=== PATIENT | male | born 1955 | race Caucasian/White ===

== ENCOUNTER 2023-07-04 23:50 | Inpatient (IN) | payer OTHER, MEDICAID, SELFPAY ==
[2023-07-04 20:56] VITALS: BP 92/66
[2023-07-04 21:20] VITALS: BMI 34.1
[2023-07-04 21:32] LABS: Glucose - Point of Care 156 mg/dl (70-99)
--- NOTE | 2023-07-04 21:54 | ED.GENMED ---
History of Present Illness
General
Chief Complaint: Weakness
Source: patient and spouse
Time Seen by Provider: 07/04/23 21:40
Travel History
Have you had any contact with someone who has COVID-19?: No
Do you have any symptoms of coronavirus? Fever > 100 degrees, chills, cough, shortness of breath, sore throat, loss of taste or smell, muscle aches, or headache?: No
History of Present Illness
History of Present Illness:
68-year-old male presents emergency department due to bilateral leg pain, weakness and fall.
Past History
Past History
ED Past Medical History: CVA, HTN, Hypercholesterolemia, Psychiatric (Depression, ) and Other (Traumatic brain injury, impaired hearing, irritable bowel syndrome, Slight dementia)
ED Past Surgical History: Bowel resection (Due to bowel obstruction, Colostomy with reversal), Cardiac (Pacemaker) and Orthopedic (Right hand surgery)
Social History
Tobacco: Former smoker
Alcohol: None
Drug: None
Personal: Single
Living: with family (Resides with his sister)
Employment: Not employed
Family History
Family History: Other (Noncontributory)
Phy Exam
Physical Exam
Physical Exam:
Physical Exam
General: Chronic ill appearance, temperature 100.2
Neck: supple. no meningeal signs. normal posterior pharynx
Heart: s1/s2 tachycardia, no murmur. equal radial
pulses.
HEENT: Pupils equal round reactive to light, EOMI
Lungs: no acute respiratory distress. clear bilaterally
Abdomen: normal bowel sounds. not tender. no CVAT
Neuro: alert and oriented to person. no focal neurological deficits cranial nerves II through XII intact
Skin: no rash
Psychiatric: well kept. interactive and cooperative
Extremities: Bilateral lower leg edema. no calf tenderness. negative homans. good distal pulses
Course
Orders/Labs/Results
Orders:
Orders
07/04/23 21:16
Electrocardiogram (*1) Urgent
Reason for Study: Other
Other Reason for Exam: Possible Sepsis
Cardiac Monitoring- Treatment ONCE
EKG- Treatment ONCE
IV Insert/Care/Rem.- Treatment PRN
Straight cath- Treatment ONCE
O2 Therapy [RESP] Urgent
Titrate/Wean O2 to maintain O2 sat greater than (%): 93
Special Instructions: TO MAINTAIN CONTINUOUS O2 SATS > OR = 93%
Pulse Ox/cont/shift [RESP] Urgent
Quantity: 1
Special Instructions: CONTINUOUS
07/04/23 21:25
CR Chest Portable - 1 View Urgent
Comment:
Reason For Exam: sepsis
Reason Study Needs to be Portable: Patient Unstable
07/04/23 21:40
COVID-19 Antigen Urgent
Source: Nasal Swab
Complete Blood Count/With Diff Urgent
Lactic Acid Q4H
Comment: ON ICE, CANCEL 2ND ORDER IF FIRST LACTIC ACID LEVEL <2
Blood Culture Q30M
CASH Source: Blood/Venous
Specimen Description:
Comment: FROM 2 SEPARATE SITES
Influenza A+B Rapid Molecular Urgent
CASH Source: Nasal Swab
Specimen Description:
07/04/23 21:52
0.9% Sodium Chloride 1000 ml [Nss] 1,000 ml IV BOLUS
Acetaminophen [Tylenol] 650 mg PO NOW STA
07/04/23 21:53
Perip Venous LOWER Ext Bradford Urgent
Comment:
Reason For Exam: bilateral leg pain, swelling
07/04/23 22:18
Lidocaine 2% [Lidocaine Uro-Jet 2%] 1 syringe .ROUTE .STK-MED ONE
07/04/23 22:23
0.9% Sodium Chloride 1000 ml [Nss] 1,000 ml IV BOLUS
07/04/23 22:25
Cefepime HCl [Maxipime] 2,000 mg IV NOW STA
07/04/23 22:30
Urinalysis Reflex To Culture Urgent
Date Specimen was Collected: 07/04/23
Time Specimen was Collected: 21:16
Urine Microscopic Reflex Cult Urgent
Blood Culture Q30M
CASH Source: Blood/Venous
Specimen Description:
Comment: FROM 2 SEPARATE SITES
Urine Culture Urgent
CASH Source: U
Specimen Description:
Date Specimen was Collected: 07/04/23
Time Specimen was Collected: 21:16
07/04/23 22:43
Comprehensive Metabolic Panel Urgent
07/04/23 23:02
Vancomycin [Vancocin] 2,000 mg 0.9% Sodium Chloride 500 ml [Nss] 500 ml IV NOW
07/04/23 23:38
PTT Urgent
Prothrombin Time Urgent
07/04/23 23:39
Heparin 7,900 units IV NOW STA
Nursing to Place Non Medication Order As Directed
Physician Order: PTT 6 hours after initial start of Heparin infusion
07/04/23 23:45
Heparin 74909 Units/250 ml 25,000 units in 250 ml IV PER PROTOCOL
Weight to be used for heparin protocol in kilograms (kg):: 98.7
Protocol:: DVT/PE
PTT Goal Range to be used:: PTT 73 to 111 seconds
Order type:: Initial
INITIAL Infusion Dose (UNITS/KG/hr) & then follow protocol:: 18 units/kg/hr
Infusion Dose in UNITS/hr & then follow protocol (UNITS/hr):: 1,800
INFUSION RATE in mL/hr & then follow protocol (mL/hr):: 18
For DVT/PE algorithm, re-bolus for low PTT?: Yes
PTT less than or equal to 64 seconds:: Re-bolus 80 units/kg (max 10,000units). Increase by 400 units/hr
(+ 4mL/hr)
PTT 64.1 to 72.9 seconds:: Re-bolus 40 units/kg (max 5,000 units). Increase by 200 units/hr
(+ 2mL/hr)
PTT 73 to 111 seconds:: Target Range. No change in rate.
PTT 111.1 to 130.9 seconds:: Decrease rate by 200 units/hr (- 2 mL/hr)
PTT 131 to 199.9 seconds:: HOLD for 1 hr. Then decrease by 300 units/hr (- 3mL/hr)
PTT greater than or equal to 200 seconds:: HOLD for 2 hrs & Notify Provider. Then decrease by 400 units/hr
(- 4mL/hr)
Lab follow-up:: Each change, PTT q6h until 2 consecutive are therapeutic. Then
PTT daily.
07/05/23 01:30
Lactic Acid Q4H
Comment: ON ICE, CANCEL 2ND ORDER IF FIRST LACTIC ACID LEVEL <2
Abnormal Lab Results
07/04/23 07/04/23 07/04/23
21:31 21:40 22:30
WBC 17.7 H 10^3/uL
(4.8-10.8)
RDW 15.2 H %
(11.5-14.5)
MPV 11.1 H fL
(7.4-10.4)
Abs Immat Gran (auto) 0.1 H 10^3/uL
(0-0.05)
Absolute Neuts (auto) 15.9 H 10^3/uL
(1.4-6.5)
Absolute Lymphs (auto) 0.8 L 10^3/uL
(1.2-3.4)
Absolute Monos (auto) 0.8 H 10^3/uL
(0.1-0.6)
Immature Gran % 0.6 H %
(0-0.5)
Neutrophils % 89.8 H %
(42.2-75.2)
Lymphocytes % 4.2 L %
(20.5-51.1)
Sodium
BUN
Creatinine
Glucose
Lactic Acid 3.3 H mmol/L
(0.7-2.0)
Total Bilirubin
AST
ALT
Urine Ketones Trace A
(Negative)
Urine Bilirubin 1+ A
(Negative)
Leukocyte Esterase Rfl Trace A
(Negative)
Urine Bacteria (Reflex) Moderate A
(Negative)
POC Glucose 156 H mg/dl
(70-99)
07/04/23
22:43
WBC
RDW
MPV
Abs Immat Gran (auto)
Absolute Neuts (auto)
Absolute Lymphs (auto)
Absolute Monos (auto)
Immature Gran %
Neutrophils %
Lymphocytes %
Sodium 134 L mmol/L
(135-145)
BUN 28 H mg/dl
(9-20)
Creatinine 1.9 H mg/dL
(0.7-1.3)
Glucose 123 H mg/dl
(70-99)
Lactic Acid
Total Bilirubin 1.7 H mg/dl
(0.2-1.3)
AST 74 H U/L
(17-59)
ALT 76 H U/L
(0-50)
Urine Ketones
Urine Bilirubin
Leukocyte Esterase Rfl
Urine Bacteria (Reflex)
POC Glucose
07/04/23 21:40
07/04/23 22:43
Vital Signs
Initial and Last Documented VS:
Initial Vital Signs
Pulse Resp BP Pulse Ox
131 24 92/66 93
07/04/23 20:56 07/04/23 20:56 07/04/23 20:56 07/04/23 20:56
Last Documented Vital Signs
Temp Pulse Resp BP Pulse Ox
98.2 F 90 20 101/71 97
07/05/23 02:38 07/05/23 02:38 07/05/23 02:38 07/05/23 02:38 07/05/23 02:38
MDM/Problems Addressed
Differential Diagnosis Includes:
DVT, sepsis
MDM/Problems Addressed:
68-year-old male with sepsis, bilateral DVT. Heparin and broad-spectrum antibiotics given.
Chronic conditions affecting care: Other (Prior DVT)
Acute Exacerbation and/or Progression of Chronic Illness: Other (Prior DVT)
*Radiology
Radiology exam reviewed: radiology read reviewed (Ultrasound shows bilateral DVT, CT chest abdomen pelvis showed no acute findings, but bilateral DVTs)
*Pulse Oximetry
Patient hypoxic: no
*EKG
Interpreted by ED Provider?: Yes
EKG Intrepretation Date: 07/05/23
EKG Intrepretation Time: 21:23
Interpretation: abnormal
Comparison EKG: no changes
Heart Rate: 106
Rate: tachycardiac
Rhythm: sinus tachycardia
[place]: normal axis
Interval: normal interval
QRS Pattern: normal QRS
Ischemia: no ischemia
*Cage Tender Interpretation
Rate: tachycardiac
Interpretation: abnormal
Heart Rate: 100
*Critical Care Note
Total Time (30-74mins, 75-104mins- exclusive of procedures): 30
comment:
Critical care statement: A total of 30 minutes of critical care time was provided for this patient. This includes management of unstable vital signs, evaluation of the patient at bedside, reviewing the patient's pertinent medical records, discussion
with consultants, review of old EKGs and review of pertinent medical records. This time with separate from time utilized to perform the aforementioned documented procedures
Patient Management
Social determinants of health affecting care: Living situation and Strong social support
Discussion with other providers: Hospitalist
Escalation/DeEscalation of care consider admission/obs:
Admit indicated
ED Attending Note
-
Portions of this chart may have been created with voice recognition software.� Occasional wrong word or��sound alike� substitutions may have occurred due to the inherent limitations of voice recognition software.
Discharge Plan
Departure
Patient Disposition: Admit
Date of Disposition: 07/04/23
Time of Disposition: 23:28
Admit to: ICU
Presentation/result/management discussed w/ accepting MD/DO: Hospitalist
Patient with high blood pressure during this ER visit?: No
Condition: Serious
Discharge Problem:
Sepsis, Acute renal failure, DVT (deep venous thrombosis)
Interventions
Interventions:
*Risk Screen - Suicide Last Done: 07/04/23 20:56
*General Assessment Last Done: 07/04/23 20:56
*Neglect/Abuse Screening Last Done: 07/04/23 20:56
ED- Fall Risk Assessment Last Done: 07/04/23 20:56
*ED COVID-19 Vaccine History Last Done: 07/04/23 20:56
ED- Cardiac Assessment Last Done: 07/04/23 21:22
ED- Neurological Assessment Last Done: 07/04/23 21:22
ED- Pulmonary Assessment Last Done: 07/04/23 21:22
[2023-07-04 21:56] LABS: % Basophils 0.3 % (0-2); % Eosinophils 0.5 % (0-6); % Immature Granulocytes 0.6 % (0-0.5); % Lymphocytes 4.2 % (20.5-51.1); % Monocytes 4.6 % (1.7-9.3); % Neutrophils 89.8 % (42.2-75.2); Absolute Basophils 0.1 10^3/uL (0-0.2); Absolute Eosinophils 0.1 10^3/uL (0-0.7); Absolute Immature Granulocytes 0.1 10^3/uL (0-0.05); Absolute Lymphocytes 0.8 10^3/uL (1.2-3.4); Absolute Monocytes 0.8 10^3/uL (0.1-0.6); Absolute Neutrophils 15.9 10^3/uL (1.4-6.5); Hematocrit 43.5 % (39.0-52.0); Hemoglobin 14.7 g/dL (13.0-18.0); Mean Corp Hgb Conc. 33.8 g/dL (33.0-37.0); Mean Corpuscular Hgb 29.3 pg (27.0-31.0); Mean Corpuscular Volume 86.8 fL (80.0-94.0); Mean Platelet Volume 11.1 fL (7.4-10.4); Nucleated Red Blood Cells % 0 % (-); Platelet Count 222 10^3/uL (130-400); Red Blood Cell Count 5.01 10^6/uL (4.70-6.10); Red Cell Dist. Width 15.2 % (11.5-14.5); White Blood Cell Count 17.7 10^3/uL (4.8-10.8)
[2023-07-04 22:08] LABS: Lactic Acid 3.3 mmol/L (0.7-2.0)
[2023-07-04 22:16] LABS: COVID-19 Antigen Negative (Negative)
[2023-07-04 22:38] LABS: Urine Albumin Trace (Neg - Trace); Urine Bilirubin 1+ (Negative); Urine Character Clear (Clear); Urine Color Yellow; Urine Glucose Negative (Negative); Urine Ketone Trace (Negative); Urine Leukocyte Trace (Negative); Urine Nitrite Negative (Negative); Urine Occult Blood Negative (Negative); Urine Specific Gravity 1.025 (<1.030); Urine Urobilinogen Negative (Neg - 1+)
[2023-07-04 22:47] LABS: Urine Squamous Cell 0-2 /LPF (Few)
[2023-07-04 22:48] LABS: Urine Bacteria Moderate (Negative); Urine Red Blood Cell 0-2 /HPF (0-2); Urine White Cell 0-2 /HPF (0-5)
[2023-07-04] MEDS: NSS 1000 IV (22:58)
[2023-07-04] MEDS: TYLENOL 650 MG PO (22:59)
[2023-07-04 23:18] LABS: ALT (SGPT) 76 U/L (0-50); AST (SGOT) 74 U/L (17-59); Albumin 4.2 g/dl (3.5-5.0); Alkaline Phosphatase 107 U/L (38-126); Blood Urea Nitrogen 28 mg/dl (9-20); Calcium 9.1 mg/dl (8.4-10.2); Carbon Dioxide 22 mmol/L (22-30); Chloride 103 mmol/L (98-107); Estimated Creatinine Clearance 42 ml/min; Glucose 123 mg/dl (70-99); Sodium 134 mmol/L (135-145); Total Bilirubin 1.7 mg/dl (0.2-1.3); Total Protein 7.2 g/dl (6.3-8.2); eGFR 37.95
[2023-07-05] VITALS (20 sets, daily range): BP systolic 87–125; BP diastolic 61–85; BMI 35.3
--- NOTE | 2023-07-05 00:14 | HPS.HSE ---
Family Physician
-
Family Physician: NOT KNOW UNKNOWN - PT DOES
Chief Complaint
-
leg pain
History of Present Illness
68-year-old male past medical history of traumatic brain injury, TIA, bowel obstruction status post resection, hypertension, pacemaker, hyperlipidemia, depression, presenting for increased bilateral lower extremity edema over the past week. Patient
was also complaining of pain in his legs. He has been weak and more confused over the past few days. He has also been having some cough over the past few days. He did have some dry heaving today but no vomiting. He was complaining of abdominal
pain. No diarrhea or constipation.
He also complains of pain all over his body including his neck and back. No headache at this time.
Medical History
Past Medical History
Past Medical History: Reports Other (traumatic brain injury, TIA, bowel obstruction status post resection, hypertension, pacemaker, hyperlipidemia, depression,)
Past Surgical History: Reports Other ( Bowel resection (Due to bowel obstruction, Colostomy with reversal), Cardiac (Pacemaker) and Orthopedic (Right hand surgery))
Social History
Tobacco: Non-smoker
Alcohol: None
Drug: None
Family History
Family History: Not pertinent
Allergies / Home Medications
Allergies reflects when Allergies were last updated in [employer].
Home Medications with original date entered in [employer]
Allergy/Medication List:
Allergies
Allergy/AdvReac Type Severity Reaction Status Date / Time
No Known Allergies Allergy Verified 07/04/23 20:54
Home Medications
metoprolol tartrate 50 mg tablet 25 mg PO BID Blood pressure 09/24/19
trazodone 100 mg tablet 150 mg PO HS Sleep 09/24/19
aspirin 81 mg tablet,delayed release 81 mg PO DAILY #90 tabs 09/26/19
dicyclomine 20 mg tablet 20 mg PO TID Gastrointestinal issue 03/08/22
aripiprazole 10 mg tablet 10 mg PO DAILY 07/04/23
aripiprazole 5 mg tablet 5 mg PO DAILY 07/04/23
diazepam 10 mg tablet 10 mg PO QID 07/04/23
diazepam 2 mg tablet 2 mg PO QID 07/04/23
donepezil 10 mg tablet 10 mg PO HS 07/04/23
fluoxetine 60 mg tablet 60 mg PO DAILY 07/04/23
fluticasone propionate 50 mcg/actuation nasal spray,suspension 1 spray intranasal DAILY 07/04/23
gabapentin 100 mg capsule 100 mg PO BID 07/04/23
loperamide 2 mg capsule 2 mg PO DAILY 07/04/23
naphazoline 0.012 %-glycerin 0.2 % eye drops (Redness Relief) 1 drp BOTH EYES DAILY 07/04/23
omeprazole 40 mg capsule,delayed release 40 mg PO DAILY 07/04/23
pravastatin 80 mg tablet 80 mg PO DAILY 07/04/23
Review of Systems
-
History Source: Patient
A 12 point ROS was completed and negative except as noted: Yes
Constitutional: Reports No Symptoms
EENT: Reports No Symptoms
Respiratory: Reports See HPI
Cardiac: Reports No Symptoms
Abdomen/GI: Reports No Symptoms
: Reports No Symptoms
Musculoskeletal: Reports See HPI
Skin: Reports No Symptoms
Neurological: Reports See HPI
Endocrine: Reports No Symptoms
Hematologic/Lymphatic: Reports No Symptoms
Psych: Reports No Symptoms
Physical Exam
Vital Signs
Vital Signs
Temp Pulse Resp BP Pulse Ox
100.1 F 109 20 92/66 95
07/04/23 21:09 07/04/23 22:39 07/04/23 22:39 07/04/23 20:56 07/04/23 22:39
Physical Exam
General: Well Developed, Well Nourished and No Apparent Distress
HEENT: NormoCephalic, Moist mucous membranes and Atraumatic
Respiratory: Clear
Cardiac: S1/S2 and Regular Rhythm; No Murmur or Rub
GI: Soft, Non Tender, Non Distended and Normal Bowel Sounds; No Organomegaly
Rectal: Deferred by Provider
Musculoskeletal: No Clubbing, No Cyanosis and No Edema
Skin: No Rash
Neuro: Nonfocal/grossly intact
Laboratory Results
-
07/04/23 21:40
07/04/23 22:43
Laboratory Results
Lactic Acid 3.3 mmol/L (0.7-2.0) H 07/04/23 21:40
Total Bilirubin 1.7 mg/dl (0.2-1.3) H 07/04/23 22:43
AST 74 U/L (17-59) H 07/04/23 22:43
ALT 76 U/L (0-50) H 07/04/23 22:43
Alkaline Phosphatase 107 U/L (38-126) 07/04/23 22:43
Data Reviewed
-
Lab Data: Labs Reviewed by me
Old Records: Reviewed
Impression/Plan
-
IMPRESSION:
PLAN:
# Sepsis (fever, tachycardia, tachypnea, leukocytosis) suspect intra-abdominal pathology vs meningitis
-Patient with some URI symptoms and placed on oxygen however chest x-ray unremarkable
-Urinalysis unremarkable
-Check blood cultures
-Check CT chest abdomen pelvis without contrast given abdominal tenderness and transaminitis
-Patient complains of pain all over his body including neck but is alert on examination,
-May need to consider lumbar puncture to evaluate for bacterial meningitis if CAT scan negative
-IV fluids
-Empiric Vancomycin/cefepime/ampicllin/flagyl to cover intra-abdominal pathology and meningitis which can be de-escalated if another source of infection can be found
-Hold sedating medications such as gabapentin to avoid suppressing mental status
# Bilateral lower extremity DVTs
-As per venous ultrasound
-Heparin drip
# Acute kidney injury prerenal due to sepsis
-Monitor with IV fluids
# Transaminitis
-Unclear etiology
-Check CT scan
History of traumatic brain injury/dementia
-Continue donepezil
History of TIA
-Continue aspirin
History of bowel obstruction status post resection
Essential hypertension
-Hold metoprolol
Bradycardia status post pacemaker
Hyperlipidemia
-Continue statin
Depression
-Continue aripiprazole, fluoxetine,
-Hold diazepam, trazodone
GERD
-Continue omeprazole
Full code
DVT prophylaxis�heparin drip
Regular diet
[2023-07-05] MEDS: MAXIPIME 2000 MG IV (00:18)
[2023-07-05 00:26] LABS: INR 1.11; PT 14.1 Sec (11.4-14.6)
[2023-07-05 00:27] LABS: APTT 30.7 Sec (23.4-35.0)
[2023-07-05] MEDS: NSS 1000 IV ×3 (00:49→15:54)
[2023-07-05] MEDS: VANCOCIN 540 MG IV (00:52)
[2023-07-05] MEDS: HEPARIN 7900 UNITS IV (01:25)
[2023-07-05] MEDS: HEPARIN 25000 UNITS/250 ML IV ×2 (01:26→19:39)
[2023-07-05] MEDS: AMPICILLIN 108 MG IV ×2 (03:43→08:23)
--- NOTE | 2023-07-05 04:47 | PTCARENOTE ---
Pt admit from ED via stretcher. Assisted into bed and made comfortable. Heparin gtt infusing as ordered. Assessment as charted. Discussed with house EXPLOSIVE MAN lab orders due to pt being extremely difficult stick. Lactic can be drawn at 0725 with other
morning labs and PTT.
[2023-07-05] MEDS: ROCEPHIN 2000 MG IV (05:07)
[2023-07-05] MEDS: FLAGYL 500 MG 100 IV (05:07)
[2023-07-05] MEDS: STERILE WATER FOR INJECTION 20 ML IV (05:07)
[2023-07-05] MEDS: BENTYL 20 MG PO ×3 (08:23→22:58)
[2023-07-05] MEDS: PROTONIX 40 MG PO (08:23)
[2023-07-05] MEDS: ABILIFY 5 MG PO (08:23)
[2023-07-05] MEDS: IMODIUM 2 MG PO (08:23)
[2023-07-05] MEDS: ASPIR LOW (ENTERIC COATED) 81 MG PO (08:23)
[2023-07-05] MEDS: PRAVACHOL 80 MG PO (08:23)
[2023-07-05] MEDS: PROZAC 60 MG PO (08:24)
[2023-07-05] MEDS: ABILIFY 10 MG PO (08:24)
[2023-07-05 08:37] LABS: % Basophils 0.4 % (0-2); % Eosinophils 1.1 % (0-6); % Immature Granulocytes 0.4 % (0-0.5); % Lymphocytes 9.7 % (20.5-51.1); % Monocytes 5.8 % (1.7-9.3); % Neutrophils 82.6 % (42.2-75.2); Absolute Eosinophils 0.1 10^3/uL (0-0.7); Absolute Monocytes 0.6 10^3/uL (0.1-0.6); Absolute Neutrophils 8.2 10^3/uL (1.4-6.5); Hematocrit 37.6 % (39.0-52.0); Hemoglobin 12.9 g/dL (13.0-18.0); Mean Corp Hgb Conc. 34.3 g/dL (33.0-37.0); Mean Corpuscular Hgb 30.1 pg (27.0-31.0); Mean Corpuscular Volume 87.6 fL (80.0-94.0); Mean Platelet Volume 11.3 fL (7.4-10.4); Nucleated Red Blood Cells % 0 % (-); Platelet Count 143 10^3/uL (130-400); Red Blood Cell Count 4.29 10^6/uL (4.70-6.10); Red Cell Dist. Width 15.2 % (11.5-14.5); White Blood Cell Count 9.9 10^3/uL (4.8-10.8)
--- NOTE | 2023-07-05 08:49 | PHA.VAN.IN ---
Assessment
- Assessment
Renal Function: Appears elevated from baseline
Renal Function may be Overestimated due to: BMI>30
Concomitant Antimicrobials: AMPICILLIN, CEFTRIAXONE, METRONIDAZOLE
Plan
- Plan
Initial / Loading Dose: 2000mg 07/05
Maintenance Regimen: prn by level
Monitoring: random 07/06 in AM
Pharmacokinetics Vancomycin I
- -
Patient Age: 68
Patient Sex: Male
Vancomycin Day #: 1
Indication: [employer] Service Manager Infection
Requesting Provider: [place]o
Pertinent Antimicrobial Allergies:
NKDA
Height / Weight:
Height 5 ft 7 in
Actual Weight 102.1 kg
IBW in k.1
- Vital Signs / Lab Results
Temp Pulse Resp BP Pulse Ox
97.9 F 66 10 87/61 95
07/05/23 04:33 07/05/23 06:00 07/05/23 06:00 07/05/23 06:00 07/05/23 06:00
Lab Results - Hematology
07/04/23 07/05/23
21:40 08:29
WBC 17.7 H 9.9
Lab Results - Chemistry
07/04/23 07/04/23
21:40 22:43
BUN Cancelled 28 H
Creatinine Cancelled 1.9 H
Estimated Creat Clear Cancelled 42
Albumin Cancelled 4.2
07/04/23
21:40
Lactic Acid 3.3 H
Lab Results - Urine
07/04/23
22:30
Urine Nitrite (Reflex) Negative
Leukocyte Esterase Rfl Trace A
Urine WBC (Reflex) 0-2
Ur Squamous Epith Cells 0-2
Urine Bacteria (Reflex) Moderate A
Microbiology Results
07/04/23 21:40 Influenza Types A & B (AROLDO) - Final
Nasal Swab Negative for Influenza A & B, NAAT
Negative results must be combined with clinical observations
and patient history.
Nucleic Acid Amplification test (NAAT)performed on the
[employer] platform.
[2023-07-05 08:54] LABS: Lactic Acid 1.3 mmol/L (0.7-2.0)
[2023-07-05 09:21] LABS: APTT > 200 Sec (23.4-35.0)
[2023-07-05 10:33] LABS: APTT > 200 Sec (23.4-35.0)
[2023-07-05 10:44] LABS: ALT (SGPT) 65 U/L (0-50); AST (SGOT) 63 U/L (17-59); Albumin 3.5 g/dl (3.5-5.0); Alkaline Phosphatase 99 U/L (38-126); Blood Urea Nitrogen 22 mg/dl (9-20); Calcium 8.1 mg/dl (8.4-10.2); Carbon Dioxide 22 mmol/L (22-30); Chloride 108 mmol/L (98-107); Estimated Creatinine Clearance 62 ml/min; Glucose 99 mg/dl (70-99); Potassium 4.5 mmol/L (3.5-5.1); Sodium 137 mmol/L (135-145); Total Bilirubin 1.1 mg/dl (0.2-1.3); Total Protein 6.3 g/dl (6.3-8.2); eGFR 59.84
--- NOTE | 2023-07-05 13:01 | PTCARENOTE ---
Assumed care of pt this morning. Hx of TBI and he is alert and oriented to place but needs continued reassurance and reminders to plan of care. Hi NSR on monitor with a run of A flutter, pt asymptomatic and this is reported to MD. Pt on 4 L NC
lungs diminished throughout. Obese abdomen with scars, in crease of abdomen there appears to be a black stitch of some sort. Bowel tones present x 4. No BM today. Awaiting results of ABD CT from midnight. Call to CT department in order to facilitate
results. Pt unable to explain this, will have physician assess on rounds. Many complaints of need to void but unable to do so. Bladder scan > 425 ml and straight cath completed without event. obtained 500ml orange tinged urine with odor. Pt reports
feeling relief after st. cath. Pt continually calling out for staff, using call light but almost continuously.
--- NOTE | 2023-07-05 13:27 | PTCARENOTE ---
Dr. Cruz at bedside and he removed the stitch at bedside without event. Site covered with 2x2 gauze
--- NOTE | 2023-07-05 13:48 | W.PN.HOSP.TC ---
Today's Communication/Plan
-
Continue broad-spectrum antibiotics. Follow culture data.
Consult vascular.
Consult ID.
Assessment / Plan
Assessment / Plan
# Bilateral lower extremity DVTs
-Patient with a history of TBI and poor historian secondary to that. His cognitive impairments from it.
-His main presenting complaint was bilateral lower extremity pain. Ultrasound shows extensive DVT on the right and also DVT on the left.
-cw Heparin drip. Follow HH
# IVC filter associated extensive thrombosis with the concern of acute septic thrombophlebitis-continue with IV heparin as above. Consult vascular.
# Sepsis (fever, tachycardia, tachypnea, leukocytosis)-based on the available data suspect secondary to septic thrombophlebitis. Patient on broad-spectrum antibiotics including vancomycin and now Zosyn. Blood cultures pending. Consult ID.
# Acute kidney injury prerenal due to sepsis
- Improved Cr
-Monitor with IV fluids
# Transaminitis
-Unclear etiology
-suspect reactive
- Follow for now
History of traumatic brain injury/dementia
-Continue donepezil
History of TIA
-Continue aspirin
History of bowel obstruction status post resection
Essential hypertension
-Hold metoprolol
Bradycardia status post pacemaker
Hyperlipidemia
-Continue statin
Depression
-Continue aripiprazole, fluoxetine,
-Hold diazepam, trazodone
GERD
-Continue omeprazole
Full code
DVT prophylaxis�heparin drip
Regular diet
DW Vascular and ID
DW RN
Anticipated Discharge: > 48 hours
Subjective/Interval History
-
Date of Service: July 05, 2023
Awake and alert but not oriented.
'I have brain damage ' ' I cant remember things'
Objective Data
-
Labs:
Laboratory Results
07/05/23 07/05/23 07/05/23
08:29 09:54 16:00
WBC 9.9
Hgb 12.9 L
Hct 37.6 L
Plt Count 143 D
APTT > 200 H* > 200 H* Pending
Sodium Cancelled 137
Potassium Cancelled 4.5
Chloride Cancelled 108 H
Carbon Dioxide Cancelled 22
BUN Cancelled 22 H
Creatinine Cancelled 1.3
Glucose Cancelled 99
Calcium Cancelled 8.1 L
Total Bilirubin Cancelled 1.1
AST Cancelled 63 H
ALT Cancelled 65 H
Alkaline Phosphatase Cancelled 99
Vital Signs:
Vital Signs
Temp Pulse Resp BP Pulse Ox
98.3 F 66 10 87/61 95
07/05/23 11:45 07/05/23 06:00 07/05/23 06:00 07/05/23 06:00 07/05/23 06:00
I&O
07/04/23 07/05/23 07/06/23
06:59 06:59 06:59
Intake Total 2250 / 2250
Output Total 350 / 350
Balance 1900 / 1900
Review of Systems
-
Constitutional: Denies Fever
EENT: Denies Sore Throat
Respiratory: Denies Cough or Trouble Breathing
Cardiac: Denies Chest Pain
Abdomen/GI: Denies Abdominal Pain, Nausea or Vomiting
Musculoskeletal: Reports Edema (both legs)
Neuro: Denies Dizzy
Physical Exam
-
General: No Apparent Distress
HEENT: Moist Mucous Membranes
Respiratory: Clear to Auscultation (anteriorly)
Cardiac: Regular Rhythm and S1/S2
GI: Soft, Nontender, Nondistended, Normal Bowel Sounds and Other (a left out wire stictch in right abdominal fold from old surgery noted - removed it without bleeding )
Neuro: Awake, Alert and Oriented (self and person only)
Psych: Calm and Confused; Negative Agitated
Data Reviewed
-
CT Scan: Report Reviewed by me (pending)
Labs: Labs Reviewed by me
--- NOTE | 2023-07-05 14:20 | W.PN.VS ---
Today's Communication / Plan
-
heparin gtt
IVF
wrap leg to help with edema
follow WBC and Cr
follow urine output
repeat blood cultures
Assessment/Plan
-
CT scan reviewed. There is distention of the IVC and iliac veins consistent with DVT. There is some slight inflammation around the veins. No air in the aragon of the veins. WBC was elevated yesterday but improved today.
Given the overal picture and the improvement in the labs over the last 24 hours, I think there may be limited benefit to an attempt at venous thrombectomy and lysis. I reccomend continuing heparin gtt, and agressive IVF resuscitation. Agree with
continuing labs and waiting to see if cultures return positive. I am not clear that there are definitive signs of septic thrombophlembitis of the IVC and iliac veins especially given the clinical picture.
If he does not continue to improve then we can consider intervention BUT that will have some real risks associated with lysis and mechanical thrombectomy.
Discussed with hospitalist.
Subjective Data
-
Date of Service: July 05, [address] scan for DVT
Patient has IVC filter in place
Duplex yesterday showed bilateral DVT
non contrast CT scan today shows bilateral DVT involving iliac and IVC
WBC was elevated yesterday as was cr but wbc normal today and creatinine improved.
Objective Data
-
Vital Signs
Temp Pulse Resp BP Pulse Ox
98.3 F 66 10 87/61 95
07/05/23 11:45 07/05/23 06:00 07/05/23 06:00 07/05/23 06:00 07/05/23 06:00
Intake and Output
07/04/23 07/05/23 07/06/23
06:59 06:59 06:59
Intake Total 2250 / 2250
Output Total 350 / 350
Balance 1900 / 1900
Intake:
IV fluids (Total) 1999
NSS 1999
IV piggybacks 250 / 250
NSS 250 / 250
Output:
Urine, Voided 350 / 350
Other:
How many times incontinent 1
SATURATED amount urine
Lab Results
07/05/23 08:29
07/05/23 09:54
Calcium 8.1 mg/dl (8.4-10.2) L 07/05/23 09:54
Total Bilirubin 1.1 mg/dl (0.2-1.3) 07/05/23 09:54
AST 63 U/L (17-59) H 07/05/23 09:54
ALT 65 U/L (0-50) H 07/05/23 09:54
Alkaline Phosphatase 99 U/L (38-126) 07/05/23 09:54
Total Protein 6.3 g/dl (6.3-8.2) 07/05/23 09:54
Albumin 3.5 g/dl (3.5-5.0) 07/05/23 09:54
--- NOTE | 2023-07-05 15:00 | CON.VAS ---
Consultation
Consultation Request
Date/Time Consultation Performed: 07/05/23 1420
Requesting Provider: Hospitalist
Performing Provider: True Infante MD transcribed REGINE Wolfe
Reason for Consultation: Bilateral lower extremity edema
Medical History
-
Chief Complaint: Bilateral lower extremity edema
History of Present Illness:
Asked to eval CT scan for DVT
Patient has IVC filter in place
Duplex yesterday showed bilateral DVT
non contrast CT scan today shows bilateral DVT involving iliac and IVC
WBC was elevated yesterday as was cr but wbc normal today and creatinine improved.
Past Medical History
Past Medical History: CVA (2016), HTN and Other (Traumatic brain injury, hyperlipidemia, hard of hearing, TIA (2019), IBS, dementia with agitation, CKD stage IIIa)
Past Surgical History: Bowel Resection (Bowel resection following SBO with colostomy and MRSA sepsis (2004)) and Cardiac (Pacemaker)
Social History
Tobacco: Former Smoker
Alcohol: None
Drug: None
Personal: Single
Living: With Family (Sisters caregiver)
Allergies / Home Medications
Allergy/AdvReac Type Severity Reaction Status Date / Time
No Known Allergies Allergy Verified 07/04/23 20:54
Medication Instructions Recorded Confirmed Type
metoprolol tartrate 50 mg tablet 25 mg PO BID Blood pressure 09/24/19 07/04/23 History
trazodone 100 mg tablet 150 mg PO HS Sleep 09/24/19 07/04/23 History
aspirin 81 mg tablet,delayed 81 mg PO DAILY #90 tabs 09/26/19 07/04/23 Rx
release
dicyclomine 20 mg tablet 20 mg PO TID Gastrointestinal issue 03/08/22 07/04/23 History
aripiprazole 10 mg tablet 10 mg PO DAILY Mental 07/04/23 07/04/23 History
Health/Anxiety
aripiprazole 5 mg tablet 5 mg PO DAILY Mental Health/Anxiety 07/04/23 07/04/23 History
diazepam 10 mg tablet 10 mg PO QID Mental Health/Anxiety 07/04/23 07/04/23 History
diazepam 2 mg tablet 2 mg PO QID Mental Health/Anxiety 07/04/23 07/04/23 History
donepezil 10 mg tablet 10 mg PO HS Mental Health/Anxiety 07/04/23 07/04/23 History
fluoxetine 60 mg tablet 60 mg PO DAILY Mental 07/04/23 07/04/23 History
Health/Anxiety
fluticasone propionate 50 1 spray intranasal DAILY Congestion 07/04/23 07/04/23 History
mcg/actuation nasal
spray,suspension
gabapentin 100 mg capsule 100 mg PO BID Pain 07/04/23 07/04/23 History
loperamide 2 mg capsule 2 mg PO DAILY DIARRHEA 07/04/23 07/04/23 History
naphazoline 0.012 %-glycerin 0.2 % 1 drp BOTH EYES DAILY EYES 07/04/23 07/04/23 History
eye drops (Redness Relief)
omeprazole 40 mg capsule,delayed 40 mg PO DAILY GERD 07/04/23 07/04/23 History
release
pravastatin 80 mg tablet 80 mg PO DAILY High Cholesterol 07/04/23 07/04/23 History
Review of Systems
-
Unable to obtain full review of systems at this time due to: Dementia (Patient with baseline dementia and TBI)
Physical Exam
Vital Signs
Temp Pulse Resp BP Pulse Ox
97.6 F 78 10 111/99 94
07/07/23 03:00 07/07/23 06:07 07/07/23 06:07 07/07/23 06:07 07/07/23 06:07
Lab Results
07/07/23 05:59
07/07/23 05:59
Physical Exam
General: No Apparent Distress
Respiratory: Other (ctab)
Cardiac: Regular Rhythm
Musculoskeletal: Edema (slight edema to legs bilaterally 2+, calf soft) and Other (motor and sensory intact)
Skin: Other (feet warm, no wounds)
Assessment / Plan
-
CT scan reviewed.� There is distention of the IVC and iliac veins consistent with DVT.� There is some slight inflammation around the veins.� No air in the aragon of the veins.� WBC was elevated yesterday but improved today.�
Given the overal picture and the improvement in the labs over the last 24 hours, I think there may be limited benefit to an attempt at venous thrombectomy and lysis.� I reccomend continuing heparin gtt, and agressive IVF resuscitation.� Agree with
continuing labs and waiting to see if cultures return positive.� I am not clear that there are definitive signs of septic thrombophlembitis of the IVC and iliac veins especially given the clinical picture.�
If he does not continue to improve then we can consider intervention BUT that will have some real risks associated with lysis and mechanical thrombectomy.
Discussed with hospitalist.
[2023-07-05] MEDS: ZOSYN 50 IV ×2 (15:45→22:58)
[2023-07-05] MEDS: VALIUM 2 MG PO ×2 (17:00→22:58)
[2023-07-05] MEDS: AMPICILLIN IV (17:11)
[2023-07-05] MEDS: FLAGYL 500 MG IV (17:11)
[2023-07-05 18:00] LABS: APTT 83.1 Sec (23.4-35.0)
[2023-07-05] MEDS: NEURONTIN 100 MG PO (19:47)
[2023-07-05] MEDS: TYLENOL 650 MG PO (19:47)
--- NOTE | 2023-07-05 20:00 | PTCARENOTE ---
Pt received resting in bed. Pt c/o 5/10 b/l Leg pain. Neurontin and Tylenol given w/ relief. AAOx1 (knew he was in the hospital). Lungs clear decreased on 2L o2. Pt w. no urine output since RN khadar cath'd him at 1300. Bladder scan = 288. Pt
attempted to urinate w/ no success. + 1 b/l LE edema. + palp weak pedal pulses. Hep gtt and NSS infusing.
[2023-07-05] MEDS: ARICEPT 10 MG PO (23:03)
[2023-07-06] VITALS (15 sets, daily range): BP systolic 83–126; BP diastolic 55–101; BMI 35.7
[2023-07-06 00:19] LABS: APTT 68.6 Sec (23.4-35.0)
[2023-07-06] MEDS: HEPARIN 3900 UNITS IV (00:35)
[2023-07-06] MEDS: ZOSYN 50 IV (05:19)
[2023-07-06] MEDS: NSS IV ×2 (05:20→21:46)
--- NOTE | 2023-07-06 05:25 | PTCARENOTE ---
Pt urinated 200 ml on own. Alina colored urine. PVR = 361. Pt making multiple attempts to urinate.
--- NOTE | 2023-07-06 08:03 | W.PN.VS ---
Today's Communication / Plan
-
hep gtt
wrap legs if edema worsens
call with questions
Assessment/Plan
-
Bilat lower extremity DVT
- on hep gtt
- on antbx (cultures still negative)
- urinie output improving
- follow labs
- wrap legs with jack to help control any additional edema
- no role for intervention at this point
- call with any questions
Subjective Data
-
Date of Service: July 06, 2023
Patient doing well today
Denies any pain in legs bilaterally
Objective Data
-
Vital Signs
Temp Pulse Resp BP Pulse Ox
98.2 F 85 12 121/82 98
07/06/23 07:01 07/06/23 06:00 07/06/23 06:00 07/06/23 06:00 07/06/23 06:00
Intake and Output
07/05/23 07/06/23 07/07/23
06:59 06:59 06:59
Intake Total 2250 / 2250 2040 / 2040
Output Total 350 / 350 1200 / 1200
Balance 1900 / 1900 840 / 840
Intake:
Oral fluids 490 / 490
IV fluids (Total) 1999 / 1999 1400 / 1400
NSS 2000 / 1999
IV piggybacks 250 / 250 150 / 150
NSS 250 / 250
Output:
Urine, Maravilla 500 / 500
Urine, Voided 350 / 350 200 / 200
Straight cath output 500 / 500
Other:
How many times incontinent 1
SATURATED amount urine
Calcium 8.1 mg/dl (8.4-10.2) L 07/05/23 09:54
Total Bilirubin 1.1 mg/dl (0.2-1.3) 07/05/23 09:54
AST 63 U/L (17-59) H 07/05/23 09:54
ALT 65 U/L (0-50) H 07/05/23 09:54
Alkaline Phosphatase 99 U/L (38-126) 07/05/23 09:54
Total Protein 6.3 g/dl (6.3-8.2) 07/05/23 09:54
Albumin 3.5 g/dl (3.5-5.0) 07/05/23 09:54
Physical Exam
-
rrr
ctab
slight edema to legs bilaterally 2+
calf soft
motor and sensory intact
feet warm
no wounds
--- NOTE | 2023-07-06 08:04 | W.PN.HOSP.TC ---
Today's Communication/Plan
-
CW IV heparin
CW abx till ID review
OOB to chair
Assessment / Plan
Assessment / Plan
# Bilateral lower extremity DVTs
-Patient with a history of TBI and poor historian secondary to that. His cognitive impairments from it.
-His main presenting complaint was bilateral lower extremity pain. Ultrasound shows extensive DVT on the right and also DVT on the left.
-cw Heparin drip. Follow HH
# IVC filter associated extensive thrombosis -continue with IV heparin as above. Consult vascular.
# Suspected acute septic thrombophlebitis -based on initial CT A/P report -but with no air in the clot and negative blood cultures felt septic thrombophlebitis less likely. Addendum to CT abdomen pelvis as well noted.
# Sepsis (fever, tachycardia, tachypnea, leukocytosis)-suspected secondary to septic thrombophlebitis initially . But with neg blood culture and no air in the clot unclear if septic thrombophlebitis. UA is negative. Chest x-ray shows no acute
cardiopulmonary disease. Doubt if sepsis is related to infection. May be as well just related to extensive thrombosis. Currently on broad-spectrum antibiotics. Await ID input.
# Acute kidney injury prerenal due to sepsis
- Improved Cr
- Follow BMP
# Transaminitis
-Unclear etiology
-suspect reactive
- Follow for now
History of traumatic brain injury/dementia
-Continue donepezil
History of TIA
-Continue aspirin
History of bowel obstruction status post resection
Essential hypertension
-Hold metoprolol
Bradycardia status post pacemaker
Hyperlipidemia
-Continue statin
Depression
-Continue aripiprazole, fluoxetine,
-Hold diazepam, trazodone
GERD
-Continue omeprazole
Full code
DVT prophylaxis�heparin drip
Regular diet
DW RN
Dispo - IMU
OOB to chair ,hold on PT for another 24 hr
Anticipated Discharge: > 48 hours
Subjective/Interval History
-
Date of Service: July 06, 2023
Denies any shortness of breath or chest pain.
No nausea vomiting or abdominal pain.
He is diaphoretic but his room was very hot and apparently room temperature was at 80 degrees.
Denies any pain in the legs.
Objective Data
-
Labs:
Laboratory Results
07/05/23 07/06/23 07/06/23
23:58 06:00 06:30
WBC Pending
Hgb Pending
Hct Pending
Plt Count Pending
APTT 68.6 H Pending
Sodium Pending
Potassium Pending
Chloride Pending
Carbon Dioxide Pending
BUN Pending
Creatinine Pending
Glucose Pending
Calcium Pending
Total Bilirubin Pending
AST Pending
ALT Pending
Alkaline Phosphatase Pending
Vital Signs:
Vital Signs
Temp Pulse Resp BP Pulse Ox
98.2 F 85 12 121/82 98
07/06/23 07:01 07/06/23 06:00 07/06/23 06:00 07/06/23 06:00 07/06/23 06:00
I&O
07/05/23 07/06/23 07/07/23
06:59 06:59 06:59
Intake Total 2250 / 2250 2040 / 2040
Output Total 350 / 350 1200 / 1200
Balance 1900 / 1900 840 / 840
Review of Systems
-
Unable to obtain full review of systems at this time due to: Other (Cognitive impairment from prior TBI)
Physical Exam
-
General: No Apparent Distress
HEENT: Moist Mucous Membranes
Respiratory: Clear to Auscultation (anteriorly)
Cardiac: Regular Rhythm and S1/S2; Negative Tachycardic
GI: Soft and Nontender
Musculoskeletal: Edema, Right Lower Extrem and Edema, Left Lower Extrem
Neuro: Awake, Alert and Oriented (place and person)
Psych: Calm
Data Reviewed
-
CT Scan: Report Reviewed by me (addendum to CT A/P noted)
Labs: Labs Reviewed by me
[2023-07-06] MEDS: ABILIFY 5 MG PO (08:30)
[2023-07-06] MEDS: BENTYL 20 MG PO ×3 (08:31→21:42)
[2023-07-06] MEDS: NEURONTIN 100 MG PO ×2 (08:31→19:53)
[2023-07-06] MEDS: PROZAC 60 MG PO (08:31)
[2023-07-06] MEDS: PRAVACHOL 80 MG PO (08:31)
[2023-07-06] MEDS: ASPIR LOW (ENTERIC COATED) 81 MG PO (08:31)
[2023-07-06] MEDS: PROTONIX 40 MG PO (08:31)
[2023-07-06] MEDS: ABILIFY 10 MG PO (08:31)
[2023-07-06] MEDS: VALIUM 2 MG PO ×4 (08:32→21:42)
[2023-07-06] MEDS: IMODIUM 2 MG PO (08:32)
--- NOTE | 2023-07-06 08:39 | CON.ID ---
Consultation
-
Date/Time Consultation Requested: 07/05/23 14:06
Date/Time Consultation Performed: 07/06/23 8:42
Requesting Provider: Dr Cruz
Performing Provider: Dr leary
Reason for Consultation: Septic thrombophlebitis
Chief Complaint / Past History
Chief Complaint
leg pain
History of Present Illness
Mr Esteban is a 68 year old male with history of TBI who presented here for increased bilateral lower extremity edema, pain, weakness and confusion. Also some cough and dry heaving without vomiting. +abdominal pain no diarrhea or constipation.
Reports no history of fevers or chills at home. No history of bacteremia
Since arrival here no fevers, BP intermittent mild hypotension, wbc initially 17.7 improved over 8 hrs to 9.9, hgb 12.9, plt 143, L shift on arrival improved to 82.6 yesterday, cr 1.9 on arrival now 1.3, UA negative, on heparin drip and seen by
vascular surgery, covid ag neg, CT c/a/p: extensive thrombosis likely bland on addendum, venous US: extensive DVT, CXR: clear lung flores, blood cultures x2 prior to antibiotics urine culture pending, MRSA screen negative, has received
vanc/ceftriaxone/cefepime/ampicillin/metronidazole and currently on vanc/zosyn. ID is consulted for assistance with management.
Past History
Additional Past Medical History:
traumatic brain injury, TIA, bowel obstruction status post resection, hypertension, hyperlipidemia, depression
Additional Past Surgical History:
Bowel resection (Due to bowel obstruction, Colostomy with reversal), Cardiac (Pacemaker) and Orthopedic (Right hand surgery
Allergy History:
No Known Allergies Allergy (Verified 07/04/23 20:54)
Medications Reviewed: Yes
Social History
Tobacco: Non-Smoker
Alcohol: None
Drug: None
Family History
Family History: Not Pertinent
Review of Systems
Review of Systems
General: Negative Fever or Chills
All systems: All other systems were reviewed and were negative
Vital Signs
Temp Pulse Resp BP Pulse Ox
98.2 F 85 12 121/82 98
07/06/23 07:01 07/06/23 06:00 07/06/23 06:00 07/06/23 06:00 07/06/23 06:00
Physical Exam
Physical Exam
Constitutional: No Acute Distress
Cardiovascular: Regular Rate and S1/S2; Negative Murmur or Rub
Pulmonary: Clear and Symmetric; Negative Wheezes, Rales or Rhonchi
Gastrointestinal: Soft, Non Tender, Non Distended and Normal Bowel Sounds
Extremities: Other (edema)
Skin: Warm and Dry; Negative Rash or Jaundice
Lines: Other (pacemaker - no erythema, warmth swelling or tenderness)
Lab / Diagnostic Study Results
Abs Immat Gran (auto) 0.0 10^3/uL (0-0.05) 07/05/23 08:29
Absolute Neuts (auto) 8.2 10^3/uL (1.4-6.5) H 07/05/23 08:29
Absolute Lymphs (auto) 1.0 10^3/uL (1.2-3.4) L 07/05/23 08:29
Absolute Monos (auto) 0.6 10^3/uL (0.1-0.6) 07/05/23 08:29
Absolute Basos (auto) 0.0 10^3/uL (0-0.2) 07/05/23 08:29
Immature Gran % 0.4 % (0-0.5) 07/05/23 08:29
Neutrophils % 82.6 % (42.2-75.2) H 07/05/23 08:29
Lymphocytes % 9.7 % (20.5-51.1) L 07/05/23 08:29
Monocytes % 5.8 % (1.7-9.3) 07/05/23 08:29
Eosinophils % 1.1 % (0-6) 07/05/23 08:29
Basophils % 0.4 % (0-2) 07/05/23 08:29
PT 14.1 Sec (11.4-14.6) 07/05/23 00:10
INR 1.11 07/05/23 00:10
Lactic Acid 1.3 mmol/L (0.7-2.0) 07/05/23 08:29
Ur Squamous Epith Cells 0-2 /LPF (Few) 07/04/23 22:30
Microbiology Results
Micro:
07/04/23 22:30 Blood Culture - Preliminary
Blood/Venous No Growth in 24 hours- Final report to follow
07/04/23 21:40 Blood Culture - Preliminary
Blood/Venous No Growth in 24 hours- Final report to follow
07/05/23 04:52 MRSA Screen - Pending
Nose
07/04/23 22:30 Urine Culture - Pending
Urine
07/04/23 21:40 Influenza Types A & B (AROLDO) - Final
Nasal Swab Negative for Influenza A & B, NAAT
Negative results must be combined with clinical observations
and patient history.
Nucleic Acid Amplification test (NAAT)performed on the
[employer] platform.
Assessment / Plan
Suspected [place] Thrombosis of the IVC, iliacs, femoral veins - less likely septic thrombophlebitis
Leukocytosis - likely reactive - rapidly improving
- I presume the IVC filter was placed because patient was felt to have increased risk of thrombosis - does not appear to have been placed at this institution, unclear to me when it was placed
- blood cultures x2 in progress - these were obtained prior to antibiotics; no history of bacteremia on file here, no fevers and rapidly resolving leukocytosis
- mrsa screen negative
- agree with heparin, appreciate vascular surgery input
- stop antibiotics and observe clinically
Care Review
Plan reviewed with: Physician (Dr Cook - imaging)
[2023-07-06 09:10] LABS: Hematocrit 36.2 % (39.0-52.0); Hemoglobin 11.9 g/dL (13.0-18.0); Mean Corp Hgb Conc. 32.9 g/dL (33.0-37.0); Mean Corpuscular Volume 88.1 fL (80.0-94.0); Platelet Count 185 10^3/uL (130-400); Red Blood Cell Count 4.11 10^6/uL (4.70-6.10); Red Cell Dist. Width 15.2 % (11.5-14.5); White Blood Cell Count 11.6 10^3/uL (4.8-10.8)
[2023-07-06 09:20] LABS: APTT 187.3 Sec (23.4-35.0)
--- NOTE | 2023-07-06 09:30 | VATNOTE ---
Patient with reported infiltrate to left arm. Left arm noted to have continued swelling, but appears to be improving. patient offers no complaints related to infiltrate.
[2023-07-06 09:38] LABS: Albumin 3.4 g/dl (3.5-5.0); Blood Urea Nitrogen 15 mg/dl (9-20); Carbon Dioxide 23 mmol/L (22-30); Estimated Creatinine Clearance 67 ml/min; Total Bilirubin 1.1 mg/dl (0.2-1.3); Total Protein 6.1 g/dl (6.3-8.2); eGFR > 60.00
[2023-07-06 10:00] LABS: ALT (SGPT) 67 U/L (0-50); AST (SGOT) 58 U/L (17-59); Alkaline Phosphatase 103 U/L (38-126); Calcium 8.1 mg/dl (8.4-10.2); Chloride 109 mmol/L (98-107); Glucose 120 mg/dl (70-99); Sodium 136 mmol/L (135-145)
[2023-07-06] MEDS: NSS 1000 IV (11:00)
[2023-07-06 11:41] LABS: Potassium 3.8 mmol/L (3.5-5.1)
--- NOTE | 2023-07-06 11:41 | PTCARENOTE ---
patient repeatedly attempting to void, able to pass small amount of unmeasured urine. Bladder scan > 400ml, patient st. cathed per protocol for 600ml. After draining bladder patient is resting quietly and reports he feels better and dozing off to
sleep.
--- NOTE | 2023-07-06 14:33 | CM ---
Cm reviewed medical records.
CM spoke with patient's niece Margot. She confirmed that patient lives with her mother, patient's sister who is POA. Patient's sister has become increasingly overburdened with patient's care. Patient has a history of possible anoxic brain injury
at and has been dependent his whole life. Patient is ambulatory and able to make his needs known. Patient does now suffer from dementia and has become increasingly more difficult to care for. Patient does not have a history of SNF placement.
Patient is known to [facility] currently.
Patient's niece stated that her mother is overwhelmed with his care so she is acting as a point person to assist with communication. CM encouraged patient's niece to research SNF's in the area should PT recommend SNF. CM will continue to follow as
needed.
PLAN: Pending PT recommendations, and clinical outcome.
[2023-07-06] MEDS: HEPARIN 25000 UNITS/250 ML IV (14:36)
[2023-07-06] MEDS: TYLENOL 650 MG PO (14:40)
[2023-07-06 16:59] LABS: APTT 88.6 Sec (23.4-35.0)
--- NOTE | 2023-07-06 18:47 | PTCARENOTE ---
aced wraps applied to Bilateral lower extremities to promote circulation. Feet are cold bilateral but pt has sensation intact and pulses are faint to palpation and marked after checking with doppler
--- NOTE | 2023-07-06 20:00 | PTCARENOTE ---
Pt received AAOx1 (self) Knows he is in the hospital and the month. Lungs clear - decreased on RA. + urinary retention. Pt w/ b/l CL wraps on - tolerating. Hep gtt and NSS infusing.
[2023-07-06] MEDS: ARICEPT 10 MG PO (21:42)
[2023-07-07] VITALS (10 sets, daily range): BP systolic 97–130; BP diastolic 54–99; PULSE 72–74; O2SAT 96; BMI 35.7
[2023-07-07] MEDS: REFRESH EYE DROPS (PF) 1 DROPS OPHTH (01:07)
--- NOTE | 2023-07-07 01:47 | VATNOTE ---
07/07 144
Paged by PCN to look for new IV site since pump keeps beeping. Attempted x2 without success. Patient with 2 PIV currently and both working. Spoke with PCN about trying a No-No to keep patients hand/wrist in a position to potentially stop the site
from occluding. Offered to bring No-No back and PCN states it can be tube and she will apply it. Also aware this RN will speak to VAT RN at shift change about evaluating if patient would be appropriate for [facility].
[2023-07-07] MEDS: NSS 1000 IV (04:51)
[2023-07-07] MEDS: TYLENOL 650 MG PO ×2 (06:20→20:21)
[2023-07-07 06:31] LABS: Hematocrit 36.6 % (39.0-52.0); Mean Corp Hgb Conc. 32.8 g/dL (33.0-37.0); Mean Corpuscular Hgb 29.2 pg (27.0-31.0); Mean Corpuscular Volume 89.1 fL (80.0-94.0); Mean Platelet Volume 10.9 fL (7.4-10.4); Platelet Count 196 10^3/uL (130-400); Red Blood Cell Count 4.11 10^6/uL (4.70-6.10); Red Cell Dist. Width 15.1 % (11.5-14.5); White Blood Cell Count 8.6 10^3/uL (4.8-10.8)
[2023-07-07 06:45] LABS: APTT 93.3 Sec (23.4-35.0)
[2023-07-07 07:19] LABS: Blood Urea Nitrogen 11 mg/dl (9-20); Calcium 8.3 mg/dl (8.4-10.2); Carbon Dioxide 27 mmol/L (22-30); Chloride 107 mmol/L (98-107); Estimated Creatinine Clearance 81 ml/min; Glucose 92 mg/dl (70-99); Potassium 4.2 mmol/L (3.5-5.1); Sodium 138 mmol/L (135-145); eGFR > 60.00
[2023-07-07] MEDS: ABILIFY 5 MG PO (08:27)
[2023-07-07] MEDS: VALIUM 2 MG PO ×4 (08:27→22:00)
[2023-07-07] MEDS: PROTONIX 40 MG PO (08:27)
[2023-07-07] MEDS: ABILIFY 10 MG PO (08:27)
[2023-07-07] MEDS: BENTYL 20 MG PO ×3 (08:27→22:00)
[2023-07-07] MEDS: NEURONTIN 100 MG PO ×2 (08:28→20:22)
[2023-07-07] MEDS: PRAVACHOL 80 MG PO (08:28)
[2023-07-07] MEDS: PROZAC 60 MG PO (08:28)
[2023-07-07] MEDS: IMODIUM PO (08:30)
[2023-07-07] MEDS: ASPIR LOW (ENTERIC COATED) 81 MG PO (08:30)
--- NOTE | 2023-07-07 08:58 | CM ---
Addendum entered by Jahaira Garcia 07/07/23 17:09:
Patient nimiquel Bonilla and she indicated that she wanted patient to be placed in SNF. CM will start Level II for SNF placement
Addendum entered by Jahaira Garcia 07/07/23 09:12:
Physician requested CM confirm cost of Eliquis, 5mg BID for 60 pills from [facility] per [facility] is 11.20$. CM updated physician and will update Niece.
Original Note:
Patient seen at bedside with physician. Patient states that he lives with his sister. Patient niece is primary contact per chart review. Patient confirmed same. Patient pending PT/OT assessment. CM will call to patient nimiquel and review discharge
planning needs. Pending assessment patient may need Level II prior to senior living placement. CM will continue to follow for discharge planning needs.
Plan; home with VN vs SNF pending functional assessments
--- NOTE | 2023-07-07 09:01 | W.PN.HOSP.TC ---
Today's Communication/Plan
-
hodge
PT/OT
? change to Eliquis
Assessment / Plan
Assessment / Plan
pt is a 68 year old male
Bilateral lower extremity DVTs --right leg with whole leg involved (Ultrasound shows extensive DVT on the right and also DVT on the left)--does have IVC filter associated extensive thrombosis-- on IV heparin--apprec vascular--wrapping legs--unclear
if IVC filter needs to come out?
acute septic thrombophlebitis ruled out---no air in the clot and negative blood cultures-- agree with stopping abx--apprec
Sepsis ruled out --(fever, tachycardia, tachypnea, leukocytosis)-suspected secondary to septic thrombophlebitis initially . But with neg blood culture and no air in the clot unclear if septic thrombophlebitis. UA is negative. Chest x-ray shows no
acute cardiopulmonary disease. Doubt if sepsis is related to infection. May be as well just related to extensive thrombosis.
urinary retention--hodge--start flomax
Acute kidney injury due to prerenal-- creat now WNL
Transaminitis--suspect reactive
History of traumatic brain injury/dementia--His cognitive impairments from it---Continue donepezil
History of TIA--Continue aspirin
History of bowel obstruction status post resection--no BMs since before admission
Essential hypertension--Holding metoprolol--restart as able
Bradycardia status post pacemaker
Hyperlipidemia--Continue statin
Depression--Continue aripiprazole, fluoxetine---Hold diazepam, trazodone
GERD-Continue omeprazole
code status --Full code
DVT prophylaxis�heparin drip--will need Eliquis
PT/OT
Anticipated Discharge: > 48 hours
Subjective/Interval History
-
Date of Service: July 07, 2023
pt with tremors of bilateral hands (he says he is scared)
Objective Data
-
Labs:
Laboratory Results
07/06/23 07/07/23
22:49 05:59
WBC 8.6
Hgb 12.0 L
Hct 36.6 L
Plt Count 196
APTT 105.0 H 93.3 H
Sodium 138
Potassium 4.2
Chloride 107
Carbon Dioxide 27
BUN 11
Creatinine 1.0
Glucose 92
Calcium 8.3 L
Vital Signs:
max temp for 24 hours
07/06/23
11:25
Temp 98.9 F
Vital Signs
Temp Pulse Resp BP Pulse Ox
97.6 F 78 10 111/99 94
07/07/23 03:00 07/07/23 06:07 07/07/23 06:07 07/07/23 06:07 07/07/23 06:07
I&O
07/06/23 07/07/23 07/08/23
06:59 06:59 06:59
Intake Total 2039 / 2039 208 / 2079
Output Total 1200 / 1200 1600 / 1600
Balance 840 / 840 480 / 480
Review of Systems
-
All other systems: Reviewed and negative
Physical Exam
-
General: Well Developed, Well Nourished and No Apparent Distress
HEENT: Normocephalic and Atraumatic; Negative Oxygen
Respiratory: Clear to Auscultation; Negative Wheezes or Rhonchi
Cardiac: Regular Rhythm and S1/S2; Negative Murmur
GI: Soft, Nontender and Distended; Negative Normal Bowel Sounds (hypoactive)
Musculoskeletal: No Clubbing and No Cyanosis; Negative No Edema (bilateral legs wrapped)
Neuro: Awake and Alert
Psych: Calm (pt says he is scared)
--- NOTE | 2023-07-07 09:46 | PTCARENOTE ---
pe Kalina Higgins pt placed on standard precautions
[2023-07-07] MEDS: HEPARIN 25000 UNITS/250 ML IV (09:59)
--- NOTE | 2023-07-07 10:01 | W.PN.UPDATE ---
Update Note
Progress Note Update
Patient seen at bedside with Dr. Jose Maravilla III, offers no complaints. Denies bilateral lower extremity pain and reports improvement in edema and 'heaviness' feeling of bilateral legs. Bilateral lower extremities with +1 edema. continue
anticoagulation will defer to primary team for preference of oral anticoagulation. Continue to wrap bilateral lower extremities from base of toes to upper thigh with mild to moderate compression as patient tolerates. From a vascular surgery
perspective can work with PT/OT no need for bedrest. Plan reviewed with attending Dr. Jose Maravilla III.
--- NOTE | 2023-07-07 11:05 | W.PN.ID1 ---
Date of Service
Date of Service: July 07, 2023
Today's Communication
- observe clinically off of antibiotics
Assessment / Plan
Suspected [place] Thrombosis of the IVC, iliacs, femoral veins - less likely septic thrombophlebitis
Leukocytosis - likely reactive - rapidly improving
- blood cultures x2 in progress no growth to date - these were obtained prior to antibiotics; no history of bacteremia on file here, no fevers and rapidly resolving leukocytosis
- agree with anticoagulation, appreciate vascular surgery input
- observe clinically off of antibiotics
Chief Complaint
-: Leukocytosis
Subjective / Review of Systems
remains afebrile
bp stable
leukocytosis resolved today
cr stable
blood cultures remain no growth to date
Vital Signs / Physical Exam
Vital Signs
Vital Signs
Temp Pulse Resp BP Pulse Ox
98.4 F 87 17 121/72 94
07/07/23 07:45 07/07/23 10:00 07/07/23 08:00 07/07/23 10:00 07/07/23 10:17
Physical Exam
Constitutional: No Acute Distress
Cardiovascular: Regular Rate and S1/S2; Negative Murmur or Rub
Pulmonary: Clear and Symmetric; Negative Wheezes or Rales
Gastrointestinal: Soft, Non Tender, Non Distended and Normal Bowel Sounds
Skin: Warm and Dry; Negative Rash or Jaundice
Objective Data
Lab Data
Lab Results
07/07/23 05:59
07/07/23 05:59
PT 14.1 Sec (11.4-14.6) 07/05/23 00:10
INR 1.11 07/05/23 00:10
APTT 93.3 Sec (23.4-35.0) H 07/07/23 05:59
Estimated Creat Clear 81 ml/min 07/07/23 05:59
Lactic Acid 1.3 mmol/L (0.7-2.0) 07/05/23 08:29
Total Bilirubin 1.1 mg/dl (0.2-1.3) 07/06/23 08:52
AST 58 U/L (17-59) 07/06/23 08:52
ALT 67 U/L (0-50) H 07/06/23 08:52
Alkaline Phosphatase 103 U/L (38-126) 07/06/23 08:52
Most recent labs reviewed.
Micro Results:
07/04/23 22:30 Blood Culture - Preliminary
Blood/Venous No Growth in 48 hours- Final report to follow
07/04/23 21:40 Blood Culture - Preliminary
Blood/Venous No Growth in 48 hours- Final report to follow
07/04/23 22:30 Urine Culture - Final
Urine NO GROWTH
07/05/23 04:52 MRSA Screen - Final
Nose No Methicillin Resistant Staphylococcus aureus isolated.
07/04/23 21:40 Influenza Types A & B (AROLDO) - Final
Nasal Swab Negative for Influenza A & B, NAAT
Negative results must be combined with clinical observations
and patient history.
Nucleic Acid Amplification test (NAAT)performed on the
[employer] platform.
[2023-07-07] MEDS: FLOMAX 0.400000000000000022 MG PO (12:32)
[2023-07-07] MEDS: MIRALAX 17 GRAMS PO (12:32)
--- NOTE | 2023-07-07 12:55 | PN.CDI ---
CDI
- -
CDI:
Physician Documentation Request
Admit Date: 07/04/23 23:50
Dear Doctor Taco,
Please review the following and provide your response in the progress notes.
Clinical Indicators:
- 07/07 PN 'Bilateral lower extremity DVTs'
- 'does have IVC filter associated extensive thrombosis'
- 07/04 Peripheral Venous LE US 'EXTENSIVE ACUTE OCCLUSIVE DEEP VENOUS THROMBOSIS throughout the ENTIRE RIGHT LOWER EXTREMITY'
- ' Acute occlusive deep venous thrombosis in the left common femoral and femoral veins'
Please clarify which of the following accurately represents the acuity of the bilateral LE DVTs:
Acute bilateral LE DVTs
Acute on chronic bilateral LE DVT's
Other
Use of terms such as suspected, likely, concern for, or probable (associated with a specific diagnosis that is being evaluated, monitored, or treated as if it exists) are acceptable and can be coded in the inpatient setting, when documented at the
time of discharge.
Thank you,
Madonna Choi RN
CDI Specialist
Please use your independent medical judgment in providing your response.
--- NOTE | 2023-07-07 13:00 | PN.CDI ---
CDI
- -
CDI:
Physician Documentation Request
Admit Date: 07/04/23 23:50
Dear Doctor Taco,
Please review the following and provide your response in the progress notes.
Clinical Indicators:
- 07/04 Admission: WBC 17.7, Tmax 100.1, HR 100-120s, RR 20s, lactic acid 3.3
- 07/06 PN Sepsis...(fever, tachycardia, tachypnea, leukocytosis)'
- 6L IVF given
- IV abx ampiciliin, Ceftriaxone, Cefepime, Flagyl, Vanco, Zosyn given
- 07/06 ID 'stop antibiotics and observe clinically'
- 07/07 PN 'Sepsis ruled out...Acute kidney injury'
Please clarify which most accurately describes the patient:
SIRS due to a non-infectious source with associated organ dysfunction - ADAMA
Reactive leukocytosis due to DVTs
Other
Use of terms such as suspected, likely, concern for, or probable (associated with a specific diagnosis that is being evaluated, monitored, or treated as if it exists) are acceptable and can be coded in the inpatient setting, when documented at the
time of discharge.
Thank you,
Madonna Choi RN
CDI Specialist
Please use your independent medical judgment in providing your response.
--- NOTE | 2023-07-07 14:32 | VNURNOTE ---
Patient is current with [facility] since 06/30 w/ SN/PT, will monitor progress and plan at discharge.
--- NOTE | 2023-07-07 17:41 | PTCARENOTE ---
pt transferred to tele room 404. report given to Michelle. belongings sent with pt.
--- NOTE | 2023-07-07 19:22 | PTCARENOTE ---
Patient transferred from IMU into room 404-02. Vital signs stable. Patient oriented to room, use of call ortega, use of bed and television controls. Patient verbalizes understanding of teaching. Patient with heparin at 1300 units/hour via right hand
IV. No signs/symptoms of bleeding. Maravilla catheter draining clear josef urine and stat lock in place. Patient resting comfortably in bed at this time.
[2023-07-07] MEDS: REFRESH EYE DROPS (PF) OPHTH (22:00)
[2023-07-07] MEDS: ARICEPT 10 MG PO (22:00)
[2023-07-08 03:37] VITALS: BP 133/68
[2023-07-08] MEDS: HEPARIN 25000 UNITS/250 ML IV (05:05)
[2023-07-08] MEDS: TYLENOL 650 MG PO ×2 (05:09→13:58)
[2023-07-08 06:00] VITALS: BMI 36.4
[2023-07-08 07:30] VITALS: BP 120/76
[2023-07-08 07:37] LABS: Hematocrit 35.4 % (39.0-52.0); Hemoglobin 11.8 g/dL (13.0-18.0); Mean Corp Hgb Conc. 33.3 g/dL (33.0-37.0); Mean Corpuscular Hgb 29.6 pg (27.0-31.0); Mean Corpuscular Volume 88.7 fL (80.0-94.0); Mean Platelet Volume 11.4 fL (7.4-10.4); Platelet Count 215 10^3/uL (130-400); Red Blood Cell Count 3.99 10^6/uL (4.70-6.10); Red Cell Dist. Width 14.8 % (11.5-14.5)
[2023-07-08 07:53] LABS: APTT 62.5 Sec (23.4-35.0)
[2023-07-08 08:04] LABS: ALT (SGPT) 84 U/L (0-50); AST (SGOT) 72 U/L (17-59); Albumin 2.9 g/dl (3.5-5.0); Alkaline Phosphatase 114 U/L (38-126); Blood Urea Nitrogen 11 mg/dl (9-20); Calcium 8.6 mg/dl (8.4-10.2); Carbon Dioxide 25 mmol/L (22-30); Chloride 105 mmol/L (98-107); Estimated Creatinine Clearance 91 ml/min; Glucose 106 mg/dl (70-99); Magnesium 2.2 mg/dl (1.6-2.3); Potassium 4.2 mmol/L (3.5-5.1); Sodium 137 mmol/L (135-145); Total Bilirubin 0.6 mg/dl (0.2-1.3); Total Protein 5.7 g/dl (6.3-8.2); eGFR > 60.00
[2023-07-08] MEDS: MIRALAX 17 GRAMS PO (08:21)
[2023-07-08] MEDS: FLOMAX 0.400000000000000022 MG PO (08:22)
[2023-07-08] MEDS: ASPIR LOW (ENTERIC COATED) 81 MG PO (08:22)
[2023-07-08] MEDS: PROZAC 60 MG PO (08:24)
[2023-07-08] MEDS: VALIUM 2 MG PO ×4 (08:25→22:23)
[2023-07-08] MEDS: ABILIFY 5 MG PO (08:26)
[2023-07-08] MEDS: REFRESH EYE DROPS (PF) 1 DROPS OPHTH (08:26)
[2023-07-08] MEDS: BENTYL 20 MG PO ×3 (08:26→21:12)
[2023-07-08] MEDS: PROTONIX 40 MG PO (08:26)
[2023-07-08] MEDS: PRAVACHOL 80 MG PO (08:26)
[2023-07-08] MEDS: NEURONTIN 100 MG PO ×2 (08:26→21:04)
[2023-07-08] MEDS: ABILIFY 10 MG PO (08:26)
[2023-07-08] MEDS: ELIQUIS 5 MG PO ×2 (08:26→21:04)
--- NOTE | 2023-07-08 09:28 | CM ---
Patient seen at bedside with physician. CM spoke with Rosamaria at [facility] and after review feel that patient does not qualify for level II status. CM will complete referrals to local SNF options and continue to follow for discharge planning needs.
Plan; SNF
--- NOTE | 2023-07-08 09:58 | W.PN.HOSP.TC ---
Today's Communication/Plan
-
change IV heparin to Eliquis
d/c planning
Assessment / Plan
Assessment / Plan
pt is a 68 year old male
Acute Bilateral lower extremity DVTs --right leg with whole leg involved (Ultrasound shows extensive DVT on the right and also DVT on the left)--does have IVC filter associated extensive thrombosis-- IV heparin changed to Eliquis--apprec
vascular--wrapping legs--unclear if IVC filter needs to come out--apprec vascular, no interventions needed
acute septic thrombophlebitis ruled out---no air in the clot and negative blood cultures-- agree with stopping abx--apprec
Sepsis ruled out , only SIRS due to non infectious source--(fever, tachycardia, tachypnea, leukocytosis)-suspected secondary to septic thrombophlebitis initially . But with neg blood culture and no air in the clot unclear if septic thrombophlebitis.
UA is negative. Chest x-ray shows no acute cardiopulmonary disease. Doubt if sepsis is related to infection. May be as well just related to extensive thrombosis.
urinary retention--hodge--start flomax
Acute kidney injury due to prerenal-- creat now WNL
Transaminitis--suspect reactive
History of traumatic brain injury/dementia--His cognitive impairments from it---Continue donepezil
History of TIA--Continue aspirin
History of bowel obstruction status post resection--no BMs since before admission--added bowel regimen 07/07
Essential hypertension--Holding metoprolol--restart as able
Bradycardia status post pacemaker
Hyperlipidemia--Continue statin
Depression--Continue aripiprazole, fluoxetine---Hold diazepam, trazodone
GERD-Continue omeprazole
code status --Full code
DVT prophylaxis�heparin drip--will need Eliquis
PT/OT
Anticipated Discharge: > 48 hours
Subjective/Interval History
-
Date of Service: July 08, 2023
pt without c/o
Objective Data
-
Labs:
Laboratory Results
07/08/23
06:49
WBC 9.0
Hgb 11.8 L
Hct 35.4 L
Plt Count 215
APTT 62.5 H
Sodium 137
Potassium 4.2
Chloride 105
Carbon Dioxide 25
BUN 11
Creatinine 0.9
Glucose 106 H
Calcium 8.6
Total Bilirubin 0.6
AST 72 H
ALT 84 H
Alkaline Phosphatase 114
Vital Signs:
max temp for 24 hours
07/07/23
23:33
Temp 98.4 F
Vital Signs
Temp Pulse Resp BP Pulse Ox
98.3 F 66 18 120/76 96
07/08/23 07:30 07/08/23 07:30 07/08/23 07:30 07/08/23 07:30 07/08/23 08:00
I&O
07/07/23 07/08/23 07/09/23
06:59 06:59 06:59
Intake Total 2080 / 2080 240 / 240
Output Total 1600 / 1600 1100 / 1100
Balance 480 / 480 -860 / -860
Review of Systems
-
All other systems: Reviewed and negative
Physical Exam
-
General: Well Developed, Well Nourished and No Apparent Distress
HEENT: Normocephalic and Atraumatic; Negative Oxygen
Respiratory: Clear to Auscultation; Negative Wheezes or Rhonchi
Cardiac: Regular Rhythm and S1/S2; Negative Murmur
GI: Soft, Nontender, Nondistended and Normal Bowel Sounds
Musculoskeletal: No Clubbing, No Cyanosis, No Edema and Other (legs wrapped)
Neuro: Awake
[2023-07-08 11:14] VITALS: BP 138/75
--- NOTE | 2023-07-08 13:16 | W.PN.ID1 ---
Date of Service
Date of Service: July 08, 2023
Today's Communication
ID service will no longer actively follow this patient please recall for further questions
Assessment / Plan
[place] Thrombosis of the IVC, iliacs, femoral veins - less likely septic thrombophlebitis
Leukocytosis - resolved
- remains clinically well off of antibiotics
ID service will no longer actively follow this patient please recall for further questions
Chief Complaint
-: Leukocytosis
Subjective / Review of Systems
remains afebrile
bp stable
without leukocytosis
cr stable
blood cultures remain no growth to date
Vital Signs / Physical Exam
Vital Signs
Vital Signs
Temp Pulse Resp BP Pulse Ox
98.0 F 78 18 138/75 97
07/08/23 11:14 07/08/23 11:14 07/08/23 11:14 07/08/23 11:14 07/08/23 11:14
Physical Exam
Constitutional: No Acute Distress
Cardiovascular: Regular Rate and S1/S2; Negative Murmur or Rub
Pulmonary: Clear and Symmetric; Negative Wheezes or Rales
Gastrointestinal: Soft, Non Tender, Non Distended and Normal Bowel Sounds
Extremities: Edema
Skin: Warm and Dry; Negative Rash or Jaundice
Objective Data
Lab Data
Lab Results
07/08/23 06:49
07/08/23 06:49
PT 14.1 Sec (11.4-14.6) 07/05/23 00:10
INR 1.11 07/05/23 00:10
APTT 62.5 Sec (23.4-35.0) H 07/08/23 06:49
Estimated Creat Clear 91 ml/min 07/08/23 06:49
Lactic Acid 1.3 mmol/L (0.7-2.0) 07/05/23 08:29
Total Bilirubin 0.6 mg/dl (0.2-1.3) 07/08/23 06:49
AST 72 U/L (17-59) H 07/08/23 06:49
ALT 84 U/L (0-50) H 07/08/23 06:49
Alkaline Phosphatase 114 U/L (38-126) 07/08/23 06:49
Most recent labs reviewed.
Micro Results:
07/04/23 22:30 Blood Culture - Preliminary
Blood/Venous No Growth in 72 hours- Final report to follow
07/04/23 21:40 Blood Culture - Preliminary
Blood/Venous No Growth in 72 hours- Final report to follow
07/04/23 22:30 Urine Culture - Final
Urine NO GROWTH
07/05/23 04:52 MRSA Screen - Final
Nose No Methicillin Resistant Staphylococcus aureus isolated.
07/04/23 21:40 Influenza Types A & B (AROLDO) - Final
Nasal Swab Negative for Influenza A & B, NAAT
Negative results must be combined with clinical observations
and patient history.
Nucleic Acid Amplification test (NAAT)performed on the
[employer] platform.
[2023-07-08 15:25] VITALS: BP 112/68
[2023-07-08 19:18] VITALS: BP 111/57
[2023-07-08] MEDS: ARICEPT 10 MG PO (21:04)
[2023-07-08 22:39] VITALS: BP 97/65
[2023-07-09] MEDS: REFRESH EYE DROPS (PF) 1 DROPS OPHTH (01:19)
[2023-07-09] MEDS: MYLICON 80 MG PO (02:18)
[2023-07-09 03:31] VITALS: BP 108/67; BMI 36.3
[2023-07-09 07:31] VITALS: BP 130/88
[2023-07-09 08:01] LABS: Hemoglobin 12.4 g/dL (13.0-18.0); Mean Corp Hgb Conc. 33.5 g/dL (33.0-37.0); Mean Corpuscular Hgb 29.5 pg (27.0-31.0); Mean Corpuscular Volume 87.9 fL (80.0-94.0); Mean Platelet Volume 10.9 fL (7.4-10.4); Platelet Count 245 10^3/uL (130-400); Red Blood Cell Count 4.21 10^6/uL (4.70-6.10); White Blood Cell Count 9.1 10^3/uL (4.8-10.8)
[2023-07-09] MEDS: MIRALAX 17 GRAMS PO (08:02)
[2023-07-09] MEDS: ABILIFY 10 MG PO (08:03)
[2023-07-09] MEDS: FLOMAX 0.400000000000000022 MG PO (08:03)
[2023-07-09] MEDS: PROTONIX 40 MG PO (08:03)
[2023-07-09] MEDS: PROZAC 60 MG PO (08:03)
[2023-07-09] MEDS: PRAVACHOL 80 MG PO (08:03)
[2023-07-09] MEDS: ABILIFY 5 MG PO (08:03)
[2023-07-09] MEDS: ELIQUIS 5 MG PO ×2 (08:03→19:56)
[2023-07-09] MEDS: BENTYL 20 MG PO ×3 (08:03→21:26)
[2023-07-09] MEDS: NEURONTIN 100 MG PO ×2 (08:04→19:56)
[2023-07-09] MEDS: FLUSH (NSS) 1 FLUSH IV (08:04)
[2023-07-09] MEDS: ASPIR LOW (ENTERIC COATED) 81 MG PO (08:04)
[2023-07-09] MEDS: VALIUM 2 MG PO ×4 (08:04→21:26)
--- NOTE | 2023-07-09 10:09 | CM ---
Addendum entered by Jahaira Garcia 07/09/23 16:39:
Patient lisbet indicated that she wants patient to go to [facility], per admissions at [facility] they do not have a contract with [facility] but she would refer to [facility] and she would come to see patient in am. CM will update patient lisbet.
Original Note:
Patient accepted at [facility] in [facility], under review at [facility]. CM left for taylor to review options. CM will continue to follow for discharge planning needs.
Plan; SNF
[2023-07-09 10:12] LABS: Blood Urea Nitrogen 12 mg/dl (9-20); Calcium 8.7 mg/dl (8.4-10.2); Carbon Dioxide 25 mmol/L (22-30); Chloride 105 mmol/L (98-107); Estimated Creatinine Clearance 82 ml/min; Glucose 97 mg/dl (70-99); Potassium 4.1 mmol/L (3.5-5.1); Sodium 138 mmol/L (135-145); eGFR > 60.00
[2023-07-09 11:14] VITALS: BP 120/71
--- NOTE | 2023-07-09 13:22 | W.PN.HOSP.TC ---
Today's Communication/Plan
-
medically ready for d/c
Assessment / Plan
Assessment / Plan
pt is a 68 year old male
Acute Bilateral lower extremity DVTs --right leg with whole leg involved (Ultrasound shows extensive DVT on the right and also DVT on the left)--does have IVC filter associated extensive thrombosis-- IV heparin changed to Eliquis--apprec
vascular--wrapping legs--unclear if IVC filter needs to come out--apprec vascular, no interventions needed
acute septic thrombophlebitis ruled out---no air in the clot and negative blood cultures-- agree with stopping abx--apprec
Sepsis ruled out , only SIRS due to non infectious source--(fever, tachycardia, tachypnea, leukocytosis)-suspected secondary to septic thrombophlebitis initially . But with neg blood culture and no air in the clot unclear if septic thrombophlebitis.
UA is negative. Chest x-ray shows no acute cardiopulmonary disease. Doubt if sepsis is related to infection. May be as well just related to extensive thrombosis.
urinary retention--hodge--start flomax
Acute kidney injury due to prerenal-- creat now WNL
Transaminitis--suspect reactive
History of traumatic brain injury/dementia--His cognitive impairments from it---Continue donepezil
History of TIA--Continue aspirin
History of bowel obstruction status post resection--no BMs since before admission--added bowel regimen 07/07
Essential hypertension--Holding metoprolol--restart as able
Bradycardia status post pacemaker
Hyperlipidemia--Continue statin
Depression--Continue aripiprazole, fluoxetine---Hold diazepam, trazodone
GERD-Continue omeprazole
code status --Full code
DVT prophylaxis�heparin drip--will need Eliquis
PT/OT
Anticipated Discharge: Within 24 hours
Subjective/Interval History
-
Date of Service: July 09, 2023
pt without c/o
Objective Data
-
Labs:
Laboratory Results
07/09/23
06:55
WBC 9.1
Hgb 12.4 L
Hct 37.0 L
Plt Count 245
Sodium 138
Potassium 4.1
Chloride 105
Carbon Dioxide 25
BUN 12
Creatinine 1.0
Glucose 97
Calcium 8.7
Vital Signs:
max temp for 24 hours
07/09/23
11:14
Temp 98.5 F
Vital Signs
Temp Pulse Resp BP Pulse Ox
98.5 F 78 18 120/71 94
07/09/23 11:14 07/09/23 11:14 07/09/23 11:14 07/09/23 11:14 07/09/23 11:14
I&O
07/08/23 07/09/23 07/10/23
06:59 06:59 06:59
Intake Total 240 / 240 1440 / 1440
Output Total 1100 / 1100 2325 / 2325
Balance -860 / -860 -885 / -885
Review of Systems
-
All other systems: Reviewed and negative
Physical Exam
-
General: Well Developed, Well Nourished and No Apparent Distress
HEENT: Normocephalic and Atraumatic
Respiratory: Clear to Auscultation; Negative Wheezes or Rhonchi
Cardiac: Regular Rhythm and S1/S2; Negative Murmur
GI: Soft, Nontender, Nondistended and Normal Bowel Sounds
Musculoskeletal: No Clubbing, No Cyanosis and No Edema
Skin: Warm
Neuro: Awake
--- NOTE | 2023-07-09 13:27 | W.PN.HOSP.TC ---
Today's Communication/Plan
-
d/c planning
Assessment / Plan
Assessment / Plan
pt is a 68 year old male
Acute Bilateral lower extremity DVTs --right leg with whole leg involved (Ultrasound shows extensive DVT on the right and also DVT on the left)--does have IVC filter associated extensive thrombosis-- IV heparin changed to Eliquis--apprec
vascular--wrapping legs---apprec vascular, no interventions needed
acute septic thrombophlebitis ruled out---no air in the clot and negative blood cultures-- agree with stopping abx--apprec
Sepsis ruled out , only SIRS due to non infectious source--(fever, tachycardia, tachypnea, leukocytosis)-suspected secondary to septic thrombophlebitis initially . But with neg blood culture and no air in the clot unclear if septic thrombophlebitis.
UA is negative. Chest x-ray shows no acute cardiopulmonary disease. Doubt if sepsis is related to infection. May be as well just related to extensive thrombosis.
urinary retention--hodge--start flomax
Acute kidney injury due to prerenal-- creat now WNL
Transaminitis--suspect reactive
History of traumatic brain injury/dementia--His cognitive impairments from it---Continue donepezil
History of TIA--Continue aspirin
History of bowel obstruction status post resection--no BMs since before admission--added bowel regimen 07/07
Essential hypertension--Holding metoprolol--restart as able
Bradycardia status post pacemaker
Hyperlipidemia--Continue statin
Depression--Continue aripiprazole, fluoxetine---Hold diazepam, trazodone
GERD-Continue omeprazole
code status --Full code
DVT prophylaxis�heparin drip--will need Eliquis
PT/OT
Anticipated Discharge: 24 - 48 hours
Subjective/Interval History
-
Date of Service: July 09, 2023
pt ready for d/c
Objective Data
-
Labs:
Laboratory Results
07/09/23
06:55
WBC 9.1
Hgb 12.4 L
Hct 37.0 L
Plt Count 245
Sodium 138
Potassium 4.1
Chloride 105
Carbon Dioxide 25
BUN 12
Creatinine 1.0
Glucose 97
Calcium 8.7
Vital Signs:
max temp for 24 hours
07/09/23
11:14
Temp 98.5 F
Vital Signs
Temp Pulse Resp BP Pulse Ox
98.5 F 78 18 120/71 94
07/09/23 11:14 07/09/23 11:14 07/09/23 11:14 07/09/23 11:14 07/09/23 11:14
I&O
07/08/23 07/09/23 07/10/23
06:59 06:59 06:59
Intake Total 240 / 240 1440 / 1440
Output Total 1100 / 1100 2325 / 2325
Balance -860 / -860 -885 / -885
Review of Systems
-
All other systems: Reviewed and negative
Physical Exam
-
General: Well Developed, Well Nourished and No Apparent Distress
HEENT: Normocephalic and Atraumatic
Respiratory: Clear to Auscultation; Negative Wheezes or Rhonchi
Cardiac: Regular Rhythm and S1/S2; Negative Murmur
GI: Soft, Nontender, Nondistended and Normal Bowel Sounds
Musculoskeletal: No Clubbing, No Cyanosis and No Edema
Neuro: Awake and Alert
[2023-07-09 15:55] VITALS: BP 109/61
--- NOTE | 2023-07-09 16:12 | PTCARENOTE ---
Pt AAO x3, sl forgetful at times/occ responds slowly. CRUZ slowly; assists with positioning. VSS. On room air- pulse ox 94%, no c/o SOB. Abd obese, soft, sandra PO well. Pt unable to retain earlier M/M enema; p(+) passing flatus. Maravilla P/I large
amts clear yellow urine. Resting in bed at present, no c/o. Will continue to monitor.
[2023-07-09] MEDS: TYLENOL 650 MG PO (20:46)
[2023-07-09] MEDS: ARICEPT 10 MG PO (21:26)
[2023-07-09 23:30] VITALS: BP 133/92
[2023-07-10 06:00] VITALS: BMI 35.8
[2023-07-10 07:26] VITALS: BP 132/85
[2023-07-10] MEDS: PRAVACHOL 80 MG PO (08:32)
[2023-07-10] MEDS: PROZAC 60 MG PO (08:32)
[2023-07-10] MEDS: ABILIFY 10 MG PO (08:32)
[2023-07-10] MEDS: FLOMAX 0.400000000000000022 MG PO (08:34)
[2023-07-10] MEDS: VALIUM 2 MG PO ×4 (08:34→21:31)
[2023-07-10] MEDS: ASPIR LOW (ENTERIC COATED) 81 MG PO (08:34)
[2023-07-10] MEDS: MIRALAX 17 GRAMS PO (08:34)
[2023-07-10] MEDS: BENTYL 20 MG PO ×3 (08:34→21:31)
[2023-07-10] MEDS: ELIQUIS 5 MG PO ×2 (08:34→21:31)
[2023-07-10] MEDS: ABILIFY 5 MG PO (08:34)
[2023-07-10] MEDS: NEURONTIN 100 MG PO ×2 (08:34→21:31)
[2023-07-10] MEDS: PROTONIX 40 MG PO (08:34)
[2023-07-10 10:51] VITALS: BP 142/75; PULSE 81
--- NOTE | 2023-07-10 13:54 | W.PN.HOSP.TC ---
Today's Communication/Plan
-
d/c planning
Assessment / Plan
Assessment / Plan
pt is a 68 year old male
Acute Bilateral lower extremity DVTs --right leg with whole leg involved (Ultrasound shows extensive DVT on the right and also DVT on the left)--does have IVC filter associated extensive thrombosis-- IV heparin changed to Eliquis--apprec
vascular--wrapping legs---apprec vascular, no interventions needed
acute septic thrombophlebitis ruled out---no air in the clot and negative blood cultures-- agree with stopping abx--apprec
Sepsis ruled out , only SIRS due to non infectious source--(fever, tachycardia, tachypnea, leukocytosis)-suspected secondary to septic thrombophlebitis initially . But with neg blood culture and no air in the clot unclear if septic thrombophlebitis.
UA is negative. Chest x-ray shows no acute cardiopulmonary disease. Doubt if sepsis is related to infection. May be as well just related to extensive thrombosis.
urinary retention--hodge--start flomax
Acute kidney injury due to prerenal-- creat now WNL
Transaminitis--suspect reactive
History of traumatic brain injury/dementia--His cognitive impairments from it---Continue donepezil
History of TIA--Continue aspirin
History of bowel obstruction status post resection--no BMs since before admission--added bowel regimen 07/07
Essential hypertension--Holding metoprolol--restart as able
Bradycardia status post pacemaker
Hyperlipidemia--Continue statin
Depression--Continue aripiprazole, fluoxetine---Hold diazepam, trazodone
GERD-Continue omeprazole
code status --Full code
DVT prophylaxis�heparin drip--will need Eliquis
PT/OT
Anticipated Discharge: 24 - 48 hours
Subjective/Interval History
-
Date of Service: July 10, 2023
ready for d/c
Objective Data
-
Vital Signs:
max temp for 24 hours
07/09/23
11:14
Temp 98.5 F
Vital Signs
Temp Pulse Resp BP Pulse Ox
97.3 F 82 20 132/85 94
07/10/23 07:26 07/10/23 07:26 07/10/23 07:26 07/10/23 07:26 07/10/23 09:47
I&O
07/09/23 07/10/23 07/11/23
06:59 06:59 06:59
Intake Total 1440 / 1440 980 / 980
Output Total 2325 / 2325 1050 / 1050
Balance -885 / -885 -70 / -70
Review of Systems
-
All other systems: Reviewed and negative
Physical Exam
-
General: Well Developed, Well Nourished and No Apparent Distress
HEENT: Normocephalic and Atraumatic
Respiratory: Clear to Auscultation; Negative Wheezes or Rhonchi
Cardiac: Regular Rhythm and S1/S2; Negative Murmur
GI: Soft, Nontender, Nondistended and Normal Bowel Sounds
Musculoskeletal: No Clubbing, No Cyanosis and No Edema
Neuro: Awake
--- NOTE | 2023-07-10 14:06 | CM ---
Addendum entered by Jahaira Garcia 07/10/23 15:04:
[employer] pending auth number is: [id number], clinicals faxed to . Awaiting response/auth
Original Note:
Per Ora patient accepted at [facility] and CM started auth for [facility]. CM left Vm for Patient neice regarding acceptance and will update as auth available. Please call report to [phone]/fax [phone]. CM will continue to
follow for discharge planning needs.
Plan; SNF. when auth in place
[2023-07-10 15:25] VITALS: BP 123/75
[2023-07-10] MEDS: ZOFRAN 4 MG IV (17:08)
[2023-07-10] MEDS: TYLENOL 650 MG PO (20:45)
[2023-07-10] MEDS: ARICEPT 10 MG PO (21:31)
[2023-07-10] MEDS: DESENEX/MITRAZOL/ZEASORB 1 APPLIC TOPICAL (21:31)
[2023-07-10 23:09] VITALS: BP 107/64
[2023-07-11 05:31] VITALS: BMI 35.9
[2023-07-11 07:34] VITALS: BP 127/78
[2023-07-11] MEDS: ASPIR LOW (ENTERIC COATED) 81 MG PO (07:36)
[2023-07-11] MEDS: ABILIFY 5 MG PO (07:36)
[2023-07-11] MEDS: FLOMAX 0.400000000000000022 MG PO (07:36)
[2023-07-11] MEDS: PROZAC 60 MG PO (07:36)
[2023-07-11] MEDS: NEURONTIN 100 MG PO (07:36)
[2023-07-11] MEDS: ABILIFY 10 MG PO (07:36)
[2023-07-11] MEDS: PRAVACHOL 80 MG PO (07:37)
[2023-07-11] MEDS: ELIQUIS 5 MG PO (07:37)
[2023-07-11] MEDS: BENTYL 20 MG PO (07:37)
[2023-07-11] MEDS: VALIUM 2 MG PO ×2 (07:37→12:37)
[2023-07-11] MEDS: PROTONIX 40 MG PO (07:37)
[2023-07-11] MEDS: DESENEX/MITRAZOL/ZEASORB 1 APPLIC TOPICAL (07:49)
[2023-07-11] MEDS: MIRALAX PO (07:49)
--- NOTE | 2023-07-11 09:35 | CM ---
Addendum entered by Jahaira Garcia 07/11/23 10:12:
Please call report to [phone]/fax [phone]. CM spoke with niece and will email IMM to her [email or web address]
Original Note:
Auth received from Kika at [facility]; aproval 07/10-07/14. Auth [id number] Reference number [id number] UR for clinicals is Ashley Weeks and her fax number is [phone]. CM will call to SNF and to family to confirm and review IMM. Plan for SNF today.
CM will continue to follow for discharge planning needs.
Plan; pending physician assessment transer to SNF via ambulance
--- NOTE | 2023-07-11 10:47 | WOUNDNOTE ---
[facility] RN NOTE: Reviewed chart and met with patient. Patient reports burning of scrotum and is frequently incontinent of urine. No open areas noted on scrotum so barrier ointment (blue lid) applied. Patient stated relief after application. Desenex has
been ordered for fungal appearing skin on perineum. Sacrum is intact and blanchable. Heels intact. Patient demonstrates ability to turn in bed. He reports his appetite is improving. Plan if for continued continence care with barrier ointment and
Desenex powder to fungal appearing skin of perineum. Will continue to follow as needed.
--- NOTE | 2023-07-11 11:40 | W.PN.HOSP.TC ---
Today's Communication/Plan
-
d/c
Assessment / Plan
Assessment / Plan
pt is a 68 year old male
Acute Bilateral lower extremity DVTs --right leg with whole leg involved (Ultrasound shows extensive DVT on the right and also DVT on the left)--does have IVC filter associated extensive thrombosis-- IV heparin changed to Eliquis--apprec
vascular--wrapping legs---apprec vascular, no interventions needed
acute septic thrombophlebitis ruled out---no air in the clot and negative blood cultures-- agree with stopping abx--apprec
Sepsis ruled out , only SIRS due to non infectious source--(fever, tachycardia, tachypnea, leukocytosis)-suspected secondary to septic thrombophlebitis initially . But with neg blood culture and no air in the clot unclear if septic thrombophlebitis.
UA is negative. Chest x-ray shows no acute cardiopulmonary disease. Doubt if sepsis is related to infection. May be as well just related to extensive thrombosis.
urinary retention--hodge--start flomax
Acute kidney injury due to prerenal-- creat now WNL
Transaminitis--suspect reactive
History of traumatic brain injury/dementia--His cognitive impairments from it---Continue donepezil
History of TIA--Continue aspirin
History of bowel obstruction status post resection
Essential hypertension--Holding metoprolol--restart as able
Bradycardia status post pacemaker
Hyperlipidemia--Continue statin
Depression--Continue aripiprazole, fluoxetine---Hold diazepam, trazodone
GERD-Continue omeprazole
code status --Full code
DVT prophylaxis�heparin drip--will need Eliquis
PT/OT
d/c
Anticipated Discharge: Today
Subjective/Interval History
-
Date of Service: July 11, 2023
pt ready for d/c
Objective Data
-
Vital Signs:
max temp for 24 hours
03/01/24
07:34
Temp 98.2 F
Vital Signs
Temp Pulse Resp BP Pulse Ox
98.2 F 72 14 127/78 93
07/11/23 07:34 07/11/23 07:34 07/11/23 07:34 07/11/23 07:34 07/11/23 07:34
I&O
07/10/23 07/11/23 07/12/23
06:59 06:59 06:59
Intake Total 980 / 980 1320 / 1320
Output Total 1050 / 1050
Balance -70 / -70 1320 / 1320
Review of Systems
-
All other systems: Reviewed and negative
Physical Exam
-
General: Well Developed, Well Nourished and No Apparent Distress
HEENT: Normocephalic and Atraumatic
Respiratory: Clear to Auscultation; Negative Wheezes or Rhonchi
Cardiac: Regular Rhythm and S1/S2; Negative Murmur
GI: Soft, Nontender, Nondistended and Normal Bowel Sounds
Musculoskeletal: No Clubbing, No Cyanosis and No Edema
Skin: Warm
Neuro: Awake
[2023-07-11 12:02] VITALS: BP 140/94
--- NOTE | 2023-07-11 14:40 | W.DCSUMMARY ---
Discharge Summary
Discharge Data
Date of Admission: 07/04/23
Date of Discharge: 07/11/23
-
Pending Results: No
Hospital Course
Primary care physician : Liz Cole
Principal Discharge diagnosis : Acute bilateral lower extremity deep venous thrombosis, urinary retention, acute kidney injury
Chronic Discharge diagnosis : History of traumatic brain injury with dementia, history of stroke, history of bowel obstruction status post resection, essential hypertension, history of bradycardia requiring pacemaker, hyperlipidemia, depression,
gastroesophageal reflux disease
Hospital Course : Patient was a 68-year-old male with a history of traumatic brain injury, stroke, among other medical issues who presented for increased bilateral lower extremity edema over the week prior to admission. He also complained of pain
in his legs. He stated he was weak and more confused than usual. He will also had some cough. He had dry heaves but no vomiting. Patient was found to have bilateral lower extremity deep venous thrombosis and the patient was admitted.
Problem #1: Acute bilateral lower extremity deep venous thrombosis. Septic thrombophlebitis was considered as well as sepsis however both were ruled out. Antibiotics were initially started but eventually stopped. He was started on IV heparin with
conversion to Eliquis. Vascular was consulted but no interventions were needed. They recommended Venu wrapping his legs. Swelling has improved.
Problem #2: Urinary retention requiring Maravilla catheter. Patient had trouble emptying his bladder with urinary retention. Maravilla catheter was placed. He should continue this at the care home facility and have trial of voiding after removal of
the Maravilla catheter there. Flomax was started.
Problem #3: Acute kidney injury. Patient's creatinine on admission was 1.9. Th this did improve throughout his hospitalization and returned to normal. This possibly could have been due to a prerenal situation.
Problem #4: All other medical issues. These include History of traumatic brain injury with dementia, history of stroke, history of bowel obstruction status post resection, essential hypertension, history of bradycardia requiring pacemaker,
hyperlipidemia, depression, gastroesophageal reflux disease. These medical issues were stable during his hospitalization. Medications were continued as able.
Patient was seen in consultation by physical therapy and Occupational Therapy. They recommended care home facility for a short term of rehab. Patient is stable for discharge at this time. If there are any questions regarding this dictation
or his hospital stay, please not hesitate to call. Our office number is [phone].
Discharge Plan
-
Patient Disposition: [facility]pc/SNF
Discharge Diagnosis/Procedures: Acute bilateral lower extremity DVTs, urinary retention, acute kidney injury, reactive transaminitis, history of traumatic brain injury with dementia, history of stroke, history of bowel obstruction in the past,
essential hypertension, bradycardia, hyperlipidemia, depression, gastroesophageal reflux disease
Condition: Good
Diet: As tolerated and Regular
Activity: As tolerated
Driving Restrictions: No driving
Bathing Restrictions: None
Referrals:
Liz Cole PA-C [Non-Admitting Privileges] - in less than 1 week
Prescriptions:
New
acetaminophen 325 mg Tablet
650 mg PO Q4HPRN PRN (Reason: mild pain/MONSON/temp> 100.4F) Qty: 0 0RF
tamsulosin 0.4 mg Capsule
0.4 mg PO DAILY Qty: 30 0RF
Eliquis 5 mg Tablet
5 mg PO BID Qty: 60 0RF
polyethylene glycol 3350 [HealthyLax] 17 gram Powder In Packet
17 g PO DAILY Qty: 0 0RF
simethicone 80 mg Tablet,Chewable
80 mg PO QIDPRN PRN (Reason: gas pain) Qty: 0 0RF
miconazole nitrate [Miconazorb AF] 2 % Powder
1 applic topical BID Qty: 0 0RF
Continued
trazodone 100 MG tablet
150 mg PO HS
metoprolol tartrate 50 MG tablet
25 mg PO BID
aspirin 81 MG tablet,delayed release (DR/EC)
81 mg PO DAILY Qty: 90 0RF
dicyclomine 20 mg Tablet
20 mg PO TID
loperamide 2 mg capsule
2 mg PO DAILY
donepezil 10 mg tablet
10 mg PO HS
omeprazole 40 mg capsule,delayed release(DR/EC)
40 mg PO DAILY
pravastatin 80 mg tablet
80 mg PO DAILY
diazepam 2 mg tablet
2 mg PO QID
Patient Comments:
07/04/2023: LAST FILLED 06/14/23, 120 TABS FOR 30 DAYS FROM [facility]82
gabapentin 100 mg capsule
100 mg PO BID
fluticasone propionate 50 mcg/actuation spray,suspension
1 spray INTRANASAL DAILY
aripiprazole 10 mg tablet
10 mg PO DAILY
Rx Instructions:
TAKEN W/ 5MG = 15MG
aripiprazole 5 mg tablet
5 mg PO DAILY
Rx Instructions:
TAKEN W/ 10MG = 15MG
Redness Relief 0.012-0.2 % Drops
1 drp BOTH EYES DAILY
Patient Comments:
07/04/2023: Not always in the morning, per family sometimes could be in the morning, noon, or evening
fluoxetine 60 mg tablet
60 mg PO DAILY
Discontinued
diazepam 10 mg tablet
10 mg PO QID
Patient Comments:
07/04/2023: LAST FILLED 06/14/23, 120 TABS FOR 30 DAYS FROM [facility]
Discharge Orders:
Discharge Patient (As Directed); Ordered 07/11/23
Ordered By: Jennifer España
Discharge Date and Time
Discharge Date/Time: 07/11/23 14:14
== END 2023-07-11 14:14 | DRG 299 ==
LOC: 4 EAST ACU 23:50
PROVIDERS: Emergency Medicine; Internal Medicine; ADMITTING PHYSICIAN Hospitalist; ATTENDING PHYSICIAN Internal Medicine; CONSULT PHYSICIAN Student in an Organized Health Care Education/Training Program; EMERGENCY PHYSICIAN Emergency Medicine; OTHER PHYSICIAN Surgery
DX: I82.4Z3 Acute embolism and thrombosis of unspecified deep veins of distal lower extremity, bilateral (principal); R65.11 Systemic inflammatory response syndrome (SIRS) of non-infectious origin with acute organ dysfunction; N17.9 Acute kidney failure, unspecified; F03.911 Unspecified dementia, unspecified severity, with agitation; K56.609 Unspecified intestinal obstruction, unspecified as to partial versus complete obstruction; F03.93 Unspecified dementia, unspecified severity, with mood disturbance; Z87.891 Personal history of nicotine dependence; I82.403 Acute embolism and thrombosis of unspecified deep veins of lower extremity, bilateral; N18.31 Chronic kidney disease, stage 3a; I12.9 Hypertensive chronic kidney disease with stage 1 through stage 4 chronic kidney disease, or unspecified chronic kidney disease; F32.A Depression, unspecified; K21.9 Gastro-esophageal reflux disease without esophagitis; I80.9 Phlebitis and thrombophlebitis of unspecified site; E78.00 Pure hypercholesterolemia, unspecified; R33.9 Retention of urine, unspecified; Z11.52 Encounter for screening for COVID-19
CPT/HCPCS: 51701; 71045; 71250; 74176; 80048; 80053; 81003; 81015; 82962; 83605; 83735; 85025; 85027; 85610; 85730; 87040; 87070; 87086; 87502; 87811; 93005; 93970; 96361; 96365; 96366; 96375; 97110; 97163; 97167; 97530; 99291

== ENCOUNTER 2023-12-19 12:43 | Emergency (ER) | payer OTHER, MEDICAID, SELFPAY ==
[2023-12-19] VITALS (10 sets, daily range): BP systolic 90–132; BP diastolic 35–79; BMI 29.4
[2023-12-19] MEDS: NSS 500 IV (13:42)
[2023-12-19 13:52] LABS: % Basophils 0.4 % (0-2); % Eosinophils 1.2 % (0-6); % Immature Granulocytes 0.3 % (0-0.5); % Lymphocytes 13.8 % (20.5-51.1); % Monocytes 5.8 % (1.7-9.3); % Neutrophils 78.5 % (42.2-75.2); Absolute Eosinophils 0.1 10^3/uL (0-0.7); Absolute Lymphocytes 0.9 10^3/uL (1.2-3.4); Absolute Monocytes 0.4 10^3/uL (0.1-0.6); Absolute Neutrophils 5.3 10^3/uL (1.4-6.5); Hematocrit 39.9 % (39.0-52.0); Hemoglobin 13.2 g/dL (13.0-18.0); Mean Corp Hgb Conc. 33.1 g/dL (33.0-37.0); Mean Corpuscular Volume 90.7 fL (80.0-94.0); Nucleated Red Blood Cells % 0 % (-); Platelet Count 158 10^3/uL (130-400); Red Cell Dist. Width 13.9 % (11.5-14.5); White Blood Cell Count 6.7 10^3/uL (4.8-10.8)
[2023-12-19 14:08] LABS: ALT (SGPT) < 10 U/L (0-50); AST (SGOT) 21 U/L (17-59); Albumin 3.8 g/dl (3.5-5.0); Alkaline Phosphatase 58 U/L (38-126); Blood Urea Nitrogen 15 mg/dl (9-20); Calcium 8.7 mg/dl (8.4-10.2); Carbon Dioxide 30 mmol/L (22-30); Chloride 105 mmol/L (98-107); Estimated Creatinine Clearance 60 ml/min; Glucose 87 mg/dl (70-99); Potassium 3.9 mmol/L (3.5-5.1); Sodium 141 mmol/L (135-145); Total Bilirubin 0.6 mg/dl (0.2-1.3); Total Protein 5.9 g/dl (6.3-8.2); eGFR > 60.00
--- NOTE | 2023-12-19 18:29 | ED.GENMED ---
History of Present Illness
General
Chief Complaint: Blood Pressure Problem
Source: patient and family
Time Seen by Provider: 12/19/23 14:07
History of Present Illness
History of Present Illness:
68-year-old male brought to the emergency room for evaluation from the patient's pressure. Patient has no fever or chills. No nausea or vomiting. Patient was recently discharged from inpatient rehab. Patient notes intermittent dizziness and
lightheadedness. No cough. No chest pain. No headache.
Past History
Past History
ED Past Medical History: CVA, HTN, Hypercholesterolemia, Psychiatric (Depression, ) and Other (Traumatic brain injury, impaired hearing, irritable bowel syndrome, Slight dementia)
ED Past Surgical History: Bowel resection (Due to bowel obstruction, Colostomy with reversal), Cardiac (Pacemaker) and Orthopedic (Right hand surgery)
Social History
Tobacco: Former smoker
Alcohol: None
Drug: None
Personal: Single
Living: with family (Resides with his sister)
Employment: Not employed
Family History
Family History: Other (Noncontributory)
Phy Exam
Physical Exam
Physical Exam:
General: Awake, Alert, Oriented X3. Appears chronically ill but in no acute distress
Vitals: unremarkable
Head: Atraumatic
Eyes: Pupils equal, EOMI
Throat: Airway intact, no exudates
Neck: Trachea midline
Lungs: Clear and equal b/l
Heart: Regular rate, no murmurs
Abd: Soft, Nontender, No pulsatile mass
Neuro: Nonfocal
Skin: Warm, dry, no rash
Extremities: pulses equal b/l, no edema
Course
Orders/Labs/Results
Orders:
Orders
12/19/23 13:26
EKG [Electrocardiogram (*1)] Urgent
Reason for Study: Fatigue / Weakness
EKG- Treatment ONCE
12/19/23 13:38
Complete Blood Count/With Diff Urgent
Comprehensive Metabolic Panel Urgent
12/19/23 13:42
0.9% Sodium Chloride 500 ml [Nss] 500 ml IV BOLUS
12/19/23 14:27
Interrogate Pacemaker- Treatment ONCE
12/19/23 16:28
CT Abd/pelvis W Iv Cont Urgent
Comment:
Reason For Exam: lower abd pain
Abnormal Lab Results
12/19/23
13:38
RBC 4.40 L 10^6/uL
(4.70-6.10)
MPV 12.0 H fL
(7.4-10.4)
Absolute Lymphs (auto) 0.9 L 10^3/uL
(1.2-3.4)
Neutrophils % 78.5 H %
(42.2-75.2)
Lymphocytes % 13.8 L %
(20.5-51.1)
Total Protein 5.9 L g/dl
(6.3-8.2)
12/19/23 13:38
12/19/23 13:38
Vital Signs
Initial and Last Documented VS:
Initial Vital Signs
Temp Pulse Resp BP Pulse Ox
98.3 F 54 16 104/61 98
12/19/23 12:51 12/19/23 12:51 12/19/23 12:51 12/19/23 12:51 12/19/23 12:51
Last Documented Vital Signs
Temp Pulse Resp BP Pulse Ox
98.3 F 44 14 121/65 96
12/19/23 12:51 12/19/23 18:15 12/19/23 18:15 12/19/23 18:00 12/19/23 18:15
MDM/Problems Addressed
Differential Diagnosis Includes:
Dehydration, electrolyte abnormality, anemia
MDM/Problems Addressed:
Patient has a benign exam here. Workup is unremarkable. CT shows no acute abnormality. Patient ambulatory here in the department without any difficulty. Multiple blood pressure measurements have been normal. Patient noted to be bradycardic.
She is taking 25 mg of Toprol twice daily. Recommend he reduce that to 12-1/2 mg twice daily
Chronic conditions affecting care: HTN, Arrhythmia and Other (Dementia)
*Radiology
Radiology exam reviewed: radiology read reviewed
*Pulse Oximetry
Patient hypoxic: no
*EKG
Interpreted by ED Provider?: Yes
Interpretation: abnormal
Heart Rate: 45
Rate: bradycardiac
Rhythm: sinus
Minerva: normal axis
Interval: normal interval
QRS Pattern: normal QRS
Ischemia: no ischemia
*Expanded Function Dental Assistant Interpretation
Rate: bradycardiac
Interpretation: abnormal
Rhythm: sinus
*Critical Care Note
Total Time (30-74mins, 75-104mins- exclusive of procedures): Not Applicable
ED Attending Note
-
Portions of this chart may have been created with voice recognition software.� Occasional wrong word or��sound alike� substitutions may have occurred due to the inherent limitations of voice recognition software.
Discharge Plan
Departure
Patient Disposition: Home (Routine Discharge)
Date of Disposition: 12/19/23
Time of Disposition: 18:29
Patient with high blood pressure during this ER visit?: No
Condition: Good
Discharge Problem:
Abdominal pain, Dizziness, Bradycardia
Instructions: Bradycardia, Abdominal Pain, Adult ED
Prescriptions:
No Action
trazodone 100 MG tablet
150 mg PO HS
metoprolol tartrate 50 MG tablet
25 mg PO BID
aspirin 81 MG tablet,delayed release (DR/EC)
81 mg PO DAILY Qty: 90 0RF
dicyclomine 20 mg Tablet
20 mg PO TID
loperamide 2 mg capsule
2 mg PO DAILY
donepezil 10 mg tablet
10 mg PO HS
omeprazole 40 mg capsule,delayed release(DR/EC)
40 mg PO DAILY
pravastatin 80 mg tablet
80 mg PO DAILY
diazepam 2 mg tablet
2 mg PO QID
Patient Comments:
07/04/2023: LAST FILLED 06/14/23, 120 TABS FOR 30 DAYS FROM [facility]27[facility]
gabapentin 100 mg capsule
100 mg PO BID
fluticasone propionate 50 mcg/actuation spray,suspension
1 spray INTRANASAL DAILY
aripiprazole 10 mg tablet
10 mg PO DAILY
Rx Instructions:
TAKEN W/ 5MG = 15MG
aripiprazole 5 mg tablet
5 mg PO DAILY
Rx Instructions:
TAKEN W/ 10MG = 15MG
Redness Relief 0.012-0.2 % Drops
1 drp BOTH EYES DAILY
Patient Comments:
07/04/2023: Not always in the morning, per family sometimes could be in the morning, noon, or evening
fluoxetine 60 mg tablet
60 mg PO DAILY
acetaminophen 325 mg Tablet
650 mg PO Q4HPRN PRN (Reason: mild pain/MONSON/temp> 100.4F) Qty: 0 0RF
tamsulosin 0.4 mg Capsule
0.4 mg PO DAILY Qty: 30 0RF
Eliquis 5 mg Tablet
5 mg PO BID Qty: 60 0RF
polyethylene glycol 3350 [HealthyLax] 17 gram Powder In Packet
17 g PO DAILY Qty: 0 0RF
simethicone 80 mg Tablet,Chewable
80 mg PO QIDPRN PRN (Reason: gas pain) Qty: 0 0RF
miconazole nitrate [Miconazorb AF] 2 % Powder
1 applic topical BID Qty: 0 0RF
Referrals:
Martha Carter CRNP [Family Provider] -
Activity Restrictions/Additional Instructions:
I would decrease the dose of metoprolol to half a table twice a day. Follow up with your cardiology
Interventions
Interventions:
*Risk Screen - Suicide Last Done: 12/19/23 13:38
*General Assessment Last Done: 12/19/23 13:38
*Neglect/Abuse Screening Last Done: 12/19/23 13:40
ED- Fall Risk Assessment Last Done: 12/19/23 18:43
*ED COVID-19 Vaccine History Last Done: 12/19/23 13:38
*Nursing Disposition Last Done: 12/19/23 18:43
ED- Cardiac Assessment Last Done: 12/19/23 13:38
ED- Neurological Assessment Last Done: 12/19/23 13:40
ED- Pulmonary Assessment Last Done: 12/19/23 13:38
Discharge Date and Time
Discharge Date/Time: 12/19/23 18:45
Print Language: ARMENIAN
== END 2023-12-19 18:45 | disposition home or self-care (01) ==
LOC: EMR 12:43
PROVIDERS: EMERGENCY PHYSICIAN Emergency Medicine; FAMILY PHYSICIAN Nurse Practitioner Family
DX: R10.9 Unspecified abdominal pain (principal); R42 Dizziness and giddiness; R00.1 Bradycardia, unspecified; I10 Essential (primary) hypertension; E78.00 Pure hypercholesterolemia, unspecified; F32.A Depression, unspecified; K58.9 Irritable bowel syndrome, unspecified; F03.93 Unspecified dementia, unspecified severity, with mood disturbance; Z86.73 Personal history of transient ischemic attack (TIA), and cerebral infarction without residual deficits; Z87.891 Personal history of nicotine dependence; Z95.0 Presence of cardiac pacemaker
CPT/HCPCS: 99284; 96360; 74177; 80053; 85025; 93005; Q9967

== ENCOUNTER 2023-12-29 18:29 | Inpatient (IN) | payer OTHER, MEDICAID, SELFPAY ==
[2023-12-29] VITALS (24 sets, daily range): BP systolic 77–106; BP diastolic 49–80; BMI 31.1; BMI 30.5
--- NOTE | 2023-12-29 12:34 | ED.GENMED ---
History of Present Illness
<Elba Simms CENA - Last Filed: 12/30/23 18:23>
General
Chief Complaint: Weakness
Source: patient, family and ambulance crew
Exam Limitations: altered mental status
Time Seen by Provider: 12/29/23 12:34
Nursing documentation reviewed up to this point in time: agreed with
History of Present Illness
History of Present Illness:
68-year-old male with history of dementia, CVA, TBI, cardiac arrest, HTN, pacemaker, arrhythmia on Eliquis CKD, hearing impaired, depression, bowel resection due to obstruction, colostomy with reversal presents from home where he states he told the
P/T he had diarrhea. States he had a lot of diarrhea at 2 a.m. none since. Pt denies fever, CP, SOB, no new abdominal pain,
Past History
<Elba Simms, CENA - Last Filed: 12/30/23 18:23>
Past History
ED Past Medical History: CVA, HTN, Hypercholesterolemia, Psychiatric (Depression, ) and Other (Traumatic brain injury, impaired hearing, irritable bowel syndrome, Slight dementia)
ED Past Surgical History: Bowel resection (Due to bowel obstruction, Colostomy with reversal), Cardiac (Pacemaker) and Orthopedic (Right hand surgery)
Social History
Tobacco: Former smoker
Alcohol: None
Drug: None
Personal: Single
Living: with family (Resides with his sister)
Employment: Not employed
Family History
Family History: Other (Noncontributory)
Review of Systems
<Elba Simms CENA - Last Filed: 12/30/23 18:23>
Review of Systems
Allergies reviewed?: Yes
All Other Systems: ROS reviewed and negative except as documented in HPI and ROS
Constitutional: Denies fever, fatigue or chills
EENT: Denies sore throat
Cardiac: Denies chest pain or syncope
ABD/GI: Reports diarrhea; Denies abdominal pain, nausea or vomiting
Phy Exam
<Elba Simms, CENA - Last Filed: 12/30/23 18:23>
Physical Exam
Physical Exam:
GENERAL: No acute distress. A&Ox3.
CONSTITUTIONAL: 100.0 R
EYES: PERRL, conjunctivae normal
Neck: Supple
ENMT: moist mucus membranes, Pharynx nl
RESPIRATORY: Regular respirations, nonlabored, lungs clear, diminished breath sounds throughout
CARDIOVASCULAR: Regular rate and rhythm, no murmurs, no rubs.
GI: Soft, nontender, normal BS
MUSCULOSKELETAL: Generally weak and deconditioned. Able to move all extremities on command.
SKIN: Warm, dry, pink
PSYCH: Normal mood and affect. Well kept, interactive and appropriate
NEUROLOGIC: Awake, alert and oriented to 'Hospital' Answering questions appropriately. Speech slurred from previous stroke. Strength 4/5 UE's, 2/5 LE's bilaterally.
Course
<Elba Simms, CENA - Last Filed: 12/30/23 18:23>
Orders/Labs/Results
Orders:
Orders
12/29/23 12:17
C-Reactive Protein Urgent
Comment: ADD ON
CBC/With Diff [Complete Blood Count/With Diff] Urgent
CMP [Comprehensive Metabolic Panel] Urgent
Cortisol, Random Urgent
Comment: ADD ON
Urinalysis Reflex To Culture Urgent
Date Specimen was Collected: 12/29/23
Time Specimen was Collected: 12:16
12/29/23 14:00
CR Chest - 2 Views Urgent
Comment:
Reason For Exam: fever, change in ms
12/29/23 14:02
0.9% Sodium Chloride 1000 ml [Nss] 1,000 ml IV BOLUS
12/29/23 14:04
COVID-19 Antigen Urgent
Source: Nasal Swab
12/29/23 Dinner
Low Residue
12/29/23 15:07
Electrocardiogram (*1) Urgent
Reason for Study: Fatigue / Weakness
EKG- Treatment ONCE
12/29/23 15:10
Vancomycin 1 Gram/200 ml [Vancocin] 1 gram in 200 ml IV NOW
12/29/23 15:11
Piperacillin/Tazo 3.375 Gram [Zosyn] 3.375 gram in 50 ml IV NOW
12/29/23 15:20
CT Chest Pe Study Urgent
Comment:
Reason For Exam: hypotension
12/29/23 15:21
0.9% Sodium Chloride 1000 ml [Nss] 1,000 ml IV BOLUS
12/29/23 15:45
Lactic Acid Urgent
Troponin I Urgent
Blood Culture Urgent
CASH Source: Blood/Venous
Specimen Description:
12/29/23 17:32
Admit/Transfer Patient As Directed
Co-Sign Provider:
Level of Care: Inpatient admission
Assign to:: IMU- Intermediate Care
Physician / Group: bird
Diagnosis: Weakness with hypotension and possible sepsis
Reason for Hospitalization: see progress note
Expected length of stay greater than two midnights?: Yes
ELOS- Estimated Length of Stay in days: 4
I certify the patient meets the requirements for IP care: Yes
PRN Pain Medication Management As Directed
May give lesser potent ordered pain med per pt: Yes
preference::
Protocol:: Medication orders for pain may be administered in a
manner that supports deferring to patient preference
when the pt is:
- Requesting an ordered lesser potent pain medication.
Least to most potent pain medications are defined
as: acetaminophen < NSAID < tramadol < opioids
(morphine, oxycodone, hydromorphone).
- Requesting a lesser dose of the same medication IF
ORDERED.
- Requesting a less intrusive route of administration
if both routes are prescribed by the provider (PO <
IV).
12/29/23 17:47
Code Status As Directed
Resuscitation Status: Full Code
12/29/23 21:04
0.9% Sodium Chloride 1000 ml [Nss] 1,000 ml IV 100 mls/hr
Acetaminophen [Tylenol] 650 mg PO Q4HPRN PRN
Apixaban [Eliquis] 5 mg PO BID
Diazepam [Valium] 10 mg PO QIDPRN PRN
Divalproex Delayed Rel. 12 Hr [Depakote (12 Hr Release)] 125 mg PO BID
Gabapentin [Neurontin] 100 mg PO BID
Metoprolol [Lopressor] 12.5 mg PO BID
cetirizine See Dose Instructions OPHTH BIDPRN PRN
12/29/23 21:04
Add On- LAB Routine
Tests Added?: CRP,Random cortisol
Activity As Directed
Activity Level: As Tolerated
I&O [Intake/ Output] As Directed
Frequency: q12h
Ot Eval And Treat Routine
Pt Eval And Treat Routine
Activity Level: As Tolerated
Speech Therapy Eval & Treat Routine
12/29/23 22:00
Carbidopa/Levodopa [Sinemet 10-100] 1 tablet PO TID
Dicyclomine [Bentyl] 20 mg PO TID
Donepezil HCl [Aricept] 10 mg PO HS
Mirtazapine [Remeron] 15 mg PO HS
Piperacillin/Tazo 3.375 Gram [Zosyn] 3.375 gram in 50 ml IV Q6H
Trazodone [Desyrel] 100 mg PO HS
12/30/23 04:57
BMP [Basic Metabolic Panel] IN AM
CBC/No Diff [Complete Blood Count/No Diff] IN AM
12/30/23 08:00
Aripiprazole [Abilify] 15 mg PO DAILY
Aspirin Low Dose EC [Aspir Low (Enteric Coated)] 81 mg PO DAILY
Fluoxetine HCl [Prozac] 80 mg PO DAILY
Pantoprazole [Protonix] 40 mg PO DAILY
Pravastatin Sodium [Pravachol] 80 mg PO DAILY
Tamsulosin [Flomax] 0.4 mg PO DAILY
Abnormal Lab Results
12/29/23
12:17
WBC 11.5 H 10^3/uL
(4.8-10.8)
RBC 3.94 L 10^6/uL
(4.70-6.10)
Hgb 11.7 L g/dL
(13.0-18.0)
Hct 35.9 L %
(39.0-52.0)
MCHC 32.6 L g/dL
(33.0-37.0)
MPV 11.3 H fL
(7.4-10.4)
Absolute Neuts (auto) 10.3 H 10^3/uL
(1.4-6.5)
Absolute Lymphs (auto) 0.6 L 10^3/uL
(1.2-3.4)
Neutrophils % 89.4 H %
(42.2-75.2)
Lymphocytes % 5.0 L %
(20.5-51.1)
Calcium 8.1 L mg/dl
(8.4-10.2)
C-Reactive Protein 43.80 H mg/L
(0.0-10.00)
Total Protein 5.2 L g/dl
(6.3-8.2)
Albumin 3.1 L g/dl
(3.5-5.0)
Urine Ketones Trace A
(Negative)
12/29/23 12:17
12/29/23 12:17
Vital Signs
Initial and Last Documented VS:
Initial Vital Signs
Temp Pulse Resp BP Pulse Ox
100.1 F 63 16 100/51 93
12/29/23 12:01 12/29/23 12:01 12/29/23 12:01 12/29/23 12:01 12/29/23 12:01
Last Documented Vital Signs
Temp Pulse Resp BP Pulse Ox
98.4 F 63 18 124/73 91
12/30/23 15:29 12/30/23 18:15 12/30/23 18:15 12/30/23 18:00 12/30/23 18:15
Automobile Locator consulted with Physician
Automobile Locator consulted with physician?: Yes
Name of Physician Consulted: Ivan
<Rico Love, DO - Last Filed: 12/29/23 15:03>
Orders/Labs/Results
Orders:
Orders
12/29/23 12:17
C-Reactive Protein Urgent
Comment: ADD ON
CBC/With Diff [Complete Blood Count/With Diff] Urgent
CMP [Comprehensive Metabolic Panel] Urgent
Cortisol, Random Urgent
Comment: ADD ON
Urinalysis Reflex To Culture Urgent
Date Specimen was Collected: 12/29/23
Time Specimen was Collected: 12:16
12/29/23 14:00
CR Chest - 2 Views Urgent
Comment:
Reason For Exam: fever, change in ms
12/29/23 14:02
0.9% Sodium Chloride 1000 ml [Nss] 1,000 ml IV BOLUS
12/29/23 14:04
COVID-19 Antigen Urgent
Source: Nasal Swab
12/29/23 Dinner
Low Residue
12/29/23 15:07
Electrocardiogram (*1) Urgent
Reason for Study: Fatigue / Weakness
EKG- Treatment ONCE
12/29/23 15:10
Vancomycin 1 Gram/200 ml [Vancocin] 1 gram in 200 ml IV NOW
12/29/23 15:11
Piperacillin/Tazo 3.375 Gram [Zosyn] 3.375 gram in 50 ml IV NOW
12/29/23 15:20
CT Chest Pe Study Urgent
Comment:
Reason For Exam: hypotension
12/29/23 15:21
0.9% Sodium Chloride 1000 ml [Nss] 1,000 ml IV BOLUS
12/29/23 15:45
Lactic Acid Urgent
Troponin I Urgent
Blood Culture Urgent
CASH Source: Blood/Venous
Specimen Description:
12/29/23 17:32
Admit/Transfer Patient As Directed
Co-Sign Provider:
Level of Care: Inpatient admission
Assign to:: IMU- Intermediate Care
Physician / Group: bird
Diagnosis: Weakness with hypotension and possible sepsis
Reason for Hospitalization: see progress note
Expected length of stay greater than two midnights?: Yes
ELOS- Estimated Length of Stay in days: 4
I certify the patient meets the requirements for IP care: Yes
PRN Pain Medication Management As Directed
May give lesser potent ordered pain med per pt: Yes
preference::
Protocol:: Medication orders for pain may be administered in a
manner that supports deferring to patient preference
when the pt is:
- Requesting an ordered lesser potent pain medication.
Least to most potent pain medications are defined
as: acetaminophen < NSAID < tramadol < opioids
(morphine, oxycodone, hydromorphone).
- Requesting a lesser dose of the same medication IF
ORDERED.
- Requesting a less intrusive route of administration
if both routes are prescribed by the provider (PO <
IV).
12/29/23 17:47
Code Status As Directed
Resuscitation Status: Full Code
12/29/23 21:04
0.9% Sodium Chloride 1000 ml [Nss] 1,000 ml IV 100 mls/hr
Acetaminophen [Tylenol] 650 mg PO Q4HPRN PRN
Apixaban [Eliquis] 5 mg PO BID
Diazepam [Valium] 10 mg PO QIDPRN PRN
Divalproex Delayed Rel. 12 Hr [Depakote (12 Hr Release)] 125 mg PO BID
Gabapentin [Neurontin] 100 mg PO BID
Metoprolol [Lopressor] 12.5 mg PO BID
cetirizine See Dose Instructions OPHTH BIDPRN PRN
12/29/23 21:04
Add On- LAB Routine
Tests Added?: CRP,Random cortisol
Activity As Directed
Activity Level: As Tolerated
I&O [Intake/ Output] As Directed
Frequency: q12h
Ot Eval And Treat Routine
Pt Eval And Treat Routine
Activity Level: As Tolerated
Speech Therapy Eval & Treat Routine
12/29/23 22:00
Carbidopa/Levodopa [Sinemet 10-100] 1 tablet PO TID
Dicyclomine [Bentyl] 20 mg PO TID
Donepezil HCl [Aricept] 10 mg PO HS
Mirtazapine [Remeron] 15 mg PO HS
Piperacillin/Tazo 3.375 Gram [Zosyn] 3.375 gram in 50 ml IV Q6H
Trazodone [Desyrel] 100 mg PO HS
12/30/23 04:57
BMP [Basic Metabolic Panel] IN AM
CBC/No Diff [Complete Blood Count/No Diff] IN AM
12/30/23 08:00
Aripiprazole [Abilify] 15 mg PO DAILY
Aspirin Low Dose EC [Aspir Low (Enteric Coated)] 81 mg PO DAILY
Fluoxetine HCl [Prozac] 80 mg PO DAILY
Pantoprazole [Protonix] 40 mg PO DAILY
Pravastatin Sodium [Pravachol] 80 mg PO DAILY
Tamsulosin [Flomax] 0.4 mg PO DAILY
Abnormal Lab Results
12/29/23
12:17
WBC 11.5 H 10^3/uL
(4.8-10.8)
RBC 3.94 L 10^6/uL
(4.70-6.10)
Hgb 11.7 L g/dL
(13.0-18.0)
Hct 35.9 L %
(39.0-52.0)
MCHC 32.6 L g/dL
(33.0-37.0)
MPV 11.3 H fL
(7.4-10.4)
Absolute Neuts (auto) 10.3 H 10^3/uL
(1.4-6.5)
Absolute Lymphs (auto) 0.6 L 10^3/uL
(1.2-3.4)
Neutrophils % 89.4 H %
(42.2-75.2)
Lymphocytes % 5.0 L %
(20.5-51.1)
Calcium 8.1 L mg/dl
(8.4-10.2)
C-Reactive Protein 43.80 H mg/L
(0.0-10.00)
Total Protein 5.2 L g/dl
(6.3-8.2)
Albumin 3.1 L g/dl
(3.5-5.0)
Urine Ketones Trace A
(Negative)
12/29/23 12:17
12/29/23 12:17
Vital Signs
Initial and Last Documented VS:
Initial Vital Signs
Temp Pulse Resp BP Pulse Ox
100.1 F 63 16 100/51 93
12/29/23 12:01 12/29/23 12:01 12/29/23 12:01 12/29/23 12:01 12/29/23 12:01
Last Documented Vital Signs
Temp Pulse Resp BP Pulse Ox
98.4 F 63 18 124/73 91
12/30/23 15:29 12/30/23 18:15 12/30/23 18:15 12/30/23 18:00 12/30/23 18:15
<Elba Simms NP - Last Filed: 12/30/23 18:23>
MDM/Problems Addressed
Differential Diagnosis Includes:
Dehydration, UTI, Covid
MDM/Problems Addressed:
68-year-old maleadmitted here 07/04-07/11/23 with bilateral LE DVT, urinary retention, ADAMA. Also has history of dementia, CVA, TBI, cardiac arrest, HTN, pacemaker, arrhythmia on Eliquis CKD, hearing impaired, depression, bowel resection due to
obstruction, colostomy with reversal presents from home where he states he told the P/T he had diarrhea. States he had one episode of a lot of diarrhea at 2 a.m. none since. Pt denies fever, CP, SOB, no new abdominal pain
Temp 100.1 R
Patient in no distress, answering questions seemingly appropriately
1:15 PM:
CBC: WBC 11.5, up from 6.7 10 days ago; hemoglobin 11.7, down from 13.2 10 days ago
CMP: No clinically significant abnormality
1:45:
UA negative
Spoke with sister on phone, she states pt DC'd to home from [place] 2 weeks ago he was eating, able to walk up and down the stairs, has declined in past week, he is usually a good eater and he has not been eating, he seems much more fatigued,
slower to respond, states the last time he walked up and down the steps was yesterday but very slowly and weakly.
BP 90-100 systolic IVF ordered. No tachycardia.
2:40 p.m.
Chest x-ray radiology report read: IMPRESSION:
Low lung volumes with mildly increased interstitial markings bilaterally, nonspecific. No focal areas of airspace disease. No significant pleural effusions.
BP 88/ pt mentation unchanged
3:00 p.m.
After NSS 600 ml BP still low 88/
Case discussed with Dr. Love who evaluated pt. Recommends admit for sepsis. Blood culture pending. Unclear source.
Chest CTA pending
BP 90/53
Hospitalist notifed of admission
<Elba Simms CENA - Last Filed: 12/30/23 18:23>
*Critical Care Note
Total Time (30-74mins, 75-104mins- exclusive of procedures): Not Applicable
ED Attending Note
<Elba Simms, CENA - Last Filed: 12/30/23 18:23>
-
Portions of this chart may have been created with voice recognition software.� Occasional wrong word or��sound alike� substitutions may have occurred due to the inherent limitations of voice recognition software.
<Rico Love DO - Last Filed: 12/29/23 15:03>
ED Attending Note
Patient seen and examined by attending physician: Yes
I performed the substantive portion of visit, reviewed & personally made and approve the management plan that is documented in note by myself or RUCHI.: Yes
Discharge Plan
Departure
Patient Disposition: Admit
Date of Disposition: 12/29/23
Time of Disposition: 15:46
Admit to: IMU
Presentation/result/management discussed w/ accepting MD/DO: Hospitalist
Condition: Serious
Covid-19: Negative COVID-19
Discharge Problem:
Sepsis
Interventions
Interventions:
*Risk Screen - Suicide Last Done: 12/29/23 22:01
*General Assessment Last Done: 12/29/23 12:01
*Neglect/Abuse Screening Last Done: 12/29/23 12:01
*ED COVID-19 Vaccine History Last Done: 12/29/23 22:01
*Nursing Disposition Last Done: 12/29/23 21:14
ED- Cardiac Assessment Last Done: 12/29/23 12:20
ED- Neurological Assessment Last Done: 12/29/23 12:20
ED- Pulmonary Assessment Last Done: 12/29/23 12:20
Discharge Date and Time
Discharge Date/Time: 12/29/23 21:14
[2023-12-29 12:50] LABS: % Basophils 0.3 % (0-2); % Immature Granulocytes 0.3 % (0-0.5); % Neutrophils 89.4 % (42.2-75.2); Absolute Lymphocytes 0.6 10^3/uL (1.2-3.4); Absolute Monocytes 0.6 10^3/uL (0.1-0.6); Absolute Neutrophils 10.3 10^3/uL (1.4-6.5); Hematocrit 35.9 % (39.0-52.0); Hemoglobin 11.7 g/dL (13.0-18.0); Mean Corp Hgb Conc. 32.6 g/dL (33.0-37.0); Mean Corpuscular Hgb 29.7 pg (27.0-31.0); Mean Corpuscular Volume 91.1 fL (80.0-94.0); Mean Platelet Volume 11.3 fL (7.4-10.4); Nucleated Red Blood Cells % 0 % (-); Platelet Count 155 10^3/uL (130-400); Red Blood Cell Count 3.94 10^6/uL (4.70-6.10); Red Cell Dist. Width 14.5 % (11.5-14.5); White Blood Cell Count 11.5 10^3/uL (4.8-10.8)
[2023-12-29 12:53] LABS: Urine Albumin Negative (Neg - Trace); Urine Bilirubin Negative (Negative); Urine Character Clear (Clear); Urine Color Yellow; Urine Glucose Negative (Negative); Urine Ketone Trace (Negative); Urine Leukocyte Negative (Negative); Urine Nitrite Negative (Negative); Urine Occult Blood Negative (Negative); Urine Specific Gravity 1.005 (<1.030); Urine Urobilinogen Negative (Neg - 1+)
[2023-12-29 13:00] LABS: ALT (SGPT) 20 U/L (0-50); AST (SGOT) 25 U/L (17-59); Albumin 3.1 g/dl (3.5-5.0); Alkaline Phosphatase 52 U/L (38-126); Blood Urea Nitrogen 16 mg/dl (9-20); Calcium 8.1 mg/dl (8.4-10.2); Carbon Dioxide 27 mmol/L (22-30); Chloride 105 mmol/L (98-107); Glucose 89 mg/dl (70-99); Potassium 4.6 mmol/L (3.5-5.1); Sodium 138 mmol/L (135-145); Total Bilirubin 0.7 mg/dl (0.2-1.3); Total Protein 5.2 g/dl (6.3-8.2); eGFR > 60.00
[2023-12-29] MEDS: NSS 1000 IV ×3 (14:06→21:21)
[2023-12-29 14:55] LABS: COVID-19 Antigen Negative (Negative)
[2023-12-29] MEDS: ZOSYN 50 IV ×2 (15:40→21:45)
--- NOTE | 2023-12-29 15:42 | PHANOTE ---
med rec koby(12/29/23)-patient and family did have a medication list, but gave it to ambulance crew. I was not able to find the list, so the home medications was compiled through [facility] records and [facility] records from Primary Care visit on 12/24/23.
[2023-12-29 16:25] LABS: Lactic Acid 1.1 mmol/L (0.7-2.0)
[2023-12-29 16:37] LABS: Troponin I < 0.012 ng/ml
--- NOTE | 2023-12-29 17:57 | HPS.HSE ---
Family Physician
-
Family Physician: NOT KNOW UNKNOWN - PT DOES
Chief Complaint
-
Weakness
History of Present Illness
History is from the sister who is the drawing kiln operator and POA.
Patient has history of dementia-difficulty with short-term memory but intact long-term memory and also is very hard of hearing.
Very hard to get any history from the patient. We at least know his oriented to place and person.
On repeat questioning with a high pitched voice about any trouble with his body including pain or discomfort and he says no.
According to sister patient went to rehab after recent admission here at . He was there for 4 months and was not making great progress so she took him home 2 weeks ago.
The first week at home he was doing okay.
Then on Friday there is a change in his status. He was not his usual self. He was noted to be weak.
Same thing on Friday-not himself and weak.
Yesterday he was able to climb up the stairs and then he was feeling weak and he could not come down again due to weakness. He had a loose incontinence of stools all over in his room. He was noted to be having loose stools and diarrhea.
No nausea or vomiting. Did not have much appetite today. Patient is denying any abdominal pain.
Medical History
Past Medical History
Past Medical History: Reports Other (traumatic brain injury, TIA, bowel obstruction status post resection, hypertension, pacemaker, hyperlipidemia, depression,)
Past Surgical History: Reports Other ( Bowel resection (Due to bowel obstruction, Colostomy with reversal), Cardiac (Pacemaker) and Orthopedic (Right hand surgery))
Social History
Tobacco: Non-smoker
Alcohol: None
Drug: None
Family History
Family History: Not pertinent
Allergies / Home Medications
Allergies reflects when Allergies were last updated in [employer].
Home Medications with original date entered in [employer]
Allergy/Medication List:
Allergies
Allergy/AdvReac Type Severity Reaction Status Date / Time
No Known Allergies Allergy Verified 07/04/23 20:54
Home Medications
metoprolol tartrate 50 mg tablet 25 mg PO BID Blood pressure 09/24/19
trazodone 100 mg tablet 150 mg PO HS Sleep 09/24/19
aspirin 81 mg tablet,delayed release 81 mg PO DAILY #90 tabs 09/26/19
dicyclomine 20 mg tablet 20 mg PO TID Gastrointestinal issue 03/08/22
aripiprazole 10 mg tablet 10 mg PO DAILY 07/04/23
aripiprazole 5 mg tablet 5 mg PO DAILY 07/04/23
diazepam 10 mg tablet 10 mg PO QID 07/04/23
diazepam 2 mg tablet 2 mg PO QID 07/04/23
donepezil 10 mg tablet 10 mg PO HS 07/04/23
fluoxetine 60 mg tablet 60 mg PO DAILY 07/04/23
fluticasone propionate 50 mcg/actuation nasal spray,suspension 1 spray intranasal DAILY 07/04/23
gabapentin 100 mg capsule 100 mg PO BID 07/04/23
loperamide 2 mg capsule 2 mg PO DAILY 07/04/23
naphazoline 0.012 %-glycerin 0.2 % eye drops (Redness Relief) 1 drp BOTH EYES DAILY 07/04/23
omeprazole 40 mg capsule,delayed release 40 mg PO DAILY 07/04/23
pravastatin 80 mg tablet 80 mg PO DAILY 07/04/23
Review of Systems
-
Unable to obtain full review of systems at this time due to: Dementia
Physical Exam
Vital Signs
Vital Signs
Temp Pulse Resp BP Pulse Ox
99.0 F 60 14 90/53 94
12/29/23 15:45 12/29/23 16:30 12/29/23 16:30 12/29/23 15:18 12/29/23 14:48
Physical Exam
General: No Apparent Distress
HEENT: Moist mucous membranes
Respiratory: Clear (anteriorly) and Non Labored Respirations; No Accessory Resp Muscle Use
Cardiac: S1/S2 and Regular Rhythm
GI: Soft, Non Tender, Non Distended and Normal Bowel Sounds
Neuro: Awake, Alert, Oriented (place and person only) and Nonfocal/grossly intact
Psych: Calm
Laboratory Results
-
12/29/23 12:17
12/29/23 12:17
Laboratory Results
Lactic Acid 1.1 mmol/L (0.7-2.0) 12/29/23 15:45
Total Bilirubin 0.7 mg/dl (0.2-1.3) 12/29/23 12:17
AST 25 U/L (17-59) 12/29/23 12:17
ALT 20 U/L (0-50) 12/29/23 12:17
Alkaline Phosphatase 52 U/L (38-126) 12/29/23 12:17
Troponin I < 0.012 ng/ml 12/29/23 15:45
Data Reviewed
-
Lab Data: Labs Reviewed by me
Impression/Plan
-
Generalized weakness-patient noted to be hypotensive on presentation. Suspect weakness may be secondary to hypotension and ongoing diarrhea. Currently blood pressure and will make sure he is adequately compensated hemodynamically and follow his
weakness.
Hypotension-does not meet the criteria for sepsis but suspected sepsis with leukocytosis and ongoing diarrhea.BP improved with fluids in ED .Normal lactic acid. CW fluid support . CXR neg for infiltrate. UA neg . Work up for diarrhea as below.
Diarrhea - abdomen benign - check stool studies - start and diet and follow -depending on course of illness will obtain CT A/P .
HX of DVT - cw eliquis
Dementia with TBI - cw home meds; pt also on Carbidopa which i would continue .? Indication for Carbidopa.
Depression -cw home meds
Full code per POA /Sister
[2023-12-29] MEDS: VANCOCIN 200 IV ×2 (18:12→22:55)
[2023-12-29] MEDS: ARICEPT 10 MG PO (21:46)
[2023-12-29] MEDS: DEPAKOTE (12 HR RELEASE) 125 MG PO (21:46)
[2023-12-29] MEDS: BENTYL 20 MG PO (21:46)
[2023-12-29] MEDS: SINEMET 10-100 1 TABLET PO (21:46)
[2023-12-29] MEDS: NEURONTIN 100 MG PO (21:46)
[2023-12-29] MEDS: REMERON 15 MG PO (21:46)
[2023-12-29] MEDS: ELIQUIS 5 MG PO (21:46)
[2023-12-29] MEDS: DESYREL 100 MG PO (21:47)
--- NOTE | 2023-12-29 21:50 | PHA.VAN.IN ---
Assessment
- Assessment
Renal Function: Appears similar to baseline
Concomitant Antimicrobials: ZOSYN
- Previous Dosing Experience
Previous Regimen: DOSING BY RANDOM LEVEL
Date of Regimen: 07/05/23
Provided Trough of: UNKNOWN
Provided AUC of: UNKNOWN
Patient's SCR is: Decreased compared to previous dosing experience (07/05/23 SCR = 1.9)
Patient's weight is: Decreased compared to previous dosing experience (07/05/23 WT = 102.1 KG)
AUC Dosing Plan
- Dosing Variables
Dosing Weight (kg): 90
Dosing CrCl (ml/min): 69
Vd coefficient (L/kg): 0.6
- Empiric Dosing
Initial / Loading Dose: 2GM
Maintenance Regimen: 750MG IV Q12H
Estimated AUC (mcg*h/mL): 464
Estimated Peak (mcg*h/mL): 26.6
Estimated Trough (mcg/ml): 13.5
Estimated Half Life (H): 11.2
Pharmacokinetics Vancomycin I
- -
Patient Age: 68
Patient Sex: Male
Vancomycin Day #: 1
Indication: Other (SEPSIS)
Requesting Provider: ROSITA
Height / Weight:
Height 5 ft 7 in
Actual Weight 90 kg
- Vital Signs / Lab Results
Temp Pulse Resp BP Pulse Ox
99.0 F 64 17 77/64 95
12/29/23 15:45 12/29/23 21:19 12/29/23 20:30 12/29/23 21:19 12/29/23 20:00
Lab Results - Hematology
12/29/23
12:17
WBC 11.5 H
Lab Results - Chemistry
12/29/23
12:17
BUN 16
Creatinine 1.1
Albumin 3.1 L
12/29/23
15:45
Lactic Acid 1.1
Lab Results - Urine
12/29/23
12:17
Urine Nitrite (Reflex) Negative
Leukocyte Esterase Rfl Negative
--- NOTE | 2023-12-29 22:00 | PTCARENOTE ---
Received pt from ED via stretcher. Pt AAOx2 - not oriented to time. Pt appears drowsy but easily arousable. BP 77/64 on arrival with MAP 71. SBP varies between high 70s to low 90s. NSS running at 80 ml/hr in LFA. Pt passed swallow test and able
to take all PO medications with water. Lungs CTA and diminished at the bases; on RA. Incontinent of bowel and bladder. Stool sample still pending collection. Resting in bed with call ortega in reach.
[2023-12-30] VITALS (67 sets, daily range): BP systolic 76–127; BP diastolic 49–83
[2023-12-30] MEDS: DUONEB 3 ML INH (00:57)
--- NOTE | 2023-12-30 01:59 | W.PN.UPDATE ---
Update Note
Progress Note Update
RN notified AREA MECHANIC, patient has been coughing since he took oral medications. Oxygen noted to be in 88-90%. Lungs coarse RR in low 20's, HR 63, BP 86/59 MAP 68. Will order chest xray to rule out Aspiration or CHF?
currently suspected sepsis with leukocytosis and ongoing diarrhea and is on IV fluids NSS @ 80cchr and antibiotics.
BP on soft 80's/, likley due to Sepsis and home medications, on NSS @ 80cc/hr, gave nss 250 bolus once, patient continuos to be Hypotensive 70's-80's/40's- 50's. will add Levophed IV infusion. Please address home medication
--- NOTE | 2023-12-30 02:04 | PTCARENOTE ---
Pt developed a moist frequent non productive cough. Lungs are coarse throughout. Notified MEDICAL INTERPRETER. Duoneb ordered; administered by RT and placed on 3L NC. Portable CXR ordered and obtained.
[2023-12-30] MEDS: ZOSYN 50 IV ×4 (03:56→21:42)
[2023-12-30] MEDS: NSS 250 IV (05:02)
[2023-12-30 05:21] LABS: Hematocrit 31.1 % (39.0-52.0); Hemoglobin 10.2 g/dL (13.0-18.0); Mean Corp Hgb Conc. 32.8 g/dL (33.0-37.0); Mean Corpuscular Hgb 29.8 pg (27.0-31.0); Mean Corpuscular Volume 90.9 fL (80.0-94.0); Mean Platelet Volume 11.6 fL (7.4-10.4); Platelet Count 142 10^3/uL (130-400); Red Blood Cell Count 3.42 10^6/uL (4.70-6.10); Red Cell Dist. Width 14.6 % (11.5-14.5); White Blood Cell Count 8.7 10^3/uL (4.8-10.8)
--- NOTE | 2023-12-30 05:29 | PTCARENOTE ---
Pt BP remains low. MAPs are in the low 60s. Pt lethargic but offers no complaints. Notified PHYSICAL THERAPY COORDINATOR. 250 ml bolus ordered and administered (see MAR).
[2023-12-30 05:39] LABS: Blood Urea Nitrogen 13 mg/dl (9-20); Calcium 7.7 mg/dl (8.4-10.2); Carbon Dioxide 23 mmol/L (22-30); Chloride 110 mmol/L (98-107); Estimated Creatinine Clearance 75 ml/min; Glucose 82 mg/dl (70-99); Potassium 3.6 mmol/L (3.5-5.1); Sodium 137 mmol/L (135-145); eGFR > 60.00
[2023-12-30] MEDS: VANCOCIN 150 IV (05:42)
[2023-12-30] MEDS: LEVOPHED 250 IV (06:08)
[2023-12-30] MEDS: ELIQUIS PO (08:04)
[2023-12-30] MEDS: DEPAKOTE (12 HR RELEASE) PO (08:04)
[2023-12-30] MEDS: ASPIR LOW (ENTERIC COATED) PO (08:04)
[2023-12-30] MEDS: ABILIFY PO (08:04)
[2023-12-30] MEDS: BENTYL PO (08:04)
[2023-12-30] MEDS: PROTONIX PO (08:05)
[2023-12-30] MEDS: SINEMET 10-100 PO (08:05)
[2023-12-30] MEDS: FLOMAX PO (08:05)
[2023-12-30] MEDS: NEURONTIN PO (08:05)
[2023-12-30] MEDS: PROZAC PO (08:05)
[2023-12-30] MEDS: PRAVACHOL PO (08:05)
--- NOTE | 2023-12-30 08:07 | PTCARENOTE ---
Jeovany RN reported concern that patient aspirated while taking PO medications. Held morning PO medications, Dr. Cruz notified via [employer].
--- NOTE | 2023-12-30 08:28 | VNURNOTE ---
Chart reviewed. Patient is current with [facility] nursing, PT, OT, SENIOR CLINICAL DATA MANAGER. Will continue to monitor hospital course and DC plans.
--- NOTE | 2023-12-30 08:34 | W.PN.HOSP.TC ---
Today's Communication/Plan
-
Continue with empirical antibiotics.
Wean Levophed as able.
Continue with IV fluids till oral intake is adequate.
Obtain speech eval.
Assessment / Plan
Assessment / Plan
Generalized weakness-patient noted to be hypotensive on presentation. Suspect weakness may be secondary to hypotension and diarrhea. Improving
Persistent hypotension- suspected sepsis with shock physiology . Patient initially responded to IV fluids but now requiring low-dose Levophed. Initial evaluation including UA was negative lactic acid was normal. Blood cultures so far negative.
Chest x-ray and subsequently CT chest Patchy parenchymal opacity within both lower lungs, similar to recent examinations, with main differential considerations of atelectasis and/or pneumonia. No evidence for associated pleural effusion. With his
trouble handling oral intake last night now the clinical concern is of an aspiration pneumonia.
White count normalized. Continue with current empirical antibiotics of Zosyn and vancomycin pending culture data.
Obtain a speech eval.
Diarrhea - abdomen benign -none so far evident in the hospital.
HX of DVT - cw eliquis
Dementia with TBI - cw home meds; pt also on Carbidopa which i would continue .? Indication for Carbidopa.
Depression -cw home meds
Full code per POA /Sister
DW RN
Total time spent on today's encounter was 52 minutes which included time spent in counseling the patient/family regarding diagnosis and treatment plan as listed above, goals of care, and symptom management. Case was discussed with nursing staff .
All labs and imaging personally reviewed by me. Remainder the time spent in detailed review of previous records, lab data, imaging, and other medical provider documentation.
Anticipated Discharge: > 48 hours
Subjective/Interval History
-
Date of Service: December 30, 2023
This morning patient is oriented to self and place. He knew he is in the hospital but cannot name it.
He says he feels great. He asked me' what stuff did I get to feel better like this?' . I said antibiotics for which he said ' good stuff'
There was history of loose stools at home but since admission he had no bowel movement.
He denies abdominal pain. Denying any nausea vomiting.' I would like to get a turkey sandwich today' versus request.
Denies shortness of breath.
Last night he was noted to have trouble with medications and was coughing. He had a dip in his oxygen level and currently on nasal cannula.
Denies any chest pain
Objective Data
-
Labs:
Laboratory Results
12/30/23
04:57
WBC 8.7
Hgb 10.2 L
Hct 31.1 L
Plt Count 142
Sodium 137
Potassium 3.6
Chloride 110 H
Carbon Dioxide 23
BUN 13
Creatinine 1.0
Glucose 82
Calcium 7.7 L
Vital Signs:
Vital Signs
Temp Pulse Resp BP Pulse Ox
98.1 F 49 17 101/64 97
12/30/23 07:52 12/30/23 06:30 12/30/23 06:30 12/30/23 06:30 12/30/23 06:30
Review of Systems
-
Unable to obtain full review of systems at this time due to: Dementia
Physical Exam
-
General: No Apparent Distress
HEENT: Moist Mucous Membranes
Respiratory: Crackles (Bilateral lower zone) and Non Labored Respirations; Negative Wheezes or Accessory Resp Muscle Use
Cardiac: Regular Rhythm and S1/S2; Negative Tachycardic
GI: Soft, Nontender, Nondistended and Normal Bowel Sounds
Neuro: Awake, Alert and Oriented
Psych: Calm; Negative Agitated
Data Reviewed
-
Diagnostic Radiology: Report Reviewed by me (cxr)
CT Scan: Report Reviewed by me (ct chest)
Labs: Labs Reviewed by me
--- NOTE | 2023-12-30 08:34 | PHA.VAN.FU ---
Vancomycin Assessment / Plan
- Assessment
Renal Function: Stable
WBC's are: Trending Down
In the past 24 hrs, patient has been: Afebrile
Concomitant Antimicrobials: piperacillin/tazobactam
- Dosing Plan
Adjust Regimen to: Vanc 1000mg Q12H
New Regimen Predicts: AUC (503), Peak (29.5), Trough (14.2)
- Monitoring Plan
No level(s) ordered at this time: consider levels in next few days
MRSA Screen: Ordered per protocol
- Follow Up
Pharmacy will continue to follow.
Vancomycin Follow UP
- -
Patient Age: 68
Patient Sex: Male
Vancomycin Day #: 2
Indication: Other
Requesting Provider: Dr. Cruz
Pertinent Antimicrobial Allergies:
NKDA
Height / Weight:
Height 5 ft 7 in
Actual Weight 88.2 kg
Pertinent Past Medical History: BMI ~31
- Vital Signs / Lab Results
Temp Pulse Resp BP Pulse Ox
98.1 F 49 17 101/64 97
12/30/23 07:52 12/30/23 06:30 12/30/23 06:30 12/30/23 06:30 12/30/23 06:30
Lab Results - Hematology
12/29/23 12/30/23
12:17 04:57
WBC 11.5 H 8.7
Lab Results - Chemistry
12/29/23 12/30/23
12:17 04:57
BUN 16 13
Creatinine 1.1 1.0
Estimated Creat Clear 75
Albumin 3.1 L
12/29/23
15:45
Lactic Acid 1.1
Lab Results - Urine
12/29/23
12:17
Urine Nitrite (Reflex) Negative
Leukocyte Esterase Rfl Negative
[2023-12-30] MEDS: NSS 1000 IV ×2 (12:15→18:01)
--- NOTE | 2023-12-30 12:25 | PTOTSP ---
ST Acute Care Evaluation
Pt currently presents with mild oropharyngeal and esophageal dysphagia characterized by prolonged mastication and bolus formation, reduced bolus formation, impulsivity with talking with bolus in oral cavity that subsequently reduced airway
protection and results in a fleeting wet vocal quality that could be indicative of penetration/aspiration, as well as occasional eructation both with and without PO intake. Pt is at an increased risk for aspiration given hx of TBI with residual
cognitive deficits, current acute illness, and distractibility/impulsivity with talking prior to clearing bolus from oral cavity.
Recommendations:
- Initiate PO diet of SOFT BITE SIZED SOLIDS with THIN LIQUIDS; meds whole in puree.
- Aspiration precautions: 1:1 supervision/assistance with PO intake; HOB fully upright during PO intake; REDUCED DISTRACTIONS - turn off TV, remind pt to not talk while eating/drinking; small bites/sips; alternate bites/sips.
- HARBOR PILOT to f/u to ensure pt is safely consuming recommended diet consistencies and to determine whether pt would benefit from an instrumental swallow study.
--- NOTE | 2023-12-30 14:57 | PTCARENOTE ---
Levo is infusing per orders. Dose adjusted per protocol to keep systolic BP > 90, see titration intervention.
--- NOTE | 2023-12-30 16:49 | PTCARENOTE ---
Oversaw care of pt by orientee; assumed complete care of pt approx 1500. Levo continues to infuse at 2mcg. Assessment as documented.
--- NOTE | 2023-12-30 17:22 | CM ---
Addendum entered by Chitra Morris RN 12/31/23 17:41:
Daughter Jennifer clarified that patient was at [facility] previously not [facility].
Original Note:
Patient with Hx TBI, dementia with Dx hypotension, diarrhea. Room air. Receiving Levophed gtt, IV Abx, IVF. PT & OT Evals pending.
Spoke with patient's sister ALFREDO Rodriguez and niece Margot;
the patient reside with his sister Jennifer in a 2nd floor apartment with 14 outside stairs.
The patient was oriented and sometimes becomes agitated at night.
He requires a lot of assistance for ADLs and is ambulatory with his RW.
The patient has been falling a lot at home.
He wears diapers and his diarrhea with incontinence has been unmanageable.
Family is on a tight budget and states [facility] discharged him on the first of the month but held that month's SS check, so money now very tight. Provided [employer] and [email or web address] as resources - lisbet will call the on license of [facility] for assistance.
Discussed considering applying through [place] to be paid caregiver- they will look into that.
DME - RW, shower chair
VN - [facility] for nurse/PT[facility]OT
SNF - recently discharged from [facility]
PCP - Boyd
Ph[facility] - [facility] [place]
Plan TBD.
[2023-12-30] MEDS: BENTYL 20 MG PO ×2 (17:27→21:43)
[2023-12-30] MEDS: SINEMET 10-100 1 TABLET PO ×2 (17:27→21:43)
[2023-12-30] MEDS: VANCOCIN 200 IV (18:02)
[2023-12-30] MEDS: NEURONTIN 100 MG PO (21:42)
[2023-12-30] MEDS: DEPAKOTE (12 HR RELEASE) 125 MG PO (21:42)
[2023-12-30] MEDS: ELIQUIS 5 MG PO (21:42)
[2023-12-30] MEDS: ARICEPT 10 MG PO (21:42)
[2023-12-30] MEDS: DESYREL 100 MG PO (21:43)
[2023-12-30] MEDS: REMERON 15 MG PO (21:43)
--- NOTE | 2023-12-30 22:37 | PTCARENOTE ---
Care assumed of Pt from previous RN. Pt Took HS pills one at a time with apple sauce. No signs of aspiration after intake of pills. Pt alert to self and situation. Pt engaging in pleasant conversation. Pt placed on 2L 02, sats @90%, increased to
97% with 02. Pt inc of urine. Using male incontinence device. Call light in reach.
--- NOTE | 2023-12-30 22:43 | PTCARENOTE ---
Levophed infusing via right midline. Increased to 2mcg/min, per order to keep SBP >90.
[2023-12-31] VITALS (60 sets, daily range): BP systolic 85–154; BP diastolic 51–131
--- NOTE | 2023-12-31 02:56 | DOWNTIME ---
There was a [employer] Client Drier Attendant Downtime on 12/31/2023 from 0100 to 12/31/2023 at 0252. Downtime documentation of patient's care, including medication administrations, has been reconciled in the electronic record per guidelines. Refer to the
patient's paper chart under the miscellaneous tab to see printed paper medication records and downtime forms.
[2023-12-31] MEDS: ZOSYN 50 IV ×4 (03:37→23:00)
[2023-12-31 04:02] LABS: Hematocrit 33.1 % (39.0-52.0); Hemoglobin 10.6 g/dL (13.0-18.0); Mean Corpuscular Hgb 30.1 pg (27.0-31.0); Platelet Count 153 10^3/uL (130-400); Red Blood Cell Count 3.52 10^6/uL (4.70-6.10); Red Cell Dist. Width 14.5 % (11.5-14.5)
[2023-12-31 04:18] LABS: Blood Urea Nitrogen 7 mg/dl (9-20); Carbon Dioxide 29 mmol/L (22-30); Chloride 111 mmol/L (98-107); Estimated Creatinine Clearance 75 ml/min; Glucose 103 mg/dl (70-99); Potassium 3.8 mmol/L (3.5-5.1); Sodium 140 mmol/L (135-145); eGFR > 60.00
--- NOTE | 2023-12-31 04:43 | PTCARENOTE ---
Pt had episode of HR dropping to 30's, pt aroused from sleep and HR returned to baseline of 58. Pt denies chest pain, does admit to slight dizziness. Answers all orientation questions appropriately. Pt has pacemaker, pacer spikes noted with episode
of bradycardia. HAND TENNIS BALL COVERER notified, no new orders at this time.
[2023-12-31] MEDS: NSS 1000 IV ×2 (04:48→19:50)
[2023-12-31] MEDS: VANCOCIN 200 IV (05:32)
--- NOTE | 2023-12-31 08:45 | PTCARENOTE ---
Patient received from plant operator/shift supervisor. Patient resting comfortably in bed. AAO, VSS. No events noted overnight. No complaints of pain at this time. IVF through IV. Patient remains on Levo at 2mcg/min through right midline, will attempt to wean as
tolerated. Continue ABX. Call ortega in reach.
[2023-12-31] MEDS: ELIQUIS 5 MG PO ×2 (08:57→19:50)
[2023-12-31] MEDS: BENTYL 20 MG PO ×3 (08:57→22:59)
[2023-12-31] MEDS: ABILIFY 15 MG PO (08:57)
[2023-12-31] MEDS: SINEMET 10-100 1 TABLET PO ×3 (08:57→23:00)
[2023-12-31] MEDS: NEURONTIN 100 MG PO ×2 (08:57→19:50)
[2023-12-31] MEDS: FLOMAX 0.4 MG PO (08:58)
[2023-12-31] MEDS: DEPAKOTE (12 HR RELEASE) 125 MG PO ×2 (08:58→19:50)
[2023-12-31] MEDS: PROZAC 80 MG PO (08:58)
[2023-12-31] MEDS: ASPIR LOW (ENTERIC COATED) 81 MG PO (08:58)
[2023-12-31] MEDS: PROTONIX 40 MG PO (08:58)
[2023-12-31] MEDS: PRAVACHOL 80 MG PO (08:58)
--- NOTE | 2023-12-31 09:13 | W.PN.HOSP.TC ---
Today's Communication/Plan
-
Continue Zosyn. DC vancomycin.
Wean oxygen as able.
Wean Levophed.
Assessment / Plan
Assessment / Plan
Generalized weakness-patient noted to be hypotensive on presentation. Suspect weakness may be secondary to hypotension. Improving
Persistent hypotension- suspected sepsis with shock physiology . Patient initially responded to IV fluids but now requiring low-dose Levophed. Initial evaluation including UA was negative ;lactic acid was normal. Blood cultures so far negative.
Chest x-ray and subsequently CT chest Patchy parenchymal opacity within both lower lungs, similar to recent examinations, with main differential considerations of atelectasis and/or pneumonia. No evidence for associated pleural effusion. With his
trouble handling oral intake 12/28 night the clinical concern is of an aspiration pneumonia.
White count normalized. Continue with current empirical antibiotics of Zosyn ;dc vancomycin . MRSA screen neg.
CW modified diet speech eval.
Wean Levophed which is at low dose.
Acute hypoxic respiratory insufficiency - on low dose FIO2 -wean as able.ICS .
Diarrhea - abdomen benign -none so far evident in the hospital.
HX of DVT - cw eliquis
Dementia with TBI - cw home meds; pt also on Carbidopa which i would continue .? Indication for Carbidopa.
Depression -cw home meds
Full code per POA /Sister
DW RN
DW sister and updated the diagnosis and treatment plan.
Total time spent on today's encounter was 52 minutes which included time spent in counseling the patient/family regarding diagnosis and treatment plan as listed above, goals of care, and symptom management. Case was discussed with nursing staff .
All labs and imaging personally reviewed by me. Remainder the time spent in detailed review of previous records, lab data, imaging, and other medical provider documentation.
Anticipated Discharge: > 48 hours
Subjective/Interval History
-
Date of Service: December 31, 2023
Patient is alert and oriented to place and person.
He feels improved. He says he is feels great. He is requiring assistance to be fed and he is doing great with his oral intake per RN.
Objective Data
-
Labs:
Laboratory Results
12/31/23
03:46
WBC 6.0
Hgb 10.6 L
Hct 33.1 L
Plt Count 153
Sodium 140
Potassium 3.8
Chloride 111 H
Carbon Dioxide 29
BUN 7 L
Creatinine 1.0
Glucose 103 H
Calcium 8.0 L
Vital Signs:
Vital Signs
Temp Pulse Resp BP Pulse Ox
97.9 F 50 15 131/74 96
12/31/23 04:03 12/31/23 08:45 12/31/23 08:45 12/31/23 08:30 12/31/23 08:45
I&O
12/30/23 12/31/23 01/01/24
06:59 06:59 06:59
Intake Total 480 / 480
Balance 480 / 480
Review of Systems
-
Constitutional: Denies Fever
EENT: Denies Sore Throat
Respiratory: Denies Cough or Trouble Breathing
Cardiac: Denies Chest Pain
Abdomen/GI: Denies Abdominal Pain, Nausea or Vomiting
Neuro: Denies Dizzy
Physical Exam
-
General: No Apparent Distress
HEENT: Moist Mucous Membranes
Respiratory: Crackles ( Bibasilar crackles evident) and Non Labored Respirations; Negative Wheezes or Accessory Resp Muscle Use
Cardiac: Regular Rhythm and S1/S2
GI: Soft, Nontender, Nondistended and Normal Bowel Sounds
Neuro: Awake, Alert and Oriented
Psych: Calm and Confused (confused about his condition/diagnosis); Negative Agitated
Data Reviewed
-
Labs: Labs Reviewed by me
[2023-12-31 17:09] LABS: Cortisol, Random 2.4 ug/dl
--- NOTE | 2023-12-31 17:20 | CM ---
Addendum entered by Chitra Morris RN 12/31/23 17:29:
Prior CM notes 07/08/23: CM spoke with Rosamaria at [facility] and after review feel that patient does not qualify for level II status.
Original Note:
Patient with Hx TBI, dementia with Dx hypotension, diarrhea. Room air. Receiving IV Abx, IVF. PT & OT recommend skilled rehab.
Spoke with patient's sister ALFREDO Rodriguez; discussed his current functional status as per PT/OT. Jennifer agrees to SNF referrals to [facility]. She does not want patient to go back to [facility]. She says [facility]
kept him for 3 months and she was paying an $800 copay for LTC. He has only been home about 2 weeks after SNF and returned to .
SNF referrals placed.
Plan follow up SNF referrals.
[2023-12-31] MEDS: LEVOPHED 250 IV (19:37)
--- NOTE | 2023-12-31 22:45 | PTCARENOTE ---
Pt assisted back to bed with assistance of two from chair. Slow but steady gait. Pt alert to self and place, needs frequent reorienting to time and situation. Pt getting Levophed via right midline at 2 mcg/min per order to titrate to keep SBP >90.
Denies further needs at this time, call light in reach. This RN is continuing with implementing plan of care.
[2023-12-31] MEDS: REMERON 15 MG PO (22:59)
[2023-12-31] MEDS: ARICEPT 10 MG PO (23:00)
[2023-12-31] MEDS: DESYREL 100 MG PO (23:00)
[2024-01-01] VITALS (51 sets, daily range): BP systolic 82–142; BP diastolic 48–115; BMI 31.3
[2024-01-01] MEDS: ZOSYN 50 IV ×4 (04:37→22:57)
[2024-01-01 05:17] LABS: Hemoglobin 11.4 g/dL (13.0-18.0); Mean Corp Hgb Conc. 32.6 g/dL (33.0-37.0); Mean Corpuscular Hgb 30.6 pg (27.0-31.0); Mean Corpuscular Volume 93.8 fL (80.0-94.0); Mean Platelet Volume 11.1 fL (7.4-10.4); Platelet Count 156 10^3/uL (130-400); Red Blood Cell Count 3.73 10^6/uL (4.70-6.10); Red Cell Dist. Width 14.6 % (11.5-14.5); White Blood Cell Count 7.3 10^3/uL (4.8-10.8)
[2024-01-01] MEDS: ZADITOR 1 DROP OPHTH ×2 (08:54→22:57)
[2024-01-01] MEDS: NSS 1000 IV ×2 (08:55→19:26)
[2024-01-01] MEDS: SINEMET 10-100 1 TABLET PO ×3 (08:58→23:05)
[2024-01-01] MEDS: BENTYL 20 MG PO ×3 (08:58→23:39)
[2024-01-01] MEDS: FLOMAX 0.4 MG PO (08:58)
[2024-01-01] MEDS: ASPIR LOW (ENTERIC COATED) 81 MG PO (08:58)
[2024-01-01] MEDS: DEPAKOTE (12 HR RELEASE) 125 MG PO ×2 (08:58→19:58)
[2024-01-01] MEDS: PROTONIX 40 MG PO (08:58)
[2024-01-01] MEDS: PROZAC 80 MG PO (08:58)
[2024-01-01] MEDS: PRAVACHOL 80 MG PO (08:58)
[2024-01-01] MEDS: ABILIFY 15 MG PO (08:58)
[2024-01-01] MEDS: NEURONTIN 100 MG PO ×2 (08:58→19:58)
[2024-01-01] MEDS: ELIQUIS 5 MG PO ×2 (08:58→19:58)
--- NOTE | 2024-01-01 09:00 | PTCARENOTE ---
Patient received from bicycle racer. Patient resting comfortably in bed. AAO, VSS. No events noted overnight. No complaints of pain at this time. IVF continued through IV. Patient was increased to Levo at 3mcg/min through right midline, will
attempt to wean as tolerated. OOB to chair. Continue ABX. Call ortega in reach.
--- NOTE | 2024-01-01 09:00 | W.PN.HOSP.TC ---
Today's Communication/Plan
-
Check TSH.
Start on hydrocortisone IV and follow the blood pressure response.
Continue with antibiotics.
Assessment / Plan
Assessment / Plan
Generalized weakness-patient noted to be hypotensive on presentation. Suspect weakness may be secondary to hypotension. Improving
Persistent hypotension- suspected sepsis with shock physiology . Rule out distributive shock. Patient initially responded to IV fluids but now requiring low-dose Levophed. Initial evaluation including UA was negative ;lactic acid was normal.
Blood cultures so far negative. Chest x-ray and subsequently CT chest Patchy parenchymal opacity within both lower lungs, similar to recent examinations, with main differential considerations of atelectasis and/or pneumonia. No evidence for
associated pleural effusion. With his trouble handling oral intake 12/28 night the clinical concern is of an aspiration pneumonia.
White count normalized. Continue with current empirical antibiotics of Zosyn ;dced vancomycin . MRSA screen neg.
CW modified diet speech eval.
Levophed which is at low dose but unable to wean.
Low random serum cortisol-serum cortisol was 3.4 mcg/dL checked at 3:46 AM yesterday. With persistent hypotension and such a low value of cortisol is suggestive of adrenal insufficiency. Will challenge with IV hydrocortisone see the hemodynamics
response. Will consult endocrinology. No history of recent steroid use. Check a TSH.
Acute hypoxic respiratory insufficiency - on low dose FIO2 -wean as able.ICS .
Diarrhea - abdomen benign -none so far evident in the hospital.
HX of DVT - cw eliquis
Dementia with TBI - cw home meds; pt also on Carbidopa which i would continue .? Indication for Carbidopa.
Depression -cw home meds
Full code per POA /Sister
DW RN
DW sister-she confirms that patient was not on prednisone prior to hospitalization.
Discussed with contact and service clerks supervisor Dr. Edge today.
Total time spent on today's encounter was 52 minutes which included time spent in counseling the patient/family regarding diagnosis and treatment plan as listed above, goals of care, and symptom management. Case was discussed with nursing staff .
All labs and imaging personally reviewed by me. Remainder the time spent in detailed review of previous records, lab data, imaging, and other medical provider documentation.
Anticipated Discharge: > 48 hours
Subjective/Interval History
-
Date of Service: January 01, 2024
Patient today states that he feels little gurgle in his throat. He has some cough. He is trying to do his incentive spirometer. Is mostly in the bed as a still hypotensive requiring low-dose Levophed.
Denies shortness of breath. No chest pain. No nausea or vomiting. Good appetite. Denies fever or chills.
Objective Data
-
Labs:
Laboratory Results
01/01/24
04:48
WBC 7.3
Hgb 11.4 L
Hct 35.0 L
Plt Count 156
Vital Signs:
Vital Signs
Temp Pulse Resp BP Pulse Ox
98.2 F 50 19 112/72 93
01/01/24 04:24 01/01/24 07:30 01/01/24 07:30 01/01/24 07:00 01/01/24 07:30
I&O
12/31/23 01/01/24 01/02/24
06:59 06:59 06:59
Intake Total 480 / 480 2160 / 2160
Output Total 1025 / 1025
Balance 480 / 480 1135 / 1135
Review of Systems
-
Constitutional: Denies Fever
Abdomen/GI: Denies Abdominal Pain
Neuro: Denies Dizzy
Physical Exam
-
General: No Apparent Distress
HEENT: Moist Mucous Membranes
Respiratory: Crackles (Bibasal crackles) and Non Labored Respirations; Negative Wheezes or Accessory Resp Muscle Use
Cardiac: Regular Rhythm, S1/S2 and Bradycardic
GI: Soft, Nontender, Nondistended and Normal Bowel Sounds
Neuro: Awake, Alert and Oriented (place and person)
Psych: Calm
Data Reviewed
-
Labs: Labs Reviewed by me
[2024-01-01 10:23] LABS: TSH 1.45 uIU/ml (0.47-4.68)
[2024-01-01] MEDS: SOLU-CORTEF 100 MG IV ×3 (13:02→23:05)
--- NOTE | 2024-01-01 16:47 | CM ---
Patient with Hx TBI, dementia with Dx hypotension, diarrhea. O2 2L. Receiving IV Abx, IV Steroids, IVF, Levophed gtt. PT & OT recommend skilled rehab.
Case discussed with Selina Tyler, Level II Lead Consultant [facility]; she has a copy of patient's PASRR from the prior admisison. Per Selina, no need for Level II Assessment with Hx TBI at .
SNF referrals reviewed; [facility] and [facility]. 7 additional SNF referrals placed.
Phone call to Jennifer, patient's sister/POA; left messages no accepting SNFs, and informed her of the 7 additional SNF referrals that were made. Asked her to contact tomorrow to let her know her SNF preferences.
Plan follow up with patient's sister/POA tomorrow for SNF choices.
[2024-01-01] MEDS: ROBITUSSIN DM 10 ML PO ×2 (17:34→23:40)
[2024-01-01] MEDS: NSS IV (19:26)
[2024-01-01] MEDS: LEVOPHED 250 IV (19:27)
--- NOTE | 2024-01-01 20:09 | PTCARENOTE ---
Pt received from previous RN. Pt remains Sinus edison on monitor, Pt with pacemaker and pacer spikes noted when HR in the 40's. Current HR 45. Pt on levophed, received on 3mcg/ min, SBP 135, decreased to 2mcg/min to titrate according to orders
keeping SBP >90. Pt using CC#25 voiding moderate amounts of clear yellow urine, emptied for 350 ml at start of shift. Getting n/s @ 100 ml/hr via right foot IV. Call light in reach. This RN is continuing with plan of care.
[2024-01-01] MEDS: REMERON 15 MG PO (23:39)
[2024-01-01] MEDS: DESYREL 100 MG PO (23:39)
[2024-01-01] MEDS: ARICEPT 10 MG PO (23:39)
--- NOTE | 2024-01-01 23:45 | PTCARENOTE ---
Pt tolerating oral meds in apple sauce given one at a time. Pt exhibiting signs of aspiration with intake of thin liquids. Pt assisted by RN to be given sip of thin liquid, while sitting at 90 degree angle, distractions eliminated, all aspiration
precautions remaining in place. After taking in sip of thin liquid, specifically water, Pt had episode of coughing. During this time 02 sat did not decrease remaining at 95% on 2L 02. After coughing cleared, Pts already wet and gurgled voice was
notably more wet and gurgled. With a frequent wet nonproductive cough. Lungs remain to be coarse at the bases. Pt encouraged to cough deeply and attempt swallowing. Pt remains to have HOB in high position, suction at bedside. Oral intake of thin
liquids minimized overnight. METAL SHEET ROLLER OPERATOR notified of episode. Order received for additional speech therapy eval.
[2024-01-02] VITALS (43 sets, daily range): BP systolic 89–133; BP diastolic 57–93; PULSE 47; O2SAT 95; BMI 31.9
[2024-01-02] MEDS: ZOSYN 50 IV ×4 (05:32→21:02)
[2024-01-02] MEDS: NSS 1000 IV (05:32)
[2024-01-02] MEDS: SOLU-CORTEF 100 MG IV ×3 (05:32→17:37)
[2024-01-02] MEDS: BENTYL 20 MG PO ×3 (09:18→21:01)
[2024-01-02] MEDS: PROZAC 80 MG PO (09:18)
[2024-01-02] MEDS: SINEMET 10-100 1 TABLET PO ×3 (09:18→21:01)
[2024-01-02] MEDS: FLOMAX 0.4 MG PO (09:18)
[2024-01-02] MEDS: ABILIFY 15 MG PO (09:18)
[2024-01-02] MEDS: ELIQUIS 5 MG PO ×2 (09:18→21:02)
[2024-01-02] MEDS: PROTONIX 40 MG PO (09:19)
[2024-01-02] MEDS: NEURONTIN 100 MG PO ×2 (09:19→21:01)
[2024-01-02] MEDS: ASPIR LOW (ENTERIC COATED) 81 MG PO (09:19)
[2024-01-02] MEDS: PRAVACHOL 80 MG PO (09:19)
[2024-01-02] MEDS: DEPAKOTE (12 HR RELEASE) 125 MG PO ×2 (09:19→21:01)
[2024-01-02] MEDS: ZADITOR 1 DROP OPHTH ×2 (09:20→21:12)
--- NOTE | 2024-01-02 09:55 | W.PN.HOSP.TC ---
Today's Communication/Plan
-
wean levophed
cont IV hydrocortisone (stress doses)
PT/OT
Assessment / Plan
Assessment / Plan
pt is a 68 year old male
Generalized weakness--patient noted to be hypotensive on presentation. Suspect weakness may be secondary to hypotension. Improving
Persistent hypotension- suspected sepsis with shock physiology --Patient initially responded to IV fluids but now requiring low-dose Levophed. Initial evaluation including UA was negative --lactic acid was normal. Blood cultures so far negative.
Chest x-ray and subsequently CT chest = Patchy parenchymal opacity within both lower lungs, similar to recent examinations, with main differential considerations of atelectasis and/or pneumonia. No evidence for associated pleural effusion. With his
trouble handling oral intake 12/28 night the clinical concern is of an aspiration pneumonia--White count normalized. Continue with current empirical antibiotics of Zosyn ;dced vancomycin, MRSA screen neg--CW modified diet speech eval--Levophed
which is at low dose but unable to wean--hypotensive workup in process
Low random serum cortisol--serum cortisol was 2.4 mcg/dL checked at 3:46 AM on 12/31/23-- With persistent hypotension and such a low value of cortisol is suggestive of adrenal insufficiency. Will challenge with IV hydrocortisone see the hemodynamics
response--await endocrinology--No history of recent steroid use--TSH WNL
Acute hypoxic respiratory insufficiency - on low dose FIO2 -wean as able--ICS .
Diarrhea - abdomen benign -none so far evident in the hospital.
HX of DVT - cw eliquis
Dementia with TBI - cw home meds; pt also on Carbidopa which i would continue .? Indication for Carbidopa.
Depression -cw home meds
Full code per POA /Sister
Dr. Cruz Discussed with pipe puller Dr. Edge--unclear recs
PT/OT, D/C planning
Anticipated Discharge: > 48 hours
Subjective/Interval History
-
Date of Service: January 02, 2024
pt without c/o--he didn't want to stay in the SNF so sister took him home per pt
Objective Data
-
Vital Signs:
max temp for 24 hours
01/01/24
15:38
Temp 98.4 F
Vital Signs
Temp Pulse Resp BP Pulse Ox
97.6 F 40 19 122/73 96
01/02/24 07:00 01/02/24 03:00 01/02/24 03:00 01/02/24 03:00 01/02/24 04:26
I&O
01/01/24 01/02/24 01/03/24
06:59 06:59 06:59
Intake Total 2160 / 2160 480 / 480
Output Total 1025 / 1025 1150 / 1150
Balance 1135 / 1135 -670 / -670
Review of Systems
-
All other systems: Reviewed and negative
Physical Exam
-
General: Well Developed, Well Nourished and No Apparent Distress
HEENT: Normocephalic, Atraumatic and Other (TBI with slurred speech)
Respiratory: Clear to Auscultation; Negative Wheezes or Rhonchi
Cardiac: Regular Rhythm and S1/S2; Negative Murmur
GI: Soft, Nontender, Nondistended and Normal Bowel Sounds
Genito-urinary: Other (condom cath in place)
Musculoskeletal: No Clubbing and No Cyanosis; Negative No Edema (1-2+ LE edema bilaterally)
Neuro: Awake
Psych: Calm
--- NOTE | 2024-01-02 11:11 | PTOTSP ---
Speech Language Pathology
Pt seen for dysphagia tx. Per notes from 12/31, pt with coughing episode with water and wet voice. Pt recalled this, stating he 'choked.' He denied this happening previously. RN reported good tolerance of breakfast with no difficulty. Seen with
P.O. trials of regular solids and thin liquids via cup/straw, mostly consecutive sips. Adequate mastication, bolus formation, and A-P transit noted with no oral residue. No overt signs of aspiration. Discussed option of regular solids with pt
given adequate mastication. He would prefer to stay on IDDSI Level 6.
Recommend:
(1) Continue IDDSI Level 6 (Soft/Bite-Sized) Solids and Thin Liquids per pt preference
(2) General aspiration precautions
(3) Meds as tolerated
(4) SURGICAL ASST to sign off. Please reconsult as indicated
--- NOTE | 2024-01-02 11:45 | CM ---
Patient seen at bedside. CM called to patient sister to review options/referrals for SNF. VM left. CM will continue to follow for discharge planning needs.
Plan; SNF
--- NOTE | 2024-01-02 19:41 | PTCARENOTE ---
day shift note. see nursing assessment. pt weaned off of levophed per parameters. appetite is good. no choking observed when eating. pt had 4 loose orange brown bms. oob in chair x several hours and tolerated. pt currently in bed with callbell in
reach.
[2024-01-02] MEDS: ARICEPT 10 MG PO (21:01)
[2024-01-02] MEDS: REMERON 15 MG PO (21:01)
[2024-01-02] MEDS: DESYREL 100 MG PO (21:01)
--- NOTE | 2024-01-02 23:18 | PTCARENOTE ---
Caring for patient overnight. aaox2, forgetful at times. denies pain. SB/vpaced on monitor. VSS. Remains on RA. ivabx. Midline. q2T. Levo remains off, BP's stable.
Sister was in to visit and was asking about rehabs and stated that she did not want patient going back to [facility].
pt sleeping in bed. CALL ortega in reach, bed alarm on.
[2024-01-03] VITALS (8 sets, daily range): BP systolic 98–131; BP diastolic 63–75; BMI 32.6
[2024-01-03] MEDS: SOLU-CORTEF 100 MG IV ×2 (00:47→05:27)
[2024-01-03] MEDS: ZOSYN 50 IV (05:26)
[2024-01-03 05:46] LABS: Hemoglobin 11.9 g/dL (13.0-18.0); Mean Corp Hgb Conc. 32.2 g/dL (33.0-37.0); Mean Corpuscular Hgb 30.4 pg (27.0-31.0); Mean Corpuscular Volume 94.4 fL (80.0-94.0); Mean Platelet Volume 11.4 fL (7.4-10.4); Platelet Count 177 10^3/uL (130-400); Red Blood Cell Count 3.92 10^6/uL (4.70-6.10); Red Cell Dist. Width 14.6 % (11.5-14.5); White Blood Cell Count 10.8 10^3/uL (4.8-10.8)
[2024-01-03 06:13] LABS: ALT (SGPT) < 10 U/L (0-50); AST (SGOT) 21 U/L (17-59); Albumin 2.9 g/dl (3.5-5.0); Alkaline Phosphatase 52 U/L (38-126); Blood Urea Nitrogen 13 mg/dl (9-20); Calcium 8.7 mg/dl (8.4-10.2); Carbon Dioxide 29 mmol/L (22-30); Chloride 109 mmol/L (98-107); Estimated Creatinine Clearance 77 ml/min; Glucose 121 mg/dl (70-99); Magnesium 1.6 mg/dl (1.6-2.3); Potassium 4.3 mmol/L (3.5-5.1); Sodium 145 mmol/L (135-145); Total Bilirubin 0.3 mg/dl (0.2-1.3); Total Protein 5.2 g/dl (6.3-8.2); eGFR > 60.00
[2024-01-03] MEDS: ELIQUIS 5 MG PO ×2 (08:51→21:24)
[2024-01-03] MEDS: PROZAC 80 MG PO (08:52)
[2024-01-03] MEDS: ABILIFY 15 MG PO (08:52)
[2024-01-03] MEDS: FLOMAX 0.4 MG PO (08:52)
[2024-01-03] MEDS: SINEMET 10-100 1 TABLET PO ×3 (08:52→21:23)
[2024-01-03] MEDS: DEPAKOTE (12 HR RELEASE) 125 MG PO ×2 (08:53→21:24)
[2024-01-03] MEDS: PROTONIX 40 MG PO (08:53)
[2024-01-03] MEDS: BENTYL 20 MG PO ×3 (08:54→21:24)
[2024-01-03] MEDS: NEURONTIN 100 MG PO ×2 (08:54→21:23)
[2024-01-03] MEDS: ASPIR LOW (ENTERIC COATED) 81 MG PO (08:54)
[2024-01-03] MEDS: PRAVACHOL 80 MG PO (08:54)
--- NOTE | 2024-01-03 09:50 | PTCARENOTE ---
Pt AAOx3 cchanged for BM, CC in place Pt OOB to chair . Ate breakfast took pills in applesauce. Pt cooperative and talkative. NO s/s of distress IN a sinus edison at this time.
--- NOTE | 2024-01-03 10:22 | W.PN.HOSP.TC ---
Today's Communication/Plan
-
Transfer to telemetry.
Assessment / Plan
Assessment / Plan
pt is a 68 year old male
Generalized weakness--patient noted to be hypotensive on presentation. Suspect weakness may be secondary to hypotension. Improved.
Persistent hypotension- suspected sepsis with shock physiology but persistent need of Levophed and significantly decreased random cortisol concerning for distributive shock from renal insufficiency-since starting on hydrocortisone IV patient
hypotension resolved. Not requiring Levophed since yesterday.
Sepsis-possibly secondary to bilateral basal pneumonia-initial evaluation including UA was negative --lactic acid was normal. Blood cultures so far negative. Chest x-ray and subsequently CT chest = Patchy parenchymal opacity within both lower
lungs, similar to recent examinations, with main differential considerations of atelectasis and/or pneumonia. No evidence for associated pleural effusion. With his trouble handling oral intake 12/28 night the clinical concern is of an aspiration
pneumonia--White count normalized. dced vancomycin, MRSA screen neg--CW modified diet speech eval--switch antibiotics to oral vancomycin
Possible adrenal insufficiency-low random serum cortisol--serum cortisol was 2.4 mcg/dL checked at 3:46 AM on 12/31/23-- With persistent hypotension and such a low value of cortisol is suggestive of adrenal insufficiency. Will challenge with IV
hydrocortisone see the hemodynamics response--resolved hypotension-decrease hydrocortisone IV dose--No history of recent steroid use--TSH WNL. If continues to remain normotensive on tapering of hydrocortisone we will make a switch to oral
hydrocortisone and advised to follow-up with petroleum refinery worker
Acute hypoxic respiratory insufficiency - on low dose FIO2 -wean as able--ICS . Resolved
Diarrhea - abdomen benign -none so far evident in the hospital.
HX of DVT - cw eliquis
Dementia with TBI - cw home meds; pt also on Carbidopa which i would continue .? Indication for Carbidopa.
Depression -cw home meds
Full code per POA /Sister
Dr. Cruz Discussed with petroleum refinery worker Dr. Edge--unclear recs
PT/OT-recommends rehab
Transfer to telemetry
Anticipated Discharge: 24 - 48 hours
Subjective/Interval History
-
Date of Service: January 03, 2024
Feeling improved from his weakness. Strength is better. Sitting out in a chair.
Much more alert. Oriented. He tells me he had a TBI and is cognition has impaired since then. He is oriented to place and day of the week but not the month
Objective Data
-
Labs:
Laboratory Results
01/03/24
05:32
WBC 10.8
Hgb 11.9 L
Hct 37.0 L
Plt Count 177
Sodium 145
Potassium 4.3
Chloride 109 H
Carbon Dioxide 29
BUN 13
Creatinine 1.0
Glucose 121 H
Calcium 8.7
Total Bilirubin 0.3
AST 21
ALT < 10
Alkaline Phosphatase 52
Vital Signs:
Vital Signs
Temp Pulse Resp BP Pulse Ox
97.5 F 46 16 119/67 91
01/03/24 07:25 01/03/24 04:00 01/03/24 04:00 01/03/24 04:00 01/03/24 04:00
I&O
01/02/24 01/03/24 01/04/24
06:59 06:59 06:59
Intake Total 480 / 480 680 / 680
Output Total 1150 / 1150 500 / 500
Balance -670 / -670 180 / 180
Review of Systems
-
Unable to obtain full review of systems at this time due to: Dementia
Physical Exam
-
General: No Apparent Distress
HEENT: Moist Mucous Membranes
Respiratory: Clear to Auscultation
Cardiac: Regular Rhythm and S1/S2
GI: Soft
Neuro: AO x 3
Psych: Calm; Negative Agitated
Data Reviewed
-
Labs: Labs Reviewed by
[2024-01-03] MEDS: ZOSYN IV (11:15)
--- NOTE | 2024-01-03 11:34 | PTCARENOTE ---
Pt states inner thigh barraza where attends rub Desenex ordered . [facility]
[2024-01-03] MEDS: AUGMENTIN 875 MG/125 MG 1 TABLET PO ×2 (11:41→21:23)
[2024-01-03] MEDS: SOLU-CORTEF 50 MG IV ×2 (11:41→17:02)
[2024-01-03] MEDS: ZADITOR 1 DROP OPHTH ×2 (11:42→21:25)
[2024-01-03] MEDS: DESENEX/MITRAZOL/ZEASORB 1 APPLIC TOPICAL (11:44)
[2024-01-03] MEDS: REMERON 15 MG PO (21:23)
[2024-01-03] MEDS: ARICEPT 10 MG PO (21:23)
[2024-01-03] MEDS: DESYREL 100 MG PO (21:24)
[2024-01-04] MEDS: SOLU-CORTEF 50 MG IV ×3 (00:09→11:20)
[2024-01-04 03:43] VITALS: BP 120/83
[2024-01-04 06:00] VITALS: BMI 32.7
[2024-01-04 07:59] VITALS: BP 114/93
[2024-01-04] MEDS: SINEMET 10-100 1 TABLET PO ×3 (08:05→21:00)
[2024-01-04] MEDS: ABILIFY 15 MG PO (08:05)
[2024-01-04] MEDS: DEPAKOTE (12 HR RELEASE) 125 MG PO ×2 (08:05→20:48)
[2024-01-04] MEDS: FLOMAX 0.4 MG PO (08:05)
[2024-01-04] MEDS: ASPIR LOW (ENTERIC COATED) 81 MG PO (08:06)
[2024-01-04] MEDS: AUGMENTIN 875 MG/125 MG 1 TABLET PO ×2 (08:06→20:47)
[2024-01-04] MEDS: BENTYL 20 MG PO ×3 (08:06→21:00)
[2024-01-04] MEDS: PROZAC 80 MG PO (08:06)
[2024-01-04] MEDS: NEURONTIN 100 MG PO ×2 (08:06→20:48)
[2024-01-04] MEDS: PRAVACHOL 80 MG PO (08:06)
[2024-01-04] MEDS: PROTONIX 40 MG PO (08:06)
[2024-01-04] MEDS: ELIQUIS 5 MG PO ×2 (08:07→20:48)
[2024-01-04] MEDS: ZADITOR 1 DROP OPHTH ×2 (08:07→20:50)
[2024-01-04] MEDS: DESENEX/MITRAZOL/ZEASORB 1 APPLIC TOPICAL ×2 (08:07→20:50)
[2024-01-04 11:19] VITALS: BP 112/61
--- NOTE | 2024-01-04 11:19 | CM ---
Reviewed chart, SNF referrals sent and replies received by some requested facilities. Will need to f/u with admission in the am.
Plan: Case management will continue to follow and assist with discharge planning. Will f/u with SNFs to determine who can accept patient.
--- NOTE | 2024-01-04 13:14 | W.PN.HOSP.TC ---
Today's Communication/Plan
-
DC to rehab
Assessment / Plan
Assessment / Plan
pt is a 68 year old male
Generalized weakness--patient noted to be hypotensive on presentation. Suspect weakness may be secondary to hypotension. Improved.
Persistent hypotension- suspected sepsis with shock physiology but persistent need of Levophed and significantly decreased random cortisol concerning for distributive shock from adrenal insufficiency-since starting on hydrocortisone IV patient
hypotension resolved. Not requiring Levophed since yesterday.
Sepsis-possibly secondary to bilateral basal pneumonia-initial evaluation including UA was negative --lactic acid was normal. Blood cultures so far negative. Chest x-ray and subsequently CT chest = Patchy parenchymal opacity within both lower
lungs, similar to recent examinations, with main differential considerations of atelectasis and/or pneumonia. No evidence for associated pleural effusion. With his trouble handling oral intake 12/28 night the clinical concern is of an aspiration
pneumonia--White count normalized. dced vancomycin, MRSA screen neg--CW modified diet speech eval--switched antibiotics to oral vancomycin
Possible adrenal insufficiency-low random serum cortisol--serum cortisol was 2.4 mcg/dL checked at 3:46 AM on 12/31/23-- With persistent hypotension and such a low value of cortisol is suggestive of adrenal insufficiency. Will challenge with IV
hydrocortisone see the hemodynamics response--resolved hypotension-decrease hydrocortisone IV dose--No history of recent steroid use--TSH WNL. Remain normotensive on tapering of hydrocortisone -switch to oral hydrocortisone ; follow-up with
escort blind for etiological workup.
Acute hypoxic respiratory insufficiency - on low dose FIO2 -wean as able--ICS . Resolved
Diarrhea - abdomen benign -none so far evident in the hospital.
HX of DVT - cw eliquis
Dementia with TBI - cw home meds; pt also on Carbidopa which i would continue .? Indication for Carbidopa.
Depression -cw home meds
Full code per POA /Sister
Dr. Cruz Discussed with escort blind Dr. Edge--unclear recs
PT/OT-recommends rehab
Medically stable for DC to rehab in am.
Anticipated Discharge: Within 24 hours
Subjective/Interval History
-
Date of Service: January 04, 2024
Patient feels improved. No new symptoms. Tolerating diet.
Denies shortness of breath or chest pain.
Objective Data
-
Vital Signs:
Vital Signs
Temp Pulse Resp BP Pulse Ox
97.7 F 48 16 112/61 96
01/04/24 11:19 01/04/24 11:19 01/04/24 11:19 01/04/24 11:19 01/04/24 11:38
I&O
01/03/24 01/04/24 01/05/24
06:59 06:59 06:59
Intake Total 680 / 680 1260 / 1260
Output Total 500 / 500 400 / 400
Balance 180 / 180 860 / 860
Review of Systems
-
Constitutional: Denies Fever or Chills
EENT: Denies Sore Throat
Respiratory: Denies Cough
Neuro: Denies Dizzy
Physical Exam
-
General: No Apparent Distress
HEENT: Moist Mucous Membranes
Respiratory: Clear to Auscultation
Cardiac: Regular Rhythm and S1/S2
GI: Soft and Nontender
Neuro: AO x 3
[2024-01-04] MEDS: CORTEF 15 MG PO (15:10)
[2024-01-04 15:16] VITALS: BP 110/57
[2024-01-04] MEDS: CORTEF 10 MG PO (17:54)
[2024-01-04 19:51] VITALS: BP 110/59
[2024-01-04] MEDS: DESYREL 100 MG PO (21:00)
[2024-01-04] MEDS: REMERON 15 MG PO (21:00)
[2024-01-04] MEDS: ARICEPT 10 MG PO (21:00)
[2024-01-05] VITALS (9 sets, daily range): BP systolic 102–146; BP diastolic 51–83; PULSE 56–58; O2SAT 93; BMI 32.8
[2024-01-05] MEDS: ASPIR LOW (ENTERIC COATED) 81 MG PO (08:54)
[2024-01-05] MEDS: ELIQUIS 5 MG PO ×2 (08:54→21:13)
[2024-01-05] MEDS: DEPAKOTE (12 HR RELEASE) 125 MG PO ×2 (08:54→21:12)
[2024-01-05] MEDS: ABILIFY 15 MG PO (08:54)
[2024-01-05] MEDS: PROZAC 80 MG PO (08:54)
[2024-01-05] MEDS: BENTYL 20 MG PO ×3 (08:54→21:15)
[2024-01-05] MEDS: NEURONTIN 100 MG PO ×2 (08:54→21:13)
[2024-01-05] MEDS: PRAVACHOL 80 MG PO (08:54)
[2024-01-05] MEDS: AUGMENTIN 875 MG/125 MG 1 TABLET PO ×2 (08:55→21:12)
[2024-01-05] MEDS: CORTEF 15 MG PO (08:55)
[2024-01-05] MEDS: FLOMAX 0.4 MG PO (08:55)
[2024-01-05] MEDS: SINEMET 10-100 1 TABLET PO ×3 (08:55→21:16)
[2024-01-05] MEDS: DESENEX/MITRAZOL/ZEASORB 1 APPLIC TOPICAL ×2 (08:55→21:06)
[2024-01-05] MEDS: PROTONIX 40 MG PO (08:55)
[2024-01-05] MEDS: ZADITOR 1 DROP OPHTH ×2 (08:57→21:14)
--- NOTE | 2024-01-05 10:22 | W.PN.HOSP.TC ---
Today's Communication/Plan
-
waiting for SNF
Assessment / Plan
Assessment / Plan
pt is a 68 year old male
Generalized weakness--patient noted to be hypotensive on presentation. Suspect weakness may be secondary to hypotension. Improved.
Persistent hypotension- suspected sepsis with shock physiology but persistent need of Levophed and significantly decreased random cortisol concerning for distributive shock from adrenal insufficiency--since starting on hydrocortisone IV, patient
hypotension resolved. Not requiring Levophed since yesterday--now on oral hydrocortisone
Sepsis--possibly secondary to bilateral basal pneumonia-initial evaluation including UA was negative --lactic acid was normal. Blood cultures so far negative. Chest x-ray and subsequently CT chest = Patchy parenchymal opacity within both lower
lungs, similar to recent examinations, with main differential considerations of atelectasis and/or pneumonia. No evidence for associated pleural effusion. With his trouble handling oral intake 12/28 night the clinical concern is of an aspiration
pneumonia--White count normalized. dced vancomycin, MRSA screen neg--CW modified diet speech eval--switched antibiotics to oral augmentin
Possible adrenal insufficiency--low random serum cortisol--serum cortisol was 2.4 mcg/dL checked at 3:46 AM on 12/31/23-- With persistent hypotension and such a low value of cortisol is suggestive of adrenal insufficiency. Will challenge with IV
hydrocortisone see the hemodynamics response--resolved hypotension-decrease hydrocortisone IV dose--No history of recent steroid use--TSH WNL. Remain normotensive on tapering of hydrocortisone -switch to oral hydrocortisone ; follow-up with
hvac project manager for etiological workup.
Acute hypoxic respiratory insufficiency - on low dose FIO2 -wean as able--ICS . Resolved
Diarrhea - abdomen benign -none so far evident in the hospital.
HX of DVT - cw eliquis
Dementia with TBI - cw home meds; pt also on Carbidopa which i would continue .? Indication for Carbidopa.
Depression -cw home meds
Full code per POA /Sister
Dr. Cruz Discussed with hvac project manager Dr. Edge--unclear recs
PT/OT-recommends rehab
Medically stable for DC to rehab in am--NO accepting SNF per CM
Anticipated Discharge: 24 - 48 hours
Subjective/Interval History
-
Date of Service: January 05, 2024
pt without c/o
Objective Data
-
Vital Signs:
max temp for 24 hours
01/05/24
09:08
Temp 98.4 F
Vital Signs
Temp Pulse Resp BP Pulse Ox
98.4 F 56 16 134/83 93
01/05/24 09:08 01/05/24 09:08 01/05/24 09:08 01/05/24 09:08 01/05/24 09:08
I&O
01/04/24 01/05/24 01/06/24
06:59 06:59 06:59
Intake Total 1260 / 1260 902 / 902
Output Total 400 / 400
Balance 860 / 860 902 / 902
Review of Systems
-
All other systems: Reviewed and negative
Physical Exam
-
General: Well Developed, Well Nourished and No Apparent Distress
HEENT: Normocephalic and Atraumatic
Respiratory: Clear to Auscultation; Negative Wheezes or Rhonchi
Cardiac: Regular Rhythm and S1/S2; Negative Murmur
GI: Soft, Nontender, Nondistended and Normal Bowel Sounds
Musculoskeletal: No Clubbing, No Cyanosis and No Edema
Neuro: Awake
--- NOTE | 2024-01-05 15:55 | CM ---
Case management following for discharge planning
Chart reviewed. Pt medically ready for discharge
Reviewed referrals in [facility] interested
Called pts sister - LM with call back number
Plan - anticipate snf when bed obtained
[2024-01-05] MEDS: BenGay-Like 1 APPLIC TOPICAL ×2 (17:06→21:14)
[2024-01-05] MEDS: CORTEF 10 MG PO (17:06)
[2024-01-05] MEDS: ARICEPT 10 MG PO (21:14)
[2024-01-05] MEDS: REMERON 15 MG PO (21:15)
[2024-01-05] MEDS: DESYREL 100 MG PO (21:15)
[2024-01-05] MEDS: ROBITUSSIN DM 10 ML PO (22:04)
--- NOTE | 2024-01-05 23:11 | PTCARENOTE ---
During assessment of pt was having very productive cough. Pt denies any pain or discomfort , stated that 'it feels like tingling in his throat' Upon listening to lung and heart sounds pt had crackles throughout and diminished at the bases with an O2
of 95 on room air. ENDOSCOPY TECHNICAN was notified in change and advised to give PRN Robitussin DM 10ml. Order was changed to q6h. Will continue to monitor pt
[2024-01-06] MEDS: ROBITUSSIN DM 10 ML PO ×3 (03:37→17:39)
[2024-01-06 06:00] VITALS: BMI 31.9
[2024-01-06 07:53] VITALS: BP 132/64
[2024-01-06] MEDS: ELIQUIS 5 MG PO (08:27)
[2024-01-06] MEDS: CORTEF 15 MG PO (08:27)
[2024-01-06] MEDS: PRAVACHOL 80 MG PO (08:27)
[2024-01-06] MEDS: PROTONIX 40 MG PO (08:28)
[2024-01-06] MEDS: AUGMENTIN 875 MG/125 MG 1 TABLET PO (08:28)
[2024-01-06] MEDS: DEPAKOTE (12 HR RELEASE) 125 MG PO (08:28)
[2024-01-06] MEDS: NEURONTIN 100 MG PO (08:28)
[2024-01-06] MEDS: SINEMET 10-100 1 TABLET PO ×2 (08:28→17:39)
[2024-01-06] MEDS: BENTYL 20 MG PO ×2 (08:28→17:39)
[2024-01-06] MEDS: PROZAC 80 MG PO (08:28)
[2024-01-06] MEDS: FLOMAX 0.4 MG PO (08:28)
[2024-01-06] MEDS: ABILIFY 15 MG PO (08:28)
[2024-01-06] MEDS: ASPIR LOW (ENTERIC COATED) 81 MG PO (08:28)
[2024-01-06] MEDS: BenGay-Like 1 APPLIC TOPICAL ×3 (08:29→17:40)
[2024-01-06] MEDS: ZADITOR 1 DROP OPHTH (08:32)
[2024-01-06] MEDS: DESENEX/MITRAZOL/ZEASORB 1 APPLIC TOPICAL (08:33)
--- NOTE | 2024-01-06 11:35 | W.PN.HOSP.TC ---
Today's Communication/Plan
-
Medically stable for DC to rehab
Assessment / Plan
Assessment / Plan
pt is a 68 year old male
Generalized weakness--patient noted to be hypotensive on presentation. Suspect weakness may be secondary to hypotension. Improved.
Persistent hypotension- suspected sepsis with shock physiology but persistent need of Levophed and significantly decreased random cortisol concerning for distributive shock from adrenal insufficiency--since starting on hydrocortisone IV, patient
hypotension resolved. Not requiring Levophed since yesterday--now on oral hydrocortisone
Sepsis--possibly secondary to bilateral basal pneumonia-initial evaluation including UA was negative --lactic acid was normal. Blood cultures so far negative. Chest x-ray and subsequently CT chest = Patchy parenchymal opacity within both lower
lungs, similar to recent examinations, with main differential considerations of atelectasis and/or pneumonia. No evidence for associated pleural effusion. With his trouble handling oral intake 12/28 night the clinical concern is of an aspiration
pneumonia--White count normalized. dced vancomycin, MRSA screen neg--CW modified diet speech eval--switched antibiotics to oral augmentin
Possible adrenal insufficiency--low random serum cortisol--serum cortisol was 2.4 mcg/dL checked at 3:46 AM on 12/31/23-- With persistent hypotension and such a low value of cortisol is suggestive of adrenal insufficiency. Will challenge with IV
hydrocortisone see the hemodynamics response--resolved hypotension-decrease hydrocortisone IV dose--No history of recent steroid use--TSH WNL. Remain normotensive on tapering of hydrocortisone -switch to oral hydrocortisone ; follow-up with
measurement technician for etiological workup.
Acute hypoxic respiratory insufficiency - on low dose FIO2 -wean as able--ICS . Resolved
Diarrhea - abdomen benign -none so far evident in the hospital.
HX of DVT - cw eliquis
Dementia with TBI - cw home meds; pt also on Carbidopa which i would continue .? Indication for Carbidopa.
Depression -cw home meds
Full code per POA /Sister
Dr. Cruz Discussed with measurement technician Dr. Edge--unclear recs
PT/OT-recommends rehab
Medically stable for DC to rehab
Anticipated Discharge: Within 24 hours
Subjective/Interval History
-
Date of Service: January 06, 2024
pt medically stable for d/c
Objective Data
-
Vital Signs:
max temp for 24 hours
01/05/24
23:06
Temp 98.3 F
Vital Signs
Temp Pulse Resp BP Pulse Ox
98.4 F 57 16 132/64 94
01/06/24 07:53 01/06/24 07:53 01/06/24 07:53 01/06/24 07:53 01/06/24 07:53
I&O
01/05/24 01/06/24 01/07/24
06:59 06:59 06:59
Intake Total 902 / 902 600 / 600
Balance 902 / 902 600 / 600
Review of Systems
-
All other systems: Reviewed and negative
Physical Exam
-
General: Well Developed, Well Nourished and No Apparent Distress
HEENT: Negative Oxygen
Respiratory: Clear to Auscultation; Negative Wheezes or Rhonchi
Cardiac: Regular Rhythm and S1/S2; Negative Murmur
GI: Soft, Nontender, Nondistended and Normal Bowel Sounds
Musculoskeletal: No Clubbing, No Cyanosis and No Edema
--- NOTE | 2024-01-06 12:02 | CM ---
Patient seen at bedside with physician. Patient accepted for [facility] and CM spoke with patient sister to review option. Patient sister to call for tour. CM will start auth request for [facility] and call to [facility] to confirm bed availability
if family choses against [facility]. Per sister patient was at [facility] for 4 months just discharged 12/11/23. CM will continue to follow for discharge planning needs.
Plan; SNF
[2024-01-06 15:15] VITALS: BP 114/69
[2024-01-06] MEDS: CORTEF 10 MG PO (17:39)
[2024-01-06 23:00] VITALS: BP 132/71
[2024-01-07] MEDS: ROBITUSSIN DM 10 ML PO ×4 (00:08→21:41)
[2024-01-07] MEDS: SINEMET 10-100 1 TABLET PO ×4 (00:08→21:42)
[2024-01-07] MEDS: ARICEPT 10 MG PO ×2 (00:08→21:41)
[2024-01-07] MEDS: NEURONTIN 100 MG PO ×3 (00:09→21:42)
[2024-01-07] MEDS: AUGMENTIN 875 MG/125 MG 1 TABLET PO ×3 (00:09→21:42)
[2024-01-07] MEDS: BENTYL 20 MG PO ×4 (00:10→21:42)
[2024-01-07] MEDS: ELIQUIS 5 MG PO ×3 (00:10→21:42)
[2024-01-07] MEDS: REMERON 15 MG PO ×2 (00:13→21:41)
[2024-01-07] MEDS: DEPAKOTE (12 HR RELEASE) 125 MG PO ×3 (00:13→21:42)
[2024-01-07] MEDS: DESYREL 100 MG PO ×2 (00:14→21:42)
[2024-01-07] MEDS: BenGay-Like 1 APPLIC TOPICAL ×2 (00:14→21:44)
[2024-01-07] MEDS: ZADITOR 1 DROP OPHTH ×3 (00:15→21:43)
[2024-01-07] MEDS: DESENEX/MITRAZOL/ZEASORB 1 APPLIC TOPICAL ×3 (00:16→21:43)
[2024-01-07] MEDS: ROBITUSSIN DM PO (05:26)
[2024-01-07 06:00] VITALS: BMI 31.8
[2024-01-07 08:24] VITALS: BP 144/77
[2024-01-07] MEDS: PRAVACHOL 80 MG PO (08:34)
[2024-01-07] MEDS: CORTEF 15 MG PO (08:35)
[2024-01-07] MEDS: FLOMAX 0.4 MG PO (08:35)
[2024-01-07] MEDS: ABILIFY 15 MG PO (08:35)
[2024-01-07] MEDS: PROTONIX 40 MG PO (08:35)
[2024-01-07] MEDS: ASPIR LOW (ENTERIC COATED) 81 MG PO (08:35)
[2024-01-07] MEDS: PROZAC 80 MG PO (08:36)
[2024-01-07] MEDS: BenGay-Like TOPICAL ×4 (08:46→21:44)
--- NOTE | 2024-01-07 09:46 | CM ---
Addendum entered by Jahaira Garcia 01/07/24 16:40:
Dang [phone] to submit updated clinical to [employer] for CM to proceed with auth.
Original Note:
Patient seen at bedside with physician. Facility requesting additional information, CM will send updated clinicals and request authorization. CM will continue to follow for discharge planning needs.
Plan; SNF pending auth
--- NOTE | 2024-01-07 09:46 | W.PN.HOSP.TC ---
Today's Communication/Plan
-
await insurance auth
Assessment / Plan
Assessment / Plan
pt is a 68 year old male
Generalized weakness--patient noted to be hypotensive on presentation. Suspect weakness may be secondary to hypotension. resolved
Persistent hypotension- suspected sepsis with shock physiology but had persistent need for Levophed and significantly decreased random cortisol concerning for distributive shock from adrenal insufficiency--since starting on hydrocortisone IV,
patient hypotension resolved. Not requiring Levophed since yesterday--now on oral hydrocortisone
Sepsis--possibly secondary to bilateral basal pneumonia--initial evaluation including UA was negative --lactic acid was normal. Blood cultures so far negative. Chest x-ray and subsequently CT chest = Patchy parenchymal opacity within both lower
lungs, similar to recent examinations, with main differential considerations of atelectasis and/or pneumonia. No evidence for associated pleural effusion. With his trouble handling oral intake 12/28 night the clinical concern is of an aspiration
pneumonia--White count normalized. dc'ed vancomycin, MRSA screen neg--CW modified diet speech eval--switched antibiotics to oral augmentin to complete course
Possible adrenal insufficiency--low random serum cortisol--serum cortisol was 2.4 mcg/dL checked at 3:46 AM on 12/31/23-- With persistent hypotension and such a low value of cortisol is suggestive of adrenal insufficiency. Will challenge with IV
hydrocortisone see the hemodynamics response--resolved hypotension-decrease hydrocortisone IV dose--No history of recent steroid use--TSH WNL. Remain normotensive on tapering of hydrocortisone -switch to oral hydrocortisone ; follow-up with
sofa cover inspector for etiological workup.
Acute hypoxic respiratory insufficiency - on low dose FIO2 -wean as able--ICS . Resolved
Diarrhea - abdomen benign -none so far evident in the hospital.
HX of DVT - cw eliquis
Dementia with TBI - cw home meds; pt also on Carbidopa which i would continue .? Indication for Carbidopa.
Depression -cw home meds
Full code per POA /Sister
Dr. Cruz Discussed with sofa cover inspector Dr. Edge--unclear recs
PT/OT-recommends rehab
Medically stable for DC to rehab --need insurance auth
Anticipated Discharge: 24 - 48 hours
Subjective/Interval History
-
Date of Service: January 07, 2024
pt loves the food
Objective Data
-
Vital Signs:
max temp for 24 hours
01/07/24
08:24
Temp 97.9 F
Vital Signs
Temp Pulse Resp BP Pulse Ox
97.9 F 67 17 144/77 93
01/07/24 08:24 01/07/24 08:24 01/07/24 08:24 01/07/24 08:24 01/07/24 08:24
I&O
01/06/24 01/07/24 01/08/24
06:59 06:59 06:59
Intake Total 600 / 600 700 / 700
Balance 600 / 600 700 / 700
Review of Systems
-
All other systems: Reviewed and negative
Physical Exam
-
General: Well Developed, Well Nourished and No Apparent Distress
HEENT: Normocephalic and Atraumatic
Respiratory: Clear to Auscultation; Negative Wheezes or Rhonchi
Cardiac: Regular Rhythm and S1/S2; Negative Murmur
GI: Soft, Nontender, Nondistended and Normal Bowel Sounds
Musculoskeletal: No Clubbing, No Cyanosis and No Edema
Neuro: Awake
[2024-01-07 15:26] VITALS: BP 105/65; BP 116/75; PULSE 63; O2SAT 96
[2024-01-07 15:28] VITALS: BP 105/65; BP 116/75; PULSE 63
[2024-01-07 15:50] VITALS: BP 105/65
[2024-01-07] MEDS: CORTEF 10 MG PO (18:03)
[2024-01-07 23:40] VITALS: BP 98/64
[2024-01-08] MEDS: ROBITUSSIN DM PO (05:14)
[2024-01-08 06:00] VITALS: BMI 31.2
[2024-01-08 07:28] VITALS: BP 132/77
--- NOTE | 2024-01-08 09:50 | CM ---
Addendum entered by Jahaira Garcia 01/08/24 15:02:
CM confirmed clinical information has been received and is process.
Original Note:
Auth request sent to [facility] [facility] with pending reference number of [id number]; faxed to [phone]. CM will continue to follow for discharge planning needs.
--- NOTE | 2024-01-08 10:33 | W.PN.HOSP.TC ---
Today's Communication/Plan
-
Awaiting disposition to rehab
Assessment / Plan
Assessment / Plan
pt is a 68 year old male
Generalized weakness--patient noted to be hypotensive on presentation. Suspect weakness may be secondary to hypotension. resolved
Persistent hypotension- suspected sepsis with shock physiology but had persistent need for Levophed and significantly decreased random cortisol concerning for distributive shock from adrenal insufficiency--since starting on hydrocortisone IV,
patient hypotension resolved. Not requiring Levophed --now on oral hydrocortisone
Sepsis--possibly secondary to bilateral basal pneumonia--initial evaluation including UA was negative --lactic acid was normal. Blood cultures so far negative. Chest x-ray and subsequently CT chest = Patchy parenchymal opacity within both lower
lungs, similar to recent examinations, with main differential considerations of atelectasis and/or pneumonia. No evidence for associated pleural effusion. With his trouble handling oral intake 12/28 night the clinical concern is of an aspiration
pneumonia--White count normalized. dc'ed vancomycin, MRSA screen neg--CW modified diet speech eval--switched antibiotics to oral augmentin to complete course
Possible adrenal insufficiency--low random serum cortisol--serum cortisol was 2.4 mcg/dL checked at 3:46 AM on 12/31/23-- With persistent hypotension and such a low value of cortisol is suggestive of adrenal insufficiency. Will challenge with IV
hydrocortisone see the hemodynamics response--resolved hypotension-decrease hydrocortisone IV dose--No history of recent steroid use--TSH WNL. Remain normotensive on tapering of hydrocortisone -switch to oral hydrocortisone ; follow-up with
pedorthist for etiological workup.
Acute hypoxic respiratory insufficiency - on low dose FIO2 -wean as able--ICS . Resolved
Diarrhea - abdomen benign -none so far evident in the hospital.
HX of DVT - cw eliquis
Dementia with TBI - cw home meds; pt also on Carbidopa which i would continue .? Indication for Carbidopa.
Depression -cw home meds
Full code per POA /Sister
Dr. Cruz Discussed with pedorthist Dr. Edge--unclear recs
PT/OT-recommends rehab
Medically stable for DC to rehab --need insurance auth
Anticipated Discharge: Today
Subjective/Interval History
-
Date of Service: January 08, 2024
No overnight events. Voices no specific complaints. Says he is feeling great.
Objective Data
-
Vital Signs:
Vital Signs
Temp Pulse Resp BP Pulse Ox
98.0 F 71 17 132/77 93
01/08/24 07:28 01/08/24 07:28 01/08/24 07:28 01/08/24 07:28 01/08/24 07:28
I&O
01/07/24 01/08/24 01/09/24
06:59 06:59 06:59
Intake Total 700 / 700 420 / 420
Balance 700 / 700 420 / 420
Review of Systems
-
Respiratory: Denies Trouble Breathing
Cardiac: Denies Chest Pain
Abdomen/GI: Denies Nausea or Vomiting
Neuro: Denies Dizzy
Physical Exam
-
General: Comfortable
HEENT: Moist Mucous Membranes
Respiratory: Non Labored Respirations; Negative Accessory Resp Muscle Use
Cardiac: Regular Rhythm and S1/S2
GI: Soft
Neuro: AO x 3
[2024-01-08] MEDS: NEURONTIN 100 MG PO ×2 (10:36→22:42)
[2024-01-08] MEDS: PROZAC 80 MG PO (10:36)
[2024-01-08] MEDS: ROBITUSSIN DM 10 ML PO ×3 (10:36→22:43)
[2024-01-08] MEDS: PROTONIX 40 MG PO (10:36)
[2024-01-08] MEDS: PRAVACHOL 80 MG PO (10:36)
[2024-01-08] MEDS: ABILIFY 15 MG PO (10:36)
[2024-01-08] MEDS: CORTEF 15 MG PO (10:37)
[2024-01-08] MEDS: ASPIR LOW (ENTERIC COATED) 81 MG PO (10:37)
[2024-01-08] MEDS: ELIQUIS 5 MG PO ×2 (10:37→22:41)
[2024-01-08] MEDS: SINEMET 10-100 1 TABLET PO ×3 (10:37→22:44)
[2024-01-08] MEDS: BENTYL 20 MG PO ×3 (10:37→22:43)
[2024-01-08] MEDS: AUGMENTIN 875 MG/125 MG 1 TABLET PO ×2 (10:37→22:40)
[2024-01-08] MEDS: FLOMAX 0.4 MG PO (10:37)
[2024-01-08] MEDS: DEPAKOTE (12 HR RELEASE) 125 MG PO ×2 (10:37→22:41)
[2024-01-08] MEDS: ZADITOR 1 DROP OPHTH ×2 (10:38→22:44)
[2024-01-08] MEDS: DESENEX/MITRAZOL/ZEASORB 1 APPLIC TOPICAL ×2 (10:39→22:41)
[2024-01-08] MEDS: BenGay-Like 1 APPLIC TOPICAL (10:39)
[2024-01-08] MEDS: BenGay-Like TOPICAL ×3 (12:21→22:43)
[2024-01-08 15:25] VITALS: BP 127/66
[2024-01-08] MEDS: CORTEF 10 MG PO (17:54)
[2024-01-08] MEDS: ARICEPT 10 MG PO (22:42)
[2024-01-08] MEDS: DESYREL 100 MG PO (22:43)
[2024-01-08] MEDS: REMERON 15 MG PO (22:43)
[2024-01-08 23:22] VITALS: BP 133/66
[2024-01-09] MEDS: ROBITUSSIN DM PO (03:27)
[2024-01-09 06:00] VITALS: BMI 31.0
[2024-01-09 07:35] VITALS: BP 135/77
[2024-01-09] MEDS: PROZAC 80 MG PO (08:27)
[2024-01-09] MEDS: CORTEF 15 MG PO (08:27)
[2024-01-09] MEDS: PRAVACHOL 80 MG PO (08:28)
[2024-01-09] MEDS: NEURONTIN 100 MG PO (08:28)
[2024-01-09] MEDS: ASPIR LOW (ENTERIC COATED) 81 MG PO (08:28)
[2024-01-09] MEDS: PROTONIX 40 MG PO (08:28)
[2024-01-09] MEDS: AUGMENTIN 875 MG/125 MG 1 TABLET PO (08:28)
[2024-01-09] MEDS: FLOMAX 0.4 MG PO (08:28)
[2024-01-09] MEDS: ELIQUIS 5 MG PO (08:28)
[2024-01-09] MEDS: BENTYL 20 MG PO ×2 (08:28→15:00)
[2024-01-09] MEDS: DEPAKOTE (12 HR RELEASE) 125 MG PO (08:28)
[2024-01-09] MEDS: ABILIFY 15 MG PO (08:28)
[2024-01-09] MEDS: BenGay-Like 1 APPLIC TOPICAL (08:29)
[2024-01-09] MEDS: ZADITOR 1 DROP OPHTH (08:29)
[2024-01-09] MEDS: DESENEX/MITRAZOL/ZEASORB 1 APPLIC TOPICAL (08:30)
[2024-01-09] MEDS: SINEMET 10-100 1 TABLET PO ×2 (08:30→15:00)
[2024-01-09] MEDS: ROBITUSSIN DM 10 ML PO ×2 (09:24→15:00)
--- NOTE | 2024-01-09 11:44 | CM ---
Addendum entered by Tashia Casiano 01/09/24 14:51:
Transport at 5:30PM - facility and pts sister aware
Addendum entered by Tashia Casiano 01/09/24 14:09:
Pt medically ready for d/c
Spoke with Dang at [facility] - can accept
Discussed transfer with pts sister - agrees with transfer
Discussed IMM with pts sister
Plan - transfer to [facility]
R - [phone]
- [phone]
Original Note:
Case management following for discharge planning
Called [facility] to check on status of auth
Spoke with Page
Approved for [facility] from 01/07-01/12 - Reviewer Shira
Auth # [id number]
Joby Re # [id number]
Have facility call [phone] when pt arrives
Physician made aware
Plan - [facility] SNF when medically ready
--- NOTE | 2024-01-09 12:52 | W.PN.HOSP.TC ---
Today's Communication/Plan
-
discharge
Assessment / Plan
Assessment / Plan
pt is a 68 year old male
CVS: S1-S2 normal
Chest: CTA B/L
Abdomen: Soft, NT / Bowel sounds present
Extremities: No edema,
Echo 12/31/2023-normal LV size and function. Concentric LVH. EF 50 to 55%. Diastolic function indeterminate. Mild MR. Moderate TR. Pulmonary pressure 40-40 evaluation requiring. Mild dilated aortic root
#Generalized weakness-Patient noted to be hypotensive on presentation. Suspect weakness may be secondary to hypotension.
#Persistent hypotension- Suspected sepsis with shock physiology but had persistent need for Levophed and significantly decreased random cortisol concerning for distributive shock from adrenal insufficiency--since starting on hydrocortisone IV,
patient hypotension resolved. Not requiring Levophed -now on oral hydrocortisone
#Sepsis--possibly secondary to bilateral basal pneumonia--initial evaluation including UA was negative --lactic acid was normal. Blood cultures so far negative. Chest x-ray and subsequently CT chest - Patchy parenchymal opacity within both lower
lungs, similar to recent examinations, with main differential considerations of atelectasis and/or pneumonia. No evidence for associated pleural effusion. With his trouble handling oral intake 12/28 night the clinical concern is of an aspiration
pneumonia--White count normalized. dc'ed vancomycin, MRSA screen neg--CW modified diet speech eval--switched antibiotics to oral Augmentin to complete course. No need to continue. Stop at discharge
#Adrenal insufficiency--low random serum cortisol--serum cortisol was 2.4 mcg/dL checked at 3:46 AM on 12/31/23-- With persistent hypotension and such a low value of cortisol is suggestive of adrenal insufficiency. -TSH WNL. Remain normotensive on
tapering of hydrocortisone -switched to oral hydrocortisone ; follow-up with car customizer for etiological workup.
#Acute hypoxic respiratory insufficiency - Off O2
#Diarrhea/loose stools-likely secondary to antibiotics. Stop antibiotics
#HX of DVT - cw Eliquis
#Dementia with TBI - cw home meds
# Parkinson disease-discussed with patient's sister-continue Sinemet
#Depression -cw home meds
#Full code per POA /Sister
Dr. Cruz Discussed with car customizer Dr. Edge--unclear recs.I will recommend OP follow up
PT/OT-recommends rehab
D/W Case management
Discussed with patient sister and updated
discharge coordination time 34 min
Anticipated Discharge: Today
Subjective/Interval History
-
Date of Service: January 09, 2024
Objective Data
-
Vital Signs:
Vital Signs
Temp Pulse Resp BP Pulse Ox
97.6 F 53 18 135/77 98
01/09/24 07:35 01/09/24 07:35 01/09/24 07:35 01/09/24 07:35 01/09/24 08:00
I&O
01/08/24 01/09/24 01/10/24
06:59 06:59 06:59
Intake Total 420 / 420 360 / 360
Balance 420 / 420 360 / 360
--- NOTE | 2024-01-09 13:49 | W.DS.TRANS ---
Addendum entered and electronically signed by Peg Foss MD 01/09/24 18:31:
Dictation- [id number]
Original Note:
DC Summary - Welfare Specialist
-
Discharge Instructions:
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
Pneumonia
Adrenal insufficiency
Acute hypoxic respiratory insufficiency
History of DVT
Dementia with TBI
Depression
Diet Other diet
Additional Diets IDDSI [id number]
Activity As tolerated,With assistance
Driving Restrictions No driving
Others Tests chest X ray 4 weeks
Other Services PT,OT
Instructions:
Stand-Alone Forms:
Changes to Home Medications: Yes
Discharge Medications:
DC Medications w/original date entered in [facility]
trazodone 100 mg tablet 100 mg PO HS Sleep 09/24/19
dicyclomine 20 mg tablet 20 mg PO TID Gastrointestinal issue 03/08/22
aripiprazole 5 mg tablet 15 mg PO DAILY Mental Health/Anxiety 07/04/23
donepezil 10 mg tablet 10 mg PO HS Neurological Condition 07/04/23
fluticasone propionate 50 mcg/actuation nasal spray,suspension 1 spray intranasal DAILY Congestion 07/04/23
gabapentin 100 mg capsule 100 mg PO BID Pain 07/04/23
omeprazole 40 mg capsule,delayed release 40 mg PO DAILY GERD 07/04/23
pravastatin 80 mg tablet 80 mg PO DAILY High Cholesterol 07/04/23
carbidopa 10 mg-levodopa 100 mg tablet 1 tab PO TID Neurological Condition 12/29/23
cetirizine 0.24 % eye drops in a dropperette 1 drp ophthalmic (eye) BIDPRN PRN pink eye 12/29/23
diazepam 10 mg tablet 10 mg PO QIDPRN PRN anxiety 12/29/23
divalproex 125 mg tablet,delayed release 125 mg PO BID Mental Health/Anxiety 12/29/23
fluoxetine 40 mg capsule 80 mg PO DAILY Mental Health/Anxiety 12/29/23
memantine 10 mg tablet 10 mg PO BID Neurological Condition 12/29/23
mirtazapine 15 mg tablet 15 mg PO HS Mental Health/Anxiety 12/29/23
acetaminophen 325 mg tablet 650 mg (2 x 325 mg) PO Q4HPRN PRN pain #0 tabs 01/09/24
apixaban 5 mg tablet (Eliquis) 5 mg PO BID Blood clot prevention/tx #60 tabs 01/09/24
aspirin 81 mg tablet,delayed release 81 mg PO DAILY Blood clot prevention/tx #90 tabs 01/09/24
hydrocortisone 10 mg tablet 10 mg PO QPM adrenal insufficiency #0 tabs 01/09/24
hydrocortisone 10 mg tablet 15 mg (1.5 x 10 mg) PO DAILY adrenal insufficiency #0 tabs 01/09/24
tamsulosin 0.4 mg capsule 0.4 mg PO HS Urinary issue #30 caps 01/09/24
Home Medication Changes
metoprolol stopped
Hydrocortisone new
Pending Results: No
[2024-01-09] MEDS: BenGay-Like TOPICAL (13:53)
[2024-01-09 15:18] VITALS: BP 103/71
== END 2024-01-09 17:34 | DRG 871 ==
LOC: 3 WEST ACU 18:29
PROVIDERS: Emergency Medicine; Internal Medicine; Registered Nurse; ADMITTING PHYSICIAN Internal Medicine; ATTENDING PHYSICIAN Hospitalist; EMERGENCY PHYSICIAN Emergency Medicine
DX: A41.9 Sepsis, unspecified organism (principal); J18.9 Pneumonia, unspecified organism; J69.0 Pneumonitis due to inhalation of food and vomit; R65.21 Severe sepsis with septic shock; E27.40 Unspecified adrenocortical insufficiency; F02.83 Dementia in other diseases classified elsewhere, unspecified severity, with mood disturbance; K52.1 Toxic gastroenteritis and colitis; T36.95XA Adverse effect of unspecified systemic antibiotic, initial encounter; G20.A1 Parkinson's disease without dyskinesia, without mention of fluctuations; I12.9 Hypertensive chronic kidney disease with stage 1 through stage 4 chronic kidney disease, or unspecified chronic kidney disease; N18.9 Chronic kidney disease, unspecified; E78.00 Pure hypercholesterolemia, unspecified; H91.90 Unspecified hearing loss, unspecified ear; R06.89 Other abnormalities of breathing; R09.02 Hypoxemia; K45.8 Other specified abdominal hernia without obstruction or gangrene; Z79.82 Long term (current) use of aspirin; Z79.899 Other long term (current) drug therapy; Z11.52 Encounter for screening for COVID-19; Z95.0 Presence of cardiac pacemaker; Z87.891 Personal history of nicotine dependence; Z86.74 Personal history of sudden cardiac arrest; Z86.718 Personal history of other venous thrombosis and embolism; Z87.820 Personal history of traumatic brain injury
CPT/HCPCS: 71045; 71046; 71275; 80048; 80053; 81003; 82533; 83605; 83735; 84443; 84484; 85025; 85027; 86140; 87040; 87641; 87811; 92526; 92610; 93005; 93306; 94640; 96361; 96365; 96375; 97163; 97167; 97530; 97535; 99285; Q9967

== ENCOUNTER 2024-05-10 19:03 | Emergency (ER) | payer OTHER, MEDICAID, SELFPAY ==
[2024-05-10 19:14] VITALS: BP 110/64
--- NOTE | 2024-05-10 21:56 | ED.GENMED ---
History of Present Illness
<Brittany Degroot PA-C - Last Filed: 05/11/24 00:03>
General
Chief Complaint: Fall
Source: patient and family (sister and caregiver at bedside)
Exam Limitations: dementia
Time Seen by Provider: 05/10/24 21:01
Nursing documentation reviewed up to this point in time: agreed with
History of Present Illness
History of Present Illness:
Patient is a 60-year-old male with history dementia, Parkinson's presenting with right chest wall discomfort following mechanical fall yesterday. Patient does have a history of dementia and Parkinson and is unable to contribute much to history. He
presents with sister who is his fur feeder. She states that patient was recently discharged from rehab and has been ambulating well at home with the assistance of home PT. However�patient did lose his balance while getting off the toilet yesterday
striking the right side of his ribs on the bathtub. Caregiver states that he has been complaining of pain in his right chest since the fall and is concerned about a possible broken rib.
Patient denies any shortness of breath/difficulty breathing, cough, fever.
Caregiver did state that he also had a very mild fall the other day where he struck his head. There was no loss of consciousness this time and patient has been acting at his baseline. He has no headache, visual changes, nausea/vomiting, neck pain,
etc.
Past History
<Brittany Degroot PA-C - Last Filed: 05/11/24 00:03>
Past History
ED Past Medical History: CVA, HTN, Hypercholesterolemia, Psychiatric (Depression, ) and Other (Traumatic brain injury, impaired hearing, irritable bowel syndrome, Slight dementia)
ED Past Surgical History: Bowel resection (Due to bowel obstruction, Colostomy with reversal), Cardiac (Pacemaker) and Orthopedic (Right hand surgery)
Social History
Tobacco: Former smoker
Alcohol: None
Drug: None
Personal: Single
Living: with family (Resides with his sister)
Employment: Not employed
Family History
Family History: Other (Noncontributory)
Phy Exam
<Brittany Degroot PA-C - Last Filed: 05/11/24 00:03>
Physical Exam
Physical Exam:
Vitals: Patient's vital signs are stable. Afebrile
General: Patient is well appearing, no acute distress. Nontoxic appearing
Skin: Warm and dry, no rashes or lesions
Head: Normocephalic, atraumatic
Eyes: Sclera nonicteric. EOMs intact. No nystagmus.
Throat: Protecting airway
Neck: Normal ROM, no cervical spine tenderness, no meningismus
Cardiac: Regular rate and rhythm, no murmurs. Palpable tenderness to right lateral inferior ribs without crepitus or overlying ecchymoses.
Pulm: Oxygen saturation 98 on room air. Normal respiratory effort, no wheezes, rales, rhonchi heard on exam.
Abdomen: Soft and nontender no abdominal tenderness.
Extremities: No evidence of cyanosis or edema. Atraumatic
Neuro: AAOx2. Grossly intact.
Psychiatric: Normal affect.
Course
<Brittany Degroot PA-C - Last Filed: 05/11/24 00:03>
Orders/Labs/Results
Orders:
Orders
05/10/24 19:17
CR Ribs-right 3 Vw W/pa Chest* Urgent
Comment:
Reason For Exam: injury
05/10/24 21:43
Acetaminophen [Tylenol] 650 mg PO NOW STA
Lidocaine [Lidocaine 4% Patch] 1 patch TOPICAL NOW STA
Apply Lidocaine patch(s) to:: R lateral ribs
05/10/24 21:56
Incentive Spirometry [Rx Incentive Spirometry] [RESP] Urgent
Frequency: q1h while awake
Vital Signs
Initial and Last Documented VS:
Initial Vital Signs
Temp Pulse Resp BP Pulse Ox
98.1 F 62 20 110/64 98
05/10/24 19:14 05/10/24 19:14 05/10/24 19:14 05/10/24 19:14 05/10/24 19:14
Last Documented Vital Signs
Temp Pulse Resp BP Pulse Ox
98.1 F 60 20 111/64 98
05/10/24 19:14 05/10/24 22:32 05/10/24 22:32 05/10/24 22:32 05/10/24 22:32
<Lashell Michelle DO - Last Filed: 05/10/24 22:22>
Orders/Labs/Results
Orders:
Orders
05/10/24 19:17
CR Ribs-right 3 Vw W/pa Chest* Urgent
Comment:
Reason For Exam: injury
05/10/24 21:43
Acetaminophen [Tylenol] 650 mg PO NOW STA
Lidocaine [Lidocaine 4% Patch] 1 patch TOPICAL NOW STA
Apply Lidocaine patch(s) to:: R lateral ribs
05/10/24 21:56
Incentive Spirometry [Rx Incentive Spirometry] [RESP] Urgent
Frequency: q1h while awake
Vital Signs
Initial and Last Documented VS:
Initial Vital Signs
Temp Pulse Resp BP Pulse Ox
98.1 F 62 20 110/64 98
05/10/24 19:14 05/10/24 19:14 05/10/24 19:14 05/10/24 19:14 05/10/24 19:14
Last Documented Vital Signs
Temp Pulse Resp BP Pulse Ox
98.1 F 60 20 111/64 98
05/10/24 19:14 05/10/24 22:32 05/10/24 22:32 05/10/24 22:32 05/10/24 22:32
<Brittany Degroot PA-C - Last Filed: 05/11/24 00:03>
MDM/Problems Addressed
Differential Diagnosis Includes:
Not limited to: Rib contusion, rib fracture, pneumothorax, hemothorax, etc.
MDM/Problems Addressed:
68-year-old male presenting with right rib pain after what appears to be a mechanical fall yesterday. No associated shortness of breath, cough, or fever. Patient is stable vital signs on arrival. On exam�patient is well-appearing, no apparent
distress. Cardio/pulmonary assessment unremarkable. He does have palpable tenderness to right lateral inferior ribs without any overlying ecchymoses. No focal neurologic deficits noted. A rib series was obtained prior to my assessment which
shows no evidence of acute fracture.
Patient did have additional fall the other day with reported mild head strike. Patient is on Eliquis and a CT scan of head was recommended although patient sister declines and is aware of risks. Additionally-well recent falls seem most likely to
be mechanical from gait challenges given Parkinson's patient does have a pacemaker and it was also recommended that we interrogate pacemaker to rule out any underlying arrhythmia. Patient's sister also declines this.
Ultimately suspect likely rib contusion or nondisplaced rib fracture. However�he is not hypoxic or tachypneic. No evidence of pneumothorax or other complication on chest x-ray. Offered patient admission for possible placement although patient's
sister states she feels comfortable taking home as they have home nursing care and home physical therapy set up. Will provide incentive spirometer. Return precautions discussed at length. Stable for discharge home with sister with supportive care
at home.
Chronic conditions affecting care:
Dementia, Parkinson's,
Acute Exacerbation and/or Progression of Chronic Illness:
N/A
<Brittany Degroot PA-C - Last Filed: 05/11/24 00:03>
*Radiology
Radiology exam reviewed: preliminary read by ED provider (Reviewed by me-no acute rib fracture noted) and radiology read reviewed
*Pulse Oximetry
Patient hypoxic: no
*EKG
Interpreted by ED Provider?: NA
*Choir Member Interpretation
Rate: Choir Member- N/A
*Critical Care Note
Total Time (30-74mins, 75-104mins- exclusive of procedures): Not Applicable
ED Attending Note
<Brittany Degroot PA-C - Last Filed: 05/11/24 00:03>
-
Portions of this chart may have been created with voice recognition software.� Occasional wrong word or��sound alike� substitutions may have occurred due to the inherent limitations of voice recognition software.
<Lashell Michelle DO - Last Filed: 05/10/24 22:22>
ED Attending Note
Patient seen and examined by attending physician: Yes
I performed the substantive portion of visit, reviewed & personally made and approve the management plan that is documented in note by myself or RUCHI.: Yes
I performed a history and physical exam of patient and discussed management with resident, I reviewed resident's note and agree with documented findings and plan of care.: Yes
ED Attending Note:
68-year-old male with history of Parkinson's disease and dementia presenting for right rib pain. Patient notes that he has an unsteady gait at baseline, fell a few days ago after losing his balance in the bathroom and fell into the bathtub onto his
right rib side. Denies difficulty breathing. Does report that he struck his head, however no loss of consciousness and sister at bedside, noting normal mental status. Denies neck pain. Vital signs are normal.
On exam, patient resting comfortably, no acute distress or discomfort. No respiratory distress with unremarkable cardiac and pulmonary exam. On exam, palpable tenderness to the right inferior mid axillary rib region without crepitus. X-ray
obtained, no obvious rib fracture. Suspect a contusion versus nondisplaced fracture. Ultimately feel stable for discharge with continued outpatient supportive therapy with pain control, incentive spirometry. Sister at home feels comfortable with
patient going home. Return precautions discussed patient and sister verbalized understanding
Discharge Plan
Departure
Patient Disposition: Home (Routine Discharge)
Date of Disposition: 05/10/24
Time of Disposition: 22:11
Patient with high blood pressure during this ER visit?: No
Condition: Good
Discharge Problem:
Fall, Contusion of rib on right side
Instructions: Preventing falls in adults, How to use an incentive spirometer, Rib fracture or bruised rib - ED discharge instructions
Prescriptions:
No Action
trazodone 100 MG tablet
100 mg PO HS
dicyclomine 20 mg Tablet
20 mg PO TID
donepezil 10 mg tablet
10 mg PO HS
omeprazole 40 mg capsule,delayed release(DR/EC)
40 mg PO DAILY
pravastatin 80 mg tablet
80 mg PO DAILY
gabapentin 100 mg capsule
100 mg PO BID
fluticasone propionate 50 mcg/actuation spray,suspension
1 spray INTRANASAL DAILY
aripiprazole 5 mg tablet
15 mg PO DAILY
fluoxetine 40 mg Capsule
80 mg PO DAILY
divalproex 125 mg Tablet,Delayed Release (Dr/Ec)
125 mg PO BID
carbidopa-levodopa 10-100 mg Tablet
1 tab PO TID
mirtazapine 15 mg Tablet
15 mg PO HS
diazepam 10 mg Tablet
10 mg PO QIDPRN PRN (Reason: anxiety)
memantine 10 mg Tablet
10 mg PO BID
cetirizine 0.24 % Dropperette
1 drp OPHTHALMIC (EYE) BIDPRN PRN (Reason: pink eye)
hydrocortisone 10 mg Tablet
10 mg PO QPM Qty: 0 0RF
hydrocortisone 10 mg Tablet
15 mg PO DAILY Qty: 0 0RF
acetaminophen 325 mg Tablet
650 mg PO Q4HPRN PRN (Reason: pain) Qty: 0 0RF
aspirin 81 MG tablet,delayed release (DR/EC)
81 mg PO DAILY Qty: 90 0RF
tamsulosin 0.4 mg Capsule
0.4 mg PO HS Qty: 30 0RF
Eliquis 5 mg Tablet
5 mg PO BID Qty: 60 0RF
Referrals:
Martha Carter CRNP [Family Provider] - Follow up in 2-3 days
Activity Restrictions/Additional Instructions:
RETURN TO THE EMERGENCY DEPARTMENT WITH ANY FEVERS, PRODUCTIVE COUGH, SHORTNESS OF BREATH, CHEST PAIN, INTRACTABLE PAIN, HEADACHE, CHANGES IN MENTAL STATUS, WORSENING IN CURRENT SYMPTOMS, OR ANY OTHER CONCERNS
-As discussed that your x-ray did not show any evidence of rib fracture. You likely sustained a bruised rib.
-You should continue to take Tylenol as needed for pain. Apply lidocaine patches to affected area of pain. You can apply ice/heat pads to affected area to ease pain.
-You were discharged with an incentive spirometer. You should use this 6 times an hour for every hour that you are awake.
-Follow-up with primary care in a few days to ensure symptoms are improving/for further
Monitor your symptoms closely return to the emergency department with any acute worsening/new symptoms or any signs of infection
Interventions
Interventions:
*Risk Screen - Suicide Last Done: 05/10/24 22:32
*General Assessment Last Done: 05/10/24 19:14
*Neglect/Abuse Screening Last Done: 05/10/24 22:32
*ED COVID-19 Vaccine History Last Done: 05/10/24 21:17
*Nursing Disposition Last Done: 05/10/24 22:32
ED-Musculoskeletal Assessment Last Done: 05/10/24 21:17
ED- Neurological Assessment Last Done: 05/10/24 21:17
ED-Skin Assessment Last Done: 05/10/24 21:17
Discharge Date and Time
Discharge Date/Time: 05/10/24 22:34
Print Language: FILIPINO
[2024-05-10] MEDS: LIDOCAINE 4% PATCH 1 PATCH TOPICAL (22:02)
[2024-05-10] MEDS: TYLENOL 650 MG PO (22:02)
[2024-05-10 22:32] VITALS: BP 111/64
== END 2024-05-10 22:34 | disposition home or self-care (01) ==
LOC: EMR 19:03
PROVIDERS: EMERGENCY PHYSICIAN Student in an Organized Health Care Education/Training Program; FAMILY PHYSICIAN Nurse Practitioner Family
DX: S20.211A Contusion of right front wall of thorax, initial encounter (principal); S00.81XA Abrasion of other part of head, initial encounter; W01.198A Fall on same level from slipping, tripping and stumbling with subsequent striking against other object, initial encounter; Y92.002 Bathroom of unspecified non-institutional (private) residence as the place of occurrence of the external cause; F02.80 Dementia in other diseases classified elsewhere, unspecified severity, without behavioral disturbance, psychotic disturbance, mood disturbance, and anxiety; G20.A1 Parkinson's disease without dyskinesia, without mention of fluctuations; I12.9 Hypertensive chronic kidney disease with stage 1 through stage 4 chronic kidney disease, or unspecified chronic kidney disease; N18.9 Chronic kidney disease, unspecified; E78.00 Pure hypercholesterolemia, unspecified; F32.A Depression, unspecified; K58.9 Irritable bowel syndrome, unspecified; Z98.0 Intestinal bypass and anastomosis status; Z79.01 Long term (current) use of anticoagulants; Z95.0 Presence of cardiac pacemaker; Z87.820 Personal history of traumatic brain injury; Z87.891 Personal history of nicotine dependence; Z86.73 Personal history of transient ischemic attack (TIA), and cerebral infarction without residual deficits; Z86.74 Personal history of sudden cardiac arrest
CPT/HCPCS: 99283; 71101

== ENCOUNTER 2024-05-15 18:55 | Emergency (ER) | payer MEDICAID, OTHER, SELFPAY ==
[2024-05-15 18:58] VITALS: BP 98/60
[2024-05-15 23:08] VITALS: BMI 32.4
[2024-05-15 23:10] VITALS: BP 102/67
--- NOTE | 2024-05-15 23:10 | ED.GENMED ---
History of Present Illness
General
Chief Complaint: Musculo-Skeletal Complaint
Source: patient and family (Sister)
Exam Limitations: none
Time Seen by Provider: 05/15/24 22:10
Nursing documentation reviewed up to this point in time: agreed with
History of Present Illness
History of Present Illness:
The patient is a pleasant 68-year-old man with past medical history of Parkinson's dementia who lost his footing in the bathroom 6 days ago, and fell, hitting his right rib cage into the edge of the bathtub. Right after the injury, patient went to
[place] ED for an evaluation and underwent x-rays. Patient was diagnosed with a rib contusion and went home. His sister reports that his pain seems to be persistent and even getting worse. She denies shortness of breath and fever. Patient
complains of pain along his right upper rib cage area
Past History
Past History
ED Past Medical History: CVA, HTN, Hypercholesterolemia, Psychiatric (Depression, ) and Other (Traumatic brain injury, impaired hearing, irritable bowel syndrome, Slight dementia)
ED Past Surgical History: Bowel resection (Due to bowel obstruction, Colostomy with reversal), Cardiac (Pacemaker) and Orthopedic (Right hand surgery)
Social History
Tobacco: Former smoker
Alcohol: None
Drug: None
Personal: Single
Living: with family (Resides with his sister)
Employment: Not employed
Family History
Family History: Other (Noncontributory)
Review of Systems
Review of Systems
Allergies reviewed?: Yes
All Other Systems: ROS reviewed and negative except as documented in HPI and ROS
Constitutional: Reports no symptoms
EENT: Reports no symptoms
Respiratory: Reports no symptoms
Cardiac: Reports other (Right upper chest wall pain)
ABD/GI: Reports no symptoms
: Reports no symptoms
Musculoskeletal: Reports muscle pain and muscle stiffness
Skin: Reports no symptoms
Neurological: Reports no symptoms
Endocrine: Reports no symptoms
Hematologic/Lymphatic: Reports no symptoms
Psychiatric: Reports no symptoms
Phy Exam
Physical Exam
Physical Exam:
Physical Exam
General: no apparent distress, not acutely ill
Neck: supple. no meningeal signs. normal psoterior pharynx
Heart: s1/s2 regular rate and rhythm, no murmur. equal radial pulses. No ecchymoses or abrasions on chest wall. Reproducible right lateral upper chest wall pain when patient stretches his arms up or twists his torso.
Lungs: no acute respiratory distress. clear bilaterally
Abdomen: normal bowel sounds. not tender. no CVAT
Neuro: alert and oriented. no focal neurological deficits
Skin: no rash
Psychiatric: well kept. interactive and cooperative
Extremities: no edema. no calf tenderness. negative homans. good distal pulses
Course
Orders/Labs/Results
Orders:
Orders
05/15/24 22:35
CT Chest W/o Iv Contrast Urgent
Comment:
Reason For Exam: R sided chest wall pain from fall
05/16/24 00:14
Tramadol HCl [Ultram] 50 mg PO NOW STA
Vital Signs
Initial and Last Documented VS:
Initial Vital Signs
Temp Pulse Resp BP Pulse Ox
97.6 F 61 18 98/60 97
05/15/24 18:58 05/15/24 18:58 05/15/24 18:58 05/15/24 18:58 05/15/24 18:58
Last Documented Vital Signs
Temp Pulse Resp BP Pulse Ox
97.8 F 68 18 118/80 97
05/15/24 23:10 05/16/24 00:21 05/16/24 00:21 05/16/24 00:21 05/16/24 00:21
MDM/Problems Addressed
Differential Diagnosis Includes:
Right chest wall rib contusion, rib fracture, right sided pneumonia, PE
MDM/Problems Addressed:
Patient presents with acute right chest wall pain after a fall that occurred 6 days ago
*Radiology
Radiology exam reviewed: radiology read reviewed
*Pulse Oximetry
Patient hypoxic: no
*EKG
Interpreted by ED Provider?: NA
*Riverboat Master Interpretation
Rate: Riverboat Master- N/A
*Critical Care Note
Total Time (30-74mins, 75-104mins- exclusive of procedures): Not Applicable
Data Reviewed
Review of Other/Old Records Reveals: Radiology Studies (Reviewed rib series from 05/10/2024)
Source: patient and family
Patient Management
Social determinants of health affecting care: Living situation and Strong social support
Escalation/DeEscalation of care consider admission/obs:
Patient is not tachypneic, coughing or hypoxic. CT shows signs of possible nondisplaced rib fractures. Patient encouraged to continue taking Motrin but in addition to Motrin, patient also given tramadol if pain becomes severe.
ED Attending Note
-
Portions of this chart may have been created with voice recognition software.� Occasional wrong word or��sound alike� substitutions may have occurred due to the inherent limitations of voice recognition software.
Discharge Plan
Departure
Patient Disposition: Home (Routine Discharge)
Date of Disposition: 05/16/24
Time of Disposition: 00:15
Patient with high blood pressure during this ER visit?: No
Condition: Good
Covid-19: Not Applicable
Discharge Problem:
Fracture of rib of right side
Instructions: Rib fracture or bruised rib - ED discharge instructions
Prescriptions:
New
tramadol 50 mg tablet
50 mg PO TID PRN (Reason: Pain) Qty: 10 0RF
No Action
trazodone 100 MG tablet
100 mg PO HS
dicyclomine 20 mg Tablet
20 mg PO TID
donepezil 10 mg tablet
10 mg PO HS
omeprazole 40 mg capsule,delayed release(DR/EC)
40 mg PO DAILY
pravastatin 80 mg tablet
80 mg PO DAILY
gabapentin 100 mg capsule
100 mg PO BID
fluticasone propionate 50 mcg/actuation spray,suspension
1 spray INTRANASAL DAILY
aripiprazole 5 mg tablet
15 mg PO DAILY
fluoxetine 40 mg Capsule
80 mg PO DAILY
divalproex 125 mg Tablet,Delayed Release (Dr/Ec)
125 mg PO BID
carbidopa-levodopa 10-100 mg Tablet
1 tab PO TID
mirtazapine 15 mg Tablet
15 mg PO HS
diazepam 10 mg Tablet
10 mg PO QIDPRN PRN (Reason: anxiety)
memantine 10 mg Tablet
10 mg PO BID
cetirizine 0.24 % Dropperette
1 drp OPHTHALMIC (EYE) BIDPRN PRN (Reason: pink eye)
hydrocortisone 10 mg Tablet
10 mg PO QPM Qty: 0 0RF
hydrocortisone 10 mg Tablet
15 mg PO DAILY Qty: 0 0RF
acetaminophen 325 mg Tablet
650 mg PO Q4HPRN PRN (Reason: pain) Qty: 0 0RF
aspirin 81 MG tablet,delayed release (DR/EC)
81 mg PO DAILY Qty: 90 0RF
tamsulosin 0.4 mg Capsule
0.4 mg PO HS Qty: 30 0RF
Eliquis 5 mg Tablet
5 mg PO BID Qty: 60 0RF
Referrals:
Martha Carter CRNP [Family Provider] -
Activity Restrictions/Additional Instructions:
Return with shortness of breath or fever.
Take 600 mg of Advil/Motrin every 6-8 hours with food for pain. If the pain is severe, you can also take the tramadol every 8 hours as needed for pain.
Interventions
Interventions:
*Risk Screen - Suicide Last Done: 05/15/24 23:09
*General Assessment Last Done: 05/15/24 23:09
*Neglect/Abuse Screening Last Done: 05/15/24 23:09
*ED COVID-19 Vaccine History Last Done: 05/15/24 23:09
ED-Musculoskeletal Assessment Last Done: 05/15/24 23:11
Discharge Date and Time
Print Language: JAMA[place]
[2024-05-16 00:21] VITALS: BP 118/80
[2024-05-16] MEDS: ULTRAM 50 MG PO (00:24)
--- NOTE | 2024-05-16 00:27 | ED.ADDNOTE ---
ED Addendum
ED Addendum
ED Addendum Note:
12:25 AM I looked over patient's medication list and confirm that he takes Eliquis. Both the nursing staff and I told the patient that he cannot take Motrin due to him taking Eliquis. We explained he could take Tylenol and the tramadol.
== END 2024-05-16 00:37 | disposition home or self-care (01) ==
LOC: EMR 18:55
PROVIDERS: EMERGENCY PHYSICIAN Emergency Medicine; FAMILY PHYSICIAN Nurse Practitioner Family
DX: S22.31XA Fracture of one rib, right side, initial encounter for closed fracture (principal); M79.18 Myalgia, other site; W01.198A Fall on same level from slipping, tripping and stumbling with subsequent striking against other object, initial encounter; G20.A1 Parkinson's disease without dyskinesia, without mention of fluctuations; F02.83 Dementia in other diseases classified elsewhere, unspecified severity, with mood disturbance; E78.00 Pure hypercholesterolemia, unspecified; I12.9 Hypertensive chronic kidney disease with stage 1 through stage 4 chronic kidney disease, or unspecified chronic kidney disease; N18.9 Chronic kidney disease, unspecified; F32.A Depression, unspecified; K58.9 Irritable bowel syndrome, unspecified; Z79.01 Long term (current) use of anticoagulants; Z95.0 Presence of cardiac pacemaker; Z87.820 Personal history of traumatic brain injury; Z86.73 Personal history of transient ischemic attack (TIA), and cerebral infarction without residual deficits; Z86.74 Personal history of sudden cardiac arrest; Z87.891 Personal history of nicotine dependence; Z98.0 Intestinal bypass and anastomosis status
CPT/HCPCS: 99284; 71250

== ENCOUNTER 2024-05-22 16:30 | Inpatient (IN) | payer OTHER, SELFPAY ==
[2024-05-22] VITALS (16 sets, daily range): BP systolic 71–126; BP diastolic 49–74
[2024-05-22 11:53] LABS: COVID-19 Antigen Negative (Negative)
--- NOTE | 2024-05-22 11:57 | ED.GENMED ---
History of Present Illness
General
Chief Complaint: Fall
Source: patient
Exam Limitations: none
Time Seen by Provider: 05/22/24 10:45
Nursing documentation reviewed up to this point in time: agreed with
History of Present Illness
History of Present Illness:
68 yr old male w/ Parkinsons , on Eliquis brought by EMS. Pt lives at home with sister . As per sister pt was going to the [facility] ( at 3 am) and fell (walks with a walker.. just out of of rehab in March ) . She reports he fell back and hit the
bathtub. He landed on his back. He did hit his head also. Family assisted him up however he was complaining of back pain. Family reports they couldnt get pt to stand today.
Sister also states yesterday pt started with cough . He had a fever off/on throughout the night. He last got tylenol at a 6 am .
Past History
Past History
ED Past Medical History: CVA, HTN, Hypercholesterolemia, Psychiatric (Depression, ) and Other (Traumatic brain injury, impaired hearing, irritable bowel syndrome, Slight dementia)
ED Past Surgical History: Bowel resection (Due to bowel obstruction, Colostomy with reversal), Cardiac (Pacemaker) and Orthopedic (Right hand surgery)
Social History
Tobacco: Former smoker
Alcohol: None
Drug: None
Personal: Single
Living: with family (Resides with his sister)
Employment: Not employed
Family History
Family History: Other (Noncontributory)
Review of Systems
Review of Systems
Allergies reviewed?: Yes
All Other Systems: ROS reviewed and negative except as documented in HPI and ROS
Constitutional: Reports fever and fatigue
Respiratory: Reports cough; Denies trouble breathing
ABD/GI: Reports no symptoms
: Reports no symptoms
Musculoskeletal: Reports no symptoms
Skin: Reports no symptoms
Neurological: Reports no symptoms
Psychiatric: Reports no symptoms
Phy Exam
General Physical Exam
General Presentation: no apparent distress
General age: appears stated age
General Skin: warm and dry
General Habitus: normal
General Mental: alert
General Hydration: dry mucous membranes
ENT Exam
ENT Exam: EOMI
Cardiovascular Exam
Cardiovascular Exam: regular rate/rhythm, no murmur and normal peripheral pulses
Pulmonary Exam
Pulmonary Exam: lungs clear, no respiratory distress and other (tender right lateral rib region )
Neurological Exam
Neurological Exam: alert and oriented x3
Musculoskeletal Exam
Musculoskeletal Exam: full ROM
Course
Orders/Labs/Results
Orders:
Orders
05/22/24 10:12
CT Cervical Spine W/o Iv Contr Urgent
Comment:
Reason For Exam: fall
CT Head W/o Iv Contrast Urgent
Comment:
Reason For Exam: fall
Ribs, Left 3 View W/PA Chest CR [CR Ribs-left 3 Vw W/pa Chest] Urgent
Comment:
Reason For Exam: fall
05/22/24 11:02
COVID-19 Antigen Urgent
Source: Nasal Swab
Influenza A+B Rapid Molecular Urgent
CASH Source: Nasal Swab
Specimen Description:
05/22/24 11:49
Acetaminophen [Tylenol] 1,000 mg .ROUTE .STK-MED ONE
05/22/24 11:55
CBC/With Diff [Complete Blood Count/With Diff] Urgent
05/22/24 12:05
UA Reflex to Culture [Urinalysis Reflex To Culture] Urgent
Date Specimen was Collected: 05/22/24
Time Specimen was Collected: 12:07
05/22/24 12:09
Lactic Acid Q4H
Comment: CANCEL 2nd LACTIC ACID IF 1st LACTIC ACID IS LESS THAN 2
Blood Culture Q30M
CASH Source: Blood/Venous
Specimen Description:
05/22/24 12:20
Acetaminophen [Tylenol] 1,000 mg PO NOW STA
05/22/24 12:36
Blood Culture Q30M
CASH Source: Blood/Venous
Specimen Description:
05/22/24 12:52
Comprehensive Metabolic Panel Urgent
05/22/24 16:15
Lactic Acid Q4H
Comment: CANCEL 2nd LACTIC ACID IF 1st LACTIC ACID IS LESS THAN 2
Abnormal Lab Results
05/22/24 05/22/24
11:55 12:52
RBC 3.98 L 10^6/uL
(4.70-6.10)
Hgb 12.0 L g/dL
(13.0-18.0)
Hct 37.7 L %
(39.0-52.0)
MCV 94.7 H fL
(80.0-94.0)
MCHC 31.8 L g/dL
(33.0-37.0)
RDW 15.4 H %
(11.5-14.5)
MPV 10.9 H fL
(7.4-10.4)
Absolute Neuts (auto) 6.8 H 10^3/uL
(1.4-6.5)
Absolute Lymphs (auto) 0.3 L 10^3/uL
(1.2-3.4)
Neutrophils % 90.2 H %
(42.2-75.2)
Lymphocytes % 3.4 L %
(20.5-51.1)
BUN 26 H mg/dl
(9-20)
05/22/24 11:55
05/22/24 12:52
Vital Signs
Initial and Last Documented VS:
Initial Vital Signs
Temp Pulse Resp BP Pulse Ox
98.3 F 96 16 126/74 98
05/22/24 10:09 05/22/24 10:09 05/22/24 10:09 05/22/24 10:09 05/22/24 10:09
Last Documented Vital Signs
Temp Pulse Resp BP Pulse Ox
101.9 F H 88 28 103/66 93
05/22/24 13:31 05/22/24 13:33 05/22/24 13:33 05/22/24 13:33 05/22/24 13:33
MDM/Problems Addressed
Differential Diagnosis Includes:
not limited to:
Pneumonia COVID flu; head injury
MDM/Problems Addressed:
Patient is a 68-year-old male with history of TBI, dementia who has been very weak and fell in the bathroom. His sister. He also start with cough and fever yesterday. Patient is a very poor story does have a history of traumatic brain injury and
dementia. He is found to be febrile at 101.9 about a be flu positive with a normal white count stable hemoglobin 12.0. He does appear little dehydrated on exam and his BUN is elevated at 26.
With history of fall CT head and cervical spine done and negative. Rib series done does show an old fracture (patient was seen here in May for for trauma and had CAT scans done) no new fractures identified patient however very weak and will
require admission for weakness /influenza.
Chronic conditions affecting care:
TBI lives at home with sister
*Critical Care Note
Total Time (30-74mins, 75-104mins- exclusive of procedures): Not Applicable
ED Attending Note
-
Portions of this chart may have been created with voice recognition software.� Occasional wrong word or��sound alike� substitutions may have occurred due to the inherent limitations of voice recognition software.
Discharge Plan
Departure
Patient Disposition: Admit
Date of Disposition: 05/22/24
Time of Disposition: 13:50
Admit to: Med/Surg
Admit to doctor: hospitalist
Presentation/result/management discussed w/ accepting MD/DO: Hospitalist
Patient with high blood pressure during this ER visit?: No
Condition: Fair
Covid-19: Not Applicable
Discharge Problem:
Influenza A, Weakness, Fall
Prescriptions:
No Action
trazodone 100 MG tablet
100 mg PO HS
dicyclomine 20 mg Tablet
20 mg PO TID
donepezil 10 mg tablet
10 mg PO HS
omeprazole 40 mg capsule,delayed release(DR/EC)
40 mg PO DAILY
pravastatin 80 mg tablet
80 mg PO DAILY
gabapentin 100 mg capsule
100 mg PO BID
fluticasone propionate 50 mcg/actuation spray,suspension
1 spray INTRANASAL DAILY
aripiprazole 5 mg tablet
15 mg PO DAILY
fluoxetine 40 mg Capsule
80 mg PO DAILY
divalproex 125 mg Tablet,Delayed Release (Dr/Ec)
125 mg PO BID
carbidopa-levodopa 10-100 mg Tablet
1 tab PO TID
mirtazapine 15 mg Tablet
15 mg PO HS
diazepam 10 mg Tablet
10 mg PO QIDPRN PRN (Reason: anxiety)
memantine 10 mg Tablet
10 mg PO BID
cetirizine 0.24 % Dropperette
1 drp OPHTHALMIC (EYE) BIDPRN PRN (Reason: pink eye)
hydrocortisone 10 mg Tablet
10 mg PO QPM Qty: 0 0RF
hydrocortisone 10 mg Tablet
15 mg PO DAILY Qty: 0 0RF
acetaminophen 325 mg Tablet
650 mg PO Q4HPRN PRN (Reason: pain) Qty: 0 0RF
aspirin 81 MG tablet,delayed release (DR/EC)
81 mg PO DAILY Qty: 90 0RF
tamsulosin 0.4 mg Capsule
0.4 mg PO HS Qty: 30 0RF
Eliquis 5 mg Tablet
5 mg PO BID Qty: 60 0RF
tramadol 50 mg tablet
50 mg PO TID PRN (Reason: Pain) Qty: 10 0RF
Referrals:
Martha Carter CRNP [Family Provider] -
Interventions
Interventions:
*Risk Screen - Suicide Last Done: 05/22/24 10:09
*General Assessment Last Done: 05/22/24 12:41
*Neglect/Abuse Screening Last Done: 05/22/24 10:09
*ED COVID-19 Vaccine History Last Done: 05/22/24 12:41
ED-Musculoskeletal Assessment Last Done: 05/22/24 12:41
ED- Neurological Assessment Last Done: 05/22/24 12:41
Discharge Date and Time
Print Language: CONGOLESE
[2024-05-22] MEDS: TYLENOL 1000 MG PO (12:20)
[2024-05-22 12:22] LABS: % Basophils 0.3 % (0-2); % Eosinophils 0.5 % (0-6); % Immature Granulocytes 0.4 % (0-0.5); % Lymphocytes 3.4 % (20.5-51.1); % Monocytes 5.2 % (1.7-9.3); % Neutrophils 90.2 % (42.2-75.2); Absolute Lymphocytes 0.3 10^3/uL (1.2-3.4); Absolute Monocytes 0.4 10^3/uL (0.1-0.6); Absolute Neutrophils 6.8 10^3/uL (1.4-6.5); Hematocrit 37.7 % (39.0-52.0); Mean Corp Hgb Conc. 31.8 g/dL (33.0-37.0); Mean Corpuscular Hgb 30.2 pg (27.0-31.0); Mean Corpuscular Volume 94.7 fL (80.0-94.0); Mean Platelet Volume 10.9 fL (7.4-10.4); Nucleated Red Blood Cells % 0 % (-); Platelet Count 152 10^3/uL (130-400); Red Blood Cell Count 3.98 10^6/uL (4.70-6.10); Red Cell Dist. Width 15.4 % (11.5-14.5); White Blood Cell Count 7.6 10^3/uL (4.8-10.8)
[2024-05-22 12:35] LABS: Lactic Acid 0.8 mmol/L (0.7-2.0)
[2024-05-22 13:15] LABS: ALT (SGPT) 38 U/L (0-50); AST (SGOT) 33 U/L (17-59); Alkaline Phosphatase 98 U/L (38-126); Blood Urea Nitrogen 26 mg/dl (9-20); Calcium 8.4 mg/dl (8.4-10.2); Carbon Dioxide 22 mmol/L (22-30); Chloride 105 mmol/L (98-107); Glucose 79 mg/dl (70-99); Potassium 4.8 mmol/L (3.5-5.1); Sodium 138 mmol/L (135-145); Total Bilirubin 0.9 mg/dl (0.2-1.3); Total Protein 6.4 g/dl (6.3-8.2); eGFR > 60.00
--- NOTE | 2024-05-22 13:59 | HPS.HSE ---
Family Physician
-
Family Physician: JO Barraza
Chief Complaint
-
Cough, fever, fall
History of Present Illness
68-year-old male from home where he lives with his sister who reports while at 3 AM while walking to the bathroom with his walker he fell backwards hitting the bathtub landing on his back and hitting his head. His family assisted him up however he
was complaining of back pain. He did not lose consciousness per his sister they had difficulty getting him to be able to stand today. I spoke with the patient's Sister Jennifer with whom he lives with she states her brother fell on the fifth and
sustained right-sided rib fractures he was given tramadol for pain. He then started 2 days ago with cough, runny nose and fever this a.m. she is unsure temperature range. She states anytime he gets sick he requires several months at a rehab to
learn how to walk again. The patient lives in an apartment with his sister and has to walk up 14 steps to get in.
The patient was seen in the ED on 05/16/2024 secondary to a fall resulting in a CT of his chest showing a right lateral seventh nondisplaced acute fracture, nondisplaced fractures of the lateral right eighth and ninth ribs. He was given tramadol for
pain
He has past medical history extensive acute occlusive DVT entire right lower extremity, occlusive DVT thrombus in the left common femoral and femoral veins 07/05/2023 on current Eliquis, adrenal insufficiency Dx 12/29/2023, SBO status post bowel
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
developmental delay since no TBI, dementia with short-term memory impairment including sundowning and agitation, depression, IBS, orthostatic hypotension, HLD, former smoker former alcohol quit both 1991, paramidline hernia anterior pelvic
region chronic, pneumonia January 2024 required 3 months post rehab stay.
Medical History
Past Medical History
Past Medical History: Reports Other
Additional Past Medical History:
Chronic Severe developmental delay since per Sister Jennifer no TBI Hx
Dementia with short-term memory impairment including SUNDOWNING and AGITATION
Dementia with hand tremors
Depression hx
Mechanical fall with back pain with fracture lateral right eighth rib 05/16/2024
Recent fall 05/16/2024 with right sided seventh, eighth, ninth rib fractures per CT chest
SBO status post bowel resection with MRSA inside abdomen -15 years ago [facility]
-abdomen closure was postponed due to MRSA with eventual colostomy and reversal
The patient was in coma for several months due to coma requiring trach several months 15 years ago at [facility]
Adrenal insufficiency Dx December 2023
Orthostatic hypotension
Pneumonia January 2024 required 3 months post rehab stay
Former smoker former alcohol quit 1991
Paramidline hernia anterior pelvic region chronic
Past Surgical History: Reports Other
Additional Past Surgical History:
SBO status post bowel resection with MRSA inside abdomen -15 years ago [facility]
-abdomen closure was postponed due to MRSA with eventual colostomy and reversal
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
Social History
Tobacco: Former Smoker (Quit 1991)
Alcohol: Former (Quit 1991)
Drug: None
Personal: Single
Living: With Family (Sister Jennifer)
Employment: Disabled
Family History
Family History: Other (Sister unsure, mother )
Allergies / Home Medications
Allergies reflects when Allergies were last updated in [employer].
Home Medications with original date entered in [employer]
Allergy/Medication List:
Allergies
Allergy/AdvReac Type Severity Reaction Status Date / Time
No Known Allergies Allergy Verified 05/22/24 10:07
Home Medications
trazodone 100 mg tablet 100 mg PO HS Sleep 09/24/19
dicyclomine 20 mg tablet 20 mg PO TID Gastrointestinal issue 03/08/22
donepezil 10 mg tablet 10 mg PO HS Neurological Condition 07/04/23
fluticasone propionate 50 mcg/actuation nasal spray,suspension 1 spray intranasal DAILY Congestion 07/04/23
gabapentin 100 mg capsule 100 mg PO BID Pain 07/04/23
omeprazole 40 mg capsule,delayed release 40 mg PO DAILY GERD 07/04/23
pravastatin 80 mg tablet 80 mg PO DAILY High Cholesterol 07/04/23
carbidopa 10 mg-levodopa 100 mg tablet 1 tab PO TID Neurological Condition 12/29/23
diazepam 10 mg tablet 10 mg PO QIDPRN PRN anxiety 12/29/23
divalproex 125 mg tablet,delayed release 125 mg PO DAILY Mental Health/Anxiety 12/29/23
fluoxetine 40 mg capsule 80 mg PO DAILY Mental Health/Anxiety 12/29/23
mirtazapine 15 mg tablet 15 mg PO HS Mental Health/Anxiety 12/29/23
acetaminophen 325 mg tablet 650 mg (2 x 325 mg) PO Q4HPRN PRN pain #0 tabs 01/09/24
apixaban 5 mg tablet (Eliquis) 5 mg PO BID Blood clot prevention/tx #60 tabs 01/09/24
aspirin 81 mg tablet,delayed release 81 mg PO DAILY Blood clot prevention/tx #90 tabs 01/09/24
hydrocortisone 10 mg tablet 10 mg PO QPM adrenal insufficiency #0 tabs 01/09/24
tamsulosin 0.4 mg capsule 0.4 mg PO HS Urinary issue #30 caps 01/09/24
tramadol 50 mg tablet 50 mg PO TID PRN Pain #10 tabs 05/16/24
Review of Systems
-
History Source: Patient and Family (Sister Jennifer via phone)
A 12 point ROS was completed and negative except as noted: Yes
Constitutional: Reports Fever, Fatigue and Chills
EENT: Reports Runny Nose; Denies Sore Throat
Respiratory: Reports Cough and Other (Right lateral rib pain); Denies Trouble Breathing
Cardiac: Reports Other (Fall into tub); Denies Chest Pain, Diaphoresis, Palpitations or Syncope
Abdomen/GI: Denies Abdominal Pain, Nausea, Vomiting, Diarrhea, Constipated, Bloody Stools or Black Stools
: Denies Dysuria, Frequency, Flank Pain, Incontinence, Difficulty Voiding or Urgency
Musculoskeletal: Denies Joint Pain or Edema
Skin: Denies Itching or Rash
Neurological: Reports Dizzy, Headache (Frontal) and Weakness
Endocrine: Reports No Symptoms
Hematologic/Lymphatic: Reports No Symptoms
Psych: Reports Calm
Physical Exam
Vital Signs
Vital Signs
Temp Pulse Resp BP Pulse Ox
101.9 F H 88 28 103/66 93
05/22/24 13:31 05/22/24 13:33 05/22/24 13:33 05/22/24 13:33 05/22/24 13:33
Physical Exam
General: Comfortable, Conversant and Chills; No Pain or Fever
HEENT: NormoCephalic, Anicteric, Moist mucous membranes, Atraumatic, PERRLA, [place] Conjunctivae, No Ptosis and Neck Nontender
Respiratory: Clear; No Wheezes, Rales or Rhonchi
Cardiac: S1/S2, Regular Rhythm and Other (Pacemaker present left upper chest wall); No Murmur, Rub, Gallop or Peripheral Edema
Breast: Deferred by me
GI: Soft, Non Tender, Non Distended, Normal Bowel Sounds and No Hepatosplenomegaly
Rectal: Deferred by Provider
Genito-urinary: Deferred by me
Musculoskeletal: No Clubbing, No Cyanosis and Edema, Right Lower Extremity (Nonpitting +2 with known history of DVT 07/01/2023); No Edema, Left Upper Extremity, Edema, Right Upper Extremity or Edema, Left Lower Extremity
Skin: Warm and Dry; No Rash or Jaundice
Neuro: Awake, Alert, Oriented (To name Luis but sister called him Carlos, some of history but tends to be repetitive or restating same questions), No Motor Deficits (While in bed), No Sensory Deficits and Tremors (Hands bilateral); No Slurred
Speech, Facial Droop or Sedated
Psych: Calm
Laboratory Results
-
05/22/24 11:55
05/22/24 12:52
Laboratory Results
Lactic Acid 0.8 mmol/L (0.7-2.0) 05/22/24 12:09
Total Bilirubin 0.9 mg/dl (0.2-1.3) 05/22/24 12:52
AST 33 U/L (17-59) 05/22/24 12:52
ALT 38 U/L (0-50) 05/22/24 12:52
Alkaline Phosphatase 98 U/L (38-126) 05/22/24 12:52
Data Reviewed
-
Diagnostic Radiology: Report Reviewed by me
CT Scan: Report Reviewed by me
Lab Data: Labs Reviewed by me
Impression/Plan
-
Impression/plan:
Admit to IMU
# Acute hypotension likely secondary to fluid a/volume depletion/adrenal insufficiency /Hx Orthostatic hypotension Hx
-Monitor blood pressure, have patient dangle feet on side of bed before standing, use call ortega and bed alarms to prevent falls
-IV 1 L Bolus due to systolic BP 80
-Consider additional 1 L bolus
-Hydrocortisone 50 mg IV now then 50 mg every 8 hours
-Consult nurse for midline as patient is difficult stick
#Adrenal insufficiency Dx 12/29/2023
-Started on hydrocortisone 10 mg p.o. every afternoon during December admission
-Hydrocortisone 50 mg IV now then 50 mg every 8 hours
#Fall generalized weakness secondary to INFLUENZA A POSITIVE
Symptoms x 1 day
Temp 101.9 F
-Droplet precautions
-Tamiflu 75 mg twice daily x 5 days
-Tylenol as needed fever
-IV NSS 100 cc/h
-PT/OT/case management consult-patient will likely require SNF facility as each admission he forgets how to walk and is there for several months
#Mechanical fall with back pain with fracture lateral right eighth rib
#Recent fall 05/16/2024 with right sided seventh, eighth, ninth rib fractures per CT chest
-Lidoderm patch
-May continue tramadol 50 mg 3 times daily as needed moderate pain
-Incentive spirometry
Left rib x-ray/CXR: No acute left rib fracture no pneumothorax
Recent fracture lateral right eight rib
CT cervical spine no evidence of acute fracture or dislocation
Mild to moderate kyphosis C3-C4. Mild to moderate DDD C3-4, C5-C6
CT head: No acute intracranial abnormality
#Chronic Severe developmental delay since per Sister Jennifer no TBI Hx
#Dementia with short-term memory impairment including SUNDOWNING and AGITATION
Dementia with tremors to hands
-Continue carbidopa levodopa
-Continue Depakote 125 mg daily for mood disorder
-Continue Valium 10 mg 4 times daily as needed anxiety/agitation, donepezil 10 mg at bedtime
#Depression hx
-Continue fluoxetine 80 mg daily
-Continue mirtazapine 15 mg p.o. at bedtime
#DVT entire RLE, left common femoral and femoral veins 07/05/2023
Ultrasound legs June 2023
Extensive acute occlusive DVT entire right lower extremity, occlusive DVT thrombus in the left common femoral and femoral veins 07/05/2023 on current Eliquis
2D echo December 2023: EF 50-55%, normal RVSF, pacemaker wire seen, mild MR, moderate TR, pulm arterial pressure 40-45 mmHg
#SBO status post bowel resection with MRSA inside abdomen -15 years ago [facility]
-abdomen closure was postponed due to MRSA with eventual colostomy and reversal
The patient was in coma for several months due to coma requiring trach several months 15 years ago at [facility]
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
#GERD
#IBS hx
-Continue omeprazole 40 mg daily
-Continue dicyclomine 20 mg p.o. 3 times daily
HLD
Other PMH:
Pneumonia January 2024 required 3 months post rehab stay
Former smoker former alcohol quit both 1991
Paramidline hernia anterior pelvic region chronic
DVT prophylaxis
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
DNR per patient's Sister Jennifer who is power of energy attorney
--- NOTE | 2024-05-22 14:39 | W.PN.UPDATE ---
Addendum entered and electronically signed by Eliz Echavarria MD 05/22/24 15:10:
Hypotensive so started stress dose steroids.
Original Note:
Update Note
Progress Note Update
This is an addendum to the H&P written by Qing Tomlin on 05/22/2024. Patient seen and examined independently with HEAVY EQUIPMENT SERVICE TECHNICIAN.
68-year-old male past medical history of Parkinson disease, depression, developmental delay , dementia with , history of DVT on , adrenal insufficiency, IBS, bowel obstruction status post colostomy with MRSA in abdomen with
open abdomen complicated by coma, pacemaker, orthostatic hypotension, DVT right lower extremity/left common femoral vein 2023 on , ambulatory dysfunction walks with a walker presenting with a fall, and falling his back and hitting his head.
Yesterday patient developed cough. He has been having fever throughout the night.
CT head, cervical spine negative for acute abnormality. Rib x-ray shows recent lateral right eighth rib fracture.
Patient found to be positive for influenza. IV fluids, Tylenol, Tamiflu started. Blood cultures pending. Lidoderm patch for rib fracture.
[2024-05-22] MEDS: NSS 1000 IV ×2 (15:19→15:34)
[2024-05-22] MEDS: SOLU-CORTEF 50 MG IV ×2 (15:27→22:10)
[2024-05-22] MEDS: TAMIFLU 75 MG PO ×2 (15:28→19:46)
[2024-05-22] MEDS: LIDOCAINE 4% PATCH 1 PATCH TOPICAL (16:20)
--- NOTE | 2024-05-22 16:45 | PTCARENOTE ---
Patient arrived by stretcher from ED. AAOx2, confused. Oriented to the room. Bed alarm on for safety. Call ortega in hand. 94% on 2L NC. VSS. IV fluids infusing per orders. Right hearing aid in ear. Patient states he only has 1 hearing aid and that
the other one is being fixed at home. B/L eyes red and tearing, cleaned. C/o painful broken ribs when moved, lidocaine patch in place. Will closely monitor.
[2024-05-22] MEDS: ELIQUIS 5 MG PO (19:45)
[2024-05-22] MEDS: MUCINEX 600 MG PO (19:45)
[2024-05-22] MEDS: NEURONTIN 100 MG PO (19:45)
[2024-05-22] MEDS: SINEMET 10-100 1 TABLET PO ×2 (19:46→22:10)
[2024-05-22] MEDS: BENTYL 20 MG PO ×2 (19:46→22:10)
[2024-05-22] MEDS: REFRESH EYE DROPS (PF) 1 DROPS OPHTH (19:57)
[2024-05-22] MEDS: DEPAKOTE (12 HR RELEASE) 125 MG PO (19:57)
[2024-05-22 20:10] LABS: Urine Albumin Negative (Neg - Trace); Urine Bilirubin Negative (Negative); Urine Character Clear (Clear); Urine Color Yellow; Urine Glucose Negative (Negative); Urine Ketone Trace (Negative); Urine Leukocyte Negative (Negative); Urine Nitrite Negative (Negative); Urine Occult Blood Negative (Negative); Urine Urobilinogen Negative (Neg - 1+)
[2024-05-22] MEDS: ARICEPT 10 MG PO (22:10)
[2024-05-22] MEDS: DESYREL 100 MG PO (22:10)
[2024-05-22] MEDS: REMERON 15 MG PO (22:10)
[2024-05-22] MEDS: FLOMAX 0.4 MG PO (22:10)
[2024-05-23] VITALS (20 sets, daily range): BP systolic 85–132; BP diastolic 58–79; PULSE 58; O2SAT 92
[2024-05-23] MEDS: NSS 1000 IV ×2 (01:03→11:53)
[2024-05-23 03:51] LABS: % Basophils 0.2 % (0-2); % Immature Granulocytes 0.3 % (0-0.5); % Lymphocytes 4.9 % (20.5-51.1); % Monocytes 4.4 % (1.7-9.3); % Neutrophils 90.2 % (42.2-75.2); Absolute Lymphocytes 0.3 10^3/uL (1.2-3.4); Absolute Monocytes 0.3 10^3/uL (0.1-0.6); Absolute Neutrophils 5.8 10^3/uL (1.4-6.5); Hematocrit 33.6 % (39.0-52.0); Hemoglobin 10.8 g/dL (13.0-18.0); Mean Corp Hgb Conc. 32.1 g/dL (33.0-37.0); Mean Corpuscular Hgb 30.6 pg (27.0-31.0); Mean Corpuscular Volume 95.2 fL (80.0-94.0); Mean Platelet Volume 11.3 fL (7.4-10.4); Nucleated Red Blood Cells % 0 % (-); Platelet Count 113 10^3/uL (130-400); Red Blood Cell Count 3.53 10^6/uL (4.70-6.10); Red Cell Dist. Width 15.5 % (11.5-14.5); White Blood Cell Count 6.4 10^3/uL (4.8-10.8)
[2024-05-23 04:14] LABS: ALT (SGPT) 24 U/L (0-50); AST (SGOT) 38 U/L (17-59); Albumin 3.2 g/dl (3.5-5.0); Alkaline Phosphatase 76 U/L (38-126); Blood Urea Nitrogen 22 mg/dl (9-20); Calcium 7.8 mg/dl (8.4-10.2); Carbon Dioxide 24 mmol/L (22-30); Chloride 106 mmol/L (98-107); Estimated Creatinine Clearance 85 ml/min; Glucose 112 mg/dl (70-99); Potassium 4.3 mmol/L (3.5-5.1); Sodium 138 mmol/L (135-145); Total Bilirubin 0.5 mg/dl (0.2-1.3); Total Protein 5.4 g/dl (6.3-8.2); eGFR > 60.00
[2024-05-23] MEDS: SOLU-CORTEF 50 MG IV ×3 (05:26→21:04)
--- NOTE | 2024-05-23 05:38 | PTCARENOTE ---
No acute events overnight. Afebrile. Patient complained of his eyes constantly tearing- they appeared blood shot. call center recruiter provider made aware and ordered artificial tears. Remains on 2 liters NC. Pleasantly confused.
[2024-05-23] MEDS: SINEMET 10-100 1 TABLET PO ×3 (08:13→21:05)
[2024-05-23] MEDS: ASPIR LOW (ENTERIC COATED) 81 MG PO (08:13)
[2024-05-23] MEDS: PROTONIX 40 MG PO (08:13)
[2024-05-23] MEDS: PRAVACHOL 80 MG PO (08:13)
[2024-05-23] MEDS: MUCINEX 600 MG PO ×2 (08:13→21:02)
[2024-05-23] MEDS: NEURONTIN 100 MG PO ×2 (08:13→21:03)
[2024-05-23] MEDS: TAMIFLU 75 MG PO ×2 (08:13→21:04)
[2024-05-23] MEDS: ELIQUIS 5 MG PO ×2 (08:13→21:03)
[2024-05-23] MEDS: PROZAC 80 MG PO (08:14)
[2024-05-23] MEDS: LIDOCAINE 4% PATCH 1 PATCH TOPICAL (08:14)
[2024-05-23] MEDS: DEPAKOTE (12 HR RELEASE) 125 MG PO ×2 (08:14→21:02)
[2024-05-23] MEDS: BENTYL 20 MG PO ×3 (08:14→21:04)
--- NOTE | 2024-05-23 16:36 | W.PN.HOSP.TC ---
Today's Communication/Plan
-
follow pulm status closely due to combination of rib fxs and influenza
follow BP
Assessment / Plan
Assessment / Plan
# Acute hypotension likely secondary to fluid a/volume depletion/adrenal insufficiency /Hx Orthostatic hypotension Hx in patient with acute influenza
-Monitor blood pressure, have patient dangle feet on side of bed before standing, use call ortega and bed alarms to prevent falls. BP 92/62
-IV 1 L Bolus was given due to systolic BP 80
-Consider additional 1 L bolus
-Hydrocortisone 50 mg IV now then 50 mg every 8 hours
-Consult nurse for midline as patient is difficult stick
#Adrenal insufficiency Dx 12/29/2023
-Started on hydrocortisone 10 mg p.o. every afternoon during December admission
-Hydrocortisone 50 mg IV now then 50 mg every 8 hours
#Fall generalized weakness secondary to INFLUENZA A POSITIVE
Symptoms x 1 day
Temp 101.9 F
-Droplet precautions
-Tamiflu 75 mg twice daily x 5 days
-Tylenol as needed fever
-IV NSS 100 cc/h
-PT/OT/case management consult-patient will likely require SNF facility as each admission he forgets how to walk and is there for several months
#Mechanical fall with back pain with fracture lateral right eighth rib
#Recent fall 05/16/2024 with right sided seventh, eighth, ninth rib fractures per CT chest
-Lidoderm patch
-May continue tramadol 50 mg 3 times daily as needed moderate pain
-Incentive spirometry
Left rib x-ray/CXR: No acute left rib fracture no pneumothorax
Recent fracture lateral right eight rib
CT cervical spine no evidence of acute fracture or dislocation
Mild to moderate kyphosis C3-C4. Mild to moderate DDD C3-4, C5-C6
CT head: No acute intracranial abnormality
#Chronic Severe developmental delay since per Sister Jennifer no TBI Hx
#Dementia with short-term memory impairment including SUNDOWNING and AGITATION
Dementia with tremors to hands
-Continue carbidopa levodopa
-Continue Depakote 125 mg daily for mood disorder
-Continue Valium 10 mg 4 times daily as needed anxiety/agitation, donepezil 10 mg at bedtime
#Depression hx
-Continue fluoxetine 80 mg daily
-Continue mirtazapine 15 mg p.o. at bedtime
#DVT entire RLE, left common femoral and femoral veins 07/05/2023
Ultrasound legs June 2023
Extensive acute occlusive DVT entire right lower extremity, occlusive DVT thrombus in the left common femoral and femoral veins 07/05/2023 on current Eliquis
2D echo December 2023: EF 50-55%, normal RVSF, pacemaker wire seen, mild MR, moderate TR, pulm arterial pressure 40-45 mmHg
#SBO status post bowel resection with MRSA inside abdomen -15 years ago [facility]
-abdomen closure was postponed due to MRSA with eventual colostomy and reversal
The patient was in coma for several months due to coma requiring trach several months 15 years ago at [facility]
#Permanent Pacemaker approximately 15 years ago placed at [facility] secondary to bradycardia per sister
#GERD
#IBS hx
-Continue omeprazole 40 mg daily
-Continue dicyclomine 20 mg p.o. 3 times daily
HLD
Other PMH:
Pneumonia January 2024 required 3 months post rehab stay
Former smoker former alcohol quit both 1991
Paramidline hernia anterior pelvic region chronic
DVT prophylaxis
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
DNR per patient's Sister Jennifer who is power of patent attorney
Anticipated Discharge: > 48 hours
Subjective/Interval History
-
Date of Service: May 23, 2024
Does not appear in distress
Objective Data
-
Vital Signs:
Vital Signs
Temp Pulse Resp BP Pulse Ox
98.2 F 73 21 92/62 94
05/23/24 15:54 05/23/24 11:50 05/23/24 11:50 05/23/24 11:50 05/23/24 10:10
I&O
05/22/24 05/23/24 05/24/24
06:59 06:59 06:59
Intake Total 1200 / 1200 600 / 600
Output Total 500 / 500 300 / 300
Balance 700 / 700 300 / 300
Review of Systems
-
History Source: Patient and Coordinated Provider
Constitutional: Reports Fever (101.9 on admission)
Respiratory: Reports Cough and Other (Rt lateral chest wall pain)
Cardiac: Reports No Symptoms
Abdomen/GI: Reports No Symptoms
Genitourinary: Reports No Symptoms
Physical Exam
-
General: Well Developed, Well Nourished and No Apparent Distress
HEENT: Normocephalic, Atraumatic and Moist Mucous Membranes
Respiratory: Clear to Auscultation (on shallow respirations)
Cardiac: Regular Rhythm and S1/S2
GI: Soft, Nontender and Nondistended
--- NOTE | 2024-05-23 19:54 | PTCARENOTE ---
Pt OOB to chair today, pt noted to be bradycaric and hypotensive but Asymptomatic. Dr. Rushing notified, no changes made at this time. Pt strong with transfer and use of wheeled walker.
--- NOTE | 2024-05-23 20:45 | PTCARENOTE ---
Patient received lying in bed awake and alert watching football on TV. He is oriented and pleasant. He is without apparent signs of distress or discomfort. He is very [employer]. He denies pain. His condom catheter became dislodged--new #30 CC placed,
patient tolerated well. He has mild generalized anasarca. He has a harsh loose NPC. RUL clear, HARRY with expiratory wheezes and bilateral bases with crackles. Abdomen is round, distended and soft. S1S2 regular and distant. He is SB on CM with HR in
the 40s. Left arm midline with IVF infusing. Left hand SL flushed. Afebrile and BP stable. Labs, chart and meds reviewed.
[2024-05-23] MEDS: DESYREL 100 MG PO (21:04)
[2024-05-23] MEDS: ARICEPT 10 MG PO (21:04)
[2024-05-23] MEDS: FLOMAX 0.4 MG PO (21:05)
[2024-05-23] MEDS: REMERON 15 MG PO (21:05)
[2024-05-23] MEDS: NSS IV (23:11)
[2024-05-24] VITALS (18 sets, daily range): BP systolic 90–118; BP diastolic 61–99; BMI 32.5
--- NOTE | 2024-05-24 01:06 | PTCARENOTE ---
Addendum entered by Selina Mckoy RN 05/24/24 02:20:
Patient assisted to BSC since unable to have BM on bedpan. He had a very large softly formed BM. Denies dizziness. Assisted back to bed.
Original Note:
Patient noted to have profound bradycardia with HR 39-40, SB with Vpaced beats noted. BP stable. Asymptomatic. Notified BARBARA Walter--I do not know the PPM settings.
--- NOTE | 2024-05-24 04:00 | PTCARENOTE ---
Patient appears to be sleeping comfortably when undisturbed. Eyes closed, lying still, respirations nonlabored. No complaints offered. Continues to be bradycardic with Vpaced beats and Sinus edison, HR 37-40. BP stable
[2024-05-24 05:28] LABS: % Basophils 0.2 % (0-2); % Immature Granulocytes 0.3 % (0-0.5); % Lymphocytes 10.8 % (20.5-51.1); % Monocytes 5.7 % (1.7-9.3); Absolute Lymphocytes 0.7 10^3/uL (1.2-3.4); Absolute Monocytes 0.3 10^3/uL (0.1-0.6); Hemoglobin 11.4 g/dL (13.0-18.0); Mean Corp Hgb Conc. 30.8 g/dL (33.0-37.0); Mean Corpuscular Volume 97.4 fL (80.0-94.0); Mean Platelet Volume 11.3 fL (7.4-10.4); Nucleated Red Blood Cells % 0 % (-); Platelet Count 137 10^3/uL (130-400); Red Cell Dist. Width 15.4 % (11.5-14.5)
[2024-05-24 06:00] LABS: ALT (SGPT) 17 U/L (0-50); AST (SGOT) 37 U/L (17-59); Albumin 2.7 g/dl (3.5-5.0); Alkaline Phosphatase 77 U/L (38-126); Blood Urea Nitrogen 20 mg/dl (9-20); Calcium 7.4 mg/dl (8.4-10.2); Carbon Dioxide 23 mmol/L (22-30); Chloride 112 mmol/L (98-107); Estimated Creatinine Clearance 86 ml/min; Glucose 108 mg/dl (70-99); Potassium 4.1 mmol/L (3.5-5.1); Sodium 142 mmol/L (135-145); Total Bilirubin 0.2 mg/dl (0.2-1.3); Total Protein 4.9 g/dl (6.3-8.2); eGFR > 60.00
[2024-05-24] MEDS: SOLU-CORTEF 50 MG IV ×3 (06:27→21:02)
--- NOTE | 2024-05-24 07:32 | PTCARENOTE ---
Report given verbally to TYRONE Padilla, questions answered.
[2024-05-24] MEDS: REFRESH EYE DROPS (PF) 1 DROPS OPHTH (08:46)
[2024-05-24] MEDS: PRAVACHOL 80 MG PO (08:48)
[2024-05-24] MEDS: SINEMET 10-100 1 TABLET PO ×3 (08:48→19:45)
[2024-05-24] MEDS: MUCINEX 600 MG PO ×2 (08:48→19:45)
[2024-05-24] MEDS: PROZAC 80 MG PO (08:48)
[2024-05-24] MEDS: TAMIFLU 75 MG PO ×2 (08:49→19:45)
[2024-05-24] MEDS: ASPIR LOW (ENTERIC COATED) 81 MG PO (08:49)
[2024-05-24] MEDS: DEPAKOTE (12 HR RELEASE) 125 MG PO ×2 (08:49→19:45)
[2024-05-24] MEDS: BENTYL 20 MG PO ×3 (08:49→19:45)
[2024-05-24] MEDS: ELIQUIS 5 MG PO ×2 (08:49→19:44)
[2024-05-24] MEDS: PROTONIX 40 MG PO (08:49)
[2024-05-24] MEDS: LIDOCAINE 4% PATCH 1 PATCH TOPICAL (08:51)
[2024-05-24] MEDS: MIRALAX PO (08:51)
[2024-05-24] MEDS: NEURONTIN 100 MG PO ×2 (09:27→19:45)
--- NOTE | 2024-05-24 11:31 | W.PN.HOSP.TC ---
Today's Communication/Plan
-
Monitor HR
Cards input
Monitor BP
IV steroids for 24h
cont tamiflu
check ekg
Assessment / Plan
Assessment / Plan
# Acute hypotension likely secondary to fluid a/volume depletion/adrenal insufficiency /Hx Orthostatic hypotension Hx in patient with acute influenza
-Monitor blood pressure, have patient dangle feet on side of bed before standing, use call ortega and bed alarms to prevent falls. BP 92/62
-IV 1 L Bolus was given due to systolic BP 80
-Hydrocortisone 50 mg IV now then 50 mg every 8 hours
-BP stabilizing
#Adrenal insufficiency Dx 12/29/2023
-Started on hydrocortisone 10 mg p.o. every afternoon during December admission
-Hydrocortisone 50 mg IV now then 50 mg every 8 hours till HR stabilizes further
#Bradycardia
-Permanent Pacemaker approximately 15 years ago placed at [facility] secondary to bradycardia per sister
-No pacer spike noted
-?Interrogation. Unclear about battery health. [employer]an PPM. Never f/u with cardiology in long time per sister.
-Will ask Cards for eval.
#Fall generalized weakness secondary to INFLUENZA A POSITIVE
Symptoms x 1 day
Temp 101.9 F
-Droplet precautions
-Tamiflu 75 mg twice daily x 5 days
-Tylenol as needed fever
-IV NSS 100 cc/h
-PT/OT/case management consult-patient will likely require SNF facility as each admission he forgets how to walk and is there for several months
#Mechanical fall with back pain with fracture lateral right eighth rib
#Recent fall 05/16/2024 with right sided seventh, eighth, ninth rib fractures per CT chest
-Lidoderm patch
-May continue tramadol 50 mg 3 times daily as needed moderate pain
-Incentive spirometry
#Chronic Severe developmental delay since per Sister Jennifer no TBI Hx
#Dementia with short-term memory impairment including SUNDOWNING and AGITATION
Dementia with tremors to hands
-Continue carbidopa levodopa
-Continue Depakote 125 mg daily for mood disorder
-Continue Valium 10 mg 4 times daily as needed anxiety/agitation, donepezil 10 mg at bedtime
#Depression hx
-Continue fluoxetine 80 mg daily
-Continue mirtazapine 15 mg p.o. at bedtime
#DVT entire RLE, left common femoral and femoral veins 07/05/2023
#SBO status post bowel resection with MRSA inside abdomen -15 years ago [facility]
-abdomen closure was postponed due to MRSA with eventual colostomy and reversal
The patient was in coma for several months due to coma requiring trach several months 15 years ago at [facility]
#GERD
#IBS hx
-Continue omeprazole 40 mg daily
-Continue dicyclomine 20 mg p.o. 3 times daily
HLD
Other PMH:
Pneumonia January 2024 required 3 months post rehab stay
Former smoker former alcohol quit both 1991
Paramidline hernia anterior pelvic region chronic
DVT prophylaxis
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
DNR per patient's Sister Jennifer who is power of adjunct physical education instructor
d/w with sister over the phone in details-who also has similar symptoms of Flu.
Anticipated Discharge: > 48 hours
Subjective/Interval History
-
Date of Service: May 24, 2024
Pt with bradycardia. HR in 30-40s. no pacer spike noted on tele
Objective Data
-
Labs:
Laboratory Results
05/24/24
04:50
WBC 6.0
Hgb 11.4 L
Hct 37.0 L
Plt Count 137 D
Sodium 142
Potassium 4.1
Chloride 112 H
Carbon Dioxide 23
BUN 20
Creatinine 0.9
Glucose 108 H
Calcium 7.4 L
Total Bilirubin 0.2
AST 37
ALT 17
Alkaline Phosphatase 77
Vital Signs:
Vital Signs
Temp Pulse Resp BP Pulse Ox
97.7 F 40 15 107/74 96
05/24/24 07:40 05/24/24 09:00 05/24/24 09:00 05/24/24 09:00 05/24/24 10:23
I&O
05/23/24 05/24/24 05/25/24
06:59 06:59 06:59
Intake Total 1200 / 1200 1020 / 1020
Output Total 500 / 500 1100 / 1100 350 / 350
Balance 700 / 700 -80 / -80 -350 / -350
Physical Exam
-
General: Well Developed, Well Nourished, No Apparent Distress and Conversant
HEENT: Normocephalic, Atraumatic and Moist Mucous Membranes
Respiratory: Clear to Auscultation
Cardiac: Regular Rhythm, S1/S2 and Bradycardic
GI: Soft, Nontender and Nondistended
Rectal: Deferred by Provider
Musculoskeletal: No Edema
Skin: Warm
Neuro: Awake and No Motor Deficits
Psych: Calm and Apparent Dementia
Data Reviewed
-
Total Time Spent with Patient (in minutes): 55
--- NOTE | 2024-05-24 14:02 | CON.CAR ---
Addendum entered and electronically signed by Altaf Gonzalez MD 05/24/24 18:46:
Complex 68-year-old man admitted with recurrent falls. He has a history of [employer] permanent pacemaker placed in 2009 during an extensive hospital stay. His level of cardiac follow-up is unclear, though he may have been seen by a meat seafood associate
in 2022. Longstanding sinus bradycardia. He denies lightheadedness or shortness of breath. He is recently fallen twice and was in the emergency department in early May for a fall. Found to have influenza A during this admission and now on
Tamiflu
PMH/PSH: Sick sinus syndrome/pacemaker developmental delay , history of bowel obstruction, postoperative wound infection apparently with healing by secondary intention, vent dependent respiratory failure with tracheostomy in the past. Adrenal
insufficiency, , history of bilateral lower extremity DVT,, orthostatic hypotension, hyperlipidemia, dementia, Pneumonia 2023 with long rehab stay thereafter, Parkinson's
history of alcohol and tobacco used
Meds reviewed, as outpatient is on anticholinergic dicyclomine,
Lives with sister.
Remainder of history per below.
106/66, pulse 45, resp rate 18, afebrile, communicative, denies complaints at present, head neck exam unremarkable lungs relatively clear, bradycardic without obvious murmurs, abdomen benign extremities with some edema
Labs reviewed, proBNP is 5130,
EKG sinus rhythm/bradycardia rate 42
Pacer spikes for heart rate less than 40, strips currently not available to me for review
Impression: See below
Plan:
Despite marked sinus bradycardia he seems stable. The status of his pacemaker at present is unknown. We will interrogate.
Check echocardiogram. Given proBNP we could consider the use of diuretic therapy.
There is no need for intervention for bradycardia at this time. Donepezil will exacerbate bradycardia, we could consider stopping, but he is also on an anticholinergic drug which will tend to increase heart rate.
Okay to continue fluoxetine.
We will continue to follow
Original Note:
Consultation
Consultation Request
Date/Time Consultation Requested: 05/24/24
Date/Time Consultation Performed: 05/24/24
Requesting Provider: Dr. Mendosa
Performing Provider: Dr. MICHAEL Gonzalez
Reason for Consultation: Sinus bradycardia, PPM in place with unknown battery longevity
Medical History
-
History of Present Illness:
Patient came to ER from home on 05/22/2024 after a fall. Patient lives with his sister and has a history of developmental delay. He then had a prolonged hospitalization in 2009 for small bowel obstruction and resultant MRSA infection and at that
time had a code and had a trach, but eventually recovered enough that he continue to live with his sister. The patient is chronically disabled. He has had increasing falls and has had a few admissions to in the last year most recently went to
rehab after his admission in March. This past Friday he awoke early in the morning to use the bathroom lost his balance and fell back and hit the bathtub. His family was able to stand him up and get him back to bed, but then later in the day
he had trouble standing with ongoing pain. Patient was found to be hypotensive in D[facility] and tested positive for influenza A. Cardiology has been consulted for evidence of sinus bradycardia on telemetry monitoring. Taking through [facility] [employer]
records it appears that patient had a [employer]an PPM placed in 2009 during his prolonged admission. Interestingly the patient can recall that Dr. Gonzalez was just in his room, but he cannot recall for me the name of his primary meat seafood associate and does
not recall ever seeing a meat seafood associate in an office. The most recent record that I see from a meat seafood associate in [facility] is 2022, but there is no evidence of a device check. Patient denies feeling lightheaded or dizzy currently. Telemetry reviewed by me
shows that he has pacer spikes when his heart rate is less than 40 bpm.
PMH:
Adrenal insufficiency
Falls
falls at home over the last few months
Depression
h/o RLE DVT 06/2023
h/o SBO and MRSA infection, colostomy, trach and code 2009
h/o CVA 2016
h/o TIA 2019
Developmental delay
Past Medical History
Past Medical History: Other (in HPI)
Past Surgical History: Bowel Resection (and colostomy 2009), Cardiac (t. Quan PPM 2009) and Other (previous trach)
Social History
Tobacco: Former Smoker (quit in 1991)
Alcohol: Former (h/o ETOH use disorder, quit in 1991)
Drug: None
Personal: Single
Living: With Family (lives with his sister)
Family History
Family History: Other (no FH of CAD)
Allergies / Home Medications
Allergy/AdvReac Type Severity Reaction Status Date / Time
No Known Allergies Allergy Verified 05/22/24 10:07
�Medication �Instructions �Recorded �Confirmed �Type
trazodone 100 mg tablet 100 mg PO HS Sleep 09/24/19 05/22/24 History
dicyclomine 20 mg tablet 20 mg PO TID Gastrointestinal issue 03/08/22 05/22/24 History
donepezil 10 mg tablet 10 mg PO HS Neurological Condition 07/04/23 05/22/24 History
fluticasone propionate 50 1 spray intranasal DAILY Congestion 07/04/23 05/22/24 History
mcg/actuation nasal
spray,suspension
gabapentin 100 mg capsule 100 mg PO BID Pain 07/04/23 05/22/24 History
omeprazole 40 mg capsule,delayed 40 mg PO DAILY GERD 07/04/23 05/22/24 History
release
pravastatin 80 mg tablet 80 mg PO DAILY High Cholesterol 07/04/23 05/22/24 History
carbidopa 10 mg-levodopa 100 mg 1 tab PO TID Neurological Condition 12/29/23 05/22/24 History
tablet
diazepam 10 mg tablet 10 mg PO QIDPRN PRN anxiety 12/29/23 05/22/24 History
divalproex 125 mg tablet,delayed 125 mg PO BID Mental Health/Anxiety 12/29/23 05/22/24 History
release
fluoxetine 40 mg capsule 80 mg PO DAILY Mental 12/29/23 05/22/24 History
Health/Anxiety
mirtazapine 15 mg tablet 15 mg PO HS Mental Health/Anxiety 12/29/23 05/22/24 History
acetaminophen 325 mg tablet 650 mg (2 x 325 mg) PO Q4HPRN PRN 01/09/24 05/22/24 Rx
pain #0 tabs
apixaban 5 mg tablet (Eliquis) 5 mg PO BID Blood clot 01/09/24 05/22/24 Rx
prevention/tx #60 tabs
aspirin 81 mg tablet,delayed 81 mg PO DAILY Blood clot 01/09/24 05/22/24 Rx
release prevention/tx #90 tabs
hydrocortisone 10 mg tablet 10 mg PO QPM adrenal insufficiency 01/09/24 05/22/24 Rx
#0 tabs
tamsulosin 0.4 mg capsule 0.4 mg PO HS Urinary issue #30 caps 01/09/24 05/22/24 Rx
tramadol 50 mg tablet 50 mg PO TID PRN Pain #10 tabs 05/16/24 05/22/24 Rx
Review of Systems
-
History Source: Patient
All other systems: Negative unless noted
Physical Exam
Vital Signs
Temp Pulse Resp BP Pulse Ox
97.7 F 40 15 107/74 96
05/24/24 07:40 05/24/24 09:00 05/24/24 09:00 05/24/24 09:00 05/24/24 10:23
GEN: NAD. AAO to person, place and situation. Knows he is in and that Dr. Gonzalez was just in the room.
HEENT: EOMI, MMM
LUNGS: RA. CTA B/L without wheeze
CV: SR on tele. Reg, S1/S2, no murmur
ABD: soft, BS+, NT, ND
EXT: No clubbing, cyanosis, lesions or edema B/L
NEURO: Gross non-focal
SKIN: Warm, dry and pink. No rash
Lab Results
05/24/24 04:50
05/24/24 04:50
Impression / Plan
-
PCP: Dr. Martha Carter
Cardiology: Dr. Salvador at [facility]
Impression:
Admitted with hypotension and fall 05/22/24
Influenza A positive
Adrenal insufficiency
Falls
falls at home over the last few months
Depression
h/o RLE DVT 06/2023
h/o SBO and MRSA infection, colostomy, trach and code 2009
h/o CVA 2016
h/o TIA 2019
Developmental delay
Echo 12/31/2023: EF 50 to 55%, diastolic dysfunction indeterminate, normal RV function, mild MR, moderate TR with PAP 40 to 45 mmHg, mildly dilated aortic root measuring 3.8 at the sinus of Valsalva and 3.5 at the sinotubular junction
Plan:
-Patient came to ER from home on 05/22/2024 after a fall. Patient lives with his sister and has a history of developmental delay. He then had a prolonged hospitalization in 2009 for small bowel obstruction and resultant MRSA infection and at
that time had a code and had a trach, but eventually recovered enough that he continue to live with his sister. The patient is chronically disabled. He has had increasing falls and has had a few admissions to in the last year most recently went
to rehab after his admission in March. This past Friday he awoke early in the morning to use the bathroom lost his balance and fell back and hit the bathtub. His family was able to stand him up and get him back to bed, but then later in the
day he had trouble standing with ongoing pain. Patient was found to be hypotensive in [facility] and tested positive for influenza A. Cardiology has been consulted for evidence of sinus bradycardia on telemetry monitoring. Taking through [employer]
records it appears that patient had a [employer]an PPM placed in 2009 during his prolonged admission. Interestingly the patient can recall that Dr. Gonzalez was just in his room, but he cannot recall for me the name of his primary meat seafood associate and does
not recall ever seeing a meat seafood associate in an office. The most recent record that I see from a meat seafood associate in [facility] is 2022, but there is no evidence of a device check. Patient denies feeling lightheaded or dizzy currently. Telemetry reviewed by me
shows that he has pacer spikes when his heart rate is less than 40 bpm.
-ECG reviewed by me shows sinus bradycardia. Telemetry reviewed by me shows ventricularly paced beats at less than 40 bpm.
-Checked with the [employer] device rep and confirmed that the patient does not fact have a [employer]an PPM. Asked the device rep to check the device and await report for my interpretation and review
-Echo from 12/31/2023 noted above. EF was preserved at that time with only mild MR.
-Hospitalist attending has been providing IVF for hypovolemic hypotension on admission and patient has received 4 L IVFs. Weight is up 4 lbs overnight, but using bed scale for weights. Will follow. Check pro-BNP.
-Additionally patient was given stress dose steroids with his history of adrenal insufficiency.
[2024-05-24] MEDS: ZOFRAN 4 MG IV (16:50)
[2024-05-24 17:16] LABS: NT-proBNP 5130 pg/ml
[2024-05-24] MEDS: REMERON 15 MG PO (19:44)
[2024-05-24] MEDS: FLOMAX 0.4 MG PO (19:44)
[2024-05-24] MEDS: ARICEPT 10 MG PO (19:45)
[2024-05-25] VITALS (12 sets, daily range): BP systolic 101–133; BP diastolic 55–108
--- NOTE | 2024-05-25 01:41 | PTCARENOTE ---
Patient with run of vtach overnight-asymptomatic. house calls nurse provider made aware and ordered mag level to be drawn.
[2024-05-25 03:49] LABS: % Immature Granulocytes 0.2 % (0-0.5); % Lymphocytes 8.5 % (20.5-51.1); % Neutrophils 84.3 % (42.2-75.2); Absolute Lymphocytes 0.5 10^3/uL (1.2-3.4); Absolute Monocytes 0.4 10^3/uL (0.1-0.6); Hematocrit 36.2 % (39.0-52.0); Hemoglobin 11.4 g/dL (13.0-18.0); Mean Corp Hgb Conc. 31.5 g/dL (33.0-37.0); Mean Corpuscular Volume 95.3 fL (80.0-94.0); Mean Platelet Volume 11.7 fL (7.4-10.4); Nucleated Red Blood Cells % 0 % (-); Platelet Count 142 10^3/uL (130-400); Red Cell Dist. Width 15.3 % (11.5-14.5); White Blood Cell Count 5.9 10^3/uL (4.8-10.8)
[2024-05-25 04:07] LABS: ALT (SGPT) 32 U/L (0-50); AST (SGOT) 40 U/L (17-59); Albumin 3.2 g/dl (3.5-5.0); Alkaline Phosphatase 82 U/L (38-126); Blood Urea Nitrogen 25 mg/dl (9-20); Calcium 8.4 mg/dl (8.4-10.2); Carbon Dioxide 27 mmol/L (22-30); Chloride 106 mmol/L (98-107); Estimated Creatinine Clearance 70 ml/min; Glucose 125 mg/dl (70-99); Potassium 4.6 mmol/L (3.5-5.1); Sodium 140 mmol/L (135-145); Total Bilirubin 0.3 mg/dl (0.2-1.3); Total Protein 5.6 g/dl (6.3-8.2); eGFR > 60.00
[2024-05-25] MEDS: SOLU-CORTEF 50 MG IV ×2 (05:09→20:29)
[2024-05-25] MEDS: ASPIR LOW (ENTERIC COATED) 81 MG PO (08:13)
[2024-05-25] MEDS: ELIQUIS 5 MG PO ×2 (08:13→20:28)
[2024-05-25] MEDS: PRAVACHOL 80 MG PO (08:13)
[2024-05-25] MEDS: TAMIFLU 75 MG PO ×2 (08:13→20:32)
[2024-05-25] MEDS: PROTONIX 40 MG PO (08:14)
[2024-05-25] MEDS: DEPAKOTE (12 HR RELEASE) 125 MG PO ×2 (08:14→20:28)
[2024-05-25] MEDS: PROZAC 80 MG PO (08:14)
[2024-05-25] MEDS: BENTYL 20 MG PO ×3 (08:14→23:25)
[2024-05-25] MEDS: SINEMET 10-100 1 TABLET PO ×3 (08:14→23:22)
[2024-05-25] MEDS: MIRALAX PO (08:15)
[2024-05-25] MEDS: NEURONTIN 100 MG PO ×2 (08:15→20:27)
[2024-05-25] MEDS: LIDOCAINE 4% PATCH 1 PATCH TOPICAL (08:15)
[2024-05-25] MEDS: MUCINEX 600 MG PO ×2 (08:15→20:27)
--- NOTE | 2024-05-25 08:17 | W.CARD.DEVCH ---
Cardiac Device Check
-
Device: Pacemaker
Non Clinical Advisor: [employer]
The patient's device was interrogated with assistance of the device service center representative followed by a complete physician review. The device had normal function. No abnormalities seen.
Patient has a single chamber [employer]an PPM set at VVI 40. Battery longevity 2 years. There is noise on the RV lead and it was originally placed in 1998, RV lead might need to be replaced at next generator change.
--- NOTE | 2024-05-25 08:27 | PTCARENOTE ---
Addendum entered by Catherine Chin RN 05/25/24 08:29:
Room air pulse ox is 93%, lungs coarse throughout with bilateral basilar crackles. Cough loose, Harsh, Non productive at this time. Pt tremulous with hx of same, morning Sinemet given. Sinus edison on telemetry. bilateral lower extremity trace edema.
Pt moving all extremities. Pt assist in ordering breakfast meal. Call light in reach, pt watching TV
Original Note:
Assumed care of pt, sleeping upon rounds but easily arousable. [place], Rt hearing aid in place, but need to speech loudly and assure pt hears what you are saying correctly, frequently need to repeat in order for him to hear. Pt denies pain this am room
air pulse oc 8
--- NOTE | 2024-05-25 10:23 | W.PN.CARDCBS ---
Addendum entered and electronically signed by Luis Felipe Best MD 05/25/24 12:09:
I saw and examined the patient.
The Radar Scientist's note was reviewed and I agree with the note.
Comment:
GEN: No distress, awake, Ox3
HEENT: supple, anicteric, mmm
LUNGS: CTA, no wheezes/rales
CV: Reg, S1/S2, 1/6 syst LSB, no gallop
ABD: soft, BS+, NT/ND
EXT: +1 edema
NEURO: Gross non-focal
SKIN: No rash
Plan:
Pacemaker was checked and is functioning well. It is set at VVI 40 with normal function. There is 2 years of battery left.
He does have some acute heart failure with preserved ejection fraction. Check echocardiogram today. Will give Lasix 40 mg IV daily.
Continue treatments for adrenal insufficiency and influenza.
Continue Eliquis.
Original Note:
Today's Communication / Plan
-
pro-BNP elevated and LE edema after 4 L IVFs earlier this admission, Lasix 40 mg IV now and daily ordered by me
PPM is VVI 40 with normal function and 2 years battery longevity
53 min face to face and coordination of care
Impression / Plan
-
PCP: Dr. Martha Carter
Cardiology: Dr. Salvador at [facility]
Impression:
Admitted with hypotension and fall 05/22/24
Influenza A positive
Adrenal insufficiency
Falls
falls at home over the last few months
Depression
h/o RLE DVT 06/2023
h/o SBO and MRSA infection, colostomy, trach and code 2009
h/o CVA 2016
h/o TIA 2019
Developmental delay
St. Quan single chamber PPM implanted 1998, generator change 2011
RV lead noise on device check 05/24/24
Acute HFpEF
Echo 12/31/2023: EF 50 to 55%, diastolic dysfunction indeterminate, normal RV function, mild MR, moderate TR with PAP 40 to 45 mmHg, mildly dilated aortic root measuring 3.8 at the sinus of Valsalva and 3.5 at the sinotubular junction
Plan:
-Overnight events noted and strip labeled as NSVT looks like artifact to my review 05/25/24.
-EF was 50-55% by echo 12/31/23 and repeat echo pending for 05/25/24.
-Potassium is 4.6 and magnesium 2.0 on 05/25/24
-pro-BNP 5130 and rales on exam. Lasix 40 mg IV now and then daily. Patient was not taking a diuretic prior to admission and no h/o CHF, but has received 4 L IVF this admission for hypotension on admission.
-Patient has a single-chamber Saint Quan PPM that was originally implanted in 1998 and the last generator change was in 2011. He is set at VVI 40 and the RV lead has noise and the device rep suggested considering new RV lead placement at time of
next generator change, but currently with 2 years battery longevity. PPM is working appropriately
-Would avoid AV adelita blockers
-Patient was given stress dose steroids with his history of adrenal insufficiency.
HPI: Patient came to ER from home on 05/22/2024 after a fall. Patient lives with his sister and has a history of developmental delay. He then had a prolonged hospitalization in 2009 for small bowel obstruction and resultant MRSA infection and at
that time had a code and had a trach, but eventually recovered enough that he continue to live with his sister. The patient is chronically disabled. He has had increasing falls and has had a few admissions to in the last year most recently went
to rehab after his admission in March. This past Friday he awoke early in the morning to use the bathroom lost his balance and fell back and hit the bathtub. His family was able to stand him up and get him back to bed, but then later in the
day he had trouble standing with ongoing pain. Patient was found to be hypotensive in DHER and tested positive for influenza A. Cardiology has been consulted for evidence of sinus bradycardia on telemetry monitoring. Taking through [facility] [employer]
records it appears that patient had a Saint Quan PPM placed in 2009 during his prolonged admission. Interestingly the patient can recall that Dr. Gonzalez was just in his room, but he cannot recall for me the name of his primary motor vehicle compliance analyst and does
not recall ever seeing a motor vehicle compliance analyst in an office. The most recent record that I see from a motor vehicle compliance analyst in [facility] is 2022, but there is no evidence of a device check. Patient denies feeling lightheaded or dizzy currently. Telemetry reviewed by me
shows that he has pacer spikes when his heart rate is less than 40 bpm.
Progress Note - Vacuum Metalizing Supervisor
Subjective
Date of Service: May 25, 2024
Ongoing cough, no chest pain
Objective
Labs:
05/25/24 03:25
05/25/24 03:25
Labs
Hgb 11.4 g/dL (13.0-18.0) L 05/25/24 03:25
Hct 36.2 % (39.0-52.0) L 05/25/24 03:25
Plt Count 142 10^3/uL (130-400) 05/25/24 03:25
Sodium 140 mmol/L (135-145) 05/25/24 03:25
Potassium 4.6 mmol/L (3.5-5.1) 05/25/24 03:25
BUN 25 mg/dl (9-20) H 05/25/24 03:25
Creatinine 1.1 mg/dL (0.7-1.3) 05/25/24 03:25
Glucose 125 mg/dl (70-99) H 05/25/24 03:25
Vital Signs and I&O:
Vital Signs
Temp Pulse Resp BP Pulse Ox
97.9 F 41 16 114/73 93
05/25/24 08:20 05/25/24 06:00 05/25/24 06:00 05/25/24 04:00 05/25/24 01:12
Vital Signs
Temp Pulse Resp BP Pulse Ox
97.9 F 41 16 114/73 93
05/25/24 08:20 05/25/24 06:00 05/25/24 06:00 05/25/24 04:00 05/25/24 01:12
Intake & Output
05/23/24 05/24/24 05/25/24 05/26/24
06:59 06:59 06:59 06:59
Intake Total 1200 / 1200 1020 / 1020
Output Total 500 / 500 1100 / 1100 750 / 750
Balance 700 / 700 -80 / -80 -750 / -750
Physical Exam
Physical Exam
GEN: NAD. AAO to person, place and situation.
HEENT: EOMI, MMM
LUNGS: RA. No audible wheeze
CV: SR on tele.
ABD: ND
EXT: Trace to +1 edema B/L LE
NEURO: Gross non-focal
SKIN: No rash
[2024-05-25] MEDS: LASIX 40 MG IV (11:38)
[2024-05-25] MEDS: FLUSH (NSS) 2 FLUSH IV (11:39)
--- NOTE | 2024-05-25 12:48 | W.PN.HOSP.TC ---
Today's Communication/Plan
-
IV Lasix
Echo pending
Transfer out of IMU
Continue with Tamiflu
Rehab ongoing
Assessment / Plan
Assessment / Plan
# Acute hypotension likely secondary to fluid a/volume depletion/adrenal insufficiency /Hx Orthostatic hypotension Hx in patient with acute influenza
-Monitor blood pressure, have patient dangle feet on side of bed before standing, use call ortega and bed alarms to prevent falls. BP 92/62
-IV 1 L Bolus was given due to systolic BP 80
#Adrenal insufficiency Dx 12/29/2023
-Started on hydrocortisone 10 mg p.o. every afternoon during December admission
--Hydrocortisone 50 mg IV decreased to every 12.
-BP stabilizing and probably transition to p.o. regimen in 24 hours.
#Bradycardia
-Permanent Pacemaker approximately 15 years ago placed at [facility] secondary to bradycardia per sister
-Cardiology correspondence noted. 2 years of battery left. Ventricular backup pacing set at 40
-Appreciate cards input
# Acute congestive heart failure unknown systolic versus diastolic
-Lower extremity edema. Plan to start Lasix. Monitor blood pressure
-Echo pending. Fluid restriction.
#Fall generalized weakness secondary to INFLUENZA A POSITIVE
Symptoms x 1 day
Temp 101.9 F
-Droplet precautions
-Tamiflu 75 mg twice daily x 5 days
-Tylenol as needed fever
-IV NSS discontinued
-PT/OT/case management consult-
#Mechanical fall with back pain with fracture lateral right eighth rib
#Recent fall 05/16/2024 with right sided seventh, eighth, ninth rib fractures per CT chest
-Lidoderm patch
-May continue tramadol 50 mg 3 times daily as needed moderate pain
-Incentive spirometry
#Chronic Severe developmental delay since per Sister Jennifer no TBI Hx
#Dementia with short-term memory impairment including SUNDOWNING and AGITATION
Dementia with tremors to hands
-Continue carbidopa levodopa
-Continue Depakote 125 mg daily for mood disorder
-Continue Valium 10 mg 4 times daily as needed anxiety/agitation, donepezil 10 mg at bedtime
#Depression hx
-Continue fluoxetine 80 mg daily
-Continue mirtazapine 15 mg p.o. at bedtime
#DVT entire RLE, left common femoral and femoral veins 07/05/2023
#SBO status post bowel resection with MRSA inside abdomen -15 years ago [facility]
-abdomen closure was postponed due to MRSA with eventual colostomy and reversal
The patient was in coma for several months due to coma requiring trach several months 15 years ago at [facility]
#GERD
#IBS hx
-Continue omeprazole 40 mg daily
-Continue dicyclomine 20 mg p.o. 3 times daily
HLD
Other PMH:
Pneumonia January 2024 required 3 months post rehab stay
Former smoker former alcohol quit both 1991
Paramidline hernia anterior pelvic region chronic
DVT prophylaxis
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
DNR per patient's Sister Jennifer who is power of trademark attorney
d/w with sister over the phone in details-who also has similar symptoms of Flu.
Anticipated Discharge: > 48 hours
Subjective/Interval History
-
Date of Service: May 25, 2024
On room air
Heart rate around mid 40s
Patient tolerating diet
Objective Data
-
Labs:
Laboratory Results
05/25/24
03:25
WBC 5.9
Hgb 11.4 L
Hct 36.2 L
Plt Count 142
Sodium 140
Potassium 4.6
Chloride 106
Carbon Dioxide 27
BUN 25 H
Creatinine 1.1
Glucose 125 H
Calcium 8.4
Total Bilirubin 0.3
AST 40
ALT 32
Alkaline Phosphatase 82
Vital Signs:
Vital Signs
Temp Pulse Resp BP Pulse Ox
97.9 F 46 16 115/83 93
05/25/24 08:20 05/25/24 11:38 05/25/24 06:00 05/25/24 11:38 05/25/24 01:12
I&O
05/24/24 05/25/24 05/26/24
06:59 06:59 06:59
Intake Total 1020 / 1020
Output Total 1100 / 1100 750 / 750
Balance -80 / -80 -750 / -750
Physical Exam
-
General: Well Developed, Well Nourished, No Apparent Distress and Conversant
HEENT: Normocephalic, Atraumatic and Moist Mucous Membranes
Respiratory: Clear to Auscultation
Cardiac: Regular Rhythm, S1/S2 and Bradycardic
GI: Soft, Nontender and Nondistended
Rectal: Deferred by Provider
Musculoskeletal: No Edema, Edema, Right Lower Extrem and Edema, Left Lower Extrem
Skin: Warm
Neuro: Awake and No Motor Deficits
Psych: Calm and Apparent Dementia
Data Reviewed
-
Total Time Spent with Patient (in minutes): 55
--- NOTE | 2024-05-25 13:09 | PTCARENOTE ---
Patient OOB to chair for lunch, rolling walker with minimal assist. pt with Sinus Bradycardia and as low as 32 BPM, no notable pacer spikes. Pt asymptomatic and does not c/o of any symptoms as staff assess pt. Heart rate in 50s at this time with BP
117/68
--- NOTE | 2024-05-25 14:11 | PTOTSP ---
ST Acute Care Evaluation
Pt currently presents with clinical signs of fairly functional oral, pharyngeal, and esophageal parameters for safe PO intake of all consistencies. Pt is, however, at an increased risk for choking and/or aspirating due to persistent impulsivity with
taking large bites/sips and/or multiple sequential bites resulting in large quantities of solids building up in his mouth that increase duration of mastication, bolus formation, and bolus clearance. Pt is very receptive to cueing from others.
Recommendations:
- Continue with regular solids, thin liquids, meds as tolerated.
- Aspiration precautions: HOB upright for all PO intake; close supervision; encourage pt to eat/drink slowly; provide intermittent verbal cues for pt to finish one bite prior to taking a new bite; alternate bites/sips.
- CLINIC RECEPTIONIST to f/u re: diet tolerance and adherence/carryover of compensatory strategies.
--- NOTE | 2024-05-25 14:21 | CM ---
DMITRI Marti at [facility], patient is current with them.
--- NOTE | 2024-05-25 14:41 | CM ---
CM following re: discharge planning.
Reviewed pt's chart, met with pt and spoke to pt's sister Jennifer.
pt is a 68 year old male, admitted with primary dx of Acute hypotension.
Pt is not a great historian, he stated he had brain injury in the past and does not remember many things and he asked to call his sister Jennifer. Information obtained from sister Jennifer.
Pt lives with sister Jennifer in an apartment 2nd floor, 6 steps to enter, ambulates with a walker at baseline. Per sister, pt was at [facility] and [facility] and was discharged from [facility] on 04/06/25. Per sister, she helps him
daily as needed. Pt's sister reports and she decided to bring her brother to for evaluation. Per sister pt is known to [facility] that pt has 2 falls at home and it made her scary. Pt's sister stated she has no problem to bring his brother
home at discharge and at the same time pt's sister stated if pt needs SNF she will agree. Pt's sister stated that pt wears diapers.
PT and OT evaluations noted - no recommendations have been made. pt requires supervision to min assistance with ambulation. pt;'s sister stated she will provide supervision.
PCP: Martha Carter
Pharmacy: [facility].
D/C plan: SNF vs home with [facility]. Awaiting for confirmation from PT/OT.
CM will follow with discharge plan updates as hospitalization progresses
--- NOTE | 2024-05-25 17:07 | PTCARENOTE ---
Report called to 2 Dajuna RN
--- NOTE | 2024-05-25 17:51 | PTCARENOTE ---
pt transferred from [facility] to [facility]. pt on droplet precaution for Flu A positivity. x1 RW.
[2024-05-25] MEDS: TESSALON PERLES 100 MG PO (20:32)
[2024-05-25] MEDS: ARICEPT 10 MG PO (23:22)
[2024-05-25] MEDS: FLOMAX 0.4 MG PO (23:22)
[2024-05-25] MEDS: REMERON 15 MG PO (23:22)
[2024-05-26] VITALS (7 sets, daily range): BP systolic 104–123; BP diastolic 61–81; PULSE 52; O2SAT 95; BMI 31.1
[2024-05-26] MEDS: TESSALON PERLES 100 MG PO ×2 (04:38→19:56)
[2024-05-26 05:07] LABS: % Basophils 0.2 % (0-2); % Immature Granulocytes 0.6 % (0-0.5); % Lymphocytes 12.1 % (20.5-51.1); % Monocytes 8.3 % (1.7-9.3); % Neutrophils 78.8 % (42.2-75.2); Absolute Lymphocytes 0.6 10^3/uL (1.2-3.4); Absolute Monocytes 0.4 10^3/uL (0.1-0.6); Hematocrit 36.6 % (39.0-52.0); Hemoglobin 11.8 g/dL (13.0-18.0); Mean Corp Hgb Conc. 32.2 g/dL (33.0-37.0); Mean Corpuscular Volume 93.1 fL (80.0-94.0); Mean Platelet Volume 11.4 fL (7.4-10.4); Nucleated Red Blood Cells % 0 % (-); Platelet Count 161 10^3/uL (130-400); Red Blood Cell Count 3.93 10^6/uL (4.70-6.10); Red Cell Dist. Width 14.6 % (11.5-14.5)
[2024-05-26 05:31] LABS: Blood Urea Nitrogen 29 mg/dl (9-20); Calcium 8.4 mg/dl (8.4-10.2); Carbon Dioxide 30 mmol/L (22-30); Chloride 102 mmol/L (98-107); Estimated Creatinine Clearance 70 ml/min; Glucose 107 mg/dl (70-99); Potassium 3.8 mmol/L (3.5-5.1); Sodium 141 mmol/L (135-145); eGFR > 60.00
[2024-05-26] MEDS: ROBITUSSIN 100 MG PO (08:11)
[2024-05-26] MEDS: SINEMET 10-100 1 TABLET PO ×3 (08:12→22:22)
[2024-05-26] MEDS: PROZAC 80 MG PO (08:12)
[2024-05-26] MEDS: MUCINEX 600 MG PO ×2 (08:12→19:56)
[2024-05-26] MEDS: DEPAKOTE (12 HR RELEASE) 125 MG PO ×2 (08:12→19:56)
[2024-05-26] MEDS: ELIQUIS 5 MG PO ×2 (08:13→19:56)
[2024-05-26] MEDS: BENTYL 20 MG PO ×3 (08:13→22:21)
[2024-05-26] MEDS: REFRESH EYE DROPS (PF) 1 DROPS OPHTH (08:13)
[2024-05-26] MEDS: PRAVACHOL 80 MG PO (08:13)
[2024-05-26] MEDS: TAMIFLU 75 MG PO ×2 (08:13→19:56)
[2024-05-26] MEDS: ASPIR LOW (ENTERIC COATED) 81 MG PO (08:14)
[2024-05-26] MEDS: MIRALAX 17 GRAMS PO (08:14)
[2024-05-26] MEDS: NEURONTIN 100 MG PO ×2 (08:14→19:56)
[2024-05-26] MEDS: PROTONIX 40 MG PO (08:14)
[2024-05-26] MEDS: LASIX 40 MG IV (08:15)
[2024-05-26] MEDS: SOLU-CORTEF 50 MG IV (08:15)
[2024-05-26] MEDS: LIDOCAINE 4% PATCH 1 PATCH TOPICAL (08:16)
--- NOTE | 2024-05-26 11:14 | W.PN.HOSP.TC ---
Today's Communication/Plan
-
Continue with IV Lasix
DC IV hydrocortisone
P.o. regimen
Rehab recommendation
Start disposition process
Assessment / Plan
Assessment / Plan
# Acute hypotension likely secondary to fluid a/volume depletion/adrenal insufficiency /Hx Orthostatic hypotension Hx in patient with acute influenza
-Monitor blood pressure, have patient dangle feet on side of bed before standing, use call ortega and bed alarms to prevent falls. BP 92/62
-IV 1 L Bolus was given due to systolic BP 80
#Adrenal insufficiency Dx 12/29/2023
-Started on hydrocortisone 10 mg p.o. every afternoon during December admission
--Hydrocortisone 50 mg IV decreased to every 12.
-BP stabilizing and probably transition to p.o. regimen. Per previous discharge summary patient needs to be on hydrocortisone 15 mg a.m. and 10 mg p.m. Regimen restarted. DC IV hydrocortisone.
#Bradycardia
-Permanent Pacemaker approximately 15 years ago placed at [facility] secondary to bradycardia per sister
-Cardiology correspondence noted. 2 years of battery left. Ventricular backup pacing set at 40
-Appreciate cards input
# Acute HFpEF
-Lower extremity edema. Plan to start Lasix. Monitor blood pressure. Continue with IV Lasix per cardiology.
-Echo noted fluid restriction.
#Fall generalized weakness secondary to INFLUENZA A POSITIVE
Symptoms x 1 day
Temp 101.9 F
-Droplet precautions
-Tamiflu 75 mg twice daily x 5 days
-Tylenol as needed fever
-IV NSS discontinued
-PT/OT/case management consult-
#Mechanical fall with back pain with fracture lateral right eighth rib
#Recent fall 05/16/2024 with right sided seventh, eighth, ninth rib fractures per CT chest
-Lidoderm patch
-May continue tramadol 50 mg 3 times daily as needed moderate pain
-Incentive spirometry
#Chronic Severe developmental delay since per Sister Jennifer no TBI Hx
#Dementia with short-term memory impairment including SUNDOWNING and AGITATION
Dementia with tremors to hands
-Continue carbidopa levodopa
-Continue Depakote 125 mg daily for mood disorder
-Continue Valium 10 mg 4 times daily as needed anxiety/agitation, donepezil 10 mg at bedtime
#Depression hx
-Continue fluoxetine 80 mg daily
-Continue mirtazapine 15 mg p.o. at bedtime
#DVT entire RLE, left common femoral and femoral veins 07/05/2023
#SBO status post bowel resection with MRSA inside abdomen -15 years ago [facility]
-abdomen closure was postponed due to MRSA with eventual colostomy and reversal
The patient was in coma for several months due to coma requiring trach several months 15 years ago at [facility]
#GERD
#IBS hx
-Continue omeprazole 40 mg daily
-Continue dicyclomine 20 mg p.o. 3 times daily
Mild thrombocytopenia
resolved
DVT prophylaxis
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
DNR per patient's Sister Jennifer who is power of sports attorney
PT/OT disposition pending
Anticipated Discharge: 24 - 48 hours
Subjective/Interval History
-
Date of Service: May 26, 2024
states feeling better
improvement in HR
Pacer spikes noted once HR<40
Objective Data
-
Labs:
Laboratory Results
05/26/24
04:46
WBC 5.0
Hgb 11.8 L
Hct 36.6 L
Plt Count 161
Sodium 141
Potassium 3.8
Chloride 102
Carbon Dioxide 30
BUN 29 H
Creatinine 1.1
Glucose 107 H
Calcium 8.4
Vital Signs:
Vital Signs
Temp Pulse Resp BP Pulse Ox
98.3 F 58 16 119/81 92
05/26/24 07:30 05/26/24 08:15 05/26/24 07:30 05/26/24 08:15 05/26/24 07:30
I&O
05/25/24 05/26/24 05/27/24
06:59 06:59 06:59
Intake Total 1785 / 1785
Output Total 750 / 750 2000 / 1999 1000 / 1000
Balance -750 / -750 -215 / -215 -1000 / -1000
Physical Exam
-
General: Well Developed, Well Nourished, No Apparent Distress and Conversant
HEENT: Normocephalic, Atraumatic and Moist Mucous Membranes
Respiratory: Clear to Auscultation
Cardiac: Regular Rhythm, S1/S2 and Bradycardic
GI: Soft, Nontender and Nondistended
Rectal: Deferred by Provider
Musculoskeletal: No Edema, Edema, Right Lower Extrem (improved) and Edema, Left Lower Extrem (improved)
Skin: Warm
Neuro: Awake and No Motor Deficits
Psych: Calm and Apparent Dementia
Data Reviewed
-
Total Time Spent with Patient (in minutes): 55
--- NOTE | 2024-05-26 13:29 | CM ---
Addendum entered by Rosa Elena Greenwood RN 05/26/24 13:38:
[facility]
Original Note:
Reviewed the chart notes and spoke with the patient at the bedside. Patient ambulating in hallway with PT. Patient agreeable to home with resumption of [facility] services. CM continues to be available to patient/family and is monitoring medical
plan for needs at discharge.
Plan: Discharge to home with resumption of [facility] services.
--- NOTE | 2024-05-26 14:57 | W.PN.CARDCBS ---
Addendum entered and electronically signed by Keshia Leahy MD 05/26/24 15:22:
I saw and examined the patient.
The Retail Agent's note was reviewed and I agree with the note.
Comment: Seen by advanced assisted living care manager. Volume status improved/stabilized. Edema improved overall weight stable. May be able to discontinue Lasix tomorrow. Follow blood pressure which runs low.
Original Note:
Today's Communication / Plan
-
Weight is down, probably will not need Lasix PO upon d/c
Impression / Plan
-
PCP: Dr. Martha Carter
Cardiology: Dr. Salvador at [facility]
Impression:
Admitted with hypotension and fall 05/22/24
Influenza A positive
Adrenal insufficiency
Falls
falls at home over the last few months
Depression
h/o RLE DVT 06/2023
h/o SBO and MRSA infection, colostomy, trach and code 2009
h/o CVA 2016
h/o TIA 2019
Developmental delay
St. Quan single chamber PPM implanted 1998, generator change 2011
RV lead noise on device check 05/24/24
Acute HFpEF
Echo 12/31/2023: EF 50 to 55%, diastolic dysfunction indeterminate, normal RV function, mild MR, moderate TR with PAP 40 to 45 mmHg, mildly dilated aortic root measuring 3.8 at the sinus of Valsalva and 3.5 at the sinotubular junction
Plan:
-Remains in sinus bradycardia. Patient with normal function of single chamber PPM programmed at VVI 40. Battery longevity is 2 years. Originally implanted in 1998 and the RV lead has noise and the device rep suggested considering new RV lead
placement at time of next generator change.
-Patient was moved to overnight and on the standing scale weight is down to 198 lbs on 05/26/2024 which is what his dry weight was at last discharge on 01/09/2024. He is comfortable on RA and has trace LE edema. Patient was diuresed with Lasix 40
mg IV daily after receiving 4 L IVF this admission for hypotension.
-Patient was not taking a diuretic prior to admission and volume overload appears to be iatrogenic as noted. Would not d/c to home on Lasix.
-EF was 50-55% by echo 12/31/23 and repeat echo pending for 05/25/24.
-Would avoid AV adelita blockers
-Patient was given stress dose steroids with his history of adrenal insufficiency.
HPI: Patient came to ER from home on 05/22/2024 after a fall. Patient lives with his sister and has a history of developmental delay. He then had a prolonged hospitalization in 2009 for small bowel obstruction and resultant MRSA infection and at
that time had a code and had a trach, but eventually recovered enough that he continue to live with his sister. The patient is chronically disabled. He has had increasing falls and has had a few admissions to in the last year most recently went
to rehab after his admission in March. This past Friday he awoke early in the morning to use the bathroom lost his balance and fell back and hit the bathtub. His family was able to stand him up and get him back to bed, but then later in the
day he had trouble standing with ongoing pain. Patient was found to be hypotensive in DHER and tested positive for influenza A. Cardiology has been consulted for evidence of sinus bradycardia on telemetry monitoring. Taking through [facility] it appears that patient had a Saint Quan PPM placed in 2009 during his prolonged admission. Interestingly the patient can recall that Dr. Gonzalez was just in his room, but he cannot recall for me the name of his primary metal solderer and does
not recall ever seeing a metal solderer in an office. The most recent record that I see from a metal solderer in [facility] is 2022, but there is no evidence of a device check. Patient denies feeling lightheaded or dizzy currently. Telemetry reviewed by me
shows that he has pacer spikes when his heart rate is less than 40 bpm.
Progress Note - Operating Engineer
Subjective
Date of Service: May 26, 2024
Denies chest pain
Objective
Labs:
05/26/24 04:46
05/26/24 04:46
Labs
Hgb 11.8 g/dL (13.0-18.0) L 05/26/24 04:46
Hct 36.6 % (39.0-52.0) L 05/26/24 04:46
Plt Count 161 10^3/uL (130-400) 05/26/24 04:46
Sodium 141 mmol/L (135-145) 05/26/24 04:46
Potassium 3.8 mmol/L (3.5-5.1) 05/26/24 04:46
BUN 29 mg/dl (9-20) H 05/26/24 04:46
Creatinine 1.1 mg/dL (0.7-1.3) 05/26/24 04:46
Glucose 107 mg/dl (70-99) H 05/26/24 04:46
Vital Signs and I&O:
Vital Signs
Temp Pulse Resp BP Pulse Ox
98.0 F 54 16 104/62 93
05/26/24 11:21 05/26/24 11:21 05/26/24 11:21 05/26/24 11:21 05/26/24 11:26
Vital Signs
Temp Pulse Resp BP Pulse Ox
98.0 F 54 16 104/62 93
05/26/24 11:21 05/26/24 11:21 05/26/24 11:21 05/26/24 11:21 05/26/24 11:26
Intake & Output
05/24/24 05/25/24 05/26/24 05/27/24
06:59 06:59 06:59 06:59
Intake Total 1020 / 1020 1785 / 1785
Output Total 1100 / 1100 750 / 750 2000 / 2000 1000 / 1000
Balance -80 / -80 -750 / -750 -215 / -215 -1000 / -1000
Physical Exam
Physical Exam
GEN: NAD. AAO to person, place and situation.
HEENT: EOMI, MMM
LUNGS: RA. No audible wheeze
CV: SR on tele.
ABD: ND
EXT: Trace edema B/L LE
NEURO: Gross non-focal
SKIN: No rash
[2024-05-26] MEDS: CORTEF 10 MG PO (16:49)
[2024-05-26] MEDS: REMERON 15 MG PO (22:21)
[2024-05-26] MEDS: FLOMAX 0.4 MG PO (22:21)
[2024-05-26] MEDS: ARICEPT 10 MG PO (22:22)
[2024-05-27] VITALS (7 sets, daily range): BP systolic 95–136; BP diastolic 61–84; BMI 30.1
[2024-05-27 06:42] LABS: % Basophils 0.2 % (0-2); % Eosinophils 0.4 % (0-6); % Immature Granulocytes 0.7 % (0-0.5); % Lymphocytes 20.3 % (20.5-51.1); % Monocytes 8.2 % (1.7-9.3); % Neutrophils 70.2 % (42.2-75.2); Absolute Lymphocytes 1.1 10^3/uL (1.2-3.4); Absolute Monocytes 0.5 10^3/uL (0.1-0.6); Absolute Neutrophils 3.9 10^3/uL (1.4-6.5); Hematocrit 38.2 % (39.0-52.0); Hemoglobin 12.2 g/dL (13.0-18.0); Mean Corp Hgb Conc. 31.9 g/dL (33.0-37.0); Mean Corpuscular Hgb 30.2 pg (27.0-31.0); Mean Corpuscular Volume 94.6 fL (80.0-94.0); Mean Platelet Volume 10.7 fL (7.4-10.4); Nucleated Red Blood Cells % 0 % (-); Platelet Count 180 10^3/uL (130-400); Red Blood Cell Count 4.04 10^6/uL (4.70-6.10); Red Cell Dist. Width 14.5 % (11.5-14.5); White Blood Cell Count 5.6 10^3/uL (4.8-10.8)
[2024-05-27 07:08] LABS: Blood Urea Nitrogen 26 mg/dl (9-20); Calcium 8.3 mg/dl (8.4-10.2); Carbon Dioxide 34 mmol/L (22-30); Chloride 101 mmol/L (98-107); Estimated Creatinine Clearance 75 ml/min; Glucose 86 mg/dl (70-99); Potassium 3.2 mmol/L (3.5-5.1); Sodium 140 mmol/L (135-145); eGFR > 60.00
[2024-05-27] MEDS: KCL 40 MEQ PO (09:04)
[2024-05-27] MEDS: PROZAC 80 MG PO (09:07)
[2024-05-27] MEDS: DEPAKOTE (12 HR RELEASE) 125 MG PO (09:07)
[2024-05-27] MEDS: PROTONIX 40 MG PO (09:07)
[2024-05-27] MEDS: SINEMET 10-100 1 TABLET PO ×2 (09:08→17:09)
[2024-05-27] MEDS: MUCINEX 600 MG PO (09:08)
[2024-05-27] MEDS: ASPIR LOW (ENTERIC COATED) 81 MG PO (09:08)
[2024-05-27] MEDS: ELIQUIS 5 MG PO (09:08)
[2024-05-27] MEDS: TAMIFLU 75 MG PO (09:09)
[2024-05-27] MEDS: BENTYL 20 MG PO ×2 (09:09→17:09)
[2024-05-27] MEDS: NEURONTIN 100 MG PO (09:09)
[2024-05-27] MEDS: PRAVACHOL 80 MG PO (09:09)
[2024-05-27] MEDS: LASIX 40 MG IV (09:10)
[2024-05-27] MEDS: LIDOCAINE 4% PATCH 1 PATCH TOPICAL (09:11)
[2024-05-27] MEDS: MIRALAX 17 GRAMS PO (09:11)
[2024-05-27] MEDS: CORTEF 15 MG PO (09:11)
--- NOTE | 2024-05-27 11:29 | CM ---
Reviewed the chart notes and spoke with the patient at the bedside and his sister via telephone. IMM reviewed. Patient expected to discharge today to home. Patient's sister's son or daughter will provide transportation home. CM continues to be
available to patient/family and is monitoring medical plan for needs at discharge.
Plan: Discharge to home with resumption of [facility] services.
[facility]
[2024-05-27 13:02] LABS: Magnesium 1.8 mg/dl (1.6-2.3)
--- NOTE | 2024-05-27 13:24 | PTOTSP ---
ST Follow-Up
Pt continues to present with oral, pharyngeal, and esophageal phases that appear to be fairly WFL for all solids and liquids. No overt s/s of penetration or aspiration noted at bedside during this structured tx session. Pt is at an increased risk
for penetration/aspiration due to short term memory deficits and impulsivity requiring frequent prompts to slow down, take small bites, and finish his bites before taking new bites.
Would recommend continuing with current diet consistencies (regular solids, thin liquids, meds one at a time with liquids) and aspiration precautions (close supervision with intermittent prompting for slow rate, small bites/sips, and finish bite
before taking new bite). Visual reminder placed on whiteboard. CLOTH SHRINKING TESTER will continue to follow to ensure pt is safely consuming recommended diet consistencies with the compensatory strategies provided.
--- NOTE | 2024-05-27 13:36 | W.PN.HOSP.TC ---
Today's Communication/Plan
-
replete kcl
po hydrocortisone
cards recs
tentative dc later today
Assessment / Plan
Assessment / Plan
# Acute hypotension likely secondary to fluid a/volume depletion/adrenal insufficiency /Hx Orthostatic hypotension Hx in patient with acute influenza
-Monitor blood pressure, have patient dangle feet on side of bed before standing, use call [place] and bed alarms to prevent falls. BP 92/62
-IV 1 L Bolus was given due to systolic BP 80
#Adrenal insufficiency Dx 12/29/2023
-Started on hydrocortisone 10 mg p.o. every afternoon during December admission
--Hydrocortisone 50 mg IV decreased to every 12.
-BP stabilizing and probably transition to p.o. regimen. Per previous discharge summary patient needs to be on hydrocortisone 15 mg a.m. and 10 mg p.m. Regimen restarted. DC IV hydrocortisone.
#Bradycardia
-Permanent Pacemaker approximately 15 years ago placed at [facility] secondary to bradycardia per sister
-Cardiology correspondence noted. 2 years of battery left. Ventricular backup pacing set at 40
-Appreciate cards input
# Acute HFpEF
#Hypokalemia-replete
-Lower extremity edema. Plan to start Lasix. Monitor blood pressure. Continue with IV Lasix per cardiology. Per cardiology to start patient on 20mg po lasix
-repeat probnp pending per cards.
-Echo noted fluid restriction.
#Fall generalized weakness secondary to INFLUENZA A POSITIVE
Symptoms x 1 day
Temp 101.9 F
-Droplet precautions
-Tamiflu 75 mg twice daily x 5 days
-Tylenol as needed fever
-IV NSS discontinued
-PT/OT/case management consult-
#Mechanical fall with back pain with fracture lateral right eighth rib
#Recent fall 05/16/2024 with right sided seventh, eighth, ninth rib fractures per CT chest
-Lidoderm patch
-May continue tramadol 50 mg 3 times daily as needed moderate pain
-Incentive spirometry
#Chronic Severe developmental delay since per Sister Jennifer no TBI Hx
#Dementia with short-term memory impairment including SUNDOWNING and AGITATION
Dementia with tremors to hands
-Continue carbidopa levodopa
-Continue Depakote 125 mg daily for mood disorder
-Continue Valium 10 mg 4 times daily as needed anxiety/agitation, donepezil 10 mg at bedtime
#Depression hx
-Continue fluoxetine 80 mg daily
-Continue mirtazapine 15 mg p.o. at bedtime
#DVT entire RLE, left common femoral and femoral veins 07/05/2023
#SBO status post bowel resection with MRSA inside abdomen -15 years ago [facility]
-abdomen closure was postponed due to MRSA with eventual colostomy and reversal
The patient was in coma for several months due to coma requiring trach several months 15 years ago at [facility]
#GERD
#IBS hx
-Continue omeprazole 40 mg daily
-Continue dicyclomine 20 mg p.o. 3 times daily
Mild thrombocytopenia
resolved
DVT prophylaxis
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
DNR per patient's Sister Jennifer who is power of content manager
PT/OT home VN.
update sister over the phone in details
More than 30 minutes spent in discharge including
Final examination of the patient
Summarizing hospital stay
Instructions for continuing care to all relevant caregivers
Preparation of discharge records, prescriptions, and referral forms
Total time spent (in minutes): 55
Anticipated Discharge: Today
Subjective/Interval History
-
Date of Service: May 27, 2024
sitting in chair
on room air
states feeling better
Objective Data
-
Labs:
Laboratory Results
05/27/24
06:25
WBC 5.6
Hgb 12.2 L
Hct 38.2 L
Plt Count 180
Sodium 140
Potassium 3.2 L
Chloride 101
Carbon Dioxide 34 H
BUN 26 H
Creatinine 1.0
Glucose 86
Calcium 8.3 L
Vital Signs:
Vital Signs
Temp Pulse Resp BP Pulse Ox
98.7 F 56 16 107/64 93
05/27/24 11:35 05/27/24 11:35 05/27/24 11:35 05/27/24 13:08 05/27/24 11:35
I&O
05/26/24 05/27/24 05/28/24
06:59 06:59 06:59
Intake Total 1785 / 1785 1660 / 1660
Output Total 1999
Balance -215 / -215 -340 / -340
Data Reviewed
-
Total Time Spent with Patient (in minutes): 55
[2024-05-27] MEDS: MAGNESIUM SULFATE 100 IV (14:06)
[2024-05-27 14:26] LABS: NT-proBNP 5370 pg/ml
--- NOTE | 2024-05-27 14:57 | W.DCSUMMARY ---
Discharge Summary
Discharge Data
Date of Admission: 05/22/24
Date of Discharge: 05/27/24
-
Pending Results: No
Hospital Course
68-year-old male past medical history of adrenal insufficiency, history of multiple falls, ambulatory dysfunction, chronic severe developmental delay, depression is presenting from home with mechanical fall. Patient upon admission was found to be
severely hypotension. Patient was started on aggressive IV fluid resuscitation. Patient blood pressure stabilized. Patient was also started on stress dose steroids. Patient was also found to have bradycardia with significant pauses. Cardiology
was consulted. Cardiology interrogated the pacemaker single chamber St. Quan PPM set at VVI 40. Battery longevity 2 years. There is noise on the RV lead and it was originally placed in 1998, RV lead might need to be replaced at next generator
change. Telemetry was noted with pacer spikes if heart rate below 40. Patient blood pressure stabilized and he was weaned off of IV stress dose steroids to hydrocortisone. Per previous hospitalization records patient needs to be on 15 mg of
hydrocortisone and a.m. and 10 mg at p.m. However at home patient was only on 10 mg of hydrocortisone. Medications were adjusted. Also patient was found to be in acute heart failure exacerbation. Patient was started on IV Lasix which was
transitioned to 40 mg of p.o. Lasix on discharge by cardiology. Patient was eval by physical and Occupational Therapy with recommendation for home VN. Patient did not want to go to rehab. Patient sister was updated throughout hospitalization. Of
note patient was also found to be influenza positive and received treatment with Tamiflu.
Discharge Plan
-
Patient Disposition: Home with Home Care
Discharge Diagnosis/Procedures: Hypotension
Bradycardia
Acute diastolic heart exacerbation
Influenza A
Hypokalemia
Condition: Fair
Diet: 2 Gram Sodium and Restrict fluids to 48 oz
Activity: With assistance and As tolerated
Driving Restrictions: No driving
Activity Restrictions/Additional Instructions:
follow-up with your primary chronometer repairer with in 1 week.
Take lasix at 11am daily.
Referrals:
Baldo Edge MD [Consulting Staff] - in one to two weeks (for adrenal insufficiency-call to make appointment. )
Martha Carter CRNP [Family Provider] - in less than 1 week
Prescriptions:
New
hydrocortisone 10 mg Tablet
15 mg PO DAILY 30 Days Qty: 45 0RF
furosemide [Lasix] 40 mg tablet
40 mg PO DAILY Qty: 30 0RF
Continued
trazodone 100 MG tablet
100 mg PO HS
dicyclomine 20 mg Tablet
20 mg PO TID
donepezil 10 mg tablet
10 mg PO HS
omeprazole 40 mg capsule,delayed release(DR/EC)
40 mg PO DAILY
pravastatin 80 mg tablet
80 mg PO DAILY
gabapentin 100 mg capsule
100 mg PO BID
fluticasone propionate 50 mcg/actuation spray,suspension
1 spray INTRANASAL DAILY
fluoxetine 40 mg Capsule
80 mg PO DAILY
divalproex 125 mg Tablet,Delayed Release (Dr/Ec)
125 mg PO BID
carbidopa-levodopa 10-100 mg Tablet
1 tab PO TID
mirtazapine 15 mg Tablet
15 mg PO HS
diazepam 10 mg Tablet
10 mg PO QIDPRN PRN (Reason: anxiety)
hydrocortisone 10 mg Tablet
10 mg PO QPM Qty: 0 0RF
acetaminophen 325 mg Tablet
650 mg PO Q4HPRN PRN (Reason: pain) Qty: 0 0RF
aspirin 81 MG tablet,delayed release (DR/EC)
81 mg PO DAILY Qty: 90 0RF
tamsulosin 0.4 mg Capsule
0.4 mg PO HS Qty: 30 0RF
Eliquis 5 mg Tablet
5 mg PO BID Qty: 60 0RF
tramadol 50 mg tablet
50 mg PO TID PRN (Reason: Pain) Qty: 10 0RF
Discharge Orders:
Discharge Patient (As Directed); Ordered 05/27/24
Ordered By: Timmy Mendosa
Discharge Date and Time
Print Language: BELGIAN
--- NOTE | 2024-05-27 16:48 | W.PN.CARDCBS ---
Addendum entered and electronically signed by Debbi Ray DO 05/27/24 17:41:
Spoke with patient's outpatient hip hop artist, Dr. Salvador. His office will contact patient for follow-up.
Original Note:
Today's Communication / Plan
-
Transition to oral Lasix
Recommended outpatient cardiac follow-up with [facility] cardiology in 1 week
Call placed to [facility] cardiology to facilitate transition of care
Will sign off, recall if needed
Impression / Plan
-
PCP: Dr. Martha Carter
Cardiology: Dr. Salvador at [facility]
Impression:
Admitted with hypotension and fall 05/22/24
Influenza A positive
Adrenal insufficiency
Falls
falls at home over the last few months
Depression
h/o RLE DVT 06/2023
h/o SBO and MRSA infection, colostomy, trach and code 2009
h/o CVA 2016
h/o TIA 2019
Developmental delay
St. Quan single chamber PPM implanted 1998, generator change 2011
RV lead noise on device check 05/24/24
Acute HFpEF
Echo 12/31/2023: EF 50 to 55%, diastolic dysfunction indeterminate, normal RV function, mild MR, moderate TR with PAP 40 to 45 mmHg, mildly dilated aortic root measuring 3.8 at the sinus of Valsalva and 3.5 at the sinotubular junction
Plan:
Influenza A 05/22/2024 admitted with hypotension and fall
-Management per primary team
-Hemodynamically stable status post IV fluid resuscitation
-Patient states he is feeling 100% better with only minimal cough and denies shortness of breath.
-Not requiring supplemental oxygen
-Mechanical fall resulted in right sided seventh, eighth, ninth rib fractures on CT of chest
History of sick sinus syndrome status post Saint Quan single chamber PPM programmed at VVI 40.
-Device interrogated this admission with normal function. Battery longevity is 2 years. Originally implanted in 1998 and the RV lead has noise and the device rep suggested considering new RV lead placement at time of next generator change.
Volume overload following IV fluid resuscitation
-2D echocardiogram 05/25/2024 with low normal LV systolic function. Normal RV size and systolic function with right-sided pacer wire. Mild mitral regurgitation. Trileaflet sclerotic aortic valve with trace AI. Moderate tricuspid regurgitation.
Mildly dilated aortic root at the sinus of Valsalva, 3.9 cm. Estimated RVSP 30-35 mmHg.
-proBNP unchanged (5130 05/24/24-->5270 05/27/24) however weights are down and patient symptomatically has improved
-15 pound weight loss with IV Lasix, weight today 192 pounds
-Will transition to Lasix 40 mg once daily with plan to reassess as an outpatient with his usual hip hop artist
-Would repeat labs including basic metabolic profile, magnesium in 1 week
History of CVA/TIA and right lower extremity DVT June 2023
-Continue outpatient Eliquis
History of Parkinson's�continue carbidopa-levodopa
History of adrenal insufficiency
-Patient was given stress dose steroids with his history of adrenal insufficiency.
-Defer management to hospitalist
Patient was instructed to follow-up with his usual hip hop artist at [facility] cardiology in 1 week
Will sign off, recall if needed
HPI: Patient came to ER from home on 05/22/2024 after a fall. Patient lives with his sister and has a history of developmental delay. He then had a prolonged hospitalization in 2009 for small bowel obstruction and resultant MRSA infection and at
that time had a code and had a trach, but eventually recovered enough that he continue to live with his sister. The patient is chronically disabled. He has had increasing falls and has had a few admissions to in the last year most recently went
to rehab after his admission in March. This past Friday he awoke early in the morning to use the bathroom lost his balance and fell back and hit the bathtub. His family was able to stand him up and get him back to bed, but then later in the
day he had trouble standing with ongoing pain. Patient was found to be hypotensive in [facility] and tested positive for influenza A. Cardiology has been consulted for evidence of sinus bradycardia on telemetry monitoring. Taking through [facility]
records it appears that patient had a Saint Quan PPM placed in 2009 during his prolonged admission. Interestingly the patient can recall that Dr. Gonzalez was just in his room, but he cannot recall for me the name of his primary hip hop artist and does
not recall ever seeing a hip hop artist in an office. The most recent record that I see from a hip hop artist in [facility] is 2022, but there is no evidence of a device check. Patient denies feeling lightheaded or dizzy currently. Telemetry reviewed by me
shows that he has pacer spikes when his heart rate is less than 40 bpm.
Progress Note - Gasket Inspector
Subjective
Date of Service: May 27, 2024
Seen and examined sitting out of bed to chair on room air. Patient anticipates discharge home today. Denies shortness of breath, dizziness, palpitations or chest pain.
Objective
Labs:
05/27/24 06:25
05/27/24 06:25
Labs
Hgb 12.2 g/dL (13.0-18.0) L 05/27/24 06:25
Hct 38.2 % (39.0-52.0) L 05/27/24 06:25
Plt Count 180 10^3/uL (130-400) 05/27/24 06:25
Sodium 140 mmol/L (135-145) 05/27/24 06:25
Potassium 3.2 mmol/L (3.5-5.1) L 05/27/24 06:25
BUN 26 mg/dl (9-20) H 05/27/24 06:25
Creatinine 1.0 mg/dL (0.7-1.3) 05/27/24 06:25
Glucose 86 mg/dl (70-99) 05/27/24 06:25
Vital Signs and I&O:
Vital Signs
Temp Pulse Resp BP Pulse Ox
98.6 F 60 18 112/61 97
05/27/24 15:01 05/27/24 15:01 05/27/24 15:01 05/27/24 15:01 05/27/24 15:01
Vital Signs
Temp Pulse Resp BP Pulse Ox
98.6 F 60 18 112/61 97
05/27/24 15:01 05/27/24 15:01 05/27/24 15:01 05/27/24 15:01 05/27/24 15:01
Intake & Output
05/25/24 05/26/24 05/27/24 05/28/24
06:59 06:59 06:59 06:59
Intake Total 1785 / 1785 1660 / 1660
Output Total 750 / 750 1999 / 1999
Balance -750 / -750 -215 / -215 -340 / -340
Physical Exam
Physical Exam
GEN: NAD, out of bed to chair on room air
HEENT: mmm
LUNGS: Bronchovesicular breath sounds. Clear. No wheezes or rhonchi
CV: Regular. Positive S1-S2. 1/6 SM. + PPM
ABD: Soft, nontender. Positive bowel
EXT: Trace edema B/L LE
[2024-05-27] MEDS: CORTEF 10 MG PO (17:09)
== END 2024-05-27 18:35 | disposition home health service (06) | DRG 193 ==
LOC: 2 NORTH 16:30
PROVIDERS: Clinical Nurse Specialist Family Health; Emergency Medicine; Nurse Practitioner; ADMITTING PHYSICIAN Hospitalist; ATTENDING PHYSICIAN Hospitalist; CONSULT PHYSICIAN Internal Medicine Cardiovascular Disease; EMERGENCY PHYSICIAN Emergency Medicine; FAMILY PHYSICIAN Nurse Practitioner Family
DX: J10.1 Influenza due to other identified influenza virus with other respiratory manifestations (principal); I50.31 Acute diastolic (congestive) heart failure; F02.811 Dementia in other diseases classified elsewhere, unspecified severity, with agitation; F02.83 Dementia in other diseases classified elsewhere, unspecified severity, with mood disturbance; E27.40 Unspecified adrenocortical insufficiency; R62.59 Other lack of expected normal physiological development in childhood; G20.A1 Parkinson's disease without dyskinesia, without mention of fluctuations; E78.00 Pure hypercholesterolemia, unspecified; E87.6 Hypokalemia; I11.0 Hypertensive heart disease with heart failure; Z95.0 Presence of cardiac pacemaker; I95.1 Orthostatic hypotension; R00.1 Bradycardia, unspecified; Z91.81 History of falling; Z87.891 Personal history of nicotine dependence; Z86.73 Personal history of transient ischemic attack (TIA), and cerebral infarction without residual deficits; Z86.718 Personal history of other venous thrombosis and embolism; Z86.14 Personal history of Methicillin resistant Staphylococcus aureus infection; Z79.899 Other long term (current) drug therapy; Z79.01 Long term (current) use of anticoagulants; Z79.82 Long term (current) use of aspirin; Z66 Do not resuscitate; I49.5 Sick sinus syndrome; Z20.822 Contact with and (suspected) exposure to COVID-19; K21.9 Gastro-esophageal reflux disease without esophagitis
CPT/HCPCS: 70450; 71101; 72125; 80048; 80053; 81003; 83605; 83735; 83880; 85025; 87040; 87070; 87502; 87811; 92526; 92610; 93005; 93306; 96360; 97110; 97116; 97163; 97167; 99285

== ENCOUNTER 2024-07-23 11:21 | Inpatient (IN) | payer OTHER, SELFPAY ==
[2024-07-22 16:25] VITALS: BP 102/69
[2024-07-22 17:41] LABS: Urine Albumin Negative (Neg - Trace); Urine Bilirubin Negative (Negative); Urine Character Clear (Clear); Urine Color Yellow; Urine Glucose Negative (Negative); Urine Ketone Negative (Negative); Urine Leukocyte Negative (Negative); Urine Nitrite Negative (Negative); Urine Occult Blood Negative (Negative); Urine Specific Gravity 1.015 (<1.030); Urine Urobilinogen Negative (Neg - 1+)
[2024-07-22 17:58] LABS: % Basophils 0.4 % (0-2); % Eosinophils 1.6 % (0-6); % Lymphocytes 24.8 % (20.5-51.1); % Neutrophils 65.2 % (42.2-75.2); Absolute Eosinophils 0.1 10^3/uL (0-0.7); Absolute Lymphocytes 1.2 10^3/uL (1.2-3.4); Absolute Monocytes 0.4 10^3/uL (0.1-0.6); Absolute Neutrophils 3.3 10^3/uL (1.4-6.5); Hematocrit 38.6 % (39.0-52.0); Hemoglobin 12.3 g/dL (13.0-18.0); Mean Corp Hgb Conc. 31.9 g/dL (33.0-37.0); Mean Corpuscular Hgb 29.5 pg (27.0-31.0); Mean Corpuscular Volume 92.6 fL (80.0-94.0); Mean Platelet Volume 10.8 fL (7.4-10.4); Nucleated Red Blood Cells % 0 % (-); Platelet Count 169 10^3/uL (130-400); Red Blood Cell Count 4.17 10^6/uL (4.70-6.10); Red Cell Dist. Width 14.2 % (11.5-14.5)
[2024-07-22 18:00] VITALS: BP 116/74
[2024-07-22 18:10] LABS: ALT (SGPT) 24 U/L (0-50); AST (SGOT) 31 U/L (17-59); Albumin 3.7 g/dl (3.5-5.0); Alkaline Phosphatase 70 U/L (38-126); Blood Urea Nitrogen 21 mg/dl (9-20); Calcium 8.6 mg/dl (8.4-10.2); Carbon Dioxide 31 mmol/L (22-30); Chloride 102 mmol/L (98-107); Glucose 95 mg/dl (70-99); Potassium 4.7 mmol/L (3.5-5.1); Sodium 138 mmol/L (135-145); Total Bilirubin 0.6 mg/dl (0.2-1.3); Total Protein 5.9 g/dl (6.3-8.2); eGFR > 60.00
[2024-07-22 18:20] LABS: Amphetamines Negative (Negative); Barbiturates Negative (Negative); Benzodiazepines Positive (Negative)
[2024-07-22 18:21] LABS: Buprenorphine Negative (Negative); Cocaine Negative (Negative); Marijuana Negative (Negative); Methadone Negative (Negative); Methamphetamines Negative (Negative); Opiates Negative (Negative); Phencyclidine Negative (Negative); Tricyclic Antidepressants Negative (Negative)
[2024-07-22 18:46] LABS: Fentanyl, Urine Negative (Negative)
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
[2024-07-22 21:04] VITALS: BP 123/81
--- NOTE | 2024-07-22 21:12 | HPS.HSE ---
Family Physician
-
Family Physician: NOT KNOW UNKNOWN - PT DOES
Chief Complaint
-
aggressive behaviors
History of Present Illness
Patient is a 69-year-old male with past medical history significant for dementia, essential hypertension, hyperlipidemia, anoxic brain injury after surgery/infection, CKD III, hx TIA and hx CVA who presented to [facility] ED for evaluation
of increasing aggressive behaviors. Patient was accompanied by his sister who states patient was recently residing in a nursing facility and was doing well so she took him home to live with her. She states that over the past few weeks he has had
increased agitation and aggressive behaviors. He has been abusive towards her with hitting and scratching. ED staff noted that he poured a coffee on sister upon arrival to the hospital. Patient reports that he has had multiple falls, generally is
able to walk up and down the steps and ambulate with a walker. He is unsure why or when he fell. He reported to ED staff that he recently hit head on the wall and was unable to see, he denies this to this provider. He also reported suicidal ideation
to ED staff, he was seen and cleared by crisis team per notes. Patient denies any recent illness, any discomfort or pain.
Medical History
Past Medical History
Past Medical History: Reports Other
Additional Past Medical History:
dementia
essential hypertension
hyperlipidemia
anoxic brain injury after surgery/infection
CKD III
hx TIA
hx CVA
irritable bowel syndrome with diarrhea
learning disability
GERD
Past Surgical History: Reports Other
Additional Past Surgical History:
bowel resection
cardiac pacemaker
Social History
Unable to obtain full social history at this time due to: Dementia
Family History
Family History: Not pertinent
Allergies / Home Medications
Allergies reflects when Allergies were last updated in [facility].
Home Medications with original date entered in [facility]
Allergy/Medication List:
Allergies
Allergy/AdvReac Type Severity Reaction Status Date / Time
No Known Allergies Allergy Verified 05/22/24 10:07
Home Medications
trazodone 100 mg tablet 100 mg PO HS Sleep 09/24/19
dicyclomine 20 mg tablet 20 mg PO TID Gastrointestinal issue 03/08/22
donepezil 10 mg tablet 10 mg PO HS Neurological Condition 07/04/23
gabapentin 100 mg capsule 100 mg PO BID Pain 07/04/23
omeprazole 40 mg capsule,delayed release 40 mg PO BID GERD 07/04/23
pravastatin 80 mg tablet 80 mg PO DAILY High Cholesterol 07/04/23
carbidopa 10 mg-levodopa 100 mg tablet 1 tab PO HS Neurological Condition 12/29/23
diazepam 10 mg tablet 10 mg PO QIDPRN PRN anxiety 12/29/23
divalproex 125 mg tablet,delayed release 125 mg PO BID Mental Health/Anxiety 12/29/23
mirtazapine 15 mg tablet 15 mg PO HS Mental Health/Anxiety 12/29/23
apixaban 5 mg tablet (Eliquis) 5 mg PO BID Blood clot prevention/tx #60 tabs 01/09/24
aspirin 81 mg tablet,delayed release 81 mg PO DAILY Blood clot prevention/tx #90 tabs 01/09/24
tamsulosin 0.4 mg capsule 0.4 mg PO HS Urinary issue #30 caps 01/09/24
furosemide 40 mg tablet (Lasix) 20 mg PO DAILY 07/22/24
Review of Systems
-
Unable to obtain full review of systems at this time due to: Dementia
Physical Exam
Vital Signs
Vital Signs
Temp Pulse Resp BP Pulse Ox
98.4 F 77 18 116/74 99
07/22/24 16:25 07/22/24 18:00 07/22/24 18:00 07/22/24 18:00 07/22/24 18:02
Physical Exam
General: Well Developed, Well Nourished, No Apparent Distress, Comfortable and Morbidly Obese
HEENT: NormoCephalic, Moist mucous membranes, Atraumatic, [place] Conjunctivae, Nose Appears Normal and Ears Appear Normal
Respiratory: Clear and Non Labored Respirations
Cardiac: S1/S2 and Regular Rhythm; No Murmur, Rub or Gallop
Breast: Deferred by me
GI: Soft, Non Tender, Non Distended and Normal Bowel Sounds; No Organomegaly
Rectal: Deferred by Provider
Genito-urinary: Deferred by me
Musculoskeletal: No Clubbing, No Cyanosis and No Edema
Neuro: Awake, Alert and Nonfocal/grossly intact
Psych: Calm
Laboratory Results
-
07/22/24 17:45
07/22/24 17:45
Laboratory Results
Total Bilirubin 0.6 mg/dl (0.2-1.3) 07/22/24 17:45
AST 31 U/L (17-59) 07/22/24 17:45
ALT 24 U/L (0-50) 07/22/24 17:45
Alkaline Phosphatase 70 U/L (38-126) 07/22/24 17:45
Data Reviewed
-
CT Scan: Report Reviewed by me (Head CT: 1. MODERATE to SEVERE DIFFUSE CEREBELLAR VOLUME LOSS. 2. Mild diffuse cerebral volume loss. 3. Mild periventricular white matter leukoaraiosis.)
Lab Data: Labs Reviewed by me
Impression/Plan
-
IMPRESSION/PLAN:
#dementia
#anoxic brain injury after surgery/infection
#depression
increased agitation and aggressive behaviors noted at home
Head CT: 1. MODERATE to SEVERE DIFFUSE CEREBELLAR VOLUME LOSS.
2. Mild diffuse cerebral volume loss.
3. Mild periventricular white matter leukoaraiosis.
UA: negative for UTI
- continue carbidopa-levodopa, diazepam, divalproex, donepezil, mirtazapine and trazodone
- consult case management for placement
#essential hypertension
- continue furosemide
#hyperlipidemia
- continue pravastatin
#CKD III
BUN 21, creat 1.2
- monitor BMP
#irritable bowel syndrome with diarrhea
- continue dicyclomine
#GERD
- continue omeprazole
#hx DVT
- continue Eliquis
#hx TIA
#hx CVA
#learning disability
Code status: DNR
DVT prophylaxis: Eliquis
[2024-07-22 22:00] VITALS: BP 100/47
[2024-07-22 22:02] VITALS: BMI 33.0
[2024-07-22] MEDS: FLUSH (NSS) 1 FLUSH IV (22:04)
--- NOTE | 2024-07-22 22:11 | W.PN.UPDATE ---
Update Note
Progress Note Update
This is an addendum to H&P written by REPAIR ELECTRIC MOTOR ASSEMBLER Sunitha Victoria
I saw and examined the patient.
The REPAIR ELECTRIC MOTOR ASSEMBLER's note was reviewed and I agree with the note.
Comment:
Mr. Luis Esteban is a 69 yo man with hx developmental delay, adrenal insufficiency, hx CVA, HFpEF, PPM placement 1998, depression, ambulatory dysfunction brought in by sister for increasing aggression at home.
Triage VS: T 98.4, P 69, RR 16, BP 102/69
LABS: WBC 5, Hg 12.3, PLT 169, Na 138, K+ 4.7, Cl 102, CO2 31, BUN 21, Cr 1.2, Glucose 95, liver enzymes WNL
UTox positive benzodiazepines
UA clear
HEAD CT
IMPRESSION:
1. MODERATE to SEVERE DIFFUSE CEREBELLAR VOLUME LOSS.
2. Mild diffuse cerebral volume loss.
3. Mild periventricular white matter leukoaraiosis.
Hx Developmental Delay
CVA
Uncontrolled Agitation at home
Ambulatory Dysfunction
-patient to be admitted to observation for placement
-PT/OT
-COMPUTER SCIENCE PROFESSOR Depakote, Valium PRN
-COMPUTER SCIENCE PROFESSOR Sinemet
-COMPUTER SCIENCE PROFESSOR Donepezil
HFpEF - continue COMPUTER SCIENCE PROFESSOR lasix
Bradycardia, hx PPM
BPH - COMPUTER SCIENCE PROFESSOR Flomax
DVT - COMPUTER SCIENCE PROFESSOR Eliquis
Depression - COMPUTER SCIENCE PROFESSOR Remeron
Remainder of plan per REPAIR ELECTRIC MOTOR ASSEMBLER note
[2024-07-22] MEDS: FLOMAX 0.4 MG PO (23:45)
[2024-07-22] MEDS: ELIQUIS 5 MG PO (23:45)
[2024-07-22] MEDS: REMERON 15 MG PO (23:46)
[2024-07-22] MEDS: DESYREL 100 MG PO (23:46)
[2024-07-22] MEDS: ARICEPT 10 MG PO (23:46)
[2024-07-22] MEDS: SINEMET 10-100 1 TABLET PO (23:47)
[2024-07-22 23:54] VITALS: BP 101/76
[2024-07-23] VITALS (9 sets, daily range): BP systolic 90–119; BP diastolic 61–79; PULSE 54; O2SAT 93–95; BMI 31.3
[2024-07-23] MEDS: PROTONIX 40 MG PO ×2 (08:55→20:38)
--- NOTE | 2024-07-23 08:55 | CM ---
CM reviewed medical. Patient continued to have aggressive behaviors and is currently on a 1:1. CM updated CM director with discharge barriers.
CM requested psychiatry consult
[2024-07-23] MEDS: DEPAKOTE (12 HR RELEASE) 125 MG PO (08:56)
[2024-07-23] MEDS: ASPIR LOW (ENTERIC COATED) 81 MG PO (08:56)
[2024-07-23] MEDS: TYLENOL 650 MG PO (08:56)
[2024-07-23] MEDS: NEURONTIN 100 MG PO ×2 (08:56→20:38)
[2024-07-23] MEDS: ELIQUIS 5 MG PO ×2 (08:56→20:38)
[2024-07-23] MEDS: PRAVACHOL 80 MG PO (08:56)
[2024-07-23] MEDS: BENTYL 20 MG PO ×3 (08:56→21:11)
[2024-07-23 11:00] LABS: Ammonia 12 umol/L (9-30)
--- NOTE | 2024-07-23 11:06 | W.PN.HOSP.TC ---
Today's Communication/Plan
-
IV Lasix
Echo BNP
adjusted psych meds as listed d/w Psych
Psych considering [facility] placement
Assessment / Plan
Assessment / Plan
Assessment:
Dementia with agitated behaviors
Underlying developmental delay and hx of brain injury
HX of Depression
- CT: MODERATE to SEVERE DIFFUSE CEREBELLAR VOLUME LOSS
- check serological workup
- continue Depakote increased to 250mg TID
- continue Gabapentin - keep same dose
- continue Trazodone
- wean Valium - at home on 10mg TID - reduce to 10mg BID and 5mg HS
- continue Donepezil HS
- prn Seroquel
- check baseline QTC and AM QTC
- PT/OT evals
- Psych considering [facility]-psych placement
Hx of CVA
hx of HLD
- statin/ASA
Acute on chronic HFpEF
- with 2+ Edema LE
- check BNP
- check Echo
- hold oral Lasix; start IV Lasix - requires intensive monitoring of levels
Hx of bradycardia (with hx of PPM)
Hx of Parkinson's disease
- on Sinemet
Hx of BPH - Flomax
DVT ppx: Eliquis
Code: Full
Anticipated Discharge: > 48 hours
Subjective/Interval History
-
Date of Service: July 23, 2024
resting comfortably, no complaint at present
Objective Data
-
Vital Signs:
Vital Signs
Temp Pulse Resp BP Pulse Ox
97.7 F 77 18 106/66 93
07/23/24 09:05 07/22/24 18:00 07/22/24 18:00 07/23/24 06:00 07/23/24 07:15
Physical Exam
-
General: No Apparent Distress
HEENT: Normocephalic and Atraumatic
Respiratory: Negative Wheezes
Cardiac: Regular Rhythm and S1/S2
GI: Soft and Nontender
Musculoskeletal: Edema, Right Lower Extrem and Edema, Left Lower Extrem
Neuro: AO x 3
Hematologic / Lymphatic: No Lymphadenopathy
Psych: Calm
Data Reviewed
-
Total Time Spent with Patient (in minutes): 51
Labs: Labs Reviewed by me
--- NOTE | 2024-07-23 11:15 | CON.MD ---
Consultation - Medical
-
patient seen chart reviewed. discussed with dr ragland. spoke at length w patient's sister. the patient is a poor historian although he does admit to being agitated and aggressive at home w his sister bc she cursed at him. sister reports patient who
came to live with her after a stay in correction months ago (see medical hx below) has been increasingly aggressive over the past three weeks or so. she actually brought him to the er yesterday bc of headache not aggression. she feared he may
have a brain tumor or an aneurysm and in the process of getting him into the er he threw coffee on her . he also has scratched her many times over the past few weeks and has been verbally aggressive to her. his pcp has medicated him with valium.
initially 10 mg bid then a couple of months ago tid. it has not helped in fact it may have made him worse. the patient has hx of dementia. he was brain injured at not clear exactly type of injury and was in special schools his whole life
but he did graduate hs. sister has been his transit bus driver and is not mpoa. the patient has parkinson's disease for which he has been treated. see below for list of other medical issues. his current psych meds include valium 10 mg tid depakote 125 mg
bid aricept 10 q day mirtazapine presumably 10 mg q hs for sleep trazodone 100 mg q hs for sleep.
past psych hx patient has never been hospitalized psychiatrically.
past medical hx patient w hx many medical comorbidities including but not limited to PD w hx falls hx anoxic brain [facility] at [facility] htn pacemaker chf ibs hld ckd gerd chronic pain for which takes gabapentin hx bowel obstruction w temporary
colostomy which when reversed was complicated by mrsa infection which necessitated helicopter evac downtown, dvt, hearing impaired bph. cat brain shows no new findings but cerebellar and cerebral atrophy walks w walker labs so far unremarkable
some pending. ecg pending
social resides w sister who is very supportive
substance abuse denied
fh non contributory
mse alert oriented to person and hospital patient is hard of hearing (hearing aids coming) and did not necessarily hear my questions accurately thought process appears rather disorganized no overt psychosis mood is irritable affect labile no si
verbalized admits to aggression w sister cognition impaired insight judgment lacking
dx dementia w behavioral disturbance benzodiazepine dependence
plan discussed meds w dr ragland. increase depakote to 250 mg tid check level. dc remeron as too many sedating meds at hs. taper valium slowly total 25 mg daily to start down from 30 prn seroquel 25 mg. monitor response. b12 folate tsh all
pending. after medical clearance would suggest peg psych unit. will follow
--- NOTE | 2024-07-23 11:24 | CM ---
Addendum entered by Juanita Carmona RN 07/23/24 13:38:
RAQUEL spoke with Hussein from [facility]. He is requesting additional clinical. CM faxed labs, and head CT to [facility]. CM requested chest xray.
Addendum entered by Juanita Carmona RN 07/23/24 11:44:
Raquel faxed clinical to [facility]. RAQUEL spoke with Arabella at [facility] to updated that new referral is being faxed.
RAQUEL faxed clinical to [facility].
Addendum entered by Juanita Carmona RN 07/23/24 11:29:
CM left message with patient's sister to discuss discharge options.
Original Note:
RAQUEL was advised that patient would be appropriate for inpatient [facility]-psych. RAQUEL was updated by hospitalist that patient would not be medically ready for 48 hours.
RAQUEL left message for Keenan at [facility] to initiate referral.
[2024-07-23] MEDS: LASIX 20 MG IV (14:50)
[2024-07-23] MEDS: VALIUM 10 MG PO (16:40)
[2024-07-23] MEDS: DEPAKOTE (12 HR RELEASE) 250 MG PO ×2 (16:40→21:11)
--- NOTE | 2024-07-23 17:00 | PTCARENOTE ---
Received pt from ED via wheelchair. AAOx1-2. Forgetful. Bed alarm placed and plugged in. Pt ambulated to bed with assist x1. Pleasant. VSS. No complaints of pain. Call ortega within close reach. Will continue to monitor.
[2024-07-23] MEDS: SINEMET 10-100 1 TABLET PO (21:10)
[2024-07-23] MEDS: ARICEPT 10 MG PO (21:10)
[2024-07-23] MEDS: FLOMAX 0.4 MG PO (21:10)
[2024-07-23] MEDS: VALIUM 5 MG PO (21:11)
[2024-07-23] MEDS: DESYREL 100 MG PO (21:11)
[2024-07-23 21:17] LABS: TSH Reflex To Free T4 3.01 uIU/ml (0.47-4.68)
[2024-07-23 21:35] LABS: Amphetamines Negative (Negative); Barbiturates Negative (Negative); Benzodiazepines Positive (Negative); Buprenorphine Negative (Negative); Cocaine Negative (Negative); Marijuana Negative (Negative); Methadone Negative (Negative); Methamphetamines Negative (Negative); Opiates Negative (Negative); Phencyclidine Negative (Negative); Tricyclic Antidepressants Negative (Negative)
[2024-07-23 21:45] LABS: Fentanyl, Urine Negative (Negative)
[2024-07-23 21:52] LABS: Folate 7.6 ng/ml (2.76-20); Vitamin B12 473 pg/ml (239-931)
[2024-07-24] MEDS: TYLENOL 650 MG PO (04:53)
[2024-07-24 05:31] VITALS: BMI 31.0
[2024-07-24 05:48] VITALS: BMI 31.0
[2024-07-24 07:10] VITALS: BP 103/66
[2024-07-24] MEDS: ASPIR LOW (ENTERIC COATED) 81 MG PO (09:02)
[2024-07-24] MEDS: NEURONTIN 100 MG PO ×2 (09:02→20:46)
[2024-07-24] MEDS: PRAVACHOL 80 MG PO (09:02)
[2024-07-24] MEDS: PROTONIX 40 MG PO ×2 (09:02→20:46)
[2024-07-24] MEDS: DEPAKOTE (12 HR RELEASE) 250 MG PO ×3 (09:02→21:01)
[2024-07-24] MEDS: LASIX 20 MG IV (09:03)
[2024-07-24] MEDS: ELIQUIS 5 MG PO ×2 (09:03→20:46)
[2024-07-24] MEDS: BENTYL 20 MG PO ×3 (09:03→21:01)
[2024-07-24] MEDS: VALIUM 10 MG PO ×2 (09:03→15:27)
[2024-07-24 09:44] LABS: Procalcitonin < 0.05 ng/ml (0.0-0.25)
[2024-07-24 09:49] LABS: Hematocrit 45.7 % (39.0-52.0); Mean Corp Hgb Conc. 32.8 g/dL (33.0-37.0); Mean Corpuscular Hgb 29.6 pg (27.0-31.0); Mean Corpuscular Volume 90.1 fL (80.0-94.0); Mean Platelet Volume 10.5 fL (7.4-10.4); Platelet Count 186 10^3/uL (130-400); Red Blood Cell Count 5.07 10^6/uL (4.70-6.10); Red Cell Dist. Width 14.3 % (11.5-14.5); White Blood Cell Count 6.5 10^3/uL (4.8-10.8)
--- NOTE | 2024-07-24 10:46 | W.PN.HOSP.TC ---
Today's Communication/Plan
-
transition back to oral Lasix tomorrow
johanne-psych placement pending
Assessment / Plan
Assessment / Plan
Echo:
Normal left ventricular size with low normal LV systolic function
Left ventricular ejection fraction visually estimated 50%
Normal RV size and systolic function
Right-sided device wires present
Structurally normal mitral valve with mildly thickened leaflets with adequate
systolic excursion. Trace mitral regurgitation
No aortic stenosis. No aortic regurgitation is seen.
Moderate tricuspid regurgitation.
Estimated pulmonary artery pressure of 20-25 mmHg. Assuming a right atrial
pressure of 3 mmHg.
Prominent anterior fat pad present. No pericardial effusion.
Mildly dilated aortic root. Sinus of Valsalva 3.8 cm
Compared to prior study dated 05/25/2024, LV ejection fraction remains similar.
Trach is regurgitation remains moderate. Estimated pulmonary artery pressures
have improved, previously 30-35 mmHg.
Assessment:
Dementia with agitated behaviors
Underlying developmental delay and hx of brain injury
HX of Depression
- CT: MODERATE to SEVERE DIFFUSE CEREBELLAR VOLUME LOSS
- metabolic workup otherwise negative
- continue Depakote increased to 250mg TID
- continue Gabapentin - keep same dose
- continue Trazodone
- wean Valium - at home on 10mg TID - reduce to 10mg BID and 5mg HS
- continue Donepezil HS
- prn Seroquel
- follow QTc
- PT/OT evals
- Psych considering [facility]-psych placement
Hx of CVA
hx of HLD
- statin/ASA
Acute on chronic HFpEF
- with 2+ Edema LE
- s/p doses IV Lasix; transition back to PO Lasix
- Echo summarized above
Hx of bradycardia (with hx of PPM)
Hx of Parkinson's disease
- on Sinemet
Hx of BPH - Flomax
DVT ppx: Eliquis
Code: Full
Anticipated Discharge: > 48 hours
Subjective/Interval History
-
Date of Service: July 24, 2024
resting comfortably, no complaints
Objective Data
-
Labs:
Laboratory Results
07/24/24
08:57
WBC 6.5
Hgb 15.0 D
Hct 45.7
Plt Count 186
Sodium Pending
Potassium Pending
Chloride Pending
Carbon Dioxide Pending
BUN Pending
Creatinine Pending
Glucose Pending
Calcium Pending
Vital Signs:
Vital Signs
Temp Pulse Resp BP Pulse Ox
97.8 F 62 16 103/66 95
07/24/24 07:10 07/24/24 07:10 07/24/24 07:10 07/24/24 07:10 07/24/24 07:10
I&O
07/23/24 07/24/24 07/25/24
06:59 06:59 06:59
Intake Total 720 / 720
Output Total 650 / 650
Balance 70 / 70
Physical Exam
-
General: No Apparent Distress
HEENT: Normocephalic and Atraumatic
Respiratory: Negative Wheezes
Cardiac: Regular Rhythm and S1/S2
GI: Soft and Nontender
Genito-urinary: No Costovertebral Tender
Musculoskeletal: No Edema
Neuro: AO x 3
Psych: Calm
Data Reviewed
-
Total Time Spent with Patient (in minutes): 42
Labs: Labs Reviewed by me
--- NOTE | 2024-07-24 14:25 | W.PN.UPDATE ---
Update Note
Progress Note Update
Psychiatry follow up. Chart reviewed. Yesterday, Depakote was increased to 250mg TID, remeron was discontinued and a slow valium taper was initiated (decreased to 25mg daily from 30mg daily). He also has seroquel 25mg q8 PRN available and takes
Aricept and trazodone.
B12/Folate and TSH reflex WNL
Patient seen sitting in chair sleeping but easily awakened. He states he is doing well today. He denies pain. He states he slept well last night and is eating ok. He has no complaints. He is oriented to person, place, year, month at this time.
A/P-dx dementia w behavioral disturbance; benzodiazepine dependence
Continue current regimen for now. Check depakote level 5 days after dose increase. after medical clearance, recommendation is for [facility]-psych placement. Psychiatry will follow.
[2024-07-24 15:35] LABS: Blood Urea Nitrogen 18 mg/dl (9-20); Calcium 9.4 mg/dl (8.4-10.2); Carbon Dioxide 29 mmol/L (22-30); Chloride 102 mmol/L (98-107); Estimated Creatinine Clearance 68 ml/min; Glucose 93 mg/dl (70-99); Magnesium 2.1 mg/dl (1.6-2.3); Potassium 4.8 mmol/L (3.5-5.1); Sodium 138 mmol/L (135-145); eGFR > 60.00
[2024-07-24 15:50] VITALS: BP 105/66
[2024-07-24] MEDS: SINEMET 10-100 1 TABLET PO (21:01)
[2024-07-24] MEDS: VALIUM 5 MG PO (21:01)
[2024-07-24] MEDS: FLOMAX 0.4 MG PO (21:01)
[2024-07-24] MEDS: ARICEPT 10 MG PO (21:01)
[2024-07-24] MEDS: DESYREL 100 MG PO (21:01)
[2024-07-24 22:19] VITALS: BP 103/66
[2024-07-25 05:36] VITALS: BMI 30.9
[2024-07-25] MEDS: DEPAKOTE (12 HR RELEASE) 250 MG PO ×3 (07:47→21:05)
[2024-07-25] MEDS: LASIX 20 MG PO (07:47)
[2024-07-25] MEDS: PRAVACHOL 80 MG PO (07:47)
[2024-07-25] MEDS: ELIQUIS 5 MG PO ×2 (07:47→20:00)
[2024-07-25] MEDS: BENTYL 20 MG PO ×3 (07:48→21:05)
[2024-07-25] MEDS: NEURONTIN 100 MG PO ×2 (07:48→20:00)
[2024-07-25] MEDS: VALIUM 10 MG PO ×2 (07:48→16:38)
[2024-07-25] MEDS: ASPIR LOW (ENTERIC COATED) 81 MG PO (07:48)
[2024-07-25] MEDS: PROTONIX 40 MG PO ×2 (07:48→20:00)
[2024-07-25 07:49] LABS: Hemoglobin 14.8 g/dL (13.0-18.0); Mean Corp Hgb Conc. 32.2 g/dL (33.0-37.0); Mean Corpuscular Hgb 29.4 pg (27.0-31.0); Mean Corpuscular Volume 91.5 fL (80.0-94.0); Mean Platelet Volume 10.6 fL (7.4-10.4); Platelet Count 222 10^3/uL (130-400); Red Blood Cell Count 5.03 10^6/uL (4.70-6.10); Red Cell Dist. Width 14.6 % (11.5-14.5); White Blood Cell Count 7.2 10^3/uL (4.8-10.8)
[2024-07-25 08:00] VITALS: BP 102/81
[2024-07-25 08:20] LABS: Blood Urea Nitrogen 21 mg/dl (9-20); Calcium 9.4 mg/dl (8.4-10.2); Carbon Dioxide 31 mmol/L (22-30); Chloride 97 mmol/L (98-107); Estimated Creatinine Clearance 62 ml/min; Glucose 99 mg/dl (70-99); Potassium 4.8 mmol/L (3.5-5.1); Sodium 138 mmol/L (135-145); eGFR > 60.00
[2024-07-25 10:35] VITALS: BP 114/67; PULSE 68; O2SAT 94
--- NOTE | 2024-07-25 12:32 | W.PN.HOSP.TC ---
Today's Communication/Plan
-
Medically stable for DC pending placement
Assessment / Plan
Assessment / Plan
Echo:
Normal left ventricular size with low normal LV systolic function
Left ventricular ejection fraction visually estimated 50%
Normal RV size and systolic function
Right-sided device wires present
Structurally normal mitral valve with mildly thickened leaflets with adequate
systolic excursion. Trace mitral regurgitation
No aortic stenosis. No aortic regurgitation is seen.
Moderate tricuspid regurgitation.
Estimated pulmonary artery pressure of 20-25 mmHg. Assuming a right atrial
pressure of 3 mmHg.
Prominent anterior fat pad present. No pericardial effusion.
Mildly dilated aortic root. Sinus of Valsalva 3.8 cm
Compared to prior study dated 05/25/2024, LV ejection fraction remains similar.
Trach is regurgitation remains moderate. Estimated pulmonary artery pressures
have improved, previously 30-35 mmHg.
Assessment:
Dementia with agitated behaviors
Underlying developmental delay and hx of brain injury
HX of Depression
- CT: MODERATE to SEVERE DIFFUSE CEREBELLAR VOLUME LOSS
- metabolic workup otherwise negative
- continue Depakote increased to 250mg TID
- continue Gabapentin - keep same dose
- continue Trazodone
- wean Valium - at home on 10mg TID - reduce to 10mg BID and 5mg HS
- continue Donepezil HS
- prn Seroquel
- follow QTc
- PT/OT evals - SNF
- Psych considering [facility]-psych placement
Hx of CVA
hx of HLD
- statin/ASA
Acute on chronic HFpEF
- with 2+ Edema LE
- s/p doses IV Lasix; transition back to PO Lasix
- Echo summarized above
Hx of bradycardia (with hx of PPM)
Hx of Parkinson's disease
- on Sinemet
Hx of BPH - Flomax
DVT ppx: Eliquis
Code: Full
Anticipated Discharge: 24 - 48 hours
Subjective/Interval History
-
Date of Service: July 25, 2024
no complaints
Objective Data
-
Labs:
Laboratory Results
07/25/24
07:21
WBC 7.2
Hgb 14.8
Hct 46.0
Plt Count 222
Sodium 138
Potassium 4.8
Chloride 97 L
Carbon Dioxide 31 H
BUN 21 H
Creatinine 1.2
Glucose 99
Calcium 9.4
Vital Signs:
Vital Signs
Temp Pulse Resp BP Pulse Ox
98.4 F 94 16 102/81 95
07/25/24 08:00 07/25/24 08:00 07/25/24 08:00 07/25/24 08:00 07/25/24 08:00
I&O
07/24/24 07/25/24 07/26/24
06:59 06:59 06:59
Intake Total 720 / 720 1360 / 1360
Output Total 650 / 650 250 / 250
Balance 70 / 70 1110 / 1110
Physical Exam
-
General: No Apparent Distress
HEENT: Normocephalic and Atraumatic
Respiratory: Negative Wheezes
Cardiac: Regular Rhythm and S1/S2
GI: Soft
Genito-urinary: No Costovertebral Tender
Neuro: AO x 3
Psych: Calm
Data Reviewed
-
Total Time Spent with Patient (in minutes): 41
Labs: Labs Reviewed by me
[2024-07-25 16:04] VITALS: BP 100/77
[2024-07-25] MEDS: FLOMAX 0.4 MG PO (21:05)
[2024-07-25] MEDS: DESYREL 100 MG PO (21:05)
[2024-07-25] MEDS: VALIUM 5 MG PO (21:05)
[2024-07-25] MEDS: ARICEPT 10 MG PO (21:05)
[2024-07-25] MEDS: SINEMET 10-100 1 TABLET PO (21:06)
[2024-07-25 22:59] VITALS: BP 113/66
[2024-07-26 05:22] VITALS: BMI 31.1
[2024-07-26 07:22] VITALS: BP 111/67
[2024-07-26] MEDS: NEURONTIN 100 MG PO ×2 (07:58→21:15)
[2024-07-26] MEDS: ASPIR LOW (ENTERIC COATED) 81 MG PO (07:59)
[2024-07-26] MEDS: LASIX 20 MG PO (07:59)
[2024-07-26] MEDS: PRAVACHOL 80 MG PO (07:59)
[2024-07-26] MEDS: PROTONIX 40 MG PO ×2 (07:59→21:14)
[2024-07-26] MEDS: BENTYL 20 MG PO ×3 (08:00→21:16)
[2024-07-26] MEDS: ELIQUIS 5 MG PO ×2 (08:00→21:14)
[2024-07-26] MEDS: DEPAKOTE (12 HR RELEASE) 250 MG PO ×3 (08:00→21:16)
[2024-07-26] MEDS: VALIUM 10 MG PO ×2 (08:00→15:34)
[2024-07-26 09:50] LABS: Hematocrit 41.6 % (39.0-52.0); Hemoglobin 13.4 g/dL (13.0-18.0); Mean Corp Hgb Conc. 32.2 g/dL (33.0-37.0); Mean Corpuscular Hgb 29.3 pg (27.0-31.0); Mean Platelet Volume 11.2 fL (7.4-10.4); Platelet Count 209 10^3/uL (130-400); Red Blood Cell Count 4.57 10^6/uL (4.70-6.10); Red Cell Dist. Width 14.7 % (11.5-14.5)
[2024-07-26 10:31] LABS: Blood Urea Nitrogen 19 mg/dl (9-20); Calcium 8.9 mg/dl (8.4-10.2); Carbon Dioxide 28 mmol/L (22-30); Chloride 99 mmol/L (98-107); Estimated Creatinine Clearance 62 ml/min; Glucose 87 mg/dl (70-99); Potassium 4.5 mmol/L (3.5-5.1); Sodium 136 mmol/L (135-145); eGFR > 60.00
--- NOTE | 2024-07-26 12:20 | W.PN.HOSP.TC ---
Today's Communication/Plan
-
Awaiting placement
Assessment / Plan
Assessment / Plan
Gen-awake, alert, oriented, NAD
HEENT-NC, AT, anicteric, clear oral mm
Neck-supple
CV-reg, no M, +S1/S2
Lungs-clear B/L
Abd-soft, NT, ND
Ext-no edema
Musculoskeletal-no cyanosis, clubbing
Skin-warm and dry
Neuro-grossly non-focal
Psych-calm, cooperative
Dementia with agitated behaviors
Underlying developmental delay and hx of brain injury
HX of Depression
- CT: MODERATE to SEVERE DIFFUSE CEREBELLAR VOLUME LOSS
- metabolic workup otherwise negative
- continue Depakote increased to 250mg TID
- continue Gabapentin - keep same dose
- continue Trazodone
- wean Valium - at home on 10mg TID - reduce to 10mg BID and 5mg HS
- continue Donepezil HS
- prn Seroquel
- follow QTc
- PT/OT evals - SNF
- Psych considering [facility]-psych placement
History of stroke -continue aspirin, statin.
Hyperlipidemia -on pravastatin.
Acute on chronic HFpEF
- with 2+ Edema LE
- s/p doses IV Lasix; transition back to PO Lasix
- Echo shows LVEF 50%, normal RV size and systolic function, moderate TR, no change in LV ejection fraction compared to May echocardiogram.
Hx of bradycardia (with hx of PPM)
Hx of Parkinson's disease
- on Sinemet
Hx of BPH - Flomax
DVT ppx: Eliquis
Code: Full
Dispo -stable for placement. Case management aware.
Anticipated Discharge: Within 24 hours
Subjective/Interval History
-
Date of Service: July 26, 2024
Patient seen and examined. No complaints.
Objective Data
-
Labs:
Laboratory Results
07/26/24
07:51
WBC 6.0
Hgb 13.4
Hct 41.6
Plt Count 209
Sodium 136
Potassium 4.5
Chloride 99
Carbon Dioxide 28
BUN 19
Creatinine 1.2
Glucose 87
Calcium 8.9
Vital Signs:
Vital Signs
Temp Pulse Resp BP Pulse Ox
98.2 F 67 17 111/67 94
07/26/24 07:22 07/26/24 07:59 07/26/24 07:22 07/26/24 07:59 07/26/24 07:22
I&O
07/25/24 07/26/24 07/27/24
06:59 06:59 06:59
Intake Total 1360 / 1360 900 / 900
Output Total 250 / 250
Balance 1110 / 1110 900 / 900
Review of Systems
-
History Source: Patient
All other systems: Reviewed and negative
[2024-07-26 15:14] VITALS: BP 124/85
[2024-07-26] MEDS: FLOMAX 0.4 MG PO (21:15)
[2024-07-26] MEDS: SINEMET 10-100 1 TABLET PO (21:16)
[2024-07-26] MEDS: DESYREL 100 MG PO (21:16)
[2024-07-26] MEDS: VALIUM 5 MG PO (21:16)
[2024-07-26] MEDS: ARICEPT 10 MG PO (21:17)
[2024-07-26 23:52] VITALS: BP 111/73
[2024-07-27 07:09] VITALS: BP 100/67
[2024-07-27 08:08] LABS: Depakane 49.8 ug/ml (50.0-120.0)
[2024-07-27] MEDS: DEPAKOTE (12 HR RELEASE) 250 MG PO ×3 (08:08→21:12)
[2024-07-27] MEDS: PROTONIX 40 MG PO ×2 (08:09→20:26)
[2024-07-27] MEDS: ASPIR LOW (ENTERIC COATED) 81 MG PO (08:09)
[2024-07-27] MEDS: BENTYL 20 MG PO ×3 (08:09→21:13)
[2024-07-27] MEDS: NEURONTIN 100 MG PO ×2 (08:09→20:26)
[2024-07-27] MEDS: PRAVACHOL 80 MG PO (08:09)
[2024-07-27] MEDS: ELIQUIS 5 MG PO ×2 (08:10→20:26)
[2024-07-27] MEDS: LASIX 20 MG PO (08:10)
[2024-07-27] MEDS: VALIUM 10 MG PO ×2 (08:12→16:06)
--- NOTE | 2024-07-27 10:49 | W.PN.HOSP.TC ---
Today's Communication/Plan
-
Discharge planning
Assessment / Plan
Assessment / Plan
Gen-awake, alert, oriented, NAD
HEENT-NC, AT, anicteric, clear oral mm
Neck-supple
CV-reg, no M, +S1/S2
Lungs-clear B/L
Abd-soft, NT, ND
Ext-no edema
Musculoskeletal-no cyanosis, clubbing
Skin-warm and dry
Neuro-grossly non-focal
Psych-calm, cooperative
Dementia with agitated behaviors -behaviors are now under good control. No issues. Psychiatry service no longer recommends inpatient psychiatric hospitalization.
Underlying developmental delay and hx of brain injury
HX of Depression
- CT: MODERATE to SEVERE DIFFUSE CEREBELLAR VOLUME LOSS
- metabolic workup otherwise negative
- continue Depakote increased to 250mg TID
- continue Gabapentin - keep same dose
- continue Trazodone
- wean Valium - at home on 10mg TID - reduce to 10mg BID and 5mg HS
- continue Donepezil HS
- prn Seroquel
- follow QTc
- PT/OT evals - SNF
History of stroke -continue aspirin, statin.
Hyperlipidemia -on pravastatin.
Acute on chronic HFpEF
- with 2+ Edema LE
- s/p doses IV Lasix; transition back to PO Lasix
- Echo shows LVEF 50%, normal RV size and systolic function, moderate TR, no change in LV ejection fraction compared to May echocardiogram.
Hx of bradycardia (with hx of PPM)
Hx of Parkinson's disease
- on Sinemet
Hx of BPH - Flomax
DVT ppx: Eliquis
Code: Full
Dispo -stable for placement in SNF. Case management aware.
Anticipated Discharge: Within 24 hours
Subjective/Interval History
-
Date of Service: July 27, 2024
Patient seen and examined. No complaints.
Objective Data
-
Vital Signs:
Vital Signs
Temp Pulse Resp BP Pulse Ox
98.2 F 74 17 113/74 95
07/27/24 07:09 07/27/24 08:10 07/27/24 07:09 07/27/24 08:10 07/27/24 07:09
I&O
07/26/24 07/27/24 07/28/24
06:59 06:59 06:59
Intake Total 900 / 900 1320 / 1320
Output Total 850 / 850
Balance 900 / 900 470 / 470
Review of Systems
-
History Source: Patient
All other systems: Reviewed and negative
--- NOTE | 2024-07-27 13:08 | CM ---
Patient chart reviewed
spoke with sister Jennifer regarding PT rec SNF
Patient sister prefers [facility] since the patient was there in [place].
Referral for [facility] entered in [facility] - spoke with Ora pulido
Will need insurance auth once accepted & bed secured
PLAN: SNF, pending bed availability
--- NOTE | 2024-07-27 14:19 | W.PN.UPDATE ---
Update Note
Progress Note Update
Pt seen, sitting up in chair, alert, calm, pleasant, with no complaints. Pt making eye contact, answering, states he feels well. No agitation. Pt has not received any doses of prn Seroquel.
Imp: Dementia with behavior disturbance, appears stable on current medications. Inpatient johanne-psych tx does not appear to be indicated
Rec: continue current psych med regimen. Will follow peripherally
[2024-07-27 15:20] VITALS: BP 112/66
[2024-07-27 15:56] VITALS: BP 109/71; PULSE 72
[2024-07-27] MEDS: SINEMET 10-100 1 TABLET PO (21:12)
[2024-07-27] MEDS: VALIUM 5 MG PO (21:12)
[2024-07-27] MEDS: FLOMAX 0.4 MG PO (21:13)
[2024-07-27] MEDS: ARICEPT 10 MG PO (21:13)
[2024-07-27] MEDS: DESYREL 100 MG PO (21:13)
[2024-07-27 23:35] VITALS: BP 115/89
--- NOTE | 2024-07-28 04:52 | DOWNTIME ---
There was a [employer] Client Collator Downtime on 07/28/2024 from 0100 to 07/29/2023 at 0420 . Downtime documentation of patient's care, including medication administrations, has been reconciled in the electronic record per guidelines. Refer to the
patient's paper chart under the miscellaneous tab to see printed paper medication records and downtime forms.
[2024-07-28 07:23] VITALS: BP 108/64
[2024-07-28] MEDS: TYLENOL 650 MG PO (07:31)
[2024-07-28] MEDS: ELIQUIS 5 MG PO ×2 (07:31→20:55)
[2024-07-28] MEDS: PROTONIX 40 MG PO ×2 (07:31→21:11)
[2024-07-28] MEDS: BENTYL 20 MG PO ×3 (07:31→21:00)
[2024-07-28] MEDS: DEPAKOTE (12 HR RELEASE) 250 MG PO ×3 (07:31→21:01)
[2024-07-28] MEDS: PRAVACHOL 80 MG PO (07:31)
[2024-07-28] MEDS: LASIX 20 MG PO (07:31)
[2024-07-28] MEDS: NEURONTIN 100 MG PO ×2 (07:31→20:55)
[2024-07-28] MEDS: VALIUM 10 MG PO ×2 (07:31→21:00)
[2024-07-28] MEDS: ASPIR LOW (ENTERIC COATED) 81 MG PO (07:31)
--- NOTE | 2024-07-28 10:01 | CM ---
PT rec HH
spoke with sister Jennifer & is agreeable, has had home health in past - options reviewed, prefers [facility]
CM consult complete
Notified liaison from [facility] - referral to be added in careport
Sister states his PCP is [facility] [phone]
Sister also stated that [address] - she lives with him at this address
Her address is where his mail is delivered: [address] [place] [address] Rd, [place] [address]
PLAN: Home with [facility]
sister to transport
--- NOTE | 2024-07-28 10:08 | VNURNOTE ---
Home Health Liaison met with patient's sister Jennifer to discuss [facility] nurse/therapy, visits, schedule and homebound status. She is agreeable and understands that visits at home will be 2-3 x per week for PT and OT. She is aware that [facility] will contact
them for start of care in 1-2 days after discharge from . [facility] referral completed in Care Port.
[2024-07-28 10:38] VITALS: BP 104/67; BP 106/66; BP 119/67; PULSE 69; PULSE 79; PULSE 83
--- NOTE | 2024-07-28 10:53 | PTCARENOTE ---
Addendum entered by Oliverio Liz RN 07/29/24 14:59:
Dr. Blandon notified.
Original Note:
Pt hit call ortega and asked for assistance walking to bathroom. chair alarm in place. RN assisted pt up from chair with RW. Upon standing from chair pt had episode of bowel incontinence on floor. Pt was able to walk into bathroom with RN and was
seated on the toilet. RN began to clean floor while pt sitting on the toilet. Pt attempted to stand on own and wipe self. Upon standing pt began to fall forward. RN was able to catch patient and lower him to the floor safely. Pt did not hit head.
Small skin tear noted to L knee. Foam dressing applied. Pt with no complaints of pain. Pt denied dizziness at time of fall. Pt assisted up from floor by RN and PCT back to toilet. Pt then assisted back to chair by RN and PCT with RW. Chair alarm in
place. Call ortega in reach.
--- NOTE | 2024-07-28 11:25 | W.PN.UPDATE ---
Update Note
Progress Note Update
patient seen chart reviewed. spoke with nursing as well as dr wing. the patient was scheduled to go home w vna but he had an episode this am where he appeared a little unsteady and became incontinent. when i saw him he was quite pleasant. he
actually told me he had had 'an accident' this am. he also told me the people were 'very nice' here. he has not required a prn in the past 24 hours plus. at this point would continue to taper the valium. have reduced it to total 20 mg to begin
tomorrow. his depakote level is 49. i would increase it if he becomes agitated or combative again. therapeutic is usually 50 to 100. will look in on him tomorrow if here is here.
--- NOTE | 2024-07-28 12:24 | W.PN.HOSP.TC ---
Addendum entered and electronically signed by Everett Blandon DO 07/28/24 17:49:
From a PT/OT standpoint the patient is stable for discharge.
However, from a psychiatric standpoint I recommend that psychiatry speak with the patient's sister as she has ongoing concerns regarding his behaviors. Patient's sister will be taking care of him at home and she is worried that he will lash out at
her with aggressive behaviors. I asked Dr. James to call patient's sister to have a discussion before we discharge him.
Updated patient's sister on the phone. All questions answered.
Original Note:
Today's Communication/Plan
-
Await PT input
Assessment / Plan
Assessment / Plan
Gen-awake, alert, oriented, NAD
HEENT-NC, AT, anicteric, clear oral mm
Neck-supple
CV-reg, no M, +S1/S2
Lungs-clear B/L
Abd-soft, NT, ND
Ext-no edema
Musculoskeletal-no cyanosis, clubbing
Skin-warm and dry
Neuro-grossly non-focal
Psych-calm, cooperative
Dementia with agitated behaviors -behaviors are now under good control. No issues. Psychiatry service no longer recommends inpatient psychiatric hospitalization.
Underlying developmental delay and hx of brain injury
HX of Depression
- CT: MODERATE to SEVERE DIFFUSE CEREBELLAR VOLUME LOSS
- metabolic workup otherwise negative
- continue Depakote increased to 250mg TID
- continue Gabapentin - keep same dose
- continue Trazodone
- wean Valium -psychiatry has lowered the dose to 5 mg twice daily, 10 mg at bedtime.
- continue Donepezil HS
- prn Seroquel
- follow QTc
- PT/OT evals - SNF versus home with VN.
Episode of fall in his hospital room today. Not orthostatic. PT to reevaluate. Hopefully with reduction in dose of Valium we can prevent this from reoccurring.
History of stroke -continue aspirin, statin.
Hyperlipidemia -on pravastatin.
Acute on chronic HFpEF -improved.
- with 2+ Edema LE
-Continue oral Lasix.
- Echo shows LVEF 50%, normal RV size and systolic function, moderate TR, no change in LV ejection fraction compared to May echocardiogram.
Hx of bradycardia (with hx of PPM)
Hx of Parkinson's disease
- on Sinemet
Hx of BPH - Flomax
DVT ppx: Eliquis
Code: Full
Dispo -PT to reevaluate today as the plan has changed and case management anticipates home with home health. Patient will be staying with his sister.
Anticipated Discharge: Within 24 hours
Subjective/Interval History
-
Date of Service: July 28, 2024
Patient seen and examined. No complaints.
Objective Data
-
Vital Signs:
Vital Signs
Temp Pulse Resp BP Pulse Ox
97.8 F 83 17 108/64 95
07/28/24 07:23 07/28/24 07:31 07/28/24 07:23 07/28/24 07:31 07/28/24 07:23
I&O
07/27/24 07/28/24 07/29/24
06:59 06:59 06:59
Intake Total 1320 / 1320 1080 / 1080
Output Total 850 / 850 500 / 500
Balance 470 / 470 580 / 580
Review of Systems
-
History Source: Patient
All other systems: Reviewed and negative
[2024-07-28 15:23] VITALS: BP 112/62
[2024-07-28] MEDS: VALIUM 5 MG PO (16:15)
[2024-07-28 16:17] VITALS: BP 109/67; BP 131/74; PULSE 67; O2SAT 97
[2024-07-28] MEDS: SINEMET 10-100 1 TABLET PO ×2 (20:59)
[2024-07-28] MEDS: DESYREL 100 MG PO (21:02)
[2024-07-28] MEDS: FLOMAX 0.4 MG PO (21:02)
[2024-07-28] MEDS: ARICEPT 10 MG PO (21:11)
[2024-07-28 23:33] VITALS: BP 108/69
[2024-07-29] MEDS: TYLENOL 650 MG PO (02:38)
[2024-07-29 07:02] VITALS: BP 98/74
[2024-07-29] MEDS: PROTONIX 40 MG PO (07:57)
[2024-07-29] MEDS: NEURONTIN 100 MG PO (07:58)
[2024-07-29] MEDS: ASPIR LOW (ENTERIC COATED) 81 MG PO (07:58)
[2024-07-29] MEDS: PRAVACHOL 80 MG PO (07:58)
[2024-07-29] MEDS: ELIQUIS 5 MG PO (07:58)
[2024-07-29] MEDS: BENTYL 20 MG PO ×2 (07:58→16:00)
[2024-07-29] MEDS: VALIUM 5 MG PO ×2 (07:58→16:01)
[2024-07-29] MEDS: DEPAKOTE (12 HR RELEASE) 250 MG PO ×2 (07:58→13:11)
[2024-07-29] MEDS: LASIX 20 MG PO (09:28)
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
--- NOTE | 2024-07-29 10:33 | CM ---
Addendum entered by Jaime Ellington 07/29/24 14:55:
Per [facility] nurse case management, pt is approved for 6 initial days inpatient psych level of care at [facility] starting today. COVID test result faxed to [facility].
CM spoke to [facility] liaison and he confirmed that pt is accepted for admission today.
D/C plan: [facility] as scheduled.
Addendum entered by Jaime Ellington 07/29/24 13:49:
CM spoke to [facility] liaison Hussein and he confirmed that they do have a bed available, pt is accepted for admission to [facility] geriatric unit today and 7:00 p.m. garbage pick up man time requested. COVID test requested. MD and RN are aware of
Covid test.
An auth for inpatient psychiatric level of care at [facility] geriatric psychiatric unit initiated from [facility] . Awaiting for an auth.
UC to arrange ambulance transport [facility] with garbage pick up man time 7:00 p.m. PMNC completed, left with UC.
[facility] geriatric psychiatric unit nursing report: [phone]
Discharge instructions fax: [phone].
Original 201 form goes with pt's clinical to [facility]. A copy stays on the chart.
Discharge plan: [facility] inpatient Geriatric unit.
Original Note:
CM following re: discharge planning.
Reviewed pt's chart, met with pt and spoke to pt's sister Jennifer over the phone.
Per CM note a plan is to discharge pt home with VN and sister's support. Pt is aware, expressed his agreement. IMM reviewed, placed on chart, pt has a copy.
CM spoke to pt's sister Jennifer and she stated she has been taking care of her brother for the past 7 years and she has no problem to continue doing so but pt became very aggressive with her in the past 2 weeks prior to admission to and pt;s sister
stated it is very difficult for her to tolerate his behavior. Pt's sister asked to help with improving pt's mood and behavior and she asked whether or not pt can go to [facility]. Pt's sister stated she used to live in [place]. .
CM discussed it with Psychiatrist and she agrees that pt needs to go to inpatient Geriatric hospital to improve mood and behaviors and to adjust psychotropic medications. Psychiatrist note noted - inpatient [facility] hospital level of care
recommended. 201 form completed, signed by pt and MD, placed on chart.
A referral to [facility] made, spoke to ashok Hussein and a referral is under review.
D/C plan: [facility]. Pt will need [employer] auth.
CM will follow to assist pt with discharge to [facility] geriatric unit.
--- NOTE | 2024-07-29 12:07 | W.PN.UPDATE ---
Update Note
Progress Note Update
spoke with [employer] mr ring who is optimistic that patient will be accepted to [facility] unit although this is not a definite. await further developments.
--- NOTE | 2024-07-29 13:14 | W.DS.TRANS ---
DC Summary - Handling Tech
-
Discharge Instructions:
Discharge Diagnosis/Procedures Dementia with agitated behaviors, Parkinson's
disease
Diet Low Cholesterol,Low Fat
Activity As tolerated
Driving Restrictions No driving
Bathing Restrictions None
Instructions:
Stand-Alone Forms:
Changes to Home Medications: No
Discharge Medications:
DC Medications w/original date entered in [employer]
trazodone 100 mg tablet 100 mg PO HS Sleep 09/24/19
dicyclomine 20 mg tablet 20 mg PO TID Gastrointestinal issue 03/08/22
donepezil 10 mg tablet 10 mg PO HS Neurological Condition 07/04/23
gabapentin 100 mg capsule 100 mg PO BID Pain 07/04/23
omeprazole 40 mg capsule,delayed release 40 mg PO BID GERD 07/04/23
pravastatin 80 mg tablet 80 mg PO DAILY High Cholesterol 07/04/23
carbidopa 10 mg-levodopa 100 mg tablet 1 tab PO HS Neurological Condition 12/29/23
mirtazapine 15 mg tablet 15 mg PO HS Mental Health/Anxiety 12/29/23
apixaban 5 mg tablet (Eliquis) 5 mg PO BID Blood clot prevention/tx #60 tabs 01/09/24
aspirin 81 mg tablet,delayed release 81 mg PO DAILY Blood clot prevention/tx #90 tabs 01/09/24
tamsulosin 0.4 mg capsule 0.4 mg PO HS Urinary issue #30 caps 01/09/24
diazepam 5 mg tablet 5 mg PO BID@0800,1600 #0 tabs 07/29/24
diazepam 5 mg tablet 10 mg (2 x 5 mg) PO HS #0 tabs 07/29/24
divalproex 250 mg tablet,delayed release 250 mg PO BID@0800,1400 #0 tabs 07/29/24
divalproex 500 mg tablet,delayed release 500 mg PO DAILY@2000 #0 tabs 07/29/24
furosemide 20 mg tablet 20 mg PO DAILY #0 tabs 07/29/24
quetiapine 25 mg tablet 25 mg PO Q8HPRN PRN agitation #0 tabs 07/29/24
Home Medication Changes
Pending Results: No
[2024-07-29 14:07] LABS: COVID-19 Antigen Negative (Negative)
--- NOTE | 2024-07-29 14:33 | W.PN.HOSP.TC ---
Addendum entered and electronically signed by Everett Blandon DO 07/29/24 15:45:
Suspect dementia related to underlying Parkinson's disease.
Original Note:
Today's Communication/Plan
-
Discharge
Assessment / Plan
Assessment / Plan
Gen-awake, alert, oriented, NAD
HEENT-NC, AT, anicteric, clear oral mm
Neck-supple
CV-reg, no M, +S1/S2
Lungs-clear B/L
Abd-soft, NT, ND
Ext-no edema
Musculoskeletal-no cyanosis, clubbing
Skin-warm and dry
Neuro-grossly non-focal
Psych-calm, cooperative
Dementia with agitated behaviors -behaviors are well-controlled in the hospital.
Underlying developmental delay and hx of brain injury
HX of Depression
- CT: MODERATE to SEVERE DIFFUSE CEREBELLAR VOLUME LOSS
- metabolic workup otherwise negative
- continue Depakote increased to 250mg TID
- continue Gabapentin - keep same dose
- continue Trazodone
- wean Valium -psychiatry has lowered the dose to 5 mg twice daily, 10 mg at bedtime.
- continue Donepezil HS
- prn Seroquel
- follow QTc
- PT/OT evals - SNF versus home with VN.
Episode of fall in his hospital room today. Not orthostatic. PT to reevaluate. Hopefully with reduction in dose of Valium we can prevent this from reoccurring.
History of stroke -continue aspirin, statin.
Hyperlipidemia -on pravastatin.
Acute on chronic HFpEF -improved.
- with 2+ Edema LE
-Continue oral Lasix.
- Echo shows LVEF 50%, normal RV size and systolic function, moderate TR, no change in LV ejection fraction compared to May echocardiogram.
Hx of bradycardia (with hx of PPM)
Hx of Parkinson's disease
- on Sinemet
Hx of BPH - Flomax
DVT ppx: Eliquis
Code: Full
Dispo -medically stable for discharge to geriatric psychiatric unit at [facility] today. COVID testing negative.
Anticipated Discharge: Today
Subjective/Interval History
-
Date of Service: July 29, 2024
Patient seen and examined. No complaints.
Objective Data
-
Vital Signs:
Vital Signs
Temp Pulse Resp BP Pulse Ox
97.7 F 68 17 110/59 97
07/29/24 07:02 07/29/24 07:02 07/29/24 07:02 07/29/24 09:28 07/29/24 07:02
I&O
07/28/24 07/29/24 07/30/24
06:59 06:59 06:59
Intake Total 1080 / 1080 1440 / 1440
Output Total 500 / 500 550 / 550 225 / 225
Balance 580 / 580 890 / 890 -225 / -225
Review of Systems
-
History Source: Patient
All other systems: Reviewed and negative
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
[2024-07-29 15:28] VITALS: BP 105/62
[2024-07-29] MEDS: SEROQUEL 25 MG PO (15:55)
--- NOTE | 2024-07-29 16:05 | W.PN.UPDATE ---
Update Note
Progress Note Update
called to see patient who was upset he was being transferred to 'rehab'. it turns out that he thought he was being sent to the snf he had recently been to and he hates that place. i reassured him he was going [facility]'
and explained that this was necessary if he was to return to sister's house. he said that was 'okay'. patient given 25 mg seroquel prn this afternoon. he can have his valium 5 mg early. will leave another 25 mg seroquel order if needed prior to his
departure.
== END 2024-07-29 19:38 | DRG 56 ==
LOC: 3 WEST ACU 11:21
PROVIDERS: Internal Medicine; Psychiatry & Neurology Psychiatry; ADMITTING PHYSICIAN Student in an Organized Health Care Education/Training Program; ATTENDING PHYSICIAN Hospitalist; CONSULT PHYSICIAN Psychiatry & Neurology Psychiatry; EMERGENCY PHYSICIAN Student in an Organized Health Care Education/Training Program
DX: G20.A1 Parkinson's disease without dyskinesia, without mention of fluctuations (principal); I50.33 Acute on chronic diastolic (congestive) heart failure; F02.811 Dementia in other diseases classified elsewhere, unspecified severity, with agitation; I50.32 Chronic diastolic (congestive) heart failure; I13.0 Hypertensive heart and chronic kidney disease with heart failure and stage 1 through stage 4 chronic kidney disease, or unspecified chronic kidney disease; F13.20 Sedative, hypnotic or anxiolytic dependence, uncomplicated; E27.40 Unspecified adrenocortical insufficiency; Z66 Do not resuscitate; N18.30 Chronic kidney disease, stage 3 unspecified; E78.00 Pure hypercholesterolemia, unspecified; N40.0 Benign prostatic hyperplasia without lower urinary tract symptoms; F81.9 Developmental disorder of scholastic skills, unspecified; T42.4X5A Adverse effect of benzodiazepines, initial encounter; H91.90 Unspecified hearing loss, unspecified ear; K21.9 Gastro-esophageal reflux disease without esophagitis; K58.0 Irritable bowel syndrome with diarrhea; Z79.01 Long term (current) use of anticoagulants; Z79.02 Long term (current) use of antithrombotics/antiplatelets; Z79.899 Other long term (current) drug therapy; Z95.0 Presence of cardiac pacemaker; Z87.891 Personal history of nicotine dependence; Z86.718 Personal history of other venous thrombosis and embolism; Z87.820 Personal history of traumatic brain injury; Z11.52 Encounter for screening for COVID-19
CPT/HCPCS: 70450; 71046; 80048; 80053; 80164; 80306; 80307; 81003; 82140; 82607; 82746; 83735; 84145; 84443; 85025; 85027; 87811; 89055; 93005; 93306; 97116; 97163; 97167; 97530; 97535; 99285

== ENCOUNTER 2024-09-15 07:52 | Emergency (ER) | payer OTHER, SELFPAY ==
[2024-09-15 07:55] VITALS: BP 126/74
[2024-09-15 08:00] VITALS: BP 126/74; BMI 28.2
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
== END 2024-09-15 10:18 | disposition home or self-care (01) ==
LOC: EMR 07:52
PROVIDERS: EMERGENCY PHYSICIAN Emergency Medicine
DX: F32.A Depression, unspecified (principal); F02.A11 Dementia in other diseases classified elsewhere, mild, with agitation; E78.00 Pure hypercholesterolemia, unspecified; I10 Essential (primary) hypertension; Z87.820 Personal history of traumatic brain injury; Z87.891 Personal history of nicotine dependence; Z95.0 Presence of cardiac pacemaker
CPT/HCPCS: 99283

== ENCOUNTER 2024-12-16 21:23 | Emergency (ER) | payer OTHER, SELFPAY ==
[2024-12-16 21:30] VITALS: BP 127/80
[2024-12-16 22:11] VITALS: BMI 29.8
--- NOTE | 2024-12-16 22:35 | ED.GENMED ---
Addendum entered and electronically signed by Everardo Heredia DO 12/17/24 00:22:
Nursing reports that family is unable/willing to pick up worker the patient
Case management has been consulted
Original Note:
History of Present Illness
General
Chief Complaint: Crisis Evaluation
Source: patient
Exam Limitations: dementia
Time Seen by Provider: 12/16/24 21:48
Nursing documentation reviewed up to this point in time: agreed with
History of Present Illness
History of Present Illness:
69-year-old male with dementia brought in after an argument with family apparently made reference to wanting to take some pills when I evaluated patient he denied anything tells me that his hearing aids are clogged with wax patient had previously
been seen by crisis wellness visit cleared for discharge
Past History
Past History
ED Past Medical History: CVA, HTN, Hypercholesterolemia, Psychiatric (Depression, ) and Other (Traumatic brain injury, impaired hearing, irritable bowel syndrome, Slight dementia)
ED Past Surgical History: Bowel resection (Due to bowel obstruction, Colostomy with reversal), Cardiac (Pacemaker) and Orthopedic (Right hand surgery)
Social History
Tobacco: Former smoker
Alcohol: None
Drug: None
Personal: Single
Living: with family (Resides with his sister)
Employment: Not employed
Family History
Family History: Other (Noncontributory)
Review of Systems
Review of Systems
All Other Systems: Not applicable
EENT: Reports other (Difficulty hearing)
Psychiatric: Denies depression or suicidal
Phy Exam
Physical Exam
Physical Exam:
Physical Exam
General: no apparent distress, not acutely ill
Neck: No jaundice
Heart: s1/s2 regular rate and rhythm, no murmur. equal radial pulses.
Lungs: no acute respiratory distress.
Neuro: Hard of hearing nonfocal
Skin: no rash
Psychiatric: Cooperative demented
Extremities: no edema.
Course
Orders/Labs/Results
Orders:
Orders
12/16/24 21:29
Crisis Consult Urgent
Reason for Consult: SI statements
12/16/24 21:45
ED Special Safety Observation ONCE
Observation level: One to Two
Vital Signs
Initial and Last Documented VS:
Initial Vital Signs
Temp Pulse Resp BP Pulse Ox
98.1 F 101 18 127/80 95
12/16/24 21:30 12/16/24 21:30 12/16/24 21:30 12/16/24 21:30 12/16/24 21:30
Last Documented Vital Signs
Temp Pulse Resp BP Pulse Ox
98.1 F 101 18 127/80 95
12/16/24 21:30 12/16/24 21:30 12/16/24 21:30 12/16/24 21:30 12/16/24 22:36
MDM/Problems Addressed
Differential Diagnosis Includes:
Anxiety depression hearing aid issue dementia
MDM/Problems Addressed:
Anxiety clogged hearing aid
Chronic conditions affecting care: Neurological disorder and Psychiatric illness
Acute Exacerbation and/or Progression of Chronic Illness: Neurological disorder and Psychiatric illness
*Pulse Oximetry
SaO2: 95
Oxygen Mode of Delivery: Room air
Patient hypoxic: no
*Critical Care Note
Total Time (30-74mins, 75-104mins- exclusive of procedures): Not Applicable
Update Note
Update Note:
Update patient appears to be mainly concerned about wax on his hearing aid
ED Attending Note
-
Portions of this chart may have been created with voice recognition software.� Occasional wrong word or��sound alike� substitutions may have occurred due to the inherent limitations of voice recognition software.
Discharge Plan
Departure
Patient Disposition: Home (Routine Discharge)
Date of Disposition: 12/16/24
Time of Disposition: 22:38
Patient with high blood pressure during this ER visit?: No
Discharge Problem:
Dementia
Instructions: Dementia - ED discharge instructions
Prescriptions:
No Action
trazodone 100 MG tablet
100 mg PO HS
dicyclomine 20 mg Tablet
20 mg PO TID
donepezil 10 mg tablet
10 mg PO HS
omeprazole 40 mg capsule,delayed release(DR/EC)
40 mg PO BID
pravastatin 80 mg tablet
80 mg PO DAILY
gabapentin 100 mg capsule
100 mg PO BID
carbidopa-levodopa 10-100 mg Tablet
1 tab PO HS
mirtazapine 15 mg Tablet
15 mg PO HS
aspirin 81 MG tablet,delayed release (DR/EC)
81 mg PO DAILY Qty: 90 0RF
tamsulosin 0.4 mg Capsule
0.4 mg PO HS Qty: 30 0RF
Eliquis 5 mg Tablet
5 mg PO BID Qty: 60 0RF
quetiapine 25 mg Tablet
25 mg PO Q8HPRN PRN (Reason: agitation) Qty: 0 0RF
divalproex 250 mg Tablet,Delayed Release (Dr/Ec)
250 mg PO BID@0800,1400 Qty: 0 0RF
divalproex 500 mg Tablet,Delayed Release (Dr/Ec)
500 mg PO DAILY@2000 Qty: 0 0RF
furosemide 20 mg Tablet
20 mg PO DAILY Qty: 0 0RF
diazepam 5 mg Tablet
5 mg PO BID@0800,1600 Qty: 0 0RF
diazepam 5 mg Tablet
10 mg PO HS Qty: 0 0RF
Referrals:
UNKNOWN - PT NOT,INTERVIEWE [Family Provider]
Interventions
Interventions:
*Risk Screen - Suicide Last Done: 12/16/24 21:30
*General Assessment Last Done: 12/16/24 22:11
*Neglect/Abuse Screening Last Done: 12/16/24 21:30
*ED- Fall Risk Assessment Last Done: 12/16/24 22:11
*ED COVID-19 Vaccine History Last Done: 12/16/24 22:11
ED-Psychological Assessment Last Done: 12/16/24 22:14
Discharge Date and Time
Print Language: LATVIAN
--- NOTE | 2024-12-17 08:45 | CM ---
Received CM consult. I spoke to pt, states he lives with his sister Jennifer and his niece Margot lives downstairs. He told me they both drive. Per the aide sitting with the pt family is coming at noon. I spoke to Stephanie RODRIGUEZ RN, who was not aware of
this. She called Crisis and was told by Roxi that family is working on a ride but unsure of what time they will be coming. Stephanie aware CM available if needed.
== END 2024-12-17 10:05 | disposition home or self-care (01) ==
LOC: EMR 21:23
PROVIDERS: EMERGENCY PHYSICIAN Emergency Medicine
DX: F03.93 Unspecified dementia, unspecified severity, with mood disturbance (principal); F03.94 Unspecified dementia, unspecified severity, with anxiety; R45.851 Suicidal ideations; E78.00 Pure hypercholesterolemia, unspecified; F32.A Depression, unspecified; H91.90 Unspecified hearing loss, unspecified ear; I12.9 Hypertensive chronic kidney disease with stage 1 through stage 4 chronic kidney disease, or unspecified chronic kidney disease; N18.9 Chronic kidney disease, unspecified; K58.9 Irritable bowel syndrome, unspecified; Z79.82 Long term (current) use of aspirin; Z95.0 Presence of cardiac pacemaker; Z86.73 Personal history of transient ischemic attack (TIA), and cerebral infarction without residual deficits; Z87.820 Personal history of traumatic brain injury; Z86.74 Personal history of sudden cardiac arrest; Z87.891 Personal history of nicotine dependence; Z98.0 Intestinal bypass and anastomosis status
CPT/HCPCS: 99283

== ENCOUNTER 2024-12-28 16:35 | Emergency (ER) | payer OTHER, SELFPAY ==
[2024-12-28 16:39] VITALS: BP 116/77
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
[2024-12-28] MEDS: SAPHRIS 10 MG SL (19:46)
[2024-12-28] MEDS: ATIVAN 1 MG PO (20:00)
[2024-12-28 22:28] LABS: ALT (SGPT) 22 U/L (0-50); AST (SGOT) 27 U/L (17-59); Albumin 4.2 g/dl (3.5-5.0); Alkaline Phosphatase 52 U/L (38-126); Blood Urea Nitrogen 25 mg/dl (9-20); Calcium 9.2 mg/dl (8.4-10.2); Carbon Dioxide 29 mmol/L (22-30); Chloride 106 mmol/L (98-107); Glucose 112 mg/dl (70-99); Potassium 4.2 mmol/L (3.5-5.1); Sodium 139 mmol/L (135-145); Total Protein 6.6 g/dl (6.3-8.2); eGFR > 60.00
[2024-12-28 22:47] VITALS: BP 104/64
[2024-12-28 22:48] LABS: Hematocrit 42.4 % (39.0-52.0); Hemoglobin 13.9 g/dL (13.0-18.0); Mean Corp Hgb Conc. 32.8 g/dL (33.0-37.0); Mean Corpuscular Volume 89.5 fL (80.0-94.0); Nucleated Red Blood Cells % 0 % (-); Platelet Count 180 10^3/uL (130-400); Red Cell Dist. Width 14.6 % (11.5-14.5)
--- NOTE | 2024-12-28 23:59 | ED.CRISIS ---
ED Crisis Note
ED Crisis Note
Subjective:
Agitated behavior, poor insight, poor judgment, suicidal ideations
Objective:
302
Assessment/Plan:
Patient assessed by me. Patient agitated and expressing suicidal thoughts. Patient threatening to leave. Patient does not seem to have any sense of concern for his wellbeing. 302 upheld by telepsych.
[2024-12-29 02:37] LABS: Urine Character Clear (Clear)
--- NOTE | 2024-12-29 02:43 | DOWNTIME ---
There was a [employer] Analyst Downtime on 12/29/2024 from 0100 to 12/29/2024 at 0235. Downtime documentation of patient's care, including medication administrations, has been reconciled in the electronic record per guidelines. Refer to the
patient's paper chart under the miscellaneous tab to see printed paper medication records and downtime forms.
[2024-12-29 11:52] VITALS: BP 111/84
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
[2024-12-29 16:24] VITALS: BMI 31.3
[2024-12-29] MEDS: PROTONIX 40 MG PO (19:45)
[2024-12-29] MEDS: ELIQUIS 5 MG PO (19:45)
[2024-12-29] MEDS: SEROQUEL 50 MG PO (19:45)
[2024-12-29 19:46] VITALS: BP 108/66
[2024-12-29] MEDS: DEPAKOTE (12 HR RELEASE) 500 MG PO (19:46)
[2024-12-29] MEDS: VALIUM 10 MG PO (21:57)
[2024-12-30 02:00] VITALS: BP 114/71
[2024-12-30] MEDS: PROTONIX 40 MG PO (10:29)
[2024-12-30] MEDS: SEROQUEL 50 MG PO (10:29)
[2024-12-30] MEDS: ELIQUIS 5 MG PO (10:30)
[2024-12-30] MEDS: DEPAKOTE (12 HR RELEASE) 500 MG PO (10:30)
[2024-12-30] MEDS: VALIUM 10 MG PO ×2 (10:30→16:56)
[2024-12-30] MEDS: LIPITOR 40 MG PO (10:30)
[2024-12-30] MEDS: FLOMAX 0.4 MG PO (10:30)
[2024-12-30 10:48] VITALS: BP 129/71
--- NOTE | 2024-12-30 15:58 | W.PN.UPDATE ---
Update Note
Progress Note Update
patient seen chart reviewed. reviewed chart. spoke with patient's sister mrs bang. patient has been generally cooperative. he is taking meds as prescribed. he signed a voluntary and [facility] will be transported
this evening at 7 pm. . spoke to pharmacy who has verified sinemet dose which will be ordered. continue meds as currently.
[2024-12-30 16:56] VITALS: BP 115/74
[2024-12-30] MEDS: SINEMET 10-100 1 TABLET PO (17:39)
== END 2024-12-30 18:01 ==
LOC: EMR 16:35
PROVIDERS: Emergency Medicine; CONSULT PHYSICIAN Psychiatry & Neurology Psychiatry; EMERGENCY PHYSICIAN Emergency Medicine; FAMILY PHYSICIAN Nurse Practitioner Family
DX: R45.851 Suicidal ideations (principal); F03.918 Unspecified dementia, unspecified severity, with other behavioral disturbance; E78.00 Pure hypercholesterolemia, unspecified; I10 Essential (primary) hypertension; Z86.73 Personal history of transient ischemic attack (TIA), and cerebral infarction without residual deficits; Z95.0 Presence of cardiac pacemaker; Z87.891 Personal history of nicotine dependence
CPT/HCPCS: 99285; 80053; 80306; 80307; 81003; 85025; 93005